=== PATIENT | female | born 1960 | race Caucasian/White ===

== ENCOUNTER 2024-08-27 04:17 | Observation (INO) | payer OTHER, SELFPAY ==
[2024-08-27] VITALS (10 sets, daily range): BP systolic 122–138; BP diastolic 60–82; PULSE 96–112; RESP 15–20; TEMP 36.1–38.1; O2SAT 97–100
--- NOTE | ~2024-08-27 | CT_ITS ---
Non-contrast CT scan of the Abdomen and Pelvis Clinical indication: Right flank pain Technique: 2.5 mm axial scans were obtained through the abdomen and pelvis without intravenous or or al contrast. Dose reduction technique was used on this scan by utilizing automated exposure control a nd iterative reconstruction technique. The dose-length product (DLP) was 605.94 mGy-cm. Findings: Images through the lung bases reveal no abnormalities. There are small nonobstructing right renal stones measuring up to 2-3 mm. There is mild prominence of a mid pole calyx. No radha hydronephrosis otherwise. No ureteral stone. Left kidney is markedly atro phic and replaced by innumerable small cysts. Status post cholecystectomy with small amount of pneumobilia. Calcified splenic granulomas are presen t. The liver, pancreas, and adrenals otherwise appear normal. There is no aortic aneurysm. There is no evidence of bowel obstruction. Small fat-containing umbilical hernia. Images through the pelvis were performed. There is no evidence of ascites or lymphadenopathy. Urinary bladder unremarkable. No pelvic mass seen. Impression: Small nonobstructing right renal stones. Mild dilatation of a right midpole calyx, nonspecific. Markedly atrophic left kidney replaced by a small cysts. Small fat-containing umbilical hernia. Reviewed, dictated and finalized at location . Impression: Small nonobstructing right renal stones. Mild dilatation of a right midpole kim yx, nonspecific. Markedly atrophic left kidney replaced by a small cysts. Small fat-containing umbilical hernia.
[2024-08-27 04:41] LABS: Basophils Absolute Auto 0.1 K/mm3 (0.0-0.1); Basophils Percent Auto 0.4 % (0.2-1.2); Eosinophils Absolute Auto 0.1 K/mm3 (0-0.3); Eosinophils Percent Auto 0.3 % (0-4.4); Hemoglobin 11.5 g/dL (12.0-15.0); Immature Granulocyte Absolute 0.13 K/mm3 (0.00-0.031); Immature Granulocyte Percent A 0.7 % (0-0.5); Lymphocytes Absolute Auto 3.24 K/mm3 (0.9-3.2); Lymphocytes Percent Auto 17.3 % (18.3-44.2); Mean Corpuscular HGB Conc 33.8 g/dl (32-36); Mean Corpuscular Hemoglobin 35.5 pg (26-34); Mean Corpuscular Volume 104.9 fl (80-100); Mean Platelet Volume 8.4 fl (7.4-10.4); Monocytes Absolute Auto 2.7 K/mm3 (0.1-0.6); Monocytes Percent Auto 14.5 % (2.6-8.5); Neutrophils Absolute Auto 12.5 K/mm3 (1.3-6.7); Neutrophils Percent Auto 66.8 % (45.5-73.1); Platelet Count Result 360 k/mm3 (150-375); Red Blood Count 3.24 M/mm3 (4.2-5.4); Red Cell Distribution Width 12.9 % (11.5-14.5); White Blood Count 18.7 K/mm3 (4.5-10.0)
--- NOTE | 2024-08-27 04:46 | ED.GENADULT ---
HPI - General Adult General Chief complaint: Urogenital-Female Stated complaint: uti Time Seen by Provider: 08/27/24 04:20 History of Present Illness HPI narrative: patient is 63-year-old female who presents emergency department with chief complaint of right flank pain. Patient reports she has a history of a single kidney patient reports he started having burning with urination as had a fever at home the patient states she is concerned that she may have a kidney infection verses a normal urinary tract infection. The patient was more concerned since she has a single kidney. The patient reports no prior history of kidney stones Related Data Allergies Allergy/AdvReac Type Severity Reaction Status Date / Time adhesive Allergy Unknown RASH Verified 08/27/24 04:23 raspberry Allergy Unknown HIVES Verified 08/27/24 04:23 Review of Systems Review of Systems: A 10 system review of systems was completed on the patient and is negative except for what is stated in the HPI. Nursing and ancillary documentation was reviewed. Exam Narrative: GENERAL: Well-appearing, well-nourished, and in no acute distress. HEAD: Normocephalic, atraumatic. EYES: PERRLA and EOMI. ENT: Nares clear, no rhinorrhea or epistaxis. Mucous membranes moist. NECK: Supple. CHEST: Clear to auscultation. No respiratory distress. HEART: Regular rate and rhythm. No murmur heard. Normal peripheral pulses. ABDOMEN: Soft, nontender, nondistended, normal active bowel sounds. EXTREMITIES: Normal range of motion. No edema. SKIN: Warm, dry, no rash. NEURO: No focal deficits. Alert and oriented x3. PSYCH: Normal mood and affect. Course Vital Signs Vital signs: Vital Signs Temperature 36.3 C L 08/27/24 04:21 Pulse Rate 112 H 08/27/24 04:21 Respiratory Rate 16 08/27/24 04:21 Blood Pressure 122/82 08/27/24 04:21 Pulse Oximetry 100 08/27/24 04:21 Oxygen Delivery Room Air 08/27/24 04:21 Temperature 36.3 C L 08/27/24 04:21 Pulse Rate 104 H 08/27/24 06:08 Respiratory Rate 15 08/27/24 06:08 Blood Pressure 124/80 08/27/24 06:08 Pulse Oximetry 100 08/27/24 06:08 Oxygen Delivery Room Air 08/27/24 04:21 Medical Decision Making MDM Narrative Medical decision making narrative: Differential diagnosis includes pyelonephritis, UTI, ureterolithiasis Laboratory studies were obtained showed white count of 18.7 urinalysis showed evidence of a large urinary tract infection. The patient is tender to palpation in the right flank area and CVA area patient was started on Rocephin case was discussed with the hospitalist the patient admitted for further care Vital Signs Vital Signs: Vital Signs Temperature 36.3 C L 08/27/24 04:21 Pulse Rate 112 H 08/27/24 04:21 Respiratory Rate 16 08/27/24 04:21 Blood Pressure 122/82 08/27/24 04:21 Pulse Oximetry 100 08/27/24 04:21 Oxygen Delivery Room Air 08/27/24 04:21 Temperature 36.3 C L 08/27/24 04:21 Pulse Rate 104 H 08/27/24 06:08 Respiratory Rate 15 08/27/24 06:08 Blood Pressure 124/80 08/27/24 06:08 Pulse Oximetry 100 08/27/24 06:08 Oxygen Delivery Room Air 08/27/24 04:21 Lab Data 08/27/24 04:37 08/27/24 04:37 Labs: Lab Results 08/27/24 08/27/24 Range/Units 04:37 05:24 WBC 18.7 H (4.5-10.0) K/mm3 RBC 3.24 L (4.2-5.4) M/mm3 Hgb 11.5 L (12.0-15.0) g/dL Hct 34.0 L (37.0-47.0) % MCV 104.9 H (80-100) fl MCH 35.5 H (26-34) pg MCHC 33.8 (32-36) g/dl RDW 12.9 (11.5-14.5) % Plt Count 360 (150-375) k/mm3 MPV 8.4 (7.4-10.4) fl Immature Gran % (Auto) 0.7 H (0-0.5) % Neut % (Auto) 66.8 (45.5-73.1) % Lymph % (Auto) 17.3 L (18.3-44.2) % Swisher % (Auto) 14.5 H (2.6-8.5) % Eos % (Auto) 0.3 (0-4.4) % Baso % (Auto) 0.4 (0.2-1.2) % Lymph # (Auto) 3.24 H (0.9-3.2) K/mm3 Swisher # (Auto) 2.7 H (0.1-0.6) K/mm3 Eos # (Auto) 0.1 (0-0.3) K/mm3 Baso #
[2024-08-27 04:53] LABS: Lactic Acid Reflex 0.9 mmol/L (0.7-2.0)
[2024-08-27 04:54] LABS: Alanine Aminotransferase 16 U/L (6-35); Albumin Level 3.9 g/dL (3.5-5.1); Alkaline Phosphatase 62 U/L (38-126); Anion Gap 13 mmol/L (4-12); Aspartate Amino Transferase 27 U/L (14-36); Bilirubin,Total 0.5 mg/dL (0.2-1.3); Blood Urea Nitrogen 16 mg/dL (7-17); Calcium 9.5 mg/dL (8.4-10.2); Carbon Dioxide 18 mmol/L (22-30); Chloride 104 mmol/L (98-107); Estimated CRCL calculation 43 ml/min; Estimated Glomerular Filt Rate 50; Glucose 138 mg/dL (65-110); Potassium 3.5 mmol/L (3.4-5.0); Sodium 135 mmol/L (137-145)
[2024-08-27 05:34] LABS: Add Urine Microscopic? YES; Appearance Urine Turbid (Clear); Bacteria Urine None Seen /hpf; Bilirubin Urine Negative (Negative); Blood Urine Non-Hemolyzed Trace (Negative); Color Urine Dark Yellow (Yellow); Glucose Urine UA Negative (Negative); Ketones Urine 3+ mg/dL (Negative); Leukocyte Esterase Ur 3+ LEU/UL (Negative); Nitrate Urine Negative (Negative); Non Pathogenic Casts 0-2; Protein Urine 2+ mg/dL (Negative); RBC Urine 0-2 /hpf (0-2); Specific Grav Ur 1.012 (1.001-1.035); Squamous Epithelial Cell Urine None Seen /hpf (Few); Urobilinogen Urine 0.2 mg/dL (<2.0); WBC Urine >100 /hpf (0-3); pH Urine 6.5 (5.0-9.0)
--- NOTE | 2024-08-27 07:25 | ADMGEN ---
This patient, Joan Gill, was admitted to 2 Medical Room 254-01. Patient/family oriented to hospital policies and general routines including ID bracelet, bed and alarms, visiting hours, pain management, procedures, bathroom and other care routines, personal items, smoking policy, room service/diet, and visiting hours. Information on how to activate the Rapid Response Team has been discussed. Patient/Family are encouraged to report perceived risks to care and to ask questions if they do not understand what they are told or what they should do.
--- NOTE | 2024-08-27 08:16 | PM.IMHP ---
H&P: HPI History of Present Illness Date/Time: 08/27/24 08:16 Chief Complaint: Cloudy urine, urinary frequency, dysuria Narrative: This is a pleasant 63-year-old female with a past medical history significant for gout, hyperlipidemia, hypertension, and diabetes Who presented to the emergency room with complaints of dysuria and cloudy urine. She feels she has a urinary tract infection. The patient provides the following history. Earlier this week she started to notice burning with urination, cloudy urine, and right flank pain. She reports having a fever of 102 which did not improve with Tylenol. She has also had general malaise. Today she is seen after being admitted to medical-surgical floor and is eating lunch. Already she is starting to feel better. She does report 1 episode of nausea without vomiting occurring last night. The patient has had urinary tract infections before and essentially only has 1 working kidney so she came to the hospital anticipating IV antibiotics. In the emergency room labs were significant for leukocytosis 18.7 hemoglobin 11.5 sodium 135, CO2 18, anion gap 13, and creatinine 1.10. Lactic acid was normal. Urinalysis was indicative of infection with turbid dark urine, 2+ protein, 3+ ketone, 3+ leukocytes, and pyuria. Urine and blood cultures are pending. CT abdomen and pelvis showed small nonobstructing right renal stone, atrophic left kidney with small cyst, and small fat containing umbilical hernia. Vital signs on arrival 97.4, pulse 112, 122/82, and 100% on room air, respirations 16. The patient was admitted for observation for treatment of urinary tract infection and pyelonephritis. 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 She lives at home with her significant other Lexx merrill. Her son Lexx crawford is her emergency contact. She does not smoke nor has she ever and she does not drink alcohol. She also denies drug use. Smoking status: Never smoker Alcohol intake: never Substance use: never Do You Feel Safe in your Home?: Yes Lack of Transportation: No Lack of Food: Never True Current Housing: I Have Housing Concerned About Future Housing: No Difficulty Paying Gas/Electric Bills: No Difficulty Paying for Meds: No Currently Unemployed: No Education: High School Diploma/GED Difficulty w/ Childcare or Family Care: No Living arrangements: with family Occupation/Education: occupation Spiritual care concerns: No Meds Home Medications and Allergies Home Medications Medication Instructions Recorded Confirmed Type allopurinol 100 mg tablet 100 mg BID 08/27/24 08/27/24 History atorvastatin 10 mg tablet 10 mg PO DAILY 08/27/24 08/27/24 History calcitriol 0.5 mcg capsule 0.5 mcg BID 08/27/24 08/27/24 History diltiazem malate 180 mg 180 mg PO DAILY 08/27/24 08/27/24 History tablet,extended release 24 hr fesoterodine 4 mg tablet,extended 4 mg PO DAILY 08/27/24 08/27/24 History release 24 hr folic acid 1 mg tablet 1 mg DAILY 08/27/24 08/27/24 History losartan 25 mg tablet 25 mg PO DAILY 08/27/24 08/27/24 History metformin 500 mg tablet 500 mg PO DAILY 08/27/24 08/27/24 History montelukast 10 mg tablet 10 mg PO HS 08/27/24 08/27/24 History prednisone 5 mg tablet 5 mg PO DIRECT
--- NOTE | 2024-08-27 08:21 | ECG_ITS ---
Test Date: 2024-08-27 08:51:56 Measurements Intervals [place] Rate: 105 P: 55 UT: 171 QRS: 4 QRSD: 84 T: 20 QT: 340 QTc: 451 Interpretive Statements SINUS TACHYCARDIA LOW QRS VOLTAGE IN PRECORDIAL LEADS [QRS DEFLECTION < 1.0 mV IN CHEST LEADS] SEPTAL MYOCARDIAL INFARCTION [40+ ms Q WAVE IN V1/V2], PROBABLY OLD No previous ECG available for comparison Electronically Signed On 08-27-2024 10:42:21 CDT by Tone Sears M.D.
[2024-08-27] MEDS: dilTIAZem HCL CD 180 MG CAP.24HR PO (09:25)
[2024-08-27] MEDS: FOLIC ACID 1 MG TABLET PO (09:25)
[2024-08-27] MEDS: sulfaSALAzine 500 MG TABLET PO ×2 (09:25→16:05)
[2024-08-27] MEDS: ATORVASTATIN 10 MG TABLET PO (09:25)
[2024-08-27] MEDS: allopurinoL 100 MG TABLET PO ×2 (09:25→16:05)
[2024-08-27] MEDS: ENOXAPARIN 40 MG/0.4 ML SYRINGE SUB-Q (09:26)
[2024-08-27] MEDS: SODIUM CHLORIDE 0.9% IV 1,000 ML 50 ML IV CONT (09:36)
[2024-08-27] MEDS: SODIUM CHLORIDE 0.9% IV 500 ML IV CONT (09:37)
[2024-08-27] MEDS: PHENAZOPYRIDINE HCL 100 MG TABLET 200 MG PO ×2 (11:10→16:05)
[2024-08-27] MEDS: ACETAMINOPHEN 500 MG TABLET PO (16:05)
[2024-08-27 20:49] LABS: Glucose Point of Care 129 mg/dl (65-105)
[2024-08-27] MEDS: MONTELUKAST SODIUM 10 MG TABLET PO (20:53)
[2024-08-28] MEDS: SODIUM CHLORIDE 0.9% IV 1,000 ML 100 ML IV CONT (00:10)
[2024-08-28 03:49] VITALS: BP 126/68; PULSE 99; RESP 18; TEMP 36.5; O2SAT 99
[2024-08-28 05:16] LABS: Basophils Absolute Auto 0.1 K/mm3 (0.0-0.1); Basophils Percent Auto 0.4 % (0.2-1.2); Eosinophils Absolute Auto 0.2 K/mm3 (0-0.3); Eosinophils Percent Auto 1.5 % (0-4.4); Hematocrit 31.6 % (37.0-47.0); Hemoglobin 10.5 g/dL (12.0-15.0); Immature Granulocyte Absolute 0.05 K/mm3 (0.00-0.031); Immature Granulocyte Percent A 0.4 % (0-0.5); Lymphocytes Absolute Auto 2.53 K/mm3 (0.9-3.2); Lymphocytes Percent Auto 21.7 % (18.3-44.2); Mean Corpuscular HGB Conc 33.2 g/dl (32-36); Mean Corpuscular Hemoglobin 35.2 pg (26-34); Mean Platelet Volume 8.4 fl (7.4-10.4); Monocytes Percent Auto 17.3 % (2.6-8.5); Neutrophils Absolute Auto 6.8 K/mm3 (1.3-6.7); Neutrophils Percent Auto 58.7 % (45.5-73.1); Platelet Count Result 317 k/mm3 (150-375); Red Blood Count 2.98 M/mm3 (4.2-5.4); Red Cell Distribution Width 12.9 % (11.5-14.5); White Blood Count 11.7 K/mm3 (4.5-10.0)
[2024-08-28] MEDS: ACETAMINOPHEN 500 MG TABLET PO ×3 (05:17→20:31)
[2024-08-28] MEDS: traMADol HCL (*CRX) 50 MG TABLET PO ×3 (05:18→20:32)
[2024-08-28 05:32] LABS: Alanine Aminotransferase 12 U/L (6-35); Albumin Level 3.4 g/dL (3.5-5.1); Alkaline Phosphatase 54 U/L (38-126); Anion Gap 8 mmol/L (4-12); Aspartate Amino Transferase 20 U/L (14-36); Bilirubin,Total 0.3 mg/dL (0.2-1.3); Blood Urea Nitrogen 11 mg/dL (7-17); Calcium 8.6 mg/dL (8.4-10.2); Carbon Dioxide 21 mmol/L (22-30); Chloride 110 mmol/L (98-107); Estimated CRCL calculation 59 ml/min; Estimated Glomerular Filt Rate > 60; Glucose 118 mg/dL (65-110); Magnesium 1.5 mg/dL (1.6-2.3); Potassium 3.5 mmol/L (3.4-5.0); Sodium 139 mmol/L (137-145)
[2024-08-28 05:49] LABS: Anisocytosis 1+; Macrocytosis 1+ (NORMAL); Platelet Estimate Adequate (Adequate); Schistocytes None Seen
--- NOTE | 2024-08-28 07:14 | PM.IMPN ---
Progress Note: A&P Assessment and Plan (1) Pyelonephritis: Code(s): N12 - Tubulo-interstitial nephritis, not specified as acute or chronic Status: Acute Assessment and Plan: Patient with right flank tenderness and urinary tract infection. See remainder of plan under 2 (2) Urinary tract infection: Code(s): N39.0 - Urinary tract infection, site not specified Status: Acute Assessment and Plan: Patient presents with symptoms of dysuria, urinary frequency, and cloudy urine. Symptoms started on Friday. Leukocytosis of 18 on arrival with tachycardia. Patient is afebrile and lactic is negative. Urine and blood cultures pending Started on Rocephin Daily CBC. WBC is down trending Monitor for febrile illness. Repeat blood cultures if febrile. Tylenol for fever IV bolus 1 L NS now and started on maintenance fluids at 100 ml per hour. Tolerating a regular diet. Will stop fluids today. Regular diet (3) Tachycardia: Code(s): R00.0 - Tachycardia, unspecified Status: Acute Assessment and Plan: Likely secondary to infection EKG ordered. Shows sinus tach. Resuming Cardizem (4) Diabetes: Code(s): E11.9 - Type 2 diabetes mellitus without complications Status: Acute Assessment and Plan: Patient reports her hemoglobin A1c is less than 6%. Takes metformin at home. Hold metformin Monitor glucose on BMP Regular diet Subjective Date/time seen: 08/28/24 07:14 Interval history: No acute events overnight. Her right flank tenderness is improving. She is tolerating a diet. Overall she continues to feel better. Review of Systems Review of Systems: All systems reviewed & are unremarkable except as noted in HPI and below Exam Narrative: General: appears comfortable, in no acute distress Respiratory: breathing is unlabored with even chest rise/fall, lungs are clear without wheezing, rhonchi, and crackles Cardiovascular: Rate and rhythm regular, normal s1s2, no murmur Abdomen: Soft, round, non-tender, active bowel sounds; less right flank tenderness Extremities: No cyanosis, edema, clubbing. Pulses 2/2 Neuro: A&O x 4 Skin: Warm, dry, intact Objective Data Vital Signs Vital Signs: Vital Signs - 24 hr 08/27/24 16:05 08/27/24 14:00 08/27/24 17:00 Temperature 100.5 F H 100.5 F H 96.9 F L Pulse Rate 100 Respiratory Rate 20 Blood Pressure 138/69 Pulse Oximetry 100 Oxygen Delivery 08/27/24 17:05 08/27/24 19:46 08/27/24 19:58 Temperature 96.9 F L 97.7 F Pulse Rate 96 96 Respiratory Rate 20 20 Blood Pressure 129/60 Pulse Oximetry 99 99 Oxygen Delivery Room Air 08/28/24 03:49 08/27/24 20:55 Temperature 97.7 F Pulse Rate 99 Respiratory Rate 18 Blood Pressure 126/68 Pulse Oximetry 99 99 Oxygen Delivery Room Air Intake/Output Intake/Output: Intake & Output 08/25/24 08/26/24 08/27/24 08/28/24 23:59 23:59 23:59 23:59 Intake Total 3110.0 490 Balance 3110.0 490 Meds/Results Medications: Active Medications Generic Name Dose Route Start Last Admin Trade Name Freq PRN Reason Stop Dose Admin Acetaminophen 500 mg 08/27/24 08:24 08/28/24 05:17 Acetaminophen 500 Mg Tablet PO 500 mg Q4H PRN Administration Mild Pain (1-3) or Fever Allopurinol 100 mg 08/27/24 09:00 08/27/24 16:05 Allopurinol 100 Mg Tablet PO 100 mg BID CATHERINE Administration Atorvastatin Calcium 10 mg 08/27/24 09:00 08/27/24 09:25 Atorvastatin 10 Mg Tablet PO 10 mg DAILY CATHERINE Administration Diltiazem HCl 180 mg 08/27/24 09:00 08/27/24 09:25 Diltiazem Hcl Cd 180 Mg Cap.24hr PO 180 mg QAM CATHERINE Administration Enoxaparin Sodium 40 mg 08/27/24 09:00 08/27/24 09:26 Enoxaparin 40 Mg/0.4 Ml Syringe SUB-Q 40 mg DAILY CATHERINE Administration Folic Acid 1 mg 08/27/24 09:00 08/27/24 09:25 Folic Acid 1 Mg Tablet PO 1 mg DAILY CATHERINE Administration Ceftriaxone Sodium
[2024-08-28 08:01] LABS: Glucose Point of Care 128 mg/dl (65-105)
[2024-08-28] MEDS: PHENAZOPYRIDINE HCL 100 MG TABLET 200 MG PO ×3 (08:27→16:54)
[2024-08-28] MEDS: FOLIC ACID 1 MG TABLET PO (08:27)
[2024-08-28] MEDS: dilTIAZem HCL CD 180 MG CAP.24HR PO (08:27)
[2024-08-28] MEDS: sulfaSALAzine 500 MG TABLET PO ×2 (08:27→16:54)
[2024-08-28] MEDS: MAGNESIUM OXIDE 400 MG TABLET PO (08:27)
[2024-08-28] MEDS: allopurinoL 100 MG TABLET PO ×2 (08:27→16:54)
[2024-08-28] MEDS: ATORVASTATIN 10 MG TABLET PO (08:27)
[2024-08-28] MEDS: ENOXAPARIN 40 MG/0.4 ML SYRINGE SUB-Q (08:27)
[2024-08-28 11:58] LABS: Glucose Point of Care 120 mg/dl (65-105)
[2024-08-28 14:00] VITALS: BP 130/60; PULSE 105; RESP 18; TEMP 36.6; O2SAT 97
[2024-08-28 16:56] LABS: Glucose Point of Care 115 mg/dl (65-105)
[2024-08-28 20:21] LABS: Glucose Point of Care 175 mg/dl (65-105)
[2024-08-28] MEDS: MONTELUKAST SODIUM 10 MG TABLET PO (20:31)
[2024-08-28 21:09] VITALS: O2SAT 98
[2024-08-28 22:00] VITALS: BP 144/80; PULSE 98; RESP 18; TEMP 36.7; O2SAT 98
[2024-08-29] MEDS: ONDANSETRON INJ 4 MG/2 ML VIAL IV PUSH ×2 (03:06→09:10)
[2024-08-29] MEDS: ACETAMINOPHEN 500 MG TABLET PO ×2 (03:28→08:14)
[2024-08-29 05:06] LABS: Basophils Absolute Auto 0.1 K/mm3 (0.0-0.1); Basophils Percent Auto 0.8 % (0.2-1.2); Eosinophils Absolute Auto 0.2 K/mm3 (0-0.3); Eosinophils Percent Auto 2.6 % (0-4.4); Hematocrit 34.1 % (37.0-47.0); Hemoglobin 10.9 g/dL (12.0-15.0); Immature Granulocyte Absolute 0.05 K/mm3 (0.00-0.031); Immature Granulocyte Percent A 0.6 % (0-0.5); Lymphocytes Absolute Auto 2.31 K/mm3 (0.9-3.2); Lymphocytes Percent Auto 26.9 % (18.3-44.2); Mean Corpuscular Hemoglobin 34.5 pg (26-34); Mean Corpuscular Volume 107.9 fl (80-100); Mean Platelet Volume 8.4 fl (7.4-10.4); Monocytes Absolute Auto 1.2 K/mm3 (0.1-0.6); Monocytes Percent Auto 14.3 % (2.6-8.5); Neutrophils Absolute Auto 4.7 K/mm3 (1.3-6.7); Neutrophils Percent Auto 54.8 % (45.5-73.1); Platelet Count Result 339 k/mm3 (150-375); Red Blood Count 3.16 M/mm3 (4.2-5.4); Red Cell Distribution Width 12.7 % (11.5-14.5); White Blood Count 8.6 K/mm3 (4.5-10.0)
[2024-08-29 05:22] LABS: Alanine Aminotransferase 12 U/L (6-35); Albumin Level 3.5 g/dL (3.5-5.1); Alkaline Phosphatase 50 U/L (38-126); Anion Gap 8 mmol/L (4-12); Aspartate Amino Transferase 20 U/L (14-36); Bilirubin,Total 0.3 mg/dL (0.2-1.3); Blood Urea Nitrogen 9 mg/dL (7-17); Calcium 8.8 mg/dL (8.4-10.2); Carbon Dioxide 24 mmol/L (22-30); Chloride 109 mmol/L (98-107); Estimated CRCL calculation 58 ml/min; Estimated Glomerular Filt Rate > 60; Glucose 144 mg/dL (65-110); Magnesium 1.8 mg/dL (1.6-2.3); Potassium 3.7 mmol/L (3.4-5.0); Sodium 141 mmol/L (137-145)
[2024-08-29 06:00] VITALS: BP 121/62; PULSE 93; RESP 18; TEMP 36.5; O2SAT 97
--- NOTE | 2024-08-29 07:17 | PM.IMPN ---
Progress Note: A&P Assessment and Plan (1) Pyelonephritis: Code(s): N12 - Tubulo-interstitial nephritis, not specified as acute or chronic Status: Acute Assessment and Plan: Patient with right flank tenderness and urinary tract infection. See remainder of plan under 2 (2) Urinary tract infection: Code(s): N39.0 - Urinary tract infection, site not specified Status: Acute Assessment and Plan: Patient presents with symptoms of dysuria, urinary frequency, and cloudy urine. Symptoms started on Friday. Leukocytosis of 18 on arrival with tachycardia. Patient is afebrile and lactic is negative. Urine culture is growing gram negative bacilli and blood cultures with NGTD Started on Rocephin Daily CBC. Leukocytosis has resolved. Monitor for febrile illness. Repeat blood cultures if febrile. Tylenol for fever Regular diet (3) Tachycardia: Code(s): R00.0 - Tachycardia, unspecified Status: Acute Assessment and Plan: Likely secondary to infection EKG ordered. Shows sinus tach. Resuming Cardizem (4) Diabetes: Code(s): E11.9 - Type 2 diabetes mellitus without complications Status: Acute Assessment and Plan: Patient reports her hemoglobin A1c is less than 6%. Takes metformin at home. Hold metformin Monitor glucose on BMP Regular diet Subjective Date/time seen: 08/29/24 07:17 Review of Systems Review of Systems: All systems reviewed & are unremarkable except as noted in HPI and below Exam Narrative: General: appears comfortable, in no acute distress Respiratory: breathing is unlabored with even chest rise/fall, lungs are clear without wheezing, rhonchi, and crackles Cardiovascular: Rate and rhythm regular, normal s1s2, no murmur Abdomen: Soft, round, non-tender, active bowel sounds; less right flank tenderness Extremities: No cyanosis, edema, clubbing. Pulses 2/2 Neuro: A&O x 4 Skin: Warm, dry, intact Objective Data Vital Signs Vital Signs: Vital Signs - 24 hr 08/28/24 14:00 08/28/24 22:00 08/28/24 20:00 Temperature 98 F 98.0 F Pulse Rate 105 H 98 Respiratory Rate 18 18 Blood Pressure 130/60 144/80 H Pulse Oximetry 97 98 Oxygen Delivery Room Air 08/28/24 21:09 08/29/24 06:00 Temperature 97.7 F Pulse Rate 93 Respiratory Rate 18 Blood Pressure 121/62 Pulse Oximetry 98 97 Oxygen Delivery Room Air Intake/Output Intake/Output: Intake & Output 08/26/24 08/27/24 08/28/24 08/29/24 23:59 23:59 23:59 23:59 Intake Total 3110.0 2196.7 Balance 3110.0 2196.7 Meds/Results Medications: Active Medications Generic Name Dose Route Start Last Admin Trade Name Freq PRN Reason Stop Dose Admin Acetaminophen 500 mg 08/27/24 08:24 08/29/24 03:28 Acetaminophen 500 Mg Tablet PO 500 mg Q4H PRN Administration Mild Pain (1-3) or Fever Allopurinol 100 mg 08/27/24 09:00 08/28/24 16:54 Allopurinol 100 Mg Tablet PO 100 mg BID CATHERINE Administration Atorvastatin Calcium 10 mg 08/27/24 09:00 08/28/24 08:27 Atorvastatin 10 Mg Tablet PO 10 mg DAILY CATHERINE Administration Diltiazem HCl 180 mg 08/27/24 09:00 08/28/24 08:27 Diltiazem Hcl Cd 180 Mg Cap.24hr PO 180 mg QAM CATHERINE Administration Enoxaparin Sodium 40 mg 08/27/24 09:00 08/28/24 08:27 Enoxaparin 40 Mg/0.4 Ml Syringe SUB-Q 40 mg DAILY CATHERINE Administration Folic Acid 1 mg 08/27/24 09:00 08/28/24 08:27 Folic Acid 1 Mg Tablet PO 1 mg DAILY CATHERINE Administration Ceftriaxone Sodium 1 gm in 50 mls @ 100 mls/hr 08/28/24 06:00 08/29/24 05:59 Rocephin 1 Gm/Ns 50 Ml IVPB 100 mls/hr Q24H CATHERINE Administration Magnesium Oxide 400 mg 08/28/24 09:00 08/28/24 08:27 Magnesium Oxide 400 Mg Tablet PO 400 mg DAILY CATHERINE Administration Montelukast Sodium 10 mg 08/27/24 21:00 08/28/24 20:31 Montelukast Sodium 10 Mg Tablet PO 10 mg HS CATHERINE Administration Ondansetron HCl 4 mg 1
[2024-08-29 07:18] VITALS: O2SAT 98
[2024-08-29 08:02] LABS: Glucose Point of Care 125 mg/dl (65-105)
[2024-08-29] MEDS: sulfaSALAzine 500 MG TABLET PO (08:13)
[2024-08-29] MEDS: MAGNESIUM OXIDE 400 MG TABLET PO (08:13)
[2024-08-29] MEDS: allopurinoL 100 MG TABLET PO (08:13)
[2024-08-29] MEDS: PHENAZOPYRIDINE HCL 100 MG TABLET 200 MG PO ×2 (08:13→12:52)
[2024-08-29] MEDS: ATORVASTATIN 10 MG TABLET PO (08:13)
[2024-08-29] MEDS: FOLIC ACID 1 MG TABLET PO (08:13)
[2024-08-29] MEDS: ENOXAPARIN 40 MG/0.4 ML SYRINGE SUB-Q (08:13)
[2024-08-29] MEDS: dilTIAZem HCL CD 180 MG CAP.24HR PO (08:13)
--- NOTE | 2024-08-29 10:40 | PM.DS ---
DS: Admitting Diagnosis Discharge Date 08/29 Admitting Diagnosis dysuria DS: Discharge Diagnosis Discharge Diagnosis (1) Pyelonephritis: Code(s): N12 - Tubulo-interstitial nephritis, not specified as acute or chronic Status: Acute (2) Urinary tract infection: Code(s): N39.0 - Urinary tract infection, site not specified Status: Acute (3) Tachycardia: Code(s): R00.0 - Tachycardia, unspecified Status: Acute (4) Diabetes: Code(s): E11.9 - Type 2 diabetes mellitus without complications Status: Acute Plan (1) Pyelonephritis: Code(s): N12 - Tubulo-interstitial nephritis, not specified as acute or chronic Status: Acute Assessment and Plan: Patient with right flank tenderness and urinary tract infection. See remainder of plan under 2 (2) Urinary tract infection: Code(s): N39.0 - Urinary tract infection, site not specified Status: Acute Assessment and Plan: Patient presents with symptoms of dysuria, urinary frequency, and cloudy urine. Symptoms started on Friday. Leukocytosis of 18 on arrival with tachycardia. Patient is afebrile and lactic is negative. Urine and blood cultures pending Started on Rocephin Daily CBC. WBC is down trending Monitor for febrile illness. Repeat blood cultures if febrile. Tylenol for fever IV bolus 1 L NS now and started on maintenance fluids at 100 ml per hour. Tolerating a regular diet. Will stop fluids today. Regular diet (3) Tachycardia: Code(s): R00.0 - Tachycardia, unspecified Status: Acute Assessment and Plan: Likely secondary to infection EKG ordered. Shows sinus tach. Resuming Cardizem (4) Diabetes: Code(s): E11.9 - Type 2 diabetes mellitus without complications Status: Acute Assessment and Plan: Patient reports her hemoglobin A1c is less than 6%. Takes metformin at home. Hold metformin Monitor glucose on BMP Regular diet DS: Summary Hospital Course Reason for hospitalization: Urinary tract infection, pyelonephritis Hospital Course: This is a pleasant 63-year-old female with a past medical history significant for gout, hyperlipidemia, hypertension, and diabetes Who presented to the emergency room with complaints of dysuria and cloudy urine. She feels she has a urinary tract infection. The patient provides the following history. Earlier this week she started to notice burning with urination, cloudy urine, and right flank pain. She reports having a fever of 102 which did not improve with Tylenol. She has also had general malaise. Today she is seen after being admitted to medical-surgical floor and is eating lunch. Already she is starting to feel better. She does report 1 episode of nausea without vomiting occurring last night. The patient has had urinary tract infections before and essentially only has 1 working kidney so she came to the hospital anticipating IV antibiotics. In the emergency room labs were significant for leukocytosis 18.7 hemoglobin 11.5 sodium 135, CO2 18, anion gap 13, and creatinine 1.10. Lactic acid was normal. Urinalysis was indicative of infection with turbid dark urine, 2+ protein, 3+ ketone, 3+ leukocytes, and pyuria. Urine and blood cultures are pending. CT abdomen and pelvis showed small nonobstructing right renal stone, atrophic left kidney with small cyst, and small fat containing umbilical hernia. Vital signs on arrival 97.4, pulse 112, 122/82, and 100% on room air, respirations 16. The patient was admitted for observation for treatment of urinary tract infection and pyelonephritis. The patient was treated with IV Rocephin. Her leukocytosis resolved as well as her symptoms of dysuria, right flank pain, nausea and vomiting. Urine culture grew Klebsiella pneumoniae sensitive to Augmentin. She is tolerating a diet vital signs are stable. Overall she did well was able to discharge in stable condition with oral ant
[2024-08-29] MEDS: ACETAMINOPHEN/BUTALBITAL/CAFFEINE 325-50-40 MG TABLET (FIORICET) 1 TAB PO (10:46)
== END 2024-08-29 13:51 | disposition home or self-care (01) ==
LOC: ANHED 06:43 → ANH2MED 16:08
PROVIDERS: Nurse Practitioner Acute Care; Admitting Provider Internal Medicine; Emergency Provider Emergency Medicine; PCP Internal Medicine; Visit Provider Internal Medicine
DX: N12 Tubulo-interstitial nephritis, not specified as acute or chronic (principal); N39.0 Urinary tract infection, site not specified; B96.1 Klebsiella pneumoniae [K. pneumoniae] as the cause of diseases classified elsewhere; R00.0 Tachycardia, unspecified; E11.9 Type 2 diabetes mellitus without complications; D72.829 Elevated white blood cell count, unspecified; I10 Essential (primary) hypertension; E78.5 Hyperlipidemia, unspecified; M10.9 Gout, unspecified; L40.50 Arthropathic psoriasis, unspecified; Q63.9 Congenital malformation of kidney, unspecified; Z90.5 Acquired absence of kidney; Z79.899 Other long term (current) drug therapy
CPT/HCPCS: 36415; 74176; 80053; 81001; 82948; 83605; 83735; 85025; 87040; 87077; 87086; 87186; 93005; 96361; 96365; 96372; 96374; 96376; 99285; A9270; G0378; J0696; J1650; J2405; J7030; J7040

== ENCOUNTER 2024-11-12 14:24 | Emergency (ER) | payer OTHER, SELFPAY ==
--- NOTE | ~2024-11-12 | CT_ITS ---
EXAMINATION: CT brain wo con DATE: 11/12/2024 15:13 INDICATION: Head injury. Fall. TECHNIQUE: Computed tomography (CT) of the head was performed without intravenous contrast. The mA wa s adjusted according to patient size. Iterative reconstruction technique was employed. The dose-lengt h product was 529.67 mGy-cm. COMPARISON: None FINDINGS: There is an acute subdural hematoma overlying the left frontal and temporal lobes with maxi mum thickness of 6 mm. There is an empty sella. There is no acute ischemic infarct or abnormal mass l esion. The ventricles are normal in size. There is right posterior scalp soft tissue swelling. There is mild mucosal thickening in the ethmoid sinuses. There is a small left mastoid effusion. IMPRESSION: 1. Acute subdural hematoma overlying left frontal and temporal lobes. I called this result to Dr. Tomás navarro. Reviewed, dictated and finalized at location A. ESSING CLERK IMPRESSION: 1. Acute subdural hematoma overlying left frontal and temporal lobes. I called this result to Dr. Gil.
--- NOTE | ~2024-11-12 | CT_ITS ---
EXAMINATION: CT cervical spine wo con DATE: 11/12/2024 15:14 INDICATION: Neck injury. Fall. TECHNIQUE: Computed tomography (CT) of the cervical spine was performed without intravenous contrast. Automated exposure control and iterative reconstruction technique were employed. The dose-length pro duct was 264.19 mGy-cm. COMPARISON: None FINDINGS: There is a 13 mm nodule in left thyroid lobe, likely not clinically significant. C1 ring is ununited posteriorly, a normal variant. There is mild kyphosis of cervical spine. Vertebral body hei ghts are normal. There is severely decreased disc height at C5-C6 and C6-C7. The following disc level s are specifically discussed: C2-C3: There is no uncovertebral joint osteoarthritis. There is mild right and severe left facet join t osteoarthritis. There is mild left neural foraminal stenosis. There is no central canal stenosis. C3-C4: There is mild right uncovertebral joint osteoarthritis. There is severe right and moderate lef t facet joint osteoarthritis. There is mild right neural foraminal stenosis. There is no central neo l stenosis. C4-C5: There is no uncovertebral joint osteoarthritis. There is mild right facet joint osteoarthritis . There is mild bilateral neural foraminal stenosis. There is no central canal stenosis. C5-C6: There is severe bilateral uncovertebral joint osteoarthritis. There is mild right and moderate left facet joint osteoarthritis. There is mild bilateral neural foraminal stenosis. There is moderat e central canal stenosis. C6-C7: There is severe bilateral uncovertebral joint osteoarthritis. There is mild right and moderate left facet joint osteoarthritis. There is mild bilateral neural foraminal stenosis. There is moderat e central canal stenosis. C7-T1: There is no uncovertebral joint osteoarthritis. There is mild bilateral facet joint osteoarthr itis. There is no neural foraminal stenosis. There is no central canal stenosis. IMPRESSION: 1. No fracture. 2. Severe cervical spondylosis. Reviewed, dictated and finalized at location A. TH AIDE
[2024-11-12 14:27] VITALS: BP 148/86; PULSE 109; RESP 20; TEMP 36.4; O2SAT 100
[2024-11-12 15:01] VITALS: BP 139/83; PULSE 96; RESP 16; O2SAT 99
--- NOTE | 2024-11-12 15:29 | ED.FALL ---
HPI - Fall General Chief Complaint: Fall Stated Complaint: fell/head lac Time Seen by Provider: 11/12/24 14:55 History of Present Illness HPI Narrative: Patient is a 64-year-old female who presents ER after a fall. She got out of her car and stepped in a pothole and fell backwards striking her head. No LOC but she does have a break in skin. Since the fall she has been feeling lightheaded/dizzy and she also reports that her hearing is muffled but she is able to communicate with me. She was trying out some new hearing aids today but reports that her hearing now is worse than when she did not have hearing aids. Tetanus shot updated last year. Related Data Home Medications ?Medication ?Instructions ?Recorded ?Confirmed ?Last Taken ?Type allopurinol 100 mg tablet 100 mg BID 08/27/24 08/27/24 1 Day Ago History ~08/26/24 atorvastatin 10 mg tablet 10 mg PO DAILY 08/27/24 08/27/24 1 Day Ago History ~08/26/24 calcitriol 0.5 mcg capsule 0.5 mcg BID 08/27/24 08/27/24 1 Day Ago History ~08/26/24 diltiazem malate 180 mg 180 mg PO DAILY 08/27/24 08/27/24 1 Day Ago History tablet,extended release 24 hr ~08/26/24 fesoterodine 4 mg tablet,extended 4 mg PO DAILY 08/27/24 08/27/24 1 Day Ago History release 24 hr ~08/26/24 folic acid 1 mg tablet 1 mg DAILY 08/27/24 08/27/24 1 Day Ago History ~08/26/24 losartan 25 mg tablet 25 mg PO DAILY 08/27/24 08/27/24 1 Day Ago History ~08/26/24 metformin 500 mg tablet 500 mg PO DAILY 08/27/24 08/27/24 1 Day Ago History ~08/26/24 montelukast 10 mg tablet 10 mg PO HS 08/27/24 08/27/24 1 Day Ago History ~08/26/24 prednisone 5 mg tablet 5 mg PO DIRECTED PRN when i 08/27/24 08/27/24 1 Day Ago History need it ~08/26/24 sulfasalazine 500 mg 500 mg PO BID 08/27/24 08/27/24 1 Day Ago History tablet,delayed release ~08/26/24 tramadol 50 mg tablet 50 mg PO Q6H PRN pain 08/27/24 08/27/24 1 Day Ago History ~08/26/24 Allergies Allergy/AdvReac Type Severity Reaction Status Date / Time adhesive Allergy Unknown RASH Verified 08/27/24 04:23 raspberry Allergy Unknown HIVES Verified 08/27/24 04:23 Review of Systems Review of Systems: All systems reviewed & are unremarkable except as noted in HPI and below Constitutional: Constitutional: Reports no additional constitutional complaints ENT: Reports system reviewed and no additional complaints, except as documented Cardiovascular: Cardiovascular: Reports no additional cardiovascular complaints Respiratory: Respiratory: Reports no additional respiratory complaints Integumentary/Breasts: Skin/Breast: Reports system reviewed and no additional complaints, except as docu PMFSH Past Medical History Medical History delivery delivered Congenital abnormality of kidney Diabetes Gout Hyperlipidemia Hypertension Psoriatic arthritis Surgical History Surgical History History of ear surgery Hx of breast reduction, elective Hx of cholecystectomy S/P tonsillectomy and adenoidectomy Social History Social History (Updated 08/27/24 @ 16:31 by Gretchen Callejas APRN) Social History: 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 She lives at home with her significant other Lexx merrill. Her son Lexx crawford is her emergency contact. She does not smoke nor has she ever and she does not drink alcohol. She also denies drug use. Smoking status: Never smoker Alcohol intake: never Substance use: never Do You Feel Safe in your Home?: Yes Lack of Transportation: No Lack of Food: Never True Current Housing: I Have Housing Concerned About Future Housing: No Difficulty Paying Gas/Electric Bills: No Difficulty Paying for Meds: No Currently Unemployed: No Education: High School Diploma/GED Difficulty w/ Childcare or Family Care: No Living arrangements: with family Occupation/Education: occupation Spiritual care concerns: No Exam Narrative: GENERAL: Well-appearing, well-nourished, and in no acute distress. HEAD: Normocephalic, atraumatic. Abrasion right posterior scalp. ENT: Mucous membranes moist. Tympanic membranes normal bilaterally. NECK: Supple. No midline tenderness of the C-spine. Normal range of motion. CHEST: Clear to auscultation. No respiratory distress. HEART: Regular rate and rhythm. Normal peripheral pulses. ABDOMEN: Soft, nontender, nondistended, normal active bowel sounds. EXTREMITIES: Normal range of motion. No edema. SKIN: Warm, dry, no rash. NEURO: Alert and oriented x3. PSYCH: Normal mood and affect. Course Course Emergency Course: 154: Accepted to [facility] ER by Dr. Goldberg. Patient and family educated on diagnosis and treatment plan. Vital Signs Vital signs: Vital Signs Temperature 97.6 F 11/12/24 14:27 Pulse Rate 109 H 11/12/24 14:27 Respiratory Rate 20 11/12/24 14:27 Blood Pressure 148/86 H 11/12/24 14:27 Pulse Oximetry 100 11/12/24 14:27 Oxygen Delivery Room Air 11/12/24 14:27 Temperature 97.6 F 11/12/24 14:27 Pulse Rate 109 H 11/12/24 14:27 Respiratory Rate 20 11/12/24 14:27 Blood Pressure 148/86 H 11/12/24 14:27 Pulse Oximetry 100 11/12/24 14:27 Oxygen Delivery Room Air 11/12/24 14:27 MDM - Fall Imaging Data Radiologist's impression: ITS Impressions Head CT 11/12/24 15:18 IMPRESSION: 1. Acute subdural hematoma overlying left frontal and temporal lobes. I called this result to Dr. Gil. Cervical Spine CT 11/12/24 15:23 IMPRESSION: 1. No fracture. 2. Severe cervical spondylosis. Critical Care Time Critical Care Time Critical Care Time: Yes Total Critical Care Time: 35 Discharge Plan Discharge Clinical Impression: Subdural hemorrhage Patient Disposition: Acute Care Hospital Condition: Stable Patient Language: Scottish Prescriptions: No Action calcitriol 0.5 mcg Capsule 0.5 mcg BID metformin 500 mg Tablet 500 mg PO DAILY atorvastatin 10 mg Tablet 10 mg PO DAILY diltiazem malate 180 mg Tablet Extended Release 24 Hr 180 mg PO DAILY prednisone 5 mg Tablet 5 mg PO DIRECTED PRN (Reason: when i need it ) Rx Instructions: see taper instructions sulfasalazine 500 mg tablet,delayed release (DR/EC) 500 mg PO BID allopurinol 100 mg Tablet 100 mg BID tramadol 50 mg Tablet 50 mg PO Q6H PRN (Reason: pain) losartan 25 mg Tablet 25 mg PO DAILY folic acid 1 mg tablet 1 mg DAILY montelukast 10 mg Tablet 10 mg PO HS fesoterodine 4 mg Tablet Extended Release 24 Hr 4 mg PO DAILY amoxicillin-pot clavulanate 875-125 mg tablet 1 tablet PO Q12H 5 Days Qty: 10 0RF Follow-up/Referrals: Luis,MD Raul [Primary Care Provider] -
[2024-11-12 15:34] VITALS: BP 129/77; PULSE 112; RESP 17; TEMP 36.6; O2SAT 99
[2024-11-12] MEDS: ONDANSETRON INJ 4 MG/2 ML VIAL IV PUSH (17:11)
== END 2024-11-12 17:12 | disposition short-term general hospital (02) ==
PROVIDERS: Emergency Provider Emergency Medicine; PCP Internal Medicine
DX: S06.5XAA Traumatic subdural hemorrhage with loss of consciousness status unknown, initial encounter (principal); I10 Essential (primary) hypertension; E78.5 Hyperlipidemia, unspecified; E11.9 Type 2 diabetes mellitus without complications; M10.9 Gout, unspecified; L40.50 Arthropathic psoriasis, unspecified; Z90.49 Acquired absence of other specified parts of digestive tract; Z79.84 Long term (current) use of oral hypoglycemic drugs; Z79.899 Other long term (current) drug therapy; M47.812 Spondylosis without myelopathy or radiculopathy, cervical region; W18.39XA Other fall on same level, initial encounter
CPT/HCPCS: 70450; 72125; 96374; 99285; A9270; J2405

== ENCOUNTER 2025-06-05 14:27 | Inpatient (IN) | payer OTHER, SELFPAY ==
--- NOTE | ~2025-06-05 | CT_ITS ---
CT abdomen pelvis wo con Ordering provider: Alida Fields PA-C History: 64 years Female with . R flank pain, UTI, hx stones . Comparison: None. Technique: CT abdomen and pelvis without IV and without oral contrast. Automated exposure control and iterative reconstruction technique were employed. The dose-length product was 231.04 mGy-cm. Findings: VISUALIZED LOWER CHEST: Normal. UPPER ABDOMINAL ORGANS: Liver: Pneumobilia. Calcified granulomas. Gallbladder: Normal. Spleen: Normal. Calcified granulomas. Stomach/duodenum: Sliding hiatus hernia. Pancreas: Normal. Adrenals: Normal. Kidneys: Atrophic left kidney with multiple cysts. Tiny stone in the right kidney midpole. Multiple tiny stones in the right kidney lower pole. Small cy st in the right kidney midpole. Minimal fullness of the right pelvicalyceal system. No ureteric stone s. PELVIC ORGANS: The bladder is slightly underfilled with thickened wall. BOWEL AND MESENTERY: Colon: No evidence of diverticulitis. Phlebolith is seen in the appendix. Otherwise, normal. Small Bowel: Normal. No obstruction. Peritoneum/mesentery: No free air or free fluid. No mesenteric lymphadenopathy. RETROPERITONEUM: Mild atheromatous disease of the abdominal aorta. No retroperitoneal lymphadenopat hy. MUSCULOSKELETAL: Superficial soft tissues: Fat containing umbilical hernia. The superficial soft tissues are normal. Bones: Age appropriate degenerative changes of the spine. Bilateral hip osteoarthritic changes. Bilat eral sacroiliitis. IMPRESSION: 1. No evidence of appendicitis, diverticulitis or intestinal obstruction. 2. Atrophic left kidney with cystic changes. 3. Multiple right kidney stones with slight fullness of the pelvicalyceal systems. No definite urete kena stones seen. 4. Underfilled urinary bladder with slightly thickened wall. Evaluation for cystitis advised. 5. Sliding hiatus hernia. 6. Pneumobilia. 7. Fat-containing umbilical hernia. Reviewed, dictated and finalized at location A. IMPRESSION: 1. No evidence of appendicitis, diverticulitis or intestinal obstruction. 2. Atrophic left kidney with cystic changes. 3. Multiple right kidney stones with slight fullness of the pelvicalyceal syst ems. No definite ureteric stones seen. 4. Underfilled urinary bladder with slightly thickened wall. Evaluation for cy stitis advised. 5. Sliding hiatus hernia. 6. Pneumobilia. 7. Fat-containing umbilical hernia.
--- OUTSIDE RECORDS SUMMARY | 2025-06-05 14:29 | XMS_ITS | Continuity of Care Document ---
Author Organization [facility] Address [address] [place] [address] Phone Care Team Providers Care Miller Supervisor Name Role Phone Randy Whalen Unavailable Unavailable Procedures Procedure Date Office/outpatient Visit, Est Visual Field Examination(s) Eye Exam & Treatment Corneal Pachymetry Advance Directives Directive Yes / No Effective Date File Name No Information Encounters Encounter Description Practice Location Reason(s) For Visit Diagnoses Date Provider Providers Copied on Encounter Office/outpat ient Visit, Est [facility], [address] [place] [address] [address], [place], [place], [id number], [place] tel:[phone] SEC [facility] No Information Feb-0 4-200 9 Koby Padilla. [facility] [address] [address], [place], [place], [facility], . tel:[phone] [facility], [address] [place] [address] [address], [place], [place], [id number], [place] tel:[phone] SEC [facility] No Information b-2 8-200 7 Koby Padilla. [facility] , [address], [place], [place], [facility], [place]. tel:[phone] Referring Provider: Isha Robison [facility] [address], [place], [place], [facility]. tel:[phone] [facility], [address] [place] [address] [address], [place], [place], [id number], tel:[phone] SEC [facility] No Information 7 Koby Padilla. [facility] , [address], [place], [address], . tel:[phone] Referring Provider: Randy Dawn [address] [place] [address] [address], [place], [address]. tel:[phone] Family History Family Member Type Diagnosis Age At Onset No Information Payers Payer name Insurance type Covered libertarian ID Authoriza tion(s) No Information Social History Type Description Quantity Date Captured Comments Sex Female Smoking Status No Information Chief Complaint And Reason For Visit No Information Reason For Referral Reason For Referral No Information History Of Present Illness Encounter Date Complaint History Of Prese nt Illness No Information Functional Status Date Functional Assessmen t No Information Instructions Date Instruction Additional Infor mation No Information Assessments Type Assessment Date No Information Patient Care Teams Name Effective Dates (start - stop) Status Members No Information
--- OUTSIDE RECORDS SUMMARY | 2025-06-05 14:29 | XMS_ITS | Referral Summary ---
Author Organization [facility] Physician Of [facility] [id number] [place] [id number] Care Team Providers Care Bankruptcy Manager Name Role Phone Raul Smith MD Primary Care Provider [phone] Encounters Date Type Department Care Team Description 05/02/2025 3:24 PM CDT - 05/02/2025 11:59 PM CDT Hospital Encounter [address] [address] Chronic kidney disease, stage III (moderate) (HCC); Mixed hyperlipidemia; Type II or unspecified type diabetes mellitus with renal manifestations, 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.42) (HCC); Edema; Avitaminosis D; Urinary tract infection, site not specified; Urinary frequency; Hyperparathyroidism, unspecified; Nonspecific abnormal results of thyroid function study; Vitamin D deficiency Discharge Disposition: Discharge to home or self care 05/02/2025 9:15 AM CDT Lab [facility] Outpatient Lab at [address] [address] Chronic kidney disease, stage III (moderate) (HCC) (Primary Dx); Mixed hyperlipidemia; Type II or unspecified type diabetes mellitus with renal manifestations, 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.42) (HCC); Edema; Avitaminosis D; Urinary tract infection, site not specified; Urinary frequency; Hyperparathyroidism, unspecified; Nonspecific abnormal results of thyroid function study 03/09/2025 8:24 AM CDT - 03/09/2025 11:59 PM CDT Hospital Encounter [address] [address] Vitamin D deficiency Discharge Disposition: Discharge to home or self care 03/09/2025 8:15 AM CDT Lab [facility] Outpatient Lab at [address] [address] Vitamin D deficiency (Primary Dx) from Last 3 Months Allergies Active Allergy Reactions Criticality Noted Date Comments Other Other (See comments) High 09/23/2018 raspberries Ragweed Other (See comments) Low 07/11/2021 Nasal congestion Medications losartan (COZAAR) 25 mg tablet Take 25 mg by mouth daily 04/08/2021 Active Toviaz 4 mg tablet extended release 24 hr Take 4 mg by mouth daily 04/24/2021 Active calcitRIOL (ROCALTROL) 0.25 mcg capsule Take 1 capsule by mouth daily 06/02/2021 Active diltiazem (TIAZAC) 120 mg 24 hr capsule Take 120 mg by mouth daily 01/21/2020 Active citalopram (CeleXA) 20 mg tablet Take 40 mg by mouth nightly 11/24/1969 Active metoprolol XL (Toprol XL) 50 mg extended release tablet Take 50 mg by mouth nightly 04/25/2017 Active atorvastatin (LIPITOR) 10 mg tablet Take 20 mg by mouth daily 05/11/2021 Active montelukast (SINGULAIR) 10 mg tablet Take 10 mg by mouth nightly Active allopurinoL (ZYLOPRIM) 100 mg tablet Take 100 mg by mouth nightly Active Active Problems Problem Noted Date Diagnosed Date Stricture of female urethra 07/04/2021 Overview (07/04/2021): Added automatically from request for surgery [id number] Social History Tobacco Use Types Packs/Day Years Used Date Smoking Tobacco: Never Smokeless Tobacco: Never Comments No Sex and Gender Information Value Date Recorded Sex Assigned at Not on file Legal Sex Female 9:20 AM [employer] Gender Identity Not on file Sexual Orientation Not on file Last Filed Vital Signs Vital Sign Reading Time Taken Comments Blood Pressure 154/85 08/13/2021 1:30 PM CDT Pulse 134 08/13/2021 1:30 PM CDT Temperature 36.4 C (97.6 F) 08/13/2021 1:30 PM CDT Respiratory Rate 13 07/13/2021 1:55 PM CDT Oxygen Saturation 95% 07/13/2021 1:55 PM CDT Inhaled Oxygen Concentration - - Weight 87.8 kg (193 lb 8 oz) 07/13/2021 12:17 PM CDT Height 147.3 cm (4' 10) 07/13/2021 12:17 PM CDT Body Mass Index 40.44 07/13/2021 12:17 PM CDT Plan of Treatment Not on file Procedures Procedure Name Priority Date/Time Associated Diagnosis Comments EGFR Routine 05/02/2025 12:00 PM CDT Chronic kidney disease, stage III (moderate) (HCC) Mixed hyperlipidemia Type II or unspecified type diabetes mellitus with renal manifestations, 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.42 ) (HCC) Edema Avitaminosis D Urinary tract infection, site not specified Urinary frequency Hyperparathyroidism , unspecified Nonspecific abnormal results of thyroid function study DIFFERENTIAL AUTO Routine 05/02/2025 12: 00 PM CDT Chronic kidney disease, stage III (moderate) (HCC) Mixed hyperlipidemia Type II or unspecified type diabetes mellitus with renal manifestations, 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.42 ) (HCC) Edema Avitaminosis D Urinary tract infection, site not specified Urinary frequency Hyperparathyroidism , unspecified Nonspecific abnormal results of thyroid function study COMPREHENSIVE METABOLIC PANEL Routine 05/02/2025 12:00 PM CDT Chronic kidney disease, stage III (moderate) (HCC) Mixed hyperlipidemia Type II or unspecified type diabetes mellitus with renal manifestations, 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.42 ) (HCC) Edema Avitaminosis D Urinary tract infection, site not specified Urinary frequency Hyperparathyroidism , unspecified Nonspecific abnormal results of thyroid function study CBC WITH AUTO DIFFERENTIAL Routine 05/02/2025 12:00 PM CDT Chronic kidney disease, stage III (moderate) (HCC) Mixed hyperlipidemia Type II or unspecified type diabetes mellitus with renal manifestations, 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.42 ) (HCC) Edema Avitaminosis D Urinary tract infection, site not specified Urinary frequency Hyperparathyroidism , unspecified Nonspecific abnormal results of thyroid function study URIC ACID Routine 05/02/2025 12:00 PM CDT Chronic kidney disease, stage III (moderate) (HCC) Mixed hyperlipidemia Type II or unspecified type diabetes mellitus with renal manifestations, 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.42 ) (HCC) Edema Avitaminosis D Urinary tract infection, site not specified Urinary frequency Hyperparathyroidism , unspecified Nonspecific abnormal results of thyroid function study HEMOGLOBIN A1C Routine 05/02/2025 12:00 PM CDT Chronic kidney disease, stage III (moderate) (HCC) Mixed hyperlipidemia Type II or unspecified type diabetes mellitus with renal manifestations, 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.42 ) (HCC) Edema Avitaminosis D Urinary tract infection, site not specified Urinary frequency Hyperparathyroidism , unspecified Nonspecific abnormal results of thyroid function study TSH Routine 05/02/2025 12:00 PM CDT Chronic kidney disease, stage III (moderate) (HCC) Mixed hyperlipidemia Type II or unspecified type diabetes mellitus with renal manifestations, 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.42 ) (HCC) Edema Avitaminosis D Urinary tract infection, site not specified Urinary frequency Hyperparathyroidism , unspecified Nonspecific abnormal results of thyroid function study PTH Routine 05/02/2025 12:00 PM CDT Chronic kidney disease, stage III (moderate) (HCC) Mixed hyperlipidemia Type II or unspecified type diabetes mellitus with renal manifestations, 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.42 ) (HCC) Edema Avitaminosis D Urinary tract infection, site not specified Urinary frequency Hyperparathyroidism , unspecified Nonspecific abnormal results of thyroid function study VITAMIN D 25 HYDROXY Routine 05/02/2025 12:00 PM CDT Chronic kidney disease, stage III (moderate) (HCC) Mixed hyperlipidemia Type II or unspecified type diabetes mellitus with renal manifestations, 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.42 ) (HCC) Edema Avitaminosis D Urinary tract infection, site not specified Urinary frequency Hyperparathyroidism , unspecified Nonspecific abnormal results of thyroid function study ALBUMIN CREATININE RATIO, URINE Routine 05/02/2025 12:00 PM CDT Chronic kidney disease, stage III (moderate) (HCC) Mixed hyperlipidemia Type II or unspecified type diabetes mellitus with renal manifestations, 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.42 ) (HCC) Edema Avitaminosis D Urinary tract infection, site not specified Urinary frequency Hyperparathyroidism , unspecified Nonspecific abnormal results of thyroid function study URINALYSIS AND REFLEX TO MICROSCOPIC AND CULTURE Routine 05/02/2025 12:00 PM CDT Chronic kidney disease, stage III (moderate) ([facility]) Mixed hyperlipidemia Type II or unspecified type diabetes mellitus with renal manifestations, 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.42 ) (HCC) Edema Avitaminosis D Urinary tract infection, site not specified Urinary frequency Hyperparathyroidism , unspecified Nonspecific abnormal results of thyroid function study EGFR Routine 03/09/2025 8:24 AM CDT Vitamin D deficiency URINALYSIS, MICROSCOPIC ONLY Routine 03/09/2025 8:24 AM CDT Vitamin D deficiency DIFFERENTIAL AUTO Routine 03/09/2025 8:2 4 AM CDT Vitamin D deficiency COMPREHENSIVE METABOLIC PANEL Routine 03/09/2025 8:24 AM CDT Vitamin D deficiency URIC ACID Routine 03/09/2025 8:24 AM CDT Vitamin D deficiency HEMOGLOBIN A1C Routine 03/09/2025 8:24 AM CDT Vitamin D deficiency CBC WITH AUTO DIFFERENTIAL Routine 03/09/2025 8:24 AM CDT Vitamin D deficiency TSH Routine 03/09/2025 8:24 AM CDT Vitamin D deficiency VITAMIN D 25 HYDROXY Routine 03/09/2025 8:24 AM CDT Vitamin D deficiency ALBUMIN CREATININE RATIO, URINE Routine 03/09/2025 8:24 AM CDT Vitamin D deficiency PTH Routine 03/09/2025 8:24 AM CDT Vitamin D deficiency ERYTHROCYTE SEDIMENTATION RATE Routine 03/09/2025 8:24 AM CDT Vitamin D deficiency URINE CULTURE Routine 03/09/2025 8:24 AM CDT URINALYSIS AND REFLEX TO MICROSCOPIC AND CULTURE Routine 03/09/2025 8:24 AM CDT Vitamin D deficiency from Last 3 Months Results * eGFR (05/02/2025 12:00 PM CDT) eGFR 61 >=60 mL/min/1. 73 m2 Comment: Interpretive Data Reference Interval Normal >/= 90 mL/min/1.73m2 Mildly decreased* 60 - 89 mL/min/1.73m2 Mildly to moderately decreased 45 - 59 mL/min/1.73m2 Moderately to severely decreased 30 - 44 mL/min/1.73m2 Severely decreased 15 - 29 mL/min/1.73m2 Kidney Failure < 15 mL/min/1.73m2 *Relative to young adult level Estimated glomerular filtration rate is determined by the 2020 CKD-EPI equation recommended by the National Kidney Foundation (A Unifying Approach to GFR Estimation: Recommendations of the NKF-ASK Task Force on Reassessing the Inclusion of Race in Diagnosing Kidney Disease, JASN 2020). The CKD-EPI equation should not be used for patients with unstable renal function and has not been validated in children and those over 70. Current interpretive data was last reviewed 2021. Blood 05/02/2025 12:0 0 PM CDT 05/02/2025 4:29 PM CDT us Bernard Carbajal MD LAB BLOOD ORDERABLES Final Res ult [facility] [address] Department [place] [address] * Differential, auto (05/02/2025 12:00 PM CDT) Neutrophil abs 4.01 1.50 - 6.50 K/cumm Imm gran abs 0.02 0.00 - 0.10 K/cumm [facility] Lymphocyte abs 1.65 0.80 - 3.30 K/cumm [facility] Monocyte abs 0.43 0.20 - 0.80 K/cumm [facility] Eosinophil abs 0.29 0.00 - 0.50 K/cumm [facility] Basophil abs 0.04 0.00 - 0.10 K/cumm [facility] Neutrophil pct 62.3 % [facility] Comment: Interpretive Data Percent cell count reference ranges are not reported, since discordance with absolute values may lead to misinterpretation of CBC data. Current Interpretive Data was last revised on 2018. Imm gran pct 0.3 % [facility] Comment: Interpretive Data Percent cell count reference ranges are not reported, since discordance with absolute values may lead to misinterpretation of CBC data. Current Interpretive Data was last revised on 2018. Lymphocyte pct 25.6 % [facility] Comment: Interpretive Data Percent cell count reference ranges are not reported, since discordance with absolute values may lead to misinterpretation of CBC data. Current Interpretive Data was last revised on 2018. Monocyte pct 6.7 % [facility] Comment: Interpretive Data Percent cell count reference ranges are not reported, since discordance with absolute values may lead to misinterpretation of CBC data. Current Interpretive Data was last revised on 2018. Eosinophil pct 4.5 % [facility] Comment: Interpretive Data Percent cell count reference ranges are not reported, since discordance with absolute values may lead to misinterpretation of CBC data. Current Interpretive Data was last revised on 2018. Basophil pct 0.6 % [facility] Comment: Interpretive Data Percent cell count reference ranges are not reported, since discordance with absolute values may lead to misinterpretation of CBC data. Current Interpretive Data was last revised on 2018. Blood 05/02/2025 12:0 0 PM CDT 05/02/2025 4:29 PM CDT us Bernard Carbajal MD LAB BLOOD ORDERABLES Final Res ult [facility] [address] Department [place] [address] * Urinalysis reflex to microscopic and culture Urine, clean voided (05/02/2025 12:00 PM CDT) Color, ur Yellow Yellow Clarity, ur Clear Clear [facility] Specific gravity, ur 1.014 1.003 - 1.030 [facility] pH, urine 6.5 [facility] Comment: Interpretive Data U rine pH is affected by diet, medications, systemic acid-base disturbances, and renal tubular function. pH may affect urinary stone formation. For example, urine pH below 6.0 may help reduce the tendency for calcium phosphate stones and pH greater than 6.0 may reduce the tendency for uric acid stone formation. Source: [facility] Current Interpretive Data was last revised on 2017 Protein, ur ql Negative Negative [facility] Glucose, ur ql Negative Negative [facility] Ketones, ur Negative Negative [facility] Bilirubin, ur Negative Negative [facility] Blood, ur Negative Negative [facility] Urobilinogen, ur <2.0 <2.0 mg/dL [facility] Nitrite, ur Negative Negative [facility] Leukocyte esterase, ur Negative Negative [facility] UA reflex comment Reflex conditions for microscopic UA and culture not met. [facility] Urine, clean voided 05/02/2025 12:00 PM CDT 05/02/2025 4:29 PM CDT Narrative [facility] - 05/02/2025 4:52 PM CDT Fax results to Dr Bernard Carbajal [phone] Bernard Carbajal MD LAB MICROBIOLOGY - GENERAL ORD ERABLES Final Result [facility] [address] Department [place] [address] * (ABNORMAL) CBC with auto differential (05/02/2025 12:00 PM CDT) WBC 6.44 3.80 - 9.90 K/cumm Hgb 10.7(L) 11.9 - 15.5 g/dL [facility] Hct 34.7(L) 35.6 - 45.5 % [facility] Plt 467(H) 150 - 400 K/cumm [facility] MPV 8.4(L) 9.1 - 12.3 fL [facility] RBC 3.18(L) 3.90 - 5.20 M/cumm [facility] MCV 109.1(H) 81.3 - 96.4 fL [facility] MCH 33.6(H) 27.1 - 33.3 pg [facility] MCHC 30.8(L) 32.3 - 35.7 g/dL [facility] RDW CV 16.5(H) 11.1 - 14.9 % [facility] RDW SD 65.6(H) 35.7 - 48.1 fL [facility] NRBC abs 0.00 0.00 - 0.01 K/cumm [facility] Blood 05/02/2025 12:0 0 PM CDT 05/02/2025 4:29 PM CDT Narrative [facility] - 05/02/2025 4:46 PM CDT Fax results to Dr Bernard Carbajal [phone] us Bernard Carbajal MD LAB BLOOD ORDERABLES Final Res ult Performing Organization Address [facility] Co de Phone Number [facility] [address] [place] [address] * (ABNORMAL) Albumin Creatinine Ratio, Urine (05/02/2025 12:00 PM CDT) Pathologist [facility] Albumin Ur 36.8 mg/L Comment: Interpretive Data No reference range established. Current interpretive data was last revised 2019. Creatinine Ur 67.2 mg/dL [facility] Comment: Interpretive Data No reference range established. Current interpretive data was last revised 2019. Albumin Creatinine Ratio, Ur 55(H) 1 - 29 mg/g [facility] Urine (Urine, Clean Catch) 05/02/2025 12:00 PM CDT 05/02/2025 4:29 PM CDT Narrative [facility] - 05/02/2025 5:17 PM CDT Fax results to Dr Bernard Carbajal [phone] us Bernard Carbajal MD LAB URINE ORDERABLES Final Res ult Performing Organization Address [facility] Co de Phone Number [facility] [address] [place] [address] * Vitamin D 25 hydroxy (05/02/2025 12:00 PM CDT) Pathologist [facility] Vitamin D 25-OH 61 30 - 80 ng/mL Blood 05/02/2025 12:0 0 PM CDT 05/02/2025 4:29 PM CDT Narrative [facility] - 05/02/2025 5:23 PM CDT Fax results to Dr Bernard Carbajal [phone] Bernard Carbajal MD LAB BLOOD ORDERABLES Final Res ult Performing Organization Address City/[facility]/ZIP Co de Phone Number [facility] [address] [facility] [place] [address] * Uric acid (05/02/2025 12:00 PM CDT) Uric acid 4.2 2.5 - 7.0 mg/dL Blood Venous blood specimen / Unknown 05/02/2025 12:00 PM CDT 05/02/2025 4:29 PM CDT Narrative [facility] - 05/02/2025 5:33 PM CDT Fax results to Dr Bernard Carbajal [phone] Bernard Carbajal MD LAB BLOOD ORDERABLES Final Res ult Performing Organization Address [facility] Co de Phone Number [facility] [address] [facility] [place] [address] * TSH (05/02/2025 12:00 PM CDT) Thyroid Stimulating Hormone 1.47 0.30 - 4.20 mcIUnit/mL Blood Venous blood specimen / Unknown 05/02/2025 12:00 PM CDT 05/02/2025 4:29 PM CDT [facility] 05/02/2025 5:33 PM CDT Fax results to Dr Bernard Carbajal [phone] Bernard Carbajal MD LAB BLOOD ORDERABLES Final Res ult Performing Organization Address City/[facility]/ZIP Co de Phone Number [facility] [address] [address] [facility] [place] [address] * PTH (05/02/2025 12:00 PM CDT) PTH 20 15 - 65 pg/mL Blood Venous blood specimen / Unknown 05/02/2025 12:00 PM CDT 05/02/2025 4:29 PM CDT Narrative [facility] - 05/02/2025 5:33 PM CDT Fax results to Dr Bernard Carbajal [phone] Bernard Carbajal MD LAB BLOOD ORDERABLES Final Res ult [facility] [address] [place] [address] * (ABNORMAL) Hemoglobin A1c (05/02/2025 12:00 PM CDT) Pathologist [facility] Hgb A1C 5.8(H) 4.0 - 5.6 % Estimated Average Glucose 120 mg/dL [facility] Comment: The ADA recommends reporting an estimated Average Glucose (eAG) with all Hemoglobin A1c results using the equation derived from a study of 507 normal and diabetic adults. Minority populations were underrepresented and children were not included. (Diabetes Care 31:1050-1658, 2008). The eAG is not equivalent to a fasting glucose. Blood Venous blood specimen / Unknown 05/02/2025 12:00 PM CDT 05/02/2025 4:29 PM CDT Narrative [facility] - 05/02/2025 4:57 PM CDT Fax results to Dr Bernard Carbajal [phone] Bernard Carbajal MD LAB BLOOD ORDERABLES Final Res ult [facility] [address] [place] [address] * (ABNORMAL) Comprehensive metabolic panel (05/02/2025 12:00 PM CDT) Pathologist [facility] Sodium 143 135 - 145 mmol/L Potassium, pl 4.9 3.3 - 4.9 mmol/L [facility] Chloride 107 97 - 110 mmol/L [facility] CO2 25 22 - 32 mmol/L [facility] Anion gap 11 2 - 15 mmol/L [facility] BUN 22 6 - 25 mg/dL [facility] Creatinine 1.03 0.60 - 1.10 mg/dL [facility] Glucose 102 70 - 199 mg/dL [facility] Comment: Interpretive Data Fasting glucose >/= 126 mg/dl is diagnostic for diabetes. Fasting is defined as no caloric intake for at least 8 hours. Fasting glucose between 100 mg/dl to 125 mg/dl is diagnostic of prediabetes. In a patient with classic symptoms of hyperglycemia or hyperglycemic crisis, a random glucose >/= 200 mg/dl is diagnostic for diabetes. In the absence of unequivocal hyperglycemia, results should be confirmed by repeat testing. The classification and Diagnosis of Diabetes Diabetes Care 2021; 46: S19-S40. Current interpretive data was last revised 2022. Calcium 10.5(H) 8.5 - 10.3 mg/dL [facility] Bilirubin, total 0.2 0.1 - 1.2 mg/dL [facility] Protein, pl 6.7 6.5 - 8.5 g/dL [facility] Albumin 4.0 3.5 - 5.0 g/dL [facility] Alk phos 69 40 - 130 Units/L [facility] ALT 35 7 - 45 Units/L [facility] AST 44 10 - 45 Units/L [facility] Blood Venous blood specimen / Unknown 05/02/2025 12:00 PM CDT 05/02/2025 4:29 PM CDT Narrative [facility] - 05/02/2025 5:33 PM CDT Fax results to Dr Bernard Carbajal [phone] us Bernard Carbajal MD LAB BLOOD ORDERABLES Final Res ult [facility] [address] Department [place] [address] * eGFR (03/09/2025 8:24 AM CDT) eGFR 62 >=60 mL/min/1. 73 m2 Comment: Interpretive Data Reference Interval Normal >/= 90 mL/min/1.73m2 Mildly decreased* 60 - 89 mL/min/1.73m2 Mildly to moderately decreased 45 - 59 mL/min/1.73m2 Moderately to severely decreased 30 - 44 mL/min/1.73m2 Severely decreased 15 - 29 mL/min/1.73m2 Kidney Failure < 15 mL/min/1.73m2 *Relative to young adult level Estimated glomerular filtration rate is determined by the 2020 CKD-EPI equation recommended by the National Kidney Foundation (A Unifying Approach to GFR Estimation: Recommendations of the NKF-ASK Task Force on Reassessing the Inclusion of Race in Diagnosing Kidney Disease, JASN 2020). The CKD-EPI equation should not be used for patients with unstable renal function and has not been validated in children and those over 70. Current interpretive data was last reviewed 2021. Blood 03/09/2025 8:24 AM CDT 03/09/2025 9:06 PM CDT us Bernard Carbajal MD LAB BLOOD ORDERABLES Final Res ult [facility] [address] [address] Department of Laboratories [place], [place] [phone] * Differential, auto (03/09/2025 8:24 AM CDT) Neutrophil abs 5.32 1.50 - 6.50 K/cumm Imm gran abs 0.01 0.00 - 0.10 K/cumm [facility] Lymphocyte abs 2.42 0.80 - 3.30 K/cumm [facility] Monocyte abs 0.28 0.20 - 0.80 K/cumm [facility] Eosinophil abs 0.29 0.00 - 0.50 K/cumm [facility] Basophil abs 0.04 0.00 - 0.10 K/cumm [facility] Neutrophil pct 63.7 % [facility] Comment: Interpretive Data Percent cell count reference ranges are not reported, since discordance with absolute values may lead to misinterpretation of CBC data. Current Interpretive Data was last revised on 2018. Imm gran pct 0.1 % [facility] Comment: Interpretive Data Percent cell count reference ranges are not reported, since discordance with absolute values may lead to misinterpretation of CBC data. Current Interpretive Data was last revised on 2018. Lymphocyte pct 28.9 % [facility] Comment: Interpretive Data Percent cell count reference ranges are not reported, since discordance with absolute values may lead to misinterpretation of CBC data. Current Interpretive Data was last revised on 2018. Monocyte pct 3.3 % [facility] Comment: Interpretive Data Percent cell count reference ranges are not reported, since discordance with absolute values may lead to misinterpretation of CBC data. Current Interpretive Data was last revised on 2018. Eosinophil pct 3.5 % [facility] Comment: Interpretive Data Percent cell count reference ranges are not reported, since discordance with absolute values may lead to misinterpretation of CBC data. Current Interpretive Data was last revised on 2018. Basophil pct 0.5 % [facility] Comment: Interpretive Data Percent cell count reference ranges are not reported, since discordance with absolute values may lead to misinterpretation of CBC data. Current Interpretive Data was last revised on 2018. Blood 03/09/2025 8:24 AM CDT 03/09/2025 8:53 PM CDT us Bernard Carbajal MD LAB BLOOD ORDERABLES Final Res ult [facility] [address] [address] Department [place] [address] * (ABNORMAL) Urinalysis reflex to microscopic and culture Urine, clean voided (03/09/2025 8:24 AM CDT) Color, ur Yellow Yellow Clarity, ur Clear Clear [facility] Specific gravity, ur 1.019 1.003 - 1.030 [facility] pH, urine 6.5 [facility] Comment: Interpretive Data U rine pH is affected by diet, medications, systemic acid-base disturbances, and renal tubular function. pH may affect urinary stone formation. For example, urine pH below 6.0 may help reduce the tendency for calcium phosphate stones and pH greater than 6.0 may reduce the tendency for uric acid stone formation. Source: [facility] Current Interpretive Data was last revised on 2017 Protein, ur ql Trace Negative [facility] Glucose, ur ql Negative Negative [facility] CH Ketones, ur Negative Negative [facility] CH Bilirubin, ur Negative Negative [facility] CH Blood, ur Negative Negative [facility] CH Urobilinogen, ur <2.0 <2.0 mg/dL [facility] Nitrite, ur Negative Negative [facility] CH Leukocyte esterase, ur 2+(A) Negative [facility] CH UA reflex comment Reflex to microscopic UA will be performed. CERNER Urine, clean voided 03/09/2025 8:24 AM CDT 03/09/2025 8:53 PM CDT Narrative [facility] CH - 03/09/2025 8:59 PM CDT Fax results to [phone] BERNARD CARBAJAL Bernard Carbajal MD LAB MICROBIOLOGY - GENERAL ORD ERABLES Final Result [facility] [address] Department [place] [address] * (ABNORMAL) CBC with auto differential (03/09/2025 8:24 AM CDT) WBC 8.36 3.80 - 9.90 K/cumm Hgb 11.7(L) 11.9 - 15.5 g/dL CERNER Hct 38.8 35.6 - 45.5 % CERNER Plt 319 150 - 400 K/cumm CERNER MPV 8.5(L) 9.1 - 12.3 fL CERNER RBC 3.54(L) 3.90 - 5.20 M/cumm [facility] CH MCV 109.6(H) 81.3 - 96.4 fL CERNER MCH 33.1 27.1 - 33.3 pg CERNER MCHC 30.2(L) 32.3 - 35.7 g/dL CERNER CH RDW CV 13.7 11.1 - 14.9 % CERNER CH RDW SD 55.1(H) 35.7 - 48.1 fL [facility] CH NRBC abs 0.00 0.00 - 0.01 K/cumm CERNER Blood 03/09/2025 8:24 AM CDT 03/09/2025 8:53 PM CDT Bernard Carbajal MD LAB BLOOD ORDERABLES Final Res ult Performing Organization Address [facility] Co de Phone Number [facility] [address] [address] [place] [address] * (ABNORMAL) Albumin Creatinine Ratio, Urine (03/09/2025 8:24 AM CDT) Pathologist [facility] Albumin Ur 167.2 mg/L Comment: Interpretive Data No reference range established. Current interpretive data was last revised 2019. Creatinine Ur 93.5 mg/dL [facility] Comment: Interpretive Data No reference range established. Current interpretive data was last revised 2019. Albumin Creatinine Ratio, Ur 179(H) 1 - 29 mg/g [facility] Urine (Urine, Clean Catch) 03/09/2025 8:24 AM CDT 03/09/2025 8:53 PM CDT Narrative [facility] - 03/09/2025 10:46 PM CDT Fax results to [phone] BERNARD CARBAJAL Bernard Carbajal MD LAB URINE ORDERABLES Final Res ult Performing Organization Address [facility] Co de Phone Number [facility] [address] [address] [facility] [place] [address] * Vitamin D 25 hydroxy (03/09/2025 8:24 AM CDT) [facility] Vitamin D 25-OH 59 30 - 80 ng/mL Blood Venous blood specimen / Unknown 03/09/2025 8:24 AM CDT 03/09/2025 8:53 PM CDT Result [facility] Bernard Carbajal MD LAB BLOOD ORDERABLES Final Res ult Performing Organization Address [facility] Co de Phone Number [facility] [address] [address] [place] [address] * (ABNORMAL) Urinalysis, microscopic only (03/09/2025 8:24 AM CDT) WBC, ur 11-20(A) 0 - 5 /HPF RBC, ur 0-2 0 - 2 /HPF [facility] Epithelial cells, squamous, ur 1-5 0 - 5 /HPF [facility] Mucous, ur Present(A) [facility] Hyaline casts, ur 1-5 0 - 10 /LPF [facility] Culture Reflex Comment Reflex to urine culture will be performed. [facility] Urine, clean voided 03/09/2025 8:24 AM CDT 03/09/2025 8:53 PM CDT Bernard Carbajal MD LAB URINE ORDERABLES Final Res ult Performing Organization Address [facility]/ZIP Co de Phone Number [facility] [address] [address] [place] [address] * Erythrocyte sedimentation rate (03/09/2025 8:24 AM CDT) Erythrocyte sedimentation rate 18 1 - 30 mm/hr Comment:Testing performed by : [facility], [facility], [place], [address] Blood Venous blood specimen / Unknown 03/09/2025 8:24 AM CDT 03/09/2025 2:22 PM CDT Narrative [facility] - 03/09/2025 5:15 PM CDT Fax results to [phone] BERNARD CARBAJAL Bernard Carbajal MD LAB BLOOD ORDERABLES Final Res ult [facility] [address] [place] [address] * Urine culture Urine, clean voided (03/09/2025 8:24 AM CDT) Report Final Report: Less than 100,000 colonies/mL (clinically insignificant growth based on current clinical standards) Comment:Testing performed by : [facility], [address] [place] [address] Organism (CLINICALLY INSIGNIFICANT GROWTH [facility] Urine, clean voided 03/09/2025 8:24 AM CDT 03/09/2025 10:18 PM CDT Narrative [facility]UDIVINA - 03/11/2025 9:33 AM CDT Urine culture reflexed based upon urinalysis results. Testing performed by [facility] ([phone]) Bernard Carbajal MD LAB MICROBIOLOGY - GENERAL ORD ERABLES Final Result Performing Organization Address City/[facility]/ZIP Co de Phone Number [facility] [address] Department of Laboratories [place], [place] [id number] * Uric acid (03/09/2025 8:24 AM CDT) Uric acid 4.3 2.5 - 7.0 mg/dL Blood Venous blood specimen / Unknown 03/09/2025 8:24 AM CDT 03/09/2025 8:53 PM CDT Narrative [facility] - 03/09/2025 9:59 PM CDT Fax results to [phone] BERNARD CARBAJAL Bernard Carbajal MD LAB BLOOD ORDERABLES Final Res ult Performing Organization Address [facility] Co de Phone Number [facility] [address] [address] Department [place] [address] * TSH (03/09/2025 8:24 AM CDT) Thyroid Stimulating Hormone 2.31 0.30 - 4.20 mcIUnit/mL Blood Venous blood specimen / Unknown 03/09/2025 8:24 AM CDT 03/09/2025 8:53 PM CDT Narrative [facility] - 03/09/2025 9:59 PM CDT Fax results to [phone] BERNARD CARBAJAL Bernard Carbajal MD LAB BLOOD ORDERABLES Final Res ult Performing Organization Address City/[facility]/ZIP Co de Phone Number [facility] [place] [address] [place] [address] * PTH (03/09/2025 8:24 AM CDT) Pathologist [facility] PTH 17 15 - 65 pg/mL Blood Venous blood specimen / Unknown 03/09/2025 8:24 AM CDT 03/09/2025 2:48 PM CDT Narrative LUDIVINA - 03/09/2025 3:42 PM CDT Fax results to [phone] BERNARD CARBAJAL Bernard Carbajal MD LAB BLOOD ORDERABLES Final Res ult Performing Organization Address City/[facility] Co de Phone Number [facility] [place] [address] [address] [facility] [place] [address] * Hemoglobin A1c (03/09/2025 8:24 AM CDT) Pathologist [facility] Hgb A1C 5.4 4.0 - 5.6 % Estimated Average Glucose 108 mg/dL [facility] Comment: The ADA recommends reporting an estimated Average Glucose (eAG) with all Hemoglobin A1c results using the equation derived from a study of 507 normal and diabetic adults. Minority populations were underrepresented and children were not included. (Diabetes Care 31:6693-9387, 2008). The eAG is not equivalent to a fasting glucose. Blood Venous blood specimen / Unknown 03/09/2025 8:24 AM CDT 03/09/2025 8:53 PM CDT Narrative [facility] - 03/09/2025 10:06 PM CDT Fax results to [phone] BERNARD CARBAJAL us Bernard Carbajal MD LAB BLOOD ORDERABLES Final Res ult [facility] [place] [address] [address] [place] [address] * Comprehensive metabolic panel (03/09/2025 8:24 AM CDT) Pathologist [facility] Sodium 141 135 - 145 mmol/L Potassium, pl 4.6 3.3 - 4.9 mmol/L [facility] CH Chloride 105 97 - 110 mmol/L [facility] CO2 23 22 - 32 mmol/L [facility] Anion gap 13 2 - 15 mmol/L [facility] BUN 15 6 - 25 mg/dL [facility] Creatinine 1.01 0.60 - 1.10 mg/dL [facility] Glucose 86 70 - 199 mg/dL [facility] CH Comment: Interpretive Data Fasting glucose >/= 126 mg/dl is diagnostic for diabetes. Fasting is defined as no caloric intake for at least 8 hours. Fasting glucose between 100 mg/dl to 125 mg/dl is diagnostic of prediabetes. In a patient with classic symptoms of hyperglycemia or hyperglycemic crisis, a random glucose >/= 200 mg/dl is diagnostic for diabetes. In the absence of unequivocal hyperglycemia, results should be confirmed by repeat testing. The classification and Diagnosis of Diabetes Diabetes Care 2021; 46: S19-S40. Current interpretive data was last revised 2022. Calcium 10.0 8.5 - 10.3 mg/dL [facility] CH Bilirubin, total 0.4 0.1 - 1.2 mg/dL [facility] CH Protein, pl 7.0 6.5 - 8.5 g/dL [facility] CH Albumin 3.9 3.5 - 5.0 g/dL [facility] CH Alk phos 54 40 - 130 Units/L [facility] CH ALT 16 7 - 45 Units/L [facility] CH AST 29 10 - 45 Units/L [facility] CH Blood Venous blood specimen / Unknown 03/09/2025 8:24 AM CDT 03/09/2025 8:53 PM CDT Narrative CERNER CH - 03/09/2025 9:59 PM CDT Fax results to [phone] BERNARD CARBAJAL us Bernard Carbajal MD LAB BLOOD ORDERABLES Final Res ult [facility] [address] Department [place] [address] from Last 3 Months Insurance [facility] [employer] Address: [place] [address] [facility] [employer] Address: [place] [address] [facility] [employer] Address: [place] [address] Care Teams Bankruptcy Manager Relationship Specialty Start Date End Date Raul Smith MD PCP - General Internal Medicine 07/03/21
--- OUTSIDE RECORDS SUMMARY | 2025-06-05 14:29 | XMS_ITS | Clinical Summary ---
Author Organization [facility] Physician Of [facility] [address] [place] [id number] Care Team Providers Care Panama Hat Smearer Name Role Phone Raul Smith MD Primary Care Provider [phone] Allergies Active Allergy Reactions Criticality Noted Date [...] (07/04/2021): Added automatically from request for surgery [id number] Encounters Date Type Department Care Team Description 05/02/2025 3:24 PM CDT - 05/02/2025 11:59 PM CDT Hospital Encounter [facility] [id number] [place] [address] Chronic kidney disease, stage III (moderate) (HCC); Mixed hyperlipidemia; Type II or unspecified type diabetes mellitus with renal manifestations, 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.42) (HCC); Edema; Avitaminosis D; Urinary tract infection, site not specified; Urinary frequency; Hyperparathyroidism, unspecified; Nonspecific abnormal results of thyroid function study; Vitamin D deficiency Discharge Disposition: Discharge to home or self care 05/02/2025 9:15 AM CDT Lab [facility] Outpatient Lab at [address] [id number] Chronic kidney disease, stage III (moderate) (HCC) (Primary Dx); Mixed hyperlipidemia; Type II or unspecified type diabetes mellitus with renal manifestations, 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.42) (HCC); Edema; Avitaminosis D; Urinary tract infection, site not specified; Urinary frequency; Hyperparathyroidism, unspecified; Nonspecific abnormal results of thyroid function study 03/09/2025 8:24 AM CDT - 03/09/2025 11:59 PM CDT Hospital Encounter [facility] [id number] [place] [address] Vitamin D deficiency Discharge Disposition: Discharge to home or self care 03/09/2025 8:15 AM CDT Lab [facility] Outpatient Lab at [address] [phone] Vitamin D deficiency (Primary Dx) from Last 3 Months Surgical History Surgery Date Site/Laterality Comments CYSTOSCOPY with urethral dilation SECTION x's 2 CHOLECYSTECTOMY REDUCTION MAMMAPLASTY Medical History Medical History Date Comments Urethral stricture Dysuria Urinary frequency Urinary leakage Atrophic kidney left Motion sickness Sleep apnea Hypertension Type 2 diabetes mellitus (HCC) HL (hearing loss) Family History Medical History Relation Name Comments Heart disease Father Stroke Father Alzheimer's disease Mother Heart disease Mother Relation Name Status Comments Father Mother Social History Tobacco Use Types Packs/Day Years Used Date Smoking Tobacco: Never Smokeless Tobacco: Never Comments No Sex and Gender Information Value Date Recorded Sex Assigned at Not on file Legal Sex Female 9:20 AM [employer] Gender Identity Not on file Sexual Orientation Not on file Obstetrics History Last Filed Vital Signs Vital Sign Reading [...] 07/13/2021 12:17 PM CDT Plan of Treatment Health Maintenance Due Date Last Done Comments Breast Cancer Screening-Mammogram 1960 Cervical Cancer Screening 1960 Colon Cancer Screening-Colonoscopy 1960 Depression Screening 1960 Hepatitis C Screening 1960 DTaP/Tdap/Td Vaccine (1 - Tdap) 1971 Hepatitis B Screening 1978 Regular Well Visit/Exam 18-64 1978 Zoster Vaccine (1 of 2) 2010 Influenza Vaccine (Season Ended) 2025 09/10/2023, 09/14/2021, 09/29/2020, Additional history exists Pneumococcal vaccine <65 Aged Out No longer eligible based on patient's age to complete this topic Procedures Procedure Name Priority Date/Time Associated Diagnosis [...] MD LAB BLOOD ORDERABLES Final Res ult [facility] [address] [address] Department [place] [address] * Differential, auto (05/02/2025 12:00 PM CDT) Neutrophil abs 4.01 1.50 - 6.50 K/cumm Imm gran abs 0.02 0.00 - 0.10 K/cumm [facility] Lymphocyte abs 1.65 0.80 - 3.30 K/cumm [facility] Monocyte abs 0.43 0.20 - 0.80 K/cumm [facility] Eosinophil abs 0.29 0.00 - 0.50 K/cumm [facility] Basophil abs 0.04 0.00 - 0.10 K/cumm [facility] Neutrophil pct 62.3 % [facility] Comment: Interpretive Data Percent cell count reference ranges are not reported, since discordance with absolute values may lead to misinterpretation of CBC data. Current Interpretive Data was last revised on 2018. Imm gran pct 0.3 % [facility] Comment: Interpretive Data Percent cell count reference ranges are not reported, since discordance with absolute values may lead to misinterpretation of CBC data. Current Interpretive Data was last revised on 2018. Lymphocyte pct 25.6 % [facility] Comment: Interpretive Data Percent cell count reference ranges are not reported, since discordance with absolute values may lead to misinterpretation of CBC data. Current Interpretive Data was last revised on 2018. Monocyte pct 6.7 % [facility] Comment: Interpretive Data Percent cell count reference ranges are not reported, since discordance with absolute values may lead to misinterpretation of CBC data. Current Interpretive Data was last revised on 2018. Eosinophil pct 4.5 % [facility] Comment: Interpretive Data Percent cell count reference ranges are not reported, since discordance with absolute values may lead to misinterpretation of CBC data. Current Interpretive Data was last revised on 2018. Basophil pct 0.6 % [facility] Comment: Interpretive Data Percent cell count reference ranges are not reported, since discordance with absolute values may lead to misinterpretation of CBC data. Current Interpretive Data was last revised on 2018. Blood 05/02/2025 12:0 0 PM CDT 05/02/2025 4:29 PM CDT Bernard Carbajal MD LAB BLOOD ORDERABLES Final Res ult [facility] [address] [address] Department [place] [address] * Urinalysis reflex to microscopic and culture Urine, clean voided (05/02/2025 12:00 PM CDT) Color, ur Yellow Yellow Clarity, ur Clear Clear [facility] Specific gravity, ur 1.014 1.003 - 1.030 [facility] pH, urine 6.5 [facility] Comment: Interpretive Data U rine pH is affected by diet, medications, systemic acid-base disturbances, and renal tubular function. pH may affect urinary stone formation. For example, urine pH below 6.0 may help reduce the tendency for calcium phosphate stones and pH greater than 6.0 may reduce the tendency for uric acid stone formation. Source: [facility] Current Interpretive Data was last revised on [...] for microscopic UA and culture not met. [facility] Urine, clean voided 05/02/2025 12:00 PM CDT 05/02/2025 4:29 PM CDT Narrative [facility] - 05/02/2025 4:52 PM CDT Fax results to Dr Bernard Carbajal [phone] Bernard Carbajal MD LAB MICROBIOLOGY - GENERAL ORD ERABLES Final Result [facility] [address] [place] [address] * (ABNORMAL) CBC with auto differential (05/02/2025 12:00 PM CDT) WBC 6.44 3.80 - 9.90 K/cumm Hgb 10.7(L) 11.9 - 15.5 g/dL [facility] Hct 34.7(L) 35.6 - 45.5 % [facility] Plt 467(H) 150 - 400 K/cumm [facility] MPV 8.4(L) 9.1 - 12.3 fL [facility] RBC 3.18(L) 3.90 - 5.20 M/cumm [facility] CH MCV 109.1(H) 81.3 - 96.4 fL [facility] MCH 33.6(H) 27.1 - 33.3 pg [facility] MCHC 30.8(L) 32.3 - 35.7 g/dL [facility] CH RDW CV 16.5(H) 11.1 - 14.9 % [facility] CH RDW SD 65.6(H) 35.7 - 48.1 fL [facility] NRBC abs 0.00 0.00 - 0.01 K/cumm [facility] Blood 05/02/2025 12:0 0 PM CDT 05/02/2025 4:29 PM CDT Narrative [facility] - 05/02/2025 4:46 PM CDT Fax results to Dr Bernard Carbajal [phone] Bernard Carbajal MD LAB BLOOD ORDERABLES Final Res ult Performing Organization Address City/[facility]/ZIP Co de Phone Number [facility] [address] Department of Transportation Group [place], [place] [id number] * (ABNORMAL) Albumin Creatinine Ratio, Urine (05/02/2025 12:00 PM CDT) Albumin Ur 36.8 mg/L Comment: Interpretive Data No reference range established. Current interpretive data was last revised 2019. Creatinine Ur 67.2 mg/dL [facility] Comment: Interpretive Data No reference range established. Current interpretive data was last revised 2019. Albumin Creatinine Ratio, Ur 55(H) 1 - 29 mg/g [facility] Urine (Urine, Clean Catch) 05/02/2025 12:00 PM CDT 05/02/2025 4:29 PM CDT Narrative [facility] - 05/02/2025 5:17 PM CDT Fax results to Dr Bernard Carbajal [phone] Bernard Carbajal MD LAB URINE ORDERABLES Final Res ult Performing Organization Address City/[facility]/ZIP Co de Phone Number [facility] [address] [address] [facility] [place] [address] * Vitamin D 25 hydroxy (05/02/2025 12:00 PM CDT) Vitamin D 25-OH 61 30 - 80 ng/mL Blood 05/02/2025 12:0 0 PM CDT 05/02/2025 4:29 PM CDT Narrative [facility] - 05/02/2025 5:23 PM CDT Fax results to Dr Bernard Carbajal [phone] Bernard Carbajal MD LAB BLOOD ORDERABLES Final Res ult Performing Organization Address City/[facility]/ZIP Co de Phone Number [facility] [address] [address] [facility] [place] [address] * Uric acid (05/02/2025 12:00 PM CDT) Uric acid 4.2 2.5 - 7.0 mg/dL Blood Venous blood specimen / Unknown 05/02/2025 12:00 PM CDT 05/02/2025 4:29 PM CDT Narrative [facility] - 05/02/2025 5:33 PM CDT Fax results to Dr Bernard Carbajal [phone] Bernard Carbajal MD LAB BLOOD ORDERABLES Final Res ult Performing Organization Address [facility]/ZIP Co de Phone Number [place] [address] [address] [facility] [place] [address] * TSH (05/02/2025 12:00 PM CDT) Pathologist [facility] Thyroid Stimulating Hormone 1.47 0.30 - 4.20 mcIUnit/mL Blood Venous blood specimen / Unknown 05/02/2025 12:00 PM CDT 05/02/2025 4:29 PM CDT Narrative [facility] - 05/02/2025 5:33 PM CDT Fax results to Dr Bernard Carbajal [phone] Bernard Carbajal MD LAB BLOOD ORDERABLES Final Res ult Performing Organization Address [facility] Co de Phone Number [place] [address] [address] [place] [address] * PTH (05/02/2025 12:00 PM CDT) Pathologist [facility] PTH 20 15 - 65 pg/mL Blood Venous blood specimen / Unknown 05/02/2025 12:00 PM CDT 05/02/2025 4:29 PM CDT Narrative [facility] - 05/02/2025 5:33 PM CDT Fax results to Dr Bernard Carbajal [phone] Bernard Carbajal MD LAB BLOOD ORDERABLES Final Res ult Performing Organization Address [facility] Co de Phone Number [place] [address] [address] [place] [address] * (ABNORMAL) Hemoglobin A1c (05/02/2025 12:00 PM CDT) Hgb A1C 5.8(H) 4.0 - 5.6 % Estimated Average Glucose 120 mg/dL [facility] Comment: The ADA recommends reporting an estimated Average Glucose (eAG) with all Hemoglobin A1c results using the equation derived from a study of 507 normal and diabetic adults. Minority populations were underrepresented and children were not included. (Diabetes Care 31:6507-3735, 2008). The eAG is not equivalent to a fasting glucose. Blood Venous blood specimen / Unknown 05/02/2025 12:00 PM CDT 05/02/2025 4:29 PM CDT Narrative [facility] - 05/02/2025 4:57 PM CDT Fax results to Dr Bernard Carbajal [phone] Benrard Carbajal MD LAB BLOOD ORDERABLES Final Res ult [facility] [address] [address] Department [place] [address] * (ABNORMAL) Comprehensive metabolic panel (05/02/2025 12:00 PM CDT) Sodium 143 135 - 145 mmol/L Potassium, pl 4.9 3.3 - 4.9 mmol/L [facility] Chloride 107 97 - 110 mmol/L [facility] [...] classification and Diagnosis of Diabetes Diabetes Care 202; 46: S19-S40. Current interpretive data was last [...] PM CDT Narrative [facility] - 05/02/2025 5:33 PM CDT Fax results to Dr Bernard Carbajal [phone] us Bernard Carbajal MD LAB BLOOD ORDERABLES Final Res ult [facility] [address] [address] [employer] [place] [address] * eGFR (03/09/2025 8:24 AM CDT) eGFR [...] 8:24 AM CDT 03/09/2025 9:06 PM CDT Bernard Carbajal MD LAB BLOOD ORDERABLES Final Res ult [facility] [address] [address] Department [place] [address] * Differential, auto (03/09/2025 8:24 AM CDT) Neutrophil abs 5.32 1.50 - 6.50 K/cumm Imm gran abs 0.01 0.00 - 0.10 K/cumm [facility] Lymphocyte abs 2.42 0.80 - 3.30 K/cumm [facility] Monocyte abs 0.28 0.20 - 0.80 K/cumm [facility] Eosinophil abs 0.29 0.00 - 0.50 K/cumm [facility] Basophil abs 0.04 0.00 - 0.10 K/cumm [facility] Neutrophil pct 63.7 % [facility] Comment: Interpretive Data Percent cell count reference ranges are not reported, since discordance with absolute values may lead to misinterpretation of CBC data. Current Interpretive Data was last revised on 2018. Imm gran pct 0.1 % [facility] Comment: Interpretive Data Percent cell count reference ranges are not reported, since discordance with absolute values may lead to misinterpretation of CBC data. Current Interpretive Data was last revised on 2018. Lymphocyte pct 28.9 % [facility] Comment: Interpretive Data Percent cell [...] revised on 2018. Eosinophil pct 3.5 % [facility] Comment: Interpretive Data Percent cell count reference ranges are not reported, since discordance with absolute values may lead to misinterpretation of CBC data. Current Interpretive Data was last revised on 2018. Basophil pct 0.5 % [facility] Comment: Interpretive Data Percent cell count reference ranges are not reported, since discordance with absolute values may lead to misinterpretation of CBC data. Current Interpretive Data was last revised on 2018. Blood 03/09/2025 8:24 AM CDT 03/09/2025 8:53 PM CDT us Bernard Carbajal MD LAB BLOOD ORDERABLES Final Res ult [facility] [address] [address] Department [place] [address] * (ABNORMAL) Urinalysis reflex to microscopic and culture Urine, clean voided (03/09/2025 8:24 AM CDT) Color, ur Yellow Yellow Clarity, ur Clear Clear [facility] Specific gravity, ur 1.019 1.003 - 1.030 [facility] pH, urine 6.5 [facility] Comment: Interpretive Data U rine pH is affected by diet, medications, systemic acid-base disturbances, and renal tubular function. pH may affect urinary stone formation. For example, urine pH below 6.0 may help reduce the tendency for calcium phosphate stones and pH greater than 6.0 may reduce the tendency for uric acid stone formation. Source: [facility] Current Interpretive Data was last revised on [...] 03/09/2025 8:59 PM CDT Fax results to [phone] BERNARD CARBAJAL us Bernard Carbajal MD LAB MICROBIOLOGY - GENERAL ORD ERABLES Final Result [facility] [address] [address] Department [place] [address] * (ABNORMAL) CBC with auto differential (03/09/2025 8:24 AM CDT) [facility] WBC 8.36 3.80 - 9.90 K/cumm Hgb 11.7(L) 11.9 - 15.5 g/dL [facility] Hct 38.8 35.6 - 45.5 % [facility] Plt 319 150 - 400 K/cumm [facility] MPV 8.5(L) 9.1 - 12.3 fL [facility] RBC 3.54(L) 3.90 - 5.20 M/cumm [facility] MCV 109.6(H) 81.3 - 96.4 fL [facility] MCH 33.1 27.1 - 33.3 pg [facility] MCHC 30.2(L) 32.3 - 35.7 g/dL [facility] RDW CV 13.7 11.1 - 14.9 % [facility] RDW SD 55.1(H) 35.7 - 48.1 fL [facility] NRBC abs 0.00 0.00 - 0.01 K/cumm [facility] Blood 03/09/2025 8:24 AM CDT 03/09/2025 8:53 PM CDT us Bernard Carbajal MD LAB BLOOD ORDERABLES Final Res ult [facility] [address] [address] Department [place] [address] * (ABNORMAL) Albumin Creatinine Ratio, Urine (03/09/2025 8:24 AM CDT) [facility] Albumin Ur 167.2 mg/L Comment: Interpretive Data No reference range established. Current interpretive data was last revised 2019. Creatinine Ur 93.5 mg/dL [facility] Comment: Interpretive Data No reference range established. Current interpretive data was last revised 2019. Albumin Creatinine Ratio, Ur 179(H) 1 - 29 mg/g [facility] Urine (Urine, Clean Catch) 03/09/2025 8:24 AM CDT 03/09/2025 8:53 PM CDT Narrative [facility] - 03/09/2025 10:46 PM CDT Fax results to [phone] BERNARD CARBAJAL Bernard Carbajal MD LAB URINE ORDERABLES Final Res ult [facility] [address] [address] [employer] [place] [address] * Vitamin D 25 hydroxy (03/09/2025 8:24 AM CDT) Vitamin D 25-OH 59 30 - 80 ng/mL Blood Venous blood specimen / Unknown 03/09/2025 8:24 AM CDT 03/09/2025 8:53 PM CDT Bernard Carbajal MD LAB BLOOD ORDERABLES Final Res ult Performing Organization Address [facility] Co de Phone Number [facility] ANGIE [address] [address] [place] [address] * (ABNORMAL) Urinalysis, microscopic only (03/09/2025 8:24 AM CDT) WBC, ur 11-20(A) 0 - 5 /HPF RBC, ur 0-2 0 - 2 /HPF [facility] Epithelial cells, squamous, ur 1-5 0 - 5 /HPF [facility] Mucous, ur Present(A) [facility] Hyaline casts, ur 1-5 0 - 10 /LPF [facility] Culture Reflex Comment Reflex to urine culture will be performed. [facility] Urine, clean voided 03/09/2025 8:24 AM CDT 03/09/2025 8:53 PM CDT Bernard Carbajal MD LAB URINE ORDERABLES Final Res ult Performing Organization Address City/[facility]/ZIP Co de Phone Number [facility] AD[facility] [address] [address] [place] [address] * Erythrocyte sedimentation rate (03/09/2025 8:24 AM CDT) Erythrocyte sedimentation rate 18 1 - 30 mm/hr Comment:Testing performed by : [facility], [facility], [place], [address] Blood Venous blood specimen / Unknown 03/09/2025 8:24 AM CDT 03/09/2025 2:22 PM CDT Nata FLORENCE - 03/09/2025 5:15 PM CDT Fax results to [phone] BERNARD CARBAJAL Bernard Carbajal MD LAB BLOOD ORDERABLES Final Res ult [place] [address] Department [place] [address] * Urine culture Urine, clean voided (03/09/2025 8:24 AM CDT) Report Final Report: Less than 100,000 colonies/mL (clinically insignificant growth based on current clinical standards) Comment:Testing performed by : [facility], [address] [place]., [address] Organism (CLINICALLY INSIGNIFICANT GROWTH [facility] Urine, clean voided 03/09/2025 8:24 AM CDT 03/09/2025 10:18 PM CDT Narrative [facility] - 03/11/2025 9:33 AM CDT Urine culture reflexed based upon urinalysis results. Testing performed by [facility] ([phone]) us Bernard Carbajal MD LAB MICROBIOLOGY - GENERAL ORD ERABLES Final Result [facility] [address] Department [place] [address] * Uric acid (03/09/2025 8:24 AM CDT) Uric acid 4.3 2.5 - 7.0 mg/dL Blood Venous blood specimen / Unknown 03/09/2025 8:24 AM CDT 03/09/2025 8:53 PM CDT Narrative [facility] - 03/09/2025 9:59 PM CDT Fax results to [phone] BERNARD CARBAJAL Bernard Carbajal MD LAB BLOOD ORDERABLES Final Res ult Performing Organization Address City/[facility]/ZIP Co de Phone Number [facility] [address] [address] [employer] [place] [address] * TSH (03/09/2025 8:24 AM CDT) Pathologist [facility] Thyroid Stimulating Hormone 2.31 0.30 - 4.20 mcIUnit/mL Blood Venous blood specimen / Unknown 03/09/2025 8:24 AM CDT 03/09/2025 8:53 PM CDT Narrative [facility] - 03/09/2025 9:59 PM CDT Fax results to [phone] BERNARD CARBAJAL us Bernard Carbajal MD LAB BLOOD ORDERABLES Final Res ult Performing Organization Address [facility]/ZIP Co de Phone Number [place] [address] [address] [place] [address] * PTH (03/09/2025 8:24 AM CDT) [facility] PTH 17 15 - 65 pg/mL Blood Venous blood specimen / Unknown 03/09/2025 8:24 AM CDT 03/09/2025 2:48 PM CDT Narrative [facility] - 03/09/2025 3:42 PM CDT Fax results to [phone] BERNARD CARBAJAL Bernard Carbajal MD LAB BLOOD ORDERABLES Final Res ult Performing Organization Address City/[facility]/ZIP Co de Phone Number [facility] AD[facility] [address] [address] [place] [address] * Hemoglobin A1c (03/09/2025 8:24 AM CDT) Pathologist [facility] Hgb A1C 5.4 4.0 - 5.6 % Estimated Average Glucose 108 mg/dL [facility] Comment: The ADA recommends reporting an estimated Average Glucose (eAG) with all Hemoglobin A1c results using the equation derived from a study of 507 normal and diabetic adults. Minority populations were underrepresented and children were not included. (Diabetes Care 31:1613-6736, 2008). The eAG is not equivalent to a fasting glucose. Blood Venous blood specimen / Unknown 03/09/2025 8:24 AM CDT 03/09/2025 8:53 PM CDT Narrative [facility] - 03/09/2025 10:06 PM CDT Fax results to [phone] BERNARD CARBAJAL us Bernard Carbajal MD LAB BLOOD ORDERABLES Final Res ult [place] [address] Department [place] [address] * Comprehensive metabolic panel (03/09/2025 8:24 AM CDT) Sodium 141 135 - 145 mmol/L Potassium, pl 4.6 3.3 - 4.9 mmol/L [facility] Chloride 105 97 - 110 mmol/L [facility] CO2 23 22 - 32 mmol/L [facility] Anion gap 13 2 - 15 mmol/L [facility] BUN 15 6 - 25 mg/dL [facility] Creatinine 1.01 0.60 - 1.10 mg/dL [facility] Glucose 86 70 - 199 mg/dL [facility] Comment: Interpretive Data Fasting glucose >/= 126 [...] 03/09/2025 9:59 PM CDT Fax results to [phone] BERNARD CARBAJAL us Bernard Carbajal MD LAB BLOOD ORDERABLES Final Res ult [facility] [place] [address] Department [place] [address] from Last 3 Months Insurance [facility] CHO[facility] PLUS [place] [id number] [facility] CHO[facility] PLUS Care Teams Panama Hat Smearer Relationship Specialty Start Date End Date Raul Smith MD PCP - General Internal Medicine 07/03/21
--- OUTSIDE RECORDS SUMMARY | 2025-06-05 14:29 | XMS_ITS ---
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 ; Renal osteodystrophy N25.0 ; Secondary hyperparathyroidism, not elsewhere classified E21.1 ; Type 2 diabetes mellitus with hyperglycemia E11.65 ; Vitamin D deficiency, unspecified E55.9 ; Urinary tract infection, site not specified N39.0 and Nontraumatic subdural hemorrhage, unspecified I62.00 Assessments Encounter Date Diagnosis (ICD Code) Assessment Notes Treatment Notes Treatment Clinical Notes Section Notes 03/11/2025 Chronic kidney disease, stage 3a (ICD-10 - N18.31) 03/11/2025 Essential hypertension (ICD-10 - I10) 03/11/2025 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) 03/11/2025 Renal osteodystrophy (ICD-10 - N25.0) 03/11/2025 Secondary hyperparathyroidism , not elsewhere classified (ICD-10 - E21.1) 03/11/2025 Type 2 diabetes mellitus with hyperglycemia (ICD-10 - E11.65) 03/11/2025 Vitamin D deficiency, unspecified (ICD-10 - E55.9) 03/11/2025 Urinary tract infection, site not specified (ICD-10 - N39.0) 03/11/2025 Nontraumatic subdural hemorrhage, unspecified (ICD-10 - I62.00) Plan Of Treatment Next Appt Details Provider Name:Bernard Freitas , 07/08/2025 01:30:00 AM, [address] [facility], [facility] [address], [place], [address], Progress Notes * ROSEANNA WARRENDOB:1960 (64 yo F)Acc No.[id number]:03/11/2025 Progress Notes Patient: ROSEANNA MORENO Provider: Rom MAYA MD, F.A.C.P, F.A.S.N. :1960 A ge:64 Y S ex:Female Date:03/11/2025 Address:[address] [place] [address], [facility] Subjective: * Chief Complaints: * * Medical History: Objective: * Vitals: Assessment: * Assessment: 1. C hronic kidney disease, stage 3a - N18.31 (Primary) 2 . E ssential hypertension - I10 3 . 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 S econdary hyperparathyroidism, not elsewhere classified - E21.1 6 . T ype 2 diabetes mellitus with hyperglycemia - E11.65? 7. V itamin D deficiency, unspecified - E55.9 8 . U rinary tract infection, site not specified - N39.0 9 . N ontraumatic subdural hemorrhage, unspecified - I62.00 Plan: * Treatment: * Billing Information: * Visit Code: 23464 Office Visit, Est Pt., Level 4. * Procedure Codes: * Electronic signature of Marybeth Freitas MD on 06/05/2025 at 02:29 PM CDT Sign off status: Pending * Provider: Rom MAYA MD, F.A.C.P, F.A.S.N. Date: 03/11/2025 Generated for Printing/Faxing/eTransmitting on: 0 06/05/2025 02:29 PM CDT
--- OUTSIDE RECORDS SUMMARY | 2025-06-05 14:29 | XMS_ITS ---
Author Organization [facility] Address [address] [place] [address] Care Team Providers [employer] Fermentation Operator Name Role Phone Erik Freitasjit Unavailable [phone] Encounters Encounter Location Date Provider Diagnosis [facility] [place] [facility] [address] [place] [address] 03/04/2025 Bernard Freitas Plan Of Treatment Next Appt Details Provider Name:Bernard Freitas , 07/08/2025 01:30:00 AM, [address], [facility] [place], Progress Notes * ROSEANNA WARRENDOB:1960 (64 yo F)Acc No.[id number]:03/04/2025 Progress Notes Patient: ROSEANNA MORENO Provider: Rom MAYA MD, Misha.López.C.P, F.A.S.N. :1960 A ge:64 Y S ex:Female Date:03/04/2025 Address:[address] [place] [address] Subjective: * Chief Complaints: * * Medical History: Objective: * Vitals: Assessment: Plan: * Treatment: * Billing Information: * Visit Code: * Procedure Codes: * Electronic signature of Marybeth Freitas MD on 06/05/2025 at 02:29 PM CDT Sign off status: Pending * Provider: Rom MAYA MD, Misha.López.C.P, F.A.S.N. Date: 03/04/2025 Generated for Printing/Faxing/eTransmitting on: 06/05/2025 02:29 PM CDT
--- OUTSIDE RECORDS SUMMARY | 2025-06-05 14:30 | XMS_ITS | Data Portability ---
Author Organization [place] [facility] [employer], Main Office Address [address] [place] [address] Care Team Providers Care Information Systems Specialist Name Role Phone GABRIEL SMITH Primary Care Provider GABRIEL SMITH Referring Provider [phone] Assessment Encounter Date Assessment Date Assessment LastModified by Organization Details LastModified Time 04/06/2024 04/06/2024 This note is dictated and transcribed by [employer]. Journeyman [employer] variances may occur. Despite proofreading, typographical errors may occur. Occasional wrong-word or 'qlyll-v-zkod' substitutions may have occurred due to the inherent limitations of voice recording. Read the chart carefully and recognize, using context, where substitutions have occurred. Not available 04/07/2024 09:41:07 07/27/2024 07/27/2024 This note is dictated and transcribed by [employer]. [employer] variances may occur. Despite proofreading, typographical errors may occur. Occasional wrong-word or 'ntwoe-m-ilbb' substitutions may have occurred due to the inherent limitations of voice recording. Read the chart carefully and recognize, using context, where substitutions have occurred. Not available 08/09/2024 10:05:11 12/21/2024 12/21/2024 This note is dictated and transcribed by [employer]. [employer] variances may occur. Despite proofreading, typographical errors may occur. Occasional wrong-word or 'yvklu-l-dufg' substitutions may have occurred due to the inherent limitations of voice recording. Read the chart carefully and recognize, using context, where substitutions have occurred. Not available 12/21/2024 16:46:24 03/29/2025 03/29/2025 This note is dictated and transcribed by [employer]. [employer]neyman [employer]man variances may occur. Despite proofreading, typographical errors may occur. Occasional wrong-word or 'hufjp-i-mfvn' substitutions may have occurred due to the inherent limitations of voice recording. Read the chart carefully and recognize, using context, where substitutions have occurred. Not available 03/29/2025 11:29:00 Plan of Treatment Reminders Order Date Submit Date Provider Last Modified By Organization Details Last Modified Time Details Appointments Establish ed Patient 15 2024 10:15A M Gordon Mendoza DPM Not available Not available Not available Lab None recorded. Referral None recorded. Procedures None recorded. Surgeries None recorded. Imaging None recorded. Medication Orders ketoconaz ole 2 % topical cream 2023 024 [facility], [address] [place] [address], [facility], 01/06/2024 17:16:17 Patient TargetsNo targets recorded. Patient InstructionsNo instructions recorded. Reason for Referral None Reported. Results Created Date Observation Date Name Description Value Unit Range Abnormal Flag Note LastModifiedBy Organization Detail LastModifiedTime 03/15/20 24 03/15/2024 scree renetta breas t hayley, bilat [facility] [address] [place] [address] [phone] Patien t Name: JOAN WARREN [facility] ion #: [id number] Sex: F : 1959 8 Dictat ed By: Dorothea Garduno Attend ing Physic ruperto: SHAKILA SMITH Orderi ng Physic ruperto: SHAKILA SMITH Exam Date: 2023 13:57 PM Exam Name: MG SCRN BREAST HAYLEY BILAT Admitt ing Diagno sis(es ): SCREEN ING MAMMOG NEAL WITH TOMOSY NTHESI S: REASON FOR EXAM: SCREEN ING MAMMOG NEAL COMPAR LESLEY:; 11/30/19; 2020 TECHNI QUE: Bilate ral CC and MLO views obtain ed. Images were obtain ed using a Digita l Tomosy nthesi s Unit. Standa rd 2D and 3D Tomosy nthesi s images were review ed. FINDIN GS: BREAST COMPOS ITION: There are scatte red areas of fibrog landul ar densit y in the bilate ral breast s. In the right breast , no asymme trical parenc hymal patter n, swapnil ectura l distor tion, pleomo rphic microc alcifi cation s or masses . In the left breast , no asymme trical parenc hymal patter n, swapnil ectura l distor tion, pleomo rphic microc alcifi cation s or masses . IMPRES HAO: No findin gs of malign erickson. Recomm end annual mammog neal. BIRADS : 2 - Benign Electr onical ly Signed by: Dorothea Garduno at 2023 14:44: 22 PM Page 1 [email or web address] [facility] (Imaging) [address] [place] [address], [id number], 06/08/2024 10:07:33 Result Notes None recorded. Problems Name Problem SNOMED Code Status Onset Date Resolution Date Notes Provider Name and Address Organization Details Recorded Time Pain of left breast 7701092680 Active 2022 Not Available [facility] 4 21:23:08 Contusion of right elbow 98603968743 966425 Active 2022 Not Available [facility] 4 21:23:09 Psoriatic arthritis 024375520 Active 2021 Not Available [facility] 4 21:23:09 Acute sinusitis 72988953 Active 2021 Not Available [facility] 4 21:23:09 Pain of right elbow joint 64666289011 786911 Active 2022 Not Available [facility] 4 21:23:09 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 Not Available [facility] 4 21:23:09 Stenosis of urinary meatus 200849010 Active Not Available [facility] 4 21:23:09 Recurrent urinary tract infection 708876429 Active 2021 Not Available [facility] 4 21:23:09 Abdominal pain 52891704 Active Not Available [facility] 4 21:23:09 Gallstone 114006123 Completed Not Available [facility] 3 01:04:12 Transient cerebral ischemia 135156082 Active Not Available [facility] 4 21:23:09 Sore throat 026491819 Active 2021 Not Available [facility] 4 21:23:09 Low back pain 959773316 Completed Not Available [facility] 3 01:04:12 Type 2 diabetes mellitus without complicat ion 298815229 Active 2020 Not Available [facility] 4 21:23:09 Pain of multiple joints 49031602 Active 2021 Not Available [facility] 4 21:23:09 Calculus of bile duct with cholecyst itis 23957495 Completed Not Available [facility] 3 01:04:12 Dyslipide jerrod 293756728 Active Not Available [facility] 4 21:23:09 Hypertens ozzie disorder 19420882 Active Not Available [facility] 4 21:23:09 Abrasion 800662563 Completed Not Available [facility] 3 01:04:12 Ingrowing toenail 934514928 Active 2020 Not Available [facility] 4 21:23:09 Obese 339994298 Active Not Available [facility] 4 21:23:09 Acute urinary tract infection 614818909 Active 2021 Not Available [facility] 4 21:23:09 Pilonidal disease 117804199 Active Not Available [facility] 4 21:23:09 Anxiety 12047485 Active Not Available [facility] 4 21:23:09 Dysuria 29748621 Completed Ashlyn Gomez RN null, [place] [facility] 3 14:13:33 Cough 69405040 Active 2021 Not Available [facility] 4 21:23:09 Candidias is of skin 26022188 Active 2021 Not Available [facility] 4 21:23:09 Upper respirato ry infection 53677691 Active 2021 Not Available [facility] 4 21:23:09 Lower abdominal pain 38455844 Completed Not Available [facility] 3 01:04:13 Essential hypertens ion 19688684 Active Not Available [facility] 4 21:23:09 Urinary tract infectiou s disease 09224268 Active 2021 Not Available [facility] 4 21:23:09 Urgent desire to urinate 21117263 Active Not Available [facility] 4 21:23:09 Upper abdominal pain 07522346 Completed Not Available [facility] 3 01:04:14 Gout 30283808 Active 2021 Not Available [facility] 4 21:23:09 Urolithia sis 53628660 Active Not Available [facility] 4 21:23:09 Dystrophi a unguium 21670093 Active 2022 Not Available [facility] 4 21:23:09 Easy bruising 269695584 Active 2022 Not Available [facility] 4 21:23:09 Bilateral ingrowing nail of toe of feet 01427555312 437998 Active 2022 Not Available [facility] 4 21:23:09 Proteinur ia 53729045 Active 2022 Not Available [facility] 4 21:23:09 Dysuria 98420393 Active 2022 Not Available [facility] 4 21:23:09 Ingrowing nail of toe of right foot 57690528450 208729 Active 2023 Gordon Mendoza DPM [address] [facility] [address], [place], [address] , [facility] 4 15:38:33 Tinea pedis 5907661 Active 2023 Gordon Mendoza DPM [address] [facility], [place], [address] , [employer] [facility] 17:15:48 Type 2 diabetes mellitus 83577340 Active 2024 Gordon Mendoza DPM [address], [address], [place], [address] , [employer] [place] [facility] 11:30:46 Notes:Some problems listed i n Documents: #[id number], #[id number] could not be added to this patient's chart. Please review these documents and add these problems to the patient's chart manually as needed. Problem Notes None recorded. Procedures Surgical History Date Name Laterality Status Provider Name and Address Organization Details Recorded Time 025 Nail Debridement completed SKYLAR Gonzalez [address], [address], [place], [address], [facility] [employer] 03/29/2025 11:27:27 025 Nail Debridement completed SKYLAR Gonzalez, [address], [place], [address], [facility] 12/21/2024 16:47:08 024 Nail Debridement completed SKYLAR Gonzalez, [address], [place], [address], [facility] 08/09/2024 10:05:04 024 Nail Debridement completed SKYLAR Gonzalez, [address], [place], [address], [facility] 01/06/2024 15:38:25 023 Nail Debridement completed SKYLAR Gonzalez, [address], [place], [address], [facility] 09/09/2023 15:22:40 023 Nail Debridement completed SKYLAR Gonzalez, [address], [place], [address], [employer] [facility] [employer] 05/08/2023 16:45:00 023 Nail Debridement completed Gordon Mendoza DPM [address] [facility], [address], [place], [address], [facility] [employer] [facility] 02/20/2023 11:22:24 023 Bladder completed Not Available [facility] 01/22/2023 00:57:26 017 Orthopedic Surgery completed Not Available [facility] 01/22/2023 00:57:26 016 cystourethroscopy and dilation of urinary bladder completed Not Available [facility] 01/22/2023 00:57:26 016 Cystoscopy and treatment completed Not Available [facility] 01/22/2023 00:57:26 016 Diagnostic colonoscopy completed Not Available [facility] 01/22/2023 00:57:26 015 Laparoscopic cholecystectomy completed Not Available [facility] 01/22/2023 00:57:26 015 other completed Not Available [facility] 01/22/2023 00:57:26 Anes delivery only completed Not Available [facility] 01/22/2023 00:57:26 Breast Surgery completed Not Available [facility] 01/22/2023 00:57:26 Tonsillectomy completed Not Available [facility] 01/22/2023 00:57:26 Imaging Results None recorded. Procedure Notes None recorded. Medical Equipment None Reported. Allergies No known drug allergies Medications Name Sig Start Date Stop Date Status Note LastModified by Organization Details LastModified Time cyclobenzap rine 10 mg tablet Take 1 tablet every day by oral route at bedtime. active Not Available Not Available No t Available amoxicillin 500 mg capsule Take 1 capsule 3 times a day by oral route for 7 days. active Not Available Not Available No t Available fluconazole 100 mg tablet TAKE 1 TABLET BY MOUTH ONCE DAILY 08/21 completed Not Available Not Available Not Available silver sulfadiazin e 1 % topical cream APPLY TO BURN DAILY 02/10 completed Not Available Not Available Not Available metformin 500 mg tablet TAKE 1 TABLET DAILY active Not Available Not Available No t Available prednisone 10 mg tablet Take by oral route. take [id number], [id number], [id number] active Not Available Not Available No t Available doxycycline hyclate 100 mg capsule TAKE 1 CAPSULE BY MOUTH TWICE DAILY FOR 10 DAYS 09/10 completed Not Available Not Available Not Available atorvastati n 20 mg tablet TAKE 1 TABLET DAILY active Not Available Not Available No t Available citalopram 40 mg tablet TAKE 1 TABLET DAILY active Not Available Not Available No t Available atorvastati n 10 mg tablet TAKE 1 TABLET DAILY active Not Available Not Available No t Available azithromyci n 250 mg tablet TAKE 2 TABLETS (500 MG) BY ORAL ROUTE ONCE DAILY FOR 1 DAY THEN 1 TABLET (250 MG) BY ORAL ROUTE ONCE DAILY FOR 4 DAYS 12/19 completed Not Available Not Available Not Available diltiazem CD 180 mg capsule,ext ended release 24 hr active Not Available Not Available Not Available fluconazole 150 mg tablet Take 1 PO every week x 4 weeks 11/07 completed Not Available Not Available Not Available benzonatate 200 mg capsule Take 1 capsule 3 times a day by oral route as needed. active Not Available Not Available No t Available metoprolol succinate ER 50 mg tablet,exte nded release 24 hr TAKE 1 TABLET DAILY active Not Available Not Available No t Available ampicillin 500 mg capsule Take 1 capsule twice a day by oral route. active Not Available Not Available No t Available levetiracet am 500 mg tablet TAKE 1 TABLET BY MOUTH TWICE DAILY active Not Available Not Available No t Available hydrocodone 5 mg-acetamin ophen 325 mg tablet active Not Available Not Available No t Available prednisone 20 mg tablet TAKE 2 TABLETS BY MOUTH EVERY DAY FOR 5 DAYS 03/21 completed Not Available Not Available Not Available fluoxetine 10 mg tablet Take 1 tablet(s) every day by oral route. Please call to schedule an appointme nt 12/12 completed Not Available Not Available Not Available prednisone 5 mg tablet active Not Available Not Available Not Available sulfasalazi ne 500 mg tablet,chapo yed release TAKE 2 TABLETS BY MOUTH TWICE DAILY 03/29 completed Not Available Not Available Not Available promethazin e 6.25 mg-codeine 10 mg/5 mL syrup Take 5 mL every 6 hours by oral route. 01/30 completed Not Available Not Available Not Available penicillin V potassium 500 mg tablet TAKE 1 TABLET BY MOUTH EVERY 8 HOURS FOR 10 DAYS active Not Available Not Available No t Available metronidazo le 500 mg tablet Take 1 tablet every 8 hours by oral route. active Not Available Not Available No t Available nifedipine ER 30 mg tablet,exte nded release Take 1 tablet every day by oral route. active Not Available Not Available No t Available ciprofloxac in 250 mg tablet TAKE 1 TABLET BY MOUTH ONCE DAILY FOR 7 DAYS 08/21 completed Not Available Not Available Not Available allopurinol 100 mg tablet TAKE 1 TABLET DAILY DIRECTED active Not Available Not Available No t Available ciprofloxac in 500 mg tablet TAKE 1 TABLET BY MOUTH ONCE DAILY FOR 7 DAYS 03/29 completed Not Available Not Available Not Available sulfamethox azole 800 mg-trimetho prim 160 mg tablet TAKE 1 TABLET BY MOUTH EVERY 12 HOURS FOR 5 DAYS 03/29 completed Not Available Not Available Not Available tramadol 50 mg tablet TAKE 1 TABLET BY MOUTH WITH OTC TYLENOL 4 TIMES DAILY NEEDED FOR PAIN 03/29 completed Not Available Not Available Not Available amoxicillin 500 mg tablet Take 1 tablet 3 times a day by oral route for 10 days. 04/03 completed Not Available Not Available Not Available meloxicam 7.5 mg tablet 06/08 completed Not Available Not Available Not Available oxycodone-a cetaminophe n 5 mg-325 mg tablet 12/12 completed Not Available Not Available Not Available Zanaflex 4 mg tablet Take 1 tablet twice a day by oral route. 05/24 completed Not Available Not Available Not Available ofloxacin 0.3 % ear drops INSTILL 5 DROPS TWICE DAILY FOR 7 DAYS active Not Available Not Available No t Available amoxicillin 875 mg tablet active Not Available Not Available Not Available citalopram 20 mg tablet TAKE ONE TABLET BY MOUTH ONCE DAILY active Not Available Not Available No t Available diltiazem 120 mg tablet 03/11 completed Not Available Not Available Not Available methocarbam ol 750 mg tablet TAKE 1 TABLET BY MOUTH 4 TIMES DAILY NEEDED FOR RIB PAIN/MUSC LE SPASM active Not Available Not Available No t Available methotrexat e sodium 2.5 mg tablet TAKE 4 TABLETS BY MOUTH ONCE A WEEK IN THE MORNING AND IN THE EVENING active Not Available Not Available No t Available benzonatate 100 mg capsule Take 1 capsule 3 times a day by oral route. active Not Available Not Available No t Available hydrocodone 7.5 mg-acetamin ophen 325 mg tablet active Not Available Not Available No t Available diphenhydra mine 25 mg capsule Take 2 capsules every 4 hours by oral route. 2013 active Not Available Not Available Not Avai lable oseltamivir 75 mg capsule Take 1 capsule twice a day by oral route for 5 days. 03/18 completed Not Available Not Available Not Available promethazin e 25 mg tablet 02/09 completed Not Available Not Available Not Available losartan 25 mg tablet TAKE 1 TABLET DAILY active Not Available Not Available No t Available metoprolol tartrate 50 mg tablet TAKE ONE TABLET BY MOUTH TWICE DAILY active Not Available Not Available No t Available nystatin-tr iamcinolone 100,000 unit/g-0.1 % topical cream APPLY TO THE AFFECTED AREA(S) BY TOPICAL ROUTE 2 TIMES PER DAY IN THE MORNING AND EVENING NEEDED active Not Available Not Available No t Available diltiazem CD 120 mg capsule,ext ended release 24 hr active Not Available Not Available Not Available folic acid 1 mg tablet TAKE 1 TABLET BY MOUTH ONCE DAILY active Not Available Not Available No t Available etodolac 400 mg tablet Take 1 tablet twice a day by oral route. active Not Available Not Available No t Available montelukast 10 mg tablet TAKE 1 TABLET DAILY active Not Available Not Available No t Available ampicillin 250 mg capsule Take 1 capsule twice a day by oral route for 5 days. 06/11 completed Not Available Not Available Not Available mupirocin 2 % topical ointment APPLY TO AFFECTED AREA TWICE DAILY 03/11 completed Not Available Not Available Not Available Levaquin 500 mg tablet Take 1 tablet every day by oral route for 7 days. 01/24 completed Not Available Not Available Not Available ergocalcife rol (vitamin D2) 1,250 mcg (50,000 unit) capsule active Not Available Not Available Not Available nystatin 100,000 unit/gram topical powder APPLY TO THE AFFECTED AREA(S) BY TOPICAL ROUTE 2 TIMES PER DAY x 1 week 01/14 completed Not Available Not Available Not Available oxycodone-a cetaminophe n 7.5 mg-325 mg tablet 12/19 completed Not Available Not Available Not Available methylpredn isolone 4 mg tablets in a dose pack TAKE BY MOUTH DIRECTED ON INSIDE OF PACKAGE active Not Available Not Available No t Available albuterol sulfate HFA 90 mcg/actuati on aerosol inhaler Inhale 2 puffs every 4 hours by inhalatio n route. active Not Available Not Available No t Available ketoconazol e 2 % topical cream APPLY TO THE AFFECTED AREA(S) both feet BY TOPICAL ROUTE ONCE DAILY active Not Available Not Available No t Available nifedipine ER 60 mg tablet,exte nded release TAKE 1 TABLET DAILY 10/27 completed Not Available Not Available Not Available ondansetron 4 mg disintegrat ing tablet DISSOLVE 1 TABLET IN MOUTH EVERY 6 HOURS active Not Available Not Available No t Available cefdinir 300 mg capsule Take 1 capsule twice a day by oral route for 7 days. active Not Available Not Available No t Available fluticasone propionate 50 mcg/actuati on nasal spray,suspe nsion Stephenson 2 sprays every day by intranasa l route. active Not Available Not Available No t Available Nifedical XL 60 mg tablet,exte nded release 11/11 completed Not Available Not Available Not Available doxycycline hyclate 100 mg tablet Take 1 tablet twice a day by oral route for 10 days. 02/13 completed Not Available Not Available Not Available dicyclomine 10 mg capsule active Not Available Not Available Not Available calcitriol 0.25 mcg capsule active Not Available Not Available Not Available amoxicillin 875 mg-potassiu m clavulanate 125 mg tablet TAKE 1 TABLET BY MOUTH TWICE DAILY FOR 10 DAYS 03/29 completed Not Available Not Available Not Available oxycodone 5 mg tablet TAKE 1 TABLET BY MOUTH EVERY 6 HOURS NEEDED 03/29 completed Not Available Not Available Not Available metaxalone 800 mg tablet TAKE 1 TABLET BY MOUTH THREE TIMES DAILY NEEDED 07/18 completed Not Available Not Available Not Available Pain Reliever (acetaminop hen) 500 mg tablet TAKE 2 TABLETS BY MOUTH EVERY 8 HOURS. DO NOT EXCEED 8 TABLETS IN 24 HOURS active Not Available Not Available No t Available nitrofurant oin monohydrate /macrocryst als 100 mg capsule TAKE 1 CAPSULE BY MOUTH EVERY 12 HOURS FOR 7 DAYS active Not Available Not Available No t Available folic acid Take 1 mg Daily 12/19 completed Not Available Not Available Not Available methotrexat e TAKE 2.5 mg 3 tabs in the Morning and 3 tabs at night every Friday active Not Available Not Available Not Avai lable calcitriol take 0.25 mg daily 2021 active Not Available Not Available Not Avai lable multivitami n 03/11 completed Not Available Not Available Not Available Calcium 500 + D QD 03/11 completed Not Available Not Available Not Available diclofenac 1 % topical gel APPLY 2 GRAM TO THE AFFECTED AREA(S) BY TOPICAL ROUTE daily 07/15 completed Not Available Not Available Not Available fesoterodin e ER 4 mg tablet,exte nded release 24 hr Take 1 tablet every day by oral route. active Not Available Not Available No t Available Zyrtec 10 mg capsule 10/18 completed Not Available Not Available Not Available nystatin (bulk) 100 million unit powder Apply to rash under breast twice a day x 1 week 01/14 completed Not Available Not Available Not Available Farxiga 5 mg tablet Take 1 tablet every day by oral route. 04/06 completed Not Available Not Available Not Available Humira(CF) Pen 40 mg/0.4 mL subcutaneou s kit active Not Available Not Available Not Available Vitals Date Recorded Body height Body mass index (BMI) Body weight Heart rate Respiratory rate Oxygen saturation Oxygen saturation in Arterial blood by Pulse oximetry Systolic And Diastolic Provider Name and Address Organization Details Last Updated DateTime 5 147.32 cm 38.7 kg/m2 64605.5 9 g 123 /min 14 /min 99 % 99 % 116/61 mm[Hg] Brook Jacob [place] [employer] [facility] 5 16:16:15 Date Recorded Body height Body mass index (BMI) Body weight Heart rate Respiratory rate Oxygen saturation Oxygen saturation in Arterial blood by Pulse oximetry Systolic And Diastolic Provider Name and Address Organization Details Last Updated DateTime 4 147.32 cm 38.7 kg/m2 87320.5 9 g 88 /min 14 /min 99 % 99 % 81/52 mm[Hg] Brook [facility] [place] [employer] [facility] 4 15:34:07 Date Recorded Body height Body mass index (BMI) Body weight Heart rate Respiratory rate Oxygen saturation Oxygen saturation in Arterial blood by Pulse oximetry Systolic And Diastolic Provider Name and Address Organization Details Last Updated DateTime 5 147.32 cm 38.7 kg/m2 27312.5 9 g 111 /min 14 /min 98 % 98 % 108/76 mm[Hg] Brook Jacob [employer] 5 10:41:53 Date Recorded Body height Body mass index (BMI) Body weight Heart rate Respiratory rate Oxygen saturation Oxygen saturation in Arterial blood by Pulse oximetry Systolic And Diastolic Provider Name and Address Organization Details Last Updated DateTime 4 147.32 cm 38.7 kg/m2 17449.5 9 g 88 /min 14 /min 98 % 98 % 108/65 mm[Hg] Brook [employer] [facility] [employer] 4 15:53:00 Date Recorded Body height Body mass index (BMI) Body weight Heart rate Oxygen saturation Oxygen saturation in Arterial blood by Pulse oximetry Systolic And Diastolic Provider Name and Address Organization Details Last Updated DateTime 4 147.32 cm 38.7 kg/m2 07632.5 9 g 86 /min 99 % 99 % 110/64 mm[Hg] JAK Brenner ND Actual Experience [facility] [employer] 4 15:37:26 Social History Question Answer Notes LastModified by Organization Details LastModified Time Tobacco Smoking Status Never Smoker Not Available [facility] 01/22/2023 00:47:41 Do You Have An Advance Directive? No MIGRATION.846 [id number] Information not available 01/22/2023 Do You Wear A Helmet When Biking? Yes MIGRATION.484 [id number] Information not available 01/22/2023 Are You Blind Or Do You Have Difficulty Seeing? No MIGRATION.209 5150193 Information not available 01/22/2023 What Is Your Level Of Caffeine Consumption? Occasional MIGRATION.400 0276755 Information not available 01/22/2023 How Much Tobacco Do You Chew? None MIGRATION.395 [id number] Information not available 01/22/2023 In The 14 Days Before Symptom Onset, Have You Had Close Contact With A Laboratory-conf irmed COVID-19 While That Case Was Ill? No MIGRATION.191 4294839 Information not available 01/22/2023 In The 14 Days Before Symptom Onset, Have You Had Close Contact With A Person Who Is Under Investigation For COVID-19 While That Person Was Ill? No MIGRATION.553 9356610 Information not available 01/22/2023 Are You Deaf Or Do You Have Serious Difficulty Hearing? Yes L Ear 80% Loss MIGRATION.212 4380296 Information not available 01/22/2023 What Type Of Diet Are You Following? REGULAR MIGRATION.411 3178108 Information not available 01/22/2023 Which Illicit Or Recreational Drugs Have You Used? Edible Gummies Occasionally MIGRATION.093 2260422 Information not available 01/22/2023 What Is The Highest Grade Or Level Of School You Have Completed Or The Highest Degree You Have Received? [id number] MIGRATION.203 8552305 Information not available 01/22/2023 Have There Been Any Changes To Your Family Or Social Situation? No MIGRATION.042 6771766 Information not available 01/22/2023 What Is The Fluoride Status Of Your Home? Unknown MIGRATION.278 4034843 Information not available 01/22/2023 Are There Any Guns Present In Your Home? No MIGRATION.533 9796148 Information not available 01/22/2023 Do You Use Insect Repellent Routinely? No MIGRATION.578 0401621 Information not available 01/22/2023 Where Do You Live? [place] MIGRATION.081 0607726 Information not available 01/22/2023 Do You Have A Medical Power Of Primary Care Physician? No MIGRATION.524 3906757 Information not available 01/22/2023 What Was The Date Of Your Most Recent Tobacco Screening? 09/10/2023 [email or web address] Information not available 09/10/2023 Have You Ever Been Counseled For Unhealthy Alcohol Use? No MIGRATION.241 9704210 Information not available 01/22/2023 Do You Have Any Pets? Yes MIGRATION.026 7523761 Information not available 01/22/2023 What Is Your Relationship Status? MIGRATION.724 7281465 Information not available 01/22/2023 Do You Use Your Seat Belt Or Car Seat Routinely? Yes MIGRATION.488 2078309 Information not available 01/22/2023 Do You Have Smoke And Carbon Monoxide Detectors In Your Home? Yes MIGRATION.159 1969683 Information not available 01/22/2023 Are You Passively Exposed To Smoke? Yes Only In Car MIGRATION.583 7136205 Information not available 01/22/2023 Are There Any Smokers In Your House? No MIGRATION.546 3706590 Information not available 01/22/2023 How Much Tobacco Do You Smoke? No MIGRATION.876 8647065 Information not available 01/22/2023 What Types Of Sporting Activities Do You Participate In? None MIGRATION.539 6992831 Information not available 01/22/2023 Do You Use Sunscreen Routinely? Yes MIGRATION.431 8829025 Information not available 01/22/2023 Has Tobacco Cessation Counseling Been Provided? No Not Needed-never Smoked MIGRATION.849 7982653 Information not available 01/22/2023 How Many Years Have You Smoked Tobacco? 0 MIGRATION.477 6486288 Information not available 01/22/2023 Have You Recently Traveled Abroad? No MIGRATION.537 3274495 Information not available 01/22/2023 Have You Used IV Drugs? No MIGRATION.636 9232868 Information not available 01/22/2023 Do You Have Difficulty Walking Or Climbing Stairs? No MIGRATION.358 4771195 Information not available 01/22/2023 Do You Have Any Dietary Restrictions? No MIGRATION.700 3201124 Information not available 01/22/2023 Sex: Female Functional Status Question Answer Note LastModified by [employer] ion Details LastModified Time Do you use any illicit or recreational drugs? Yes MIGRATION.794843 3105 Information not available 01/22/2023 Do you or have you ever used any other forms of tobacco or nicotine? No MIGRATION.383594 4242 Information not available 01/22/2023 What is your level of alcohol consumption? Occasional MIGRATION.403627 5526 Information not available 01/22/2023 Do you or have you ever used smokeless tobacco? Never used smokeless tobacco MIGRATION.072047 0194 Information not available 01/22/2023 Do you have transportation difficulties? No MIGRATION.596388 5800 Information not available 01/22/2023 Are you able to walk? YESWOREST MIGRATION.743490 4617 Information not available 01/22/2023 Do you have difficulty doing errands alone? No MIGRATION.561775 4934 Information not available 01/22/2023 Are you able to care for yourself? 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 No MIGRATION.263157 6079 Information not available 01/22/2023 Do you or have you ever used e-cigarettes or vape? Never used electronic cigarettes MIGRATION.256907 2085 Information not available 01/22/2023 What is your exercise level? None MIGRATION.587056 0335 Information not available 01/22/2023 Mental Status Question Answer Note LastModified by Organizat ion Details LastModified Time Do you feel stressed (tense, restless, nervous, or anxious, or unable to sleep at night)? [id number] MIGRATION.93599532 26 Information not available 01/22/2023 Do you have difficulty concentrating, remembering or making decisions? No MIGRATION.06865755 26 Information not available 01/22/2023 Family History Relationship Description Onset Age of this Age Resolved Age Notes LastModified by Organization Details LastModified Time Mother Diabetes mellitus MIGRATION.009 [id number] Not available 01/22/2023 00:57:27 Mother Essential hypertension MIGRATION.571 0283043 Not available 01/22/2023 00:57:27 Mother Chronic progressive renal failure MIGRATION.753 4814699 Not available 01/22/2023 00:57:27 Mother Arthritis MIGRATION.279 9131294 Not available 01/22/2023 00:57:27 Mother Heart disease MIGRATION.024 2813360 Not available 01/22/2023 00:57:27 Son Urolithiasis MIGRATION.0 30 7406137 Not available 01/22/2023 00:57:27 Daughter Urolithiasis MIGRATION. 314 3828007 Not available 01/22/2023 00:57:27 Sister Chronic progressive renal failure MIGRATION.690 3313581 Not available 01/22/2023 00:57:27 Brother Diabetes mellitus MIGRATION.308 1873690 Not available 01/22/2023 00:57:27 Brother Family history of stroke MIGRATION.536 9209716 Not available 01/22/2023 00:57:27 Father Family history of stroke MIGRATION.655 4477963 Not available 01/22/2023 00:57:27 Father Heart disease MIGRATION.750 3468321 Not available 01/22/2023 00:57:27 Medical History Condition Response BLINDNESS N NERVE DISEASE N RHEUMATIC FEVER N BLADDER PROBLEMS N KIDNEY STONES Y OTHER # 1 N POLIO N LUNG DISEASE/DISORDER N RADIATION / CHEMOTHERAPY N COPD N Other # 2 N BLOOD DISEASES N SURGERY N EAR OR HEARING PROBLEMS Y MUMPS N DEPRESSION (INCLUDING POST ) Y BOWEL PROBLEMS N STROKE/TIA Y ULCERS N BENIGN PROSTATIC HYPERPLASIA N MEASLES N MYOCARDIAL INFARCTION N OBESITY Y GERD/NAUSEA N ANEURYSM N URINARY/BLADDER/KIDNEY PROBLEMS Y INPATIENT PSYCH CARE N CORONARY ARTERY DISEASE (CAD) N ADDICTION CONCERNS N Impotence N ENDOMETRIOSIS N USE OF BLOOD THINNERS N SKIN PROBLEMS Y GASTROINTESTINAL DISORDER N PERIPHERAL VASCULAR DISEASE N MUSCLE,JOINT OR BONE PROBLEMS N GASTROINTESTINAL BLEEDING N BLOOD CLOTS N ASTHMA N CATARACTS N ERECTILE DYSFUNCTION N VARICOSITIES N GI PROBLEMS N Low Testosterone N INFERTILITY N AIDS/HIV N LIVER DISEASE N MALE HYPOGONADISM N HYPERTENSION Y Deficiency N ANXIETY DISORDER Y BLOOD TRANSFUSION N ANEMIA/BLOOD DISORDER N CHRONIC EAR INFECTIONS N BRONCHITIS N TUBERCULOSIS N GLAUCOMA N FOOT PROBLEM N DIVERTICULITIS N SLEEP APNEA N CHICKENPOX N INFECTIOUS DISEASE N PROSTATE N HEART ARRHYTHMIA N INSOMNIA N HIGH CHOLESTEROL / HYPERLIPIDEMIA Y EYE PROBLEMS N HYPERTHYROIDISM N NEUROLOGICAL PROBLEMS N EDEMA N CHRONIC PAIN SYNDROME N HYPOTHYROIDISM N CONSTIPATION N CAROTID BLOCKAGE N BACK / NECK PROBLEMS Y HAVE YOU BEEN HOSPITALIZED OR SEEN IN [facility] IN THE PAST YEAR ? Y ATHEROSCLEROSIS N BREAST PROBLEMS N DIALYSIS N ECZEMA N OSTEOPOROSIS N ARTHRITIS Y NO SIGNIFICANT PAST MEDICAL HISTORY N APPENDICITIS N DIABETES, TYPE Y BAD TEETH N ENT N HEARTBURN / REFLUX N AUTISM SPECTRUM DISORDER (ASD) N HEPATITIS / LIVER DISEASE N PULMONARY DISEASE N GOUT Y SLEEP DISORDER N ALZHEIMER'S DISEASE N Brain Problems N DEMENTIA N HERPES N SEIZURES/EPILEPSY N HEADACHES/MIGRAINES Y VASCULAR DISEASE N PACEMAKER N Blood Disorder N DIZZINESS N HEART DISEASE/HEART PROBLEMS N KIDNEY DISEASE Y MULTIPLE SCLEROSIS N CANCER: SPECIFY N CARDIAC ARRHYTHMIA N ANESTHESIA COMPLICATIONS N ATRIAL FIBRILLATION N Gall Stones N PULMONARY EMBOLISM N AUTOIMMUNE DISEASE N Gynecological HistoryNo gynecological history recorded. Obstetrics History GPAL:G 0 P 0 0 0 0 Immunizations Vaccine Type Date Status Note Provider Nam e and Address Organization Details Recorded Time Influenza, split virus, quadrivalent, PF 09/10/2023 completed Gabriel Smith MD [address] [place] [address], [address], [address], [facility] [employer] 09/21/2023 21:47:07 COVID-19, mRNA, LNP-S, PF, 30 mcg/0.3 mL dose 11/15/2021 completed Not Available [facility] 4 21:23:09 COVID-19, mRNA, LNP-S, PF, 30 mcg/0.3 mL dose 03/15/2021 completed Not Available [facility] 4 21:23:09 COVID-19, mRNA, LNP-S, PF, 30 mcg/0.3 mL dose 02/18/2021 completed Not Available [facility] 4 21:23:09 Influenza, split virus, quadrivalent, PF 09/14/2021 completed Not Available [facility] 4 21:23:10 Influenza, split virus, quadrivalent, PF 10/15/2019 completed Not Available [facility] 4 21:23:10 Influenza, split virus, quadrivalent, PF 10/27/2018 completed Not Available [facility] 4 21:23:10 Influenza, split virus, quadrivalent, PF 10/13/2017 completed Not Available [facility] 4 21:23:10 Influenza, split virus, quadrivalent, PF 09/29/2020 completed Not Available [facility] 4 21:23:10 Influenza, split virus, quadrivalent, PF 10/18/2015 completed Not Available [facility] 4 21:23:10 Influenza, split virus, trivalent, PF 09/23/2014 completed Not Available [facility] 2023 21:23:10 Past Encounters Encounter ID Performer Location Encounter Start Date Encounter Closed Date Diagnosis/Indication Diagnosis SNOMED-CT Code Diagnosis ICD10 Code Diagnosis Note [id number] Gabriel Smith MD [facility] Internal Med [facility] [address] [address] 02/14/2021 00:00:00 02/18/2021 17:06:49 [id number] Gabriel Smith MD [facility] Internal Med [facility] [address] [address] 03/21/2021 00:00:00 04/15/2021 14:20:02 [id number] Gabriel Smith MD [facility] Internal Med [facility] [address] [address] 04/09/2021 00:00:00 04/09/2021 21:18:53 [id number] [facility] ic_Gateway _ATHENA_M IGRATION_ DEFAULT_1 _1 , 04/20/2021 00:00:00 04/20/2021 13:42:44 [id number] Gabriel Smith MD [facility] Internal Med [facility] [address] [place] [address] Ave[address] [address] 06/20/2021 00:00:00 06/24/2021 21:35:35 [id number] [facility] ic_Gateway [facility] [place] [address] [place] [address] 07/19/2021 00:00:00 07/22/2021 20:32:52 [id number] [facility] ic[facility]Gateway [facility] [place] [address] [place] [address] 09/10/2021 00:00:00 09/13/2021 10:17:39 [id number] Dasia hurt MD [facility] Internal Med [address] [address] 09/14/2021 00:00:00 09/14/2021 16:26:18 [id number] Gabriel Smith MD [facility] Internal Med [address] [address] 09/26/2021 00:00:00 09/28/2021 22:29:32 [id number] Gabriel Smith MD [facility] Internal Med [address] [address] 10/10/2021 00:00:00 10/19/2021 16:11:24 [id number] [facility] ic[facility]Gateway [facility] [place] [address] [place] [address] 10/22/2021 00:00:00 10/22/2021 21:48:52 [id number] [facility] ic_Gateway [facility] [place] [address] [place] [address] 11/12/2021 00:00:00 11/12/2021 20:07:28 [id number] [facility] ic_Gateway [facility] [place] [address] [place] [address] 12/03/2021 00:00:00 12/04/2021 10:16:08 [id number] [facility] ic_Gateway [facility] [place] [address] [place] [address] 03/11/2022 00:00:00 03/12/2022 13:54:14 [id number] Gabriel Smith MD [facility] Internal Med [place] [address] [address] 03/21/2022 00:00:00 03/23/2022 16:50:28 [id number] [facility] ic[facility]Gateway [facility] [place] [address] [place] [address] 06/10/2022 00:00:00 06/11/2022 11:40:19 [id number] Gabriel Smith MD S[facility] Internal Med [place] [address] [place] [address] [address] 07/18/2022 00:00:00 07/29/2022 18:08:35 [id number] Charles Rollins MD S_[facility]G [facility] [address] [place] [address] 08/22/2022 00:00:00 08/22/2022 10:48:54 [id number] [facility] ic_Gateway [facility] [place] [address] [place] [address] 09/09/2022 00:00:00 09/10/2022 14:09:15 [id number] Dasia hurt MD [facility] Internal Med [facility] [address] [address] 09/20/2022 00:00:00 09/20/2022 16:10:29 [id number] Charles Rollins MD [facility] [address] [place] [address] 11/07/2022 00:00:00 11/07/2022 13:33:03 [id number] Gabriel Smith MD S[facility] Internal Med [facility] [address] [address] 11/14/2022 00:00:00 11/14/2022 23:15:15 [id number] Charles Rollins MD S_GMG [facility] [address] [address] 12/19/2022 00:00:00 12/19/2022 10:01:39 [id number] Gabriel Smith MD S[facility] Internal Med [facility] [address] [address] 12/30/2022 00:00:00 12/30/2022 21:58:25 [id number] Gabriel Smith MD S[facility] Internal Med [facility] [address] [address] 01/08/2023 00:00:00 01/12/2023 15:26:33 [id number] Remy Singleton MD S_GMG [address] [address] 01/14/2023 00:00:00 01/14/2023 10:53:26 [id number] Charles Rollins MD S_GMG [facility] [address] [address] 01/16/2023 00:00:00 01/16/2023 10:39:07 [id number] Gabriel Smith MD [facility] Internal Med [facility] [address] [address] 02/13/2023 15:17:55 02/13/2023 16:41:41 Essential hypertension 33465193 I10 Type 2 johnie betes mellitus without complication 548023188 E11.9 L60.0 Psoriatic arthritis 1563 15083 L40.50 Dyslipidemia 525508635 E 78.5 [id number] Gordon Mendoza DPM [facility] [place] [address] [place] [address] [address] [place] [address] 02/20/2023 11:05:27 02/20/2023 11:50:17 Ingrowing toenail 325060777 L60.0 left medial great toeslant back procedure performed todayMonit or area for worsening signs of infection and presents seek medical attention immediatel yFollow-up as needed if continues to be problemati c will require partial matrixecto my. Dystrophia unguium 27952 009 L60.3 Nails 1 through 10 were debrided with sharp mechanical debridemen t without incident. Nails were debrided and greater than 50% length and thickness where needed. [id number] Gordon Mendoza DPM [facility] Pod[facility] [place] [address] [address] 05/08/2023 16:22:01 05/08/2023 16:53:15 Type 2 diabetes mellitus without complication 517912834 E11.9 L60.0 Continue PCP recommenda tionscheck feet daily for wounds infectionC ontinue supportive shoe gearFollow -up in 4 months Ingrowing toenail 170618 009 L60.0 left medial great toeslant back procedure performed todayMonit or area for worsening signs of infection and presents seek medical attention immediatel yFollow-up as needed if continues to be problemati c will require partial matrixecto my. Dystrophia unguium 64867 009 L60.3 Nails 1 through 10 were debrided with sharp mechanical debridemen t without incident. Nails were debrided and greater than 50% length and thickness where needed. [id number] Gabriel Smith MD [facility] [address] [address] 08/21/2023 16:04:31 08/21/2023 17:06:14 Easy bruising 393121264 R58 Type 2 johnie betes mellitus without complication 963757174 E11.9 L60.0 Dyslipidemia 427996608 E 78.5 Essential hypertension 72667639 I10 Cough 08798651 R05.9 [id number] Gordon Mendoza DPM [facility] [place] [address] [address] 09/09/2023 15:07:11 09/09/2023 15:31:06 Bilateral ingrowing nail of toe of feet 0574359021 8853653 L60.0 both borders both great toenailsRe viewed treatment optionsPat ient does not want any further in depth surgical partial matrixecto myPatient elects to undergo slant back procedure performed both great toeswound care reviewed with the patientIf signs or symptoms of infection present seek medical attention immediatel yFollow-up as needed or in 4 months for continued nail care to prevent recurrence of ingrown [id number] Gabriel Smith MD [facility] 2043 [facility], [place] [address] 09/10/2023 15:06:08 09/10/2023 17:03:40 Administration of influenza vaccine 74289879 Z23 Type 2 johnie betes mellitus without complication 214997144 E11.9 L60.0 Essential hypertension 91729904 I10 Dyslipidemia 270832876 E 78.5 Anxiety 35378534 F41.9 [id number] Gordon Mendoza DPM [facility] Pod[facility] [place] [address] [address] 01/06/2024 15:28:49 01/08/2024 09:19:26 Ingrowing nail of toe of right foot 5413653377 0138621 L60.0 debrided without incident Dystrophia unguium 08210 009 L60.3 Nails 1 through 10 were debrided with sharp mechanical debridemen t without incident. Nails were debrided and greater than 50% length and thickness where needed. Type 2 johnie betes mellitus without complication 968327643 E11.9 L60.0 Continue PCP recommenda tionscheck feet daily for wounds infectionC ontinue supportive shoe gearFollow -up in 4 months Tinea pedis 6547565 B35. 3 daily hygienefol low up in 2 weeks [id number] Gordon Mendoza DPM [facility] Podiatry [place] [address] [place], [place] [address] 04/06/2024 15:47:09 04/07/2024 11:44:33 Type 2 diabetes mellitus without complication 457821361 E11.9 L60.0 Continue PCP recommenda tionscheck feet daily for wounds infectionC ontinue supportive shoe gearFollow -up in 3-4 months Dystrophia unguium 79463 009 L60.3 Nails 1 through 10 were debrided with sharp mechanical debridemen t without incident. Nails were debrided and greater than 50% length and thickness where needed. [id number] Gordon Mendoza DPM [facility] [address] [place] [address] 07/27/2024 15:34:22 08/09/2024 13:54:41 Type 2 diabetes mellitus without complication 498438447 E11.9 L60.0 Continue PCP recommenda tionscheck feet daily for wounds infectionC ontin supportive shoe gearFollow -up in 3-4 months Dystrophia unguium 56989 009 L60.3 Nails 1 through 10 were debrided with sharp mechanical debridemen t without incident. Nails were debrided and greater than 50% length and thickness where needed. [id number] Gordon Mendoza DPM [facility] [address] [place] [address] 12/21/2024 16:06:14 12/22/2024 16:36:21 Type 2 diabetes mellitus without complication 624387950 E11.9 L60.0 Continue PCP recommenda tionscheck feet daily for wounds [facility]C [facility] gearFollow -up in 3-4 months Dystrophia unguium 33152 009 L60.3 Nails 1 through 10 were debrided with sharp mechanical debridemen t without incident. Nails were debrided and greater than 50% length and thickness where needed. [id number] [facility] [address] [place] [address] 03/29/2025 10:36:37 04/01/2025 11:28:04 Dystrophia unguium 18199943 L60.3 Nails 1 through 10 were debrided with sharp mechanical debridemen t without incident. Nails were debrided and greater than 50% length and thickness where needed. Type 2 johnie betes mellitus 84470996 E11.9 Continue PCP recommenda tionscheck feet daily for wounds infectionC ontinue supportive shoe gearFollow -up in 3-4 months Health Concerns Section Related Observation LastModified by Organization Detai ls LastModified Time None Recorded Concern Status LastModified by Organization Details LastModified Time None Recorded Advance Directives Directive N: Payers Insurance Date Sequence Insurance Name Policy Number Policy Munoz Covered Member ID Munoz Member ID Guarantor Name 04/01/2025 1 [facility] (POS) [id number] Joan Agustinsai [id number] Joan Hurt Balsai 12/21/2024 [facility] Joan Hurt Balsai SELF SELF Joan López Balsai Notes Date Note Type Note Provider Name and Address Organization Details Recorded Time 01/06/2024 text/html Patient is a 63-year-old diabetic female who returns for diabetic foot care. Patient states her feet have been doing well. Denies any open wounds or infection. Patient states she does have a painful, right Great toenail. Patient states the lateral corner is ingrown. Patient denies any fever, chills, nausea, vomiting. Patient denies any redness or drainage. Patient states she has moderate pain to palpation that is sharp and nature.Patient also states her feet have been itiching but denies any rash. States this has been on going to 1-2 days. denies any treatment for this. Patient denies any other complaints. Gordon Mendoza DPM [address], [facility] [address], [place], [address], [employer] 01/07/2024 11:39:40 04/06/2024 text/html . Patient is a 63-year-old female who returns the office for diabetic foot care. Patient denies any new complaints she denies any pain with walking. Patient denies any numbness tingling or burning of the feet. Patient denies any open wounds or infection. Patient denies any other complaints. Gordon Mendoza DPM [address], [facility] [address], [place], [address], [employer] 04/07/2024 09:42:24 07/27/2024 text/html . Patient is a 63-year-old female diabetic shoe returns for routine diabetic foot care she denies any new complaints she denies any open wounds or intermittent claudication walking rest pain. Patient states she would like her nails cut as she is unable cut them. Gordon Mendoza DPM [address], [address], [place], [address], [employer] 08/09/2024 10:05:33 12/21/2024 text/html . Patient is a 64-year-old female she returns to the office for diabetic foot care she states overall she is doing well she states that she has retired. Patient states that she also recently slipped and fell on the ice causing her to hit her head to which she suffered a brain bleed she continues to follow-up with neurology as she has been having difficulty with insomnia, dizziness, vertigo and she states that she is starting physical therapy for this. Gordon Mendoza DPM [address], [address], [place], [address], [employer] 12/21/2024 16:47:57 03/29/2025 text/html . Patient is a 64-year-old female diabetic shoe returns the office for routine diabetic foot care she states overall she is doing well she denies any numbness tingling or burning in the feet she denies any recent wounds or infection of the feet she states she is doing well she denies any foot pain with walking she states that her toenails have become elongated and would like to have them cut as she has difficulty cutting them. Patient denies any other complaints. Gordon Mendoza DPM [address], [place], [address], [employer] 03/29/2025 11:32:13 OBGyn Episode No OBEpisode recorded.
--- OUTSIDE RECORDS SUMMARY | 2025-06-05 14:30 | XMS_ITS | Patient Health Record ---
Author Organization [facility] Address [address] [place] [address] Care Team Providers Care Industrial Illuminating Engineer Name Role Phone Bernard Freitas Unavailable [phone] Reason For Referral No Information Medications Medication SIG (Take, Route, Frequency, Duration) Notes Start Date End Date Status Allopurinol 100 mg TAKE 2 TABLETS orall y daily; Duration: 30 days Active Toviaz 4 MG 1 tablet Orally at bedtime; Duration: 90 days Active Calcitriol 0.25 MCG 1 capsule Orally Onc e a day; Duration: 90 days 05/06/2025 05/01/2026 Active dilTIAZem HCl ER 180 MG 1 tablet Orally Once a day; Duration: 90 days 03/11/2025 Active Losartan Potassium 50 MG 1 tablet Orally Once a day; Duration: 90 days 03/11/2025 Active Cipro 500 MG 1 tablet Orally ever y 12 hrs; Duration: 12/10/2024 Active Ergocalciferol 1.25 MG (92882 UT) 1 capsule Orally Once a week; Duration: 90 day(s) 12/10/2024 12/06/2025 Active Calcitriol 0.25 MCG TAKE 1 CAPSULE TWICE A DAY Active metFORMIN HCl 500 MG 1 tablet with a fidel l Orally Once a day; Duration: 90 days Active Problems Problem Type SNOMED Code ICD Code Onset Dates Problem Status W/U Status Risk Notes Problem Hyperglycemia due to type 2 diabetes mellitus (418752222772481) Type 2 diabetes mellitus with hyperglycemia (E11.65) Active confirmed Problem Secondary hyperparathyroidism (53928903) Secondary hyperparathyroid ism, not elsewhere classified (E21.1) Active confirmed Problem Vitamin D deficiency (78761437) Vitamin D deficiency, unspecified (E55.9) Active confirmed Problem Subdural intracrania l hemorrhage (45429243) Nontraumatic subdural hemorrhage, unspecified (I62.00) Active confirmed Problem Renal osteodystrophy (06885242) Renal osteodystrophy (N25.0) Active confirmed Problem 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) Active confirmed Problem Urinary tract infectious disease (disorder) (70102791) Urinary tract infection, site not specified (N39.0) Active confirmed Problem Essential hypertension (56710225) Essential hypertension (I10) Active confirmed Problem Chronic kidney disease stage 3A (disorder) (116872571) Chronic kidney disease, stage 3a (N18.31) Active confirmed Encounters Encounter Location Date Provider Diagnosis [facility] [address] [place] [address] 07/30/2024 Bernard Freitas Chronic kidney disea se, stage 3 unspecified N18.30 ; Essential hypertension I10 ; Renal osteodystrophy N25.0 ; Secondary hyperparathyroidism, not elsewhere classified E21.1 ; Type 2 diabetes mellitus with hyperglycemia E11.65 ; Vitamin D deficiency, unspecified E55.9 and Urinary tract infection, site not specified N39.0 [facility] [address] [place] [address] 11/05/2024 Bernard Freitas Chronic kidney disea se, stage 3a N18.31 ; Essential hypertension I10 ; Renal osteodystrophy N25.0 ; Secondary hyperparathyroidism, not elsewhere classified E21.1 ; Type 2 diabetes mellitus with hyperglycemia E11.65 ; Vitamin D deficiency, unspecified E55.9 ; Urinary tract infection, site not specified N39.0 and Chronic kidney disease, stage 3 unspecified N18.30 [facility] [address] [place] [address] 12/10/2024 Bernard Freitas Chronic kidney disea se, stage 3a N18.31 ; Essential hypertension I10 ; Atrophy of kidney (terminal) N26.1 ; Urethral disorder, 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 and Nontraumatic subdural hemorrhage, unspecified I62.00 [facility] [address] [place] [address] 01/07/2025 Bernard Freitas Chronic kidney disea se, stage 3a N18.31 ; Essential hypertension I10 ; Atrophy of kidney (terminal) N26.1 ; Renal osteodystrophy N25.0 ; Secondary hyperparathyroidism, not elsewhere classified E21.1 ; Type 2 diabetes mellitus with hyperglycemia E11.65 ; Vitamin D deficiency, unspecified E55.9 ; Urinary tract infection, site not specified N39.0 and Nontraumatic subdural hemorrhage, unspecified I62.00 [facility] [address] [place] [address] 03/11/2025 Bernardstewart Freitas Chronic kidney disea se, stage 3a N18.31 ; Essential hypertension I10 ; Atrophy of kidney (terminal) N26.1 ; Renal osteodystrophy N25.0 ; Secondary hyperparathyroidism, not elsewhere classified E21.1 ; Type 2 diabetes mellitus with hyperglycemia E11.65 ; Vitamin D deficiency, unspecified E55.9 ; Urinary tract infection, site not specified N39.0 and Nontraumatic subdural hemorrhage, unspecified I62.00 [facility] [address] [place] [address] 05/06/2025 Bernard Freitas Chronic kidney disea se, stage 3a N18.31 ; Essential hypertension I10 ; Atrophy of kidney (terminal) N26.1 ; Renal osteodystrophy N25.0 ; Secondary hyperparathyroidism, not elsewhere classified E21.1 ; Type 2 diabetes mellitus with hyperglycemia E11.65 ; Vitamin D deficiency, unspecified E55.9 ; Urinary tract infection, site not specified N39.0 and Nontraumatic subdural hemorrhage, unspecified I62.00 [facility] [address] [place] [address] 12/10/2024 Bernard [facility] [address] [address] 12/10/2024 Bernard [facility] [address] [address] 12/10/2024 Bernard [facility] [address] [place] [address] 03/11/2025 Bernard [facility] [address] [address] 03/11/2025 Bernard [facility] [address] [place] [address] 05/06/2025 Bernard [facility] [address] [place] [address] 07/30/2024 Bernard Freitas [facility] [address] [place] [address] 08/26/2024 Bernard Freitas Assessments Encounter Date Diagnosis (ICD Code) Assessment Notes Treatment Notes Treatment Clinical Notes Section Notes 07/30/2024 Chronic kidney disease, stage 3 unspecified (ICD-10 - N18.30) 11/05/2024 Chronic kidney disease, stage 3a (ICD-10 - N18.31) 12/10/2024 Essential hypertension (ICD-10 - I10) 12/10/2024 Chronic kidney disease, stage 3a (ICD-10 - N18.31) 01/07/2025 Chronic kidney disease, stage 3a (ICD-10 - N18.31) 03/11/2025 Chronic kidney disease, stage 3a (ICD-10 - N18.31) 05/06/2025 Chronic kidney disease, stage 3a (ICD-10 - N18.31) 05/06/2025 Essential hypertension (ICD-10 - I10) 03/11/2025 Essential hypertension (ICD-10 - I10) 01/07/2025 Essential hypertension (ICD-10 - I10) 12/10/2024 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) 07/30/2024 Essential hypertension (ICD-10 - I10) 11/05/2024 Essential hypertension (ICD-10 - I10) 07/30/2024 Renal osteodystrophy (ICD-10 - N25.0) 11/05/2024 Renal osteodystrophy (ICD-10 - N25.0) 12/10/2024 Urethral disorder, unspecified (ICD-10 - N36.9) 01/07/2025 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) 03/11/2025 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) 05/06/2025 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) 05/06/2025 Renal osteodystrophy (ICD-10 - N25.0) 03/11/2025 Renal osteodystrophy (ICD-10 - N25.0) 01/07/2025 Renal osteodystrophy (ICD-10 - N25.0) 11/05/2024 Secondary hyperparathyroidism , not elsewhere classified (ICD-10 - E21.1) 12/10/2024 Nontraumatic subdural hemorrhage, unspecified (ICD-10 - I62.00) 07/30/2024 Secondary hyperparathyroidism , not elsewhere classified (ICD-10 - E21.1) 07/30/2024 Type 2 diabetes mellitus with hyperglycemia (ICD-10 - E11.65) 11/05/2024 Type 2 diabetes mellitus with hyperglycemia (ICD-10 - E11.65) 01/07/2025 Secondary hyperparathyroidism , not elsewhere classified (ICD-10 - E21.1) 03/11/2025 Secondary hyperparathyroidism , not elsewhere classified (ICD-10 - E21.1) 05/06/2025 Secondary hyperparathyroidism , not elsewhere classified (ICD-10 - E21.1) 05/06/2025 Type 2 diabetes mellitus with hyperglycemia (ICD-10 - E11.65) 03/11/2025 Type 2 diabetes mellitus with hyperglycemia (ICD-10 - E11.65) 01/07/2025 Type 2 diabetes mellitus with hyperglycemia (ICD-10 - E11.65) 11/05/2024 Vitamin D deficiency, unspecified (ICD-10 - E55.9) 07/30/2024 Vitamin D deficiency, unspecified (ICD-10 - E55.9) 07/30/2024 Urinary tract infection, site not specified (ICD-10 - N39.0) 11/05/2024 Urinary tract infection, site not specified (ICD-10 - N39.0) 01/07/2025 Vitamin D deficiency, unspecified (ICD-10 - E55.9) 03/11/2025 Vitamin D deficiency, unspecified (ICD-10 - E55.9) 05/06/2025 Vitamin D deficiency, unspecified (ICD-10 - E55.9) 03/11/2025 Urinary tract infection, site not specified (ICD-10 - N39.0) 01/07/2025 Urinary tract infection, site not specified (ICD-10 - N39.0) 05/06/2025 Urinary tract infection, site not specified (ICD-10 - N39.0) 11/05/2024 Chronic kidney disease, stage 3 unspecified (ICD-10 - N18.30) 01/07/2025 Nontraumatic subdural hemorrhage, unspecified (ICD-10 - I62.00) 03/11/2025 Nontraumatic subdural hemorrhage, unspecified (ICD-10 - I62.00) 05/06/2025 Nontraumatic subdural hemorrhage, unspecified (ICD-10 - I62.00) Plan Of Treatment Next Appt Details Provider Name:Bernard Freitas , 07/08/2025 01:30:00 AM, [address], [facility] [place], [address],
--- OUTSIDE RECORDS SUMMARY | 2025-06-05 14:30 | XMS_ITS ---
Author Organization [facility] Address [address] [place] [address] Care Team Providers Care Long Filler Cigar Roller Machine Name Role Phone FortinoErikBernard Unavailable [phone] Encounters Encounter Location Date Provider Diagnosis [facility] [address] [facility] [address] [place] [address] 05/06/2025 Bernard Freitas Chronic kidney disea se, [...] Treatment Notes Treatment Clinical Notes Section Notes 05/06/2025 Chronic kidney disease, stage 3a (ICD-10 - N18.31) 05/06/2025 Essential hypertension (ICD-10 - I10) 05/06/2025 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) 05/06/2025 Renal osteodystrophy (ICD-10 - N25.0) 05/06/2025 Secondary hyperparathyroidism , not elsewhere classified (ICD-10 - E21.1) 05/06/2025 Type 2 diabetes mellitus with hyperglycemia (ICD-10 - E11.65) 05/06/2025 Vitamin D deficiency, unspecified (ICD-10 - E55.9) 05/06/2025 Urinary tract infection, site not specified (ICD-10 - N39.0) 05/06/2025 Nontraumatic subdural hemorrhage, unspecified (ICD-10 - I62.00) Plan Of Treatment Next Appt Details Provider Name:Bernard Freitas , 07/08/2025 01:30:00 AM, [address] [facility], [facility] [address], [place], [address], Progress Notes * ROSEANNA WARRENDOB:1960 (64 yo F)Acc No.[id number]:05/06/2025 Progress Notes Patient: ROSEANNA MORENO Provider: Rom MAYA MD, F.A.C.P, F.A.S.N. :1960 A ge:64 Y S ex:Female Date:05/06/2025 Address:[address] [place] [address], [facility] Subjective: * Chief Complaints: * * Medical [...] Treatment: * Billing Information: * Visit Code: 97350 Office Visit, Est Pt., Level 4. * Procedure Codes: * Electronic signature of Marybeth Freitas MD on 06/05/2025 at 02:30 PM CDT Sign off status: Pending * Provider: Rom MAYA MD, F.A.C.P, F.A.S.N. Date: 0 05/06/2025 Generated for Printing/Faxing/eTransmitting on: 06/05/2025 02:30 PM CDT
--- OUTSIDE RECORDS SUMMARY | 2025-06-05 14:30 | XMS_ITS | Clinical Summary ---
Author Organization [facility] [employer] Address [address] [place] [address] Care Team Providers Care Capital Markets Specialist Name Role Phone Raul Smith MD Primary Care Provider [phone] Source Comments [facility] [employer],non-owned Affiliates and Associated Physician Practices is amultiple site organization consisting of ambulatory clinics and hospital sitesin [place], [place], [place] and [place]. This disclosure is being madepursuant to the Care Everywhere program and may not contain all information available regarding this patient. Last updated 18.[facility] [employer] Allergies No known active allergies Medications * Be aware that medications may not be up to date on this document. Alwaysverify current medications with the patient. oxyCODONE, immediate release, (Roxicodone) 5 MG tabletIndicati ons:Fall, initial encounter Take 1 (one) tablet by mouth every 6 hours as needed 12 tablet 4 Active acetaminophen (Tylenol) 500 MG tablet Take 2 (two) tablets by mouth every 8 hours Maximum allowable Acetaminophen amount = 4 Grams (4000 mg) / 24 hours. 60 tablet 4 Active polyethylene glycol 3350 (Miralax) 17 g packet Take 17 (seventeen) g by mouth once daily 4 Active senna (Senokot) 8.6 MG tablet Take 1 (one) tablet by mouth once daily 4 Active levETIRAcetam (Keppra) 500 MG tablet Take 1 (one) tablet by mouth 2 times daily 12 tablet 4 Active Active Problems Problem Noted Date Diagnosed Date Scalp laceration, initial encounter 11/13/2024 Subdural hematoma 11/12/2024 Intraparenchymal hematoma of brain due to trauma 11/12/2024 Occipital bone fracture 11/12/2024 SDH (subdural hematoma) 11/12/2024 Fall, initial encounter 11/12/2024 Adenoma of left adrenal gland 11/12/2024 Intraparenchymal hematoma of brain, left, with unknown loss of consciousness status, initial encounter 11/12/2024 Immunizations Immunization Administration Dates Next Due TDAP (7yrs+) 11/12/2024(Deferred: See Comments - Pt states she got one a year ago.) Social History Tobacco Use Types Packs/Day Years Used Date Smoking Tobacco: Never Smokeless Tobacco: Never Tobacco Cessation:Counseling Given: Not Answered Alcohol Use Standard Drinks/Week Comments Never 0 (1 standard drink = 0.6 oz pur e alcohol) AUDIT-C Answer Date Recorded Q1: How often do you have a drink containing alcohol? Never 11/13/2024 Q2: How many drinks containi ng alcohol do you have on a typical day when you are drinking? Patient does not drink Q3: How often do you have si x or more drinks on one occasion? Never 11/13/2024 Overall Financial Resource Strain (CARDIA) Answe r Date Recorded How hard is it for you to pa y for the very basics like food, housing, medical care, and heating? Not hard at all 11/13/2024 [facility] - Occupational Stress Questionnaire Answer Date Recorded Do you feel stress - tense, restless, nervous, or anxious, or unable to sleep at night because your mind is troubled all the time - these days? Not at all 11/13/2024 Hunger Vital Sign Answer Date Recorded Within the past 12 months, y ou worried that your food would run out before you got the money to buy more. Never true 11/13/20 24 Within the past 12 months, t he food you bought just didn't last and you didn't have money to get more. Never true 11/13/2024 PRAPARE - Transportation Answer Date Re corded In the past 12 months, has l ack of transportation kept you from medical appointments or from getting medications? No 10/25 In the past 12 months, has l ack of transportation kept you from meetings, work, or from getting things needed for daily living? No 11/13/2024 Housing Stability Vital Sign Answer Deshawn e Recorded In the last 12 months, was t here a time when you were not able to pay the mortgage or rent on time? No 11/13/2024 In the past 12 months, how m any times have you moved where you were living? 0 11/13/2024 At any time in the past 12 m [facility], were you homeless or living in a retirement (including now)? No 11/13/2024 Comments No Sex and Gender Information Value Date Recorded Sex Assigned at Not on file Legal Sex Female 3:43 PM [employer]IE[employer] Gender Identity Not on file Sexual Orientation Not on file Last Filed Vital Signs Vital Sign Reading Time Taken Comments Blood Pressure 110/72 12/16/2024 1:55 PM [employer]IE[employer] Pulse 124 12/16/2024 1:55 PM [employer] Temperature 36.3 C (97.3 F) 12/16/2024 1:55 PM [employer] Respiratory Rate 18 11/13/2024 4:51 AM [employer]IE[employer] Oxygen Saturation 98% 12/16/2024 1:55 PM [employer]IE[employer] Inhaled Oxygen Concentration - - Weight 65.9 kg (145 lb 3.2 oz) 12/16/2024 1:55 P M [employer] Height 147.3 cm (4' 10) 12/16/2024 1:55 PM [employer]IE[employer] Body Mass Index 30.35 12/16/2024 1:55 PM [employer] Plan of Treatment Health Maintenance Due Date Last Done Comments COLOGUARD (AGES 45-75) - COLON CA SCREENING 1960 CT COLONOGRAPHY - COLON CA SCREENING 1960 FIT - COLON CA SCREENING 1960 FLEX SIG - COLON CA SCREENING 1960 LIPID TESTING 1960 MAMMOGRAM 1960 HIV SCREENING 1975 HEPATITIS C SCREENING 08/25/1978 DTAP/TDAP/TD VACCINES (1 - Tdap) 1979 PNEUMOCOCCAL VACCINE 50+ (1 of 2 - PCV) 1979 PAP SMEAR 1981 ZOSTER VACCINE (1 of 2) 2010 Respiratory Syncytial Virus (RSV) Vaccine Pt: or over 60 yrs (1 - Risk 60-74 years 1-dose series) 2020 COVID-19 VACCINE ( season) 2024 11/15/2021, 03/15/2021, 02/18/2021 DEPRESSION SCREENING 11/24/2024 INFLUENZA VACCINE (#1) 2025 3, 09/14/2021, 09/29/2020, Additional history exists COLON MONITORING 12/10/2025 12/10/2015 COLONOSCOPY - COLON CA SCREENING 12/10/2025 12/10/2015 Colorectal Cancer Screening 12/10/2025 SCREENING FOR DIABETES 11/13/2027 , 11/13/2024, 11/13/2024, Additional history exists HEPATITIS B VACCINE Aged Out No longe r eligible based on patient's age to complete this topic HIB VACCINE Aged Out No longer eligi ble based on patient's age to complete this topic HPV VACCINE Aged Out No longer eligi ble based on patient's age to complete this topic MENINGOCOCCAL (Group B) VACCINE SHARED DECISION-MAKING Aged Out No longer eligible based on patient's age to complete this topic MENINGOCOCCAL GROUPS A/C/Y/W VACCINE Aged Out No longer eligible based on patient's age to complete this topic Procedures Procedure Name Priority Date/Time Associated Diagnosis Comments BASIC METABOLIC PANEL (CALCIUM TOTAL) Routine 11/13/2024 2:51 AM [employer] from Last 3 Months or Most Recently Relevant to Health Maintenance Results * (ABNORMAL) BASIC METABOLIC PANEL (CALCIUM TOTAL) (11/13/2024 2:51 AM CHIE[employer]) BUN 14 7 - 26 mg/dL 11/13/2024 4:08 AM [facility] Creatinine 1.06(H) 0.56 - 0.96 mg/dL 11/13/2024 4:08 AM [facility] Sodium 143 136 - 145 mmol/L 11/13/2024 4:08 AM [facility] Potassium 3.8 3.5 - 4.5 mmol/L 11/13/2024 4:08 AM [facility] Chloride 112(H) 98 - 107 mmol/L 11/13/2024 4:08 AM [facility] CO2 19(L) 22 - 29 mmol/L 11/13/2024 4:08 AM [facility] Glucose 136(H) 70 - 99 mg/dL 11/13/2024 4:08 AM [facility] Calcium 9.2 8.4 - 10.2 mg/dL 11/13/2024 4:08 AM [facility] Anion Gap 12 6 - 16 11/13/2024 4:08 AM [facility] BUN/Creatinine Ratio 13 7 - 23 11/13/2024 4:08 AM [facility] Osmolality Calculated 299(H) 275 - 295 mOsm/kg 11/13/2024 4:08 AM [facility] eGFR by CKD-EPI 59(L) >=90 mL/min/1.7 3 m2 11/13/2024 4:08 AM [facility] Blood BLOOD SPECIMEN / Unknown Lab Venipuncture / Unknown 11/13/2024 2:51 AM [employer] 11/13/2024 3:43 AM [facility] Jacob Kay MD LAB - CHEMISTRY ORDERABLES Fin al Result [facility] [address] [place] [address], [facility] [phone] from Last 3 Months or Most Recently Relevant to Health Maintenance Insurance [facility] Advance Directives * Full Code (Latest Code Status on File) Date Activated Date Inactivated Comments 11/12/2024 9:20 PM 11/13/2024 4:39 PM Care Teams Capital Markets Specialist Relationship Specialty Start Date End Date Raul Smith MD [address] [place] [address] PCP - General Internal Medicine 11/12/24
--- OUTSIDE RECORDS SUMMARY | 2025-06-05 14:30 | XMS_ITS | Continuity of Care Document ---
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 Name Role Phone Maxwell Leos PTA Unavailable Unavailable Procedures Procedure Date Therapeutic Activities Progress Note Therapeutic Exercise Neuromuscular Re-Ed Therapeutic Activities Therapeutic Exercise Neuromuscular Re-Ed Therapeutic Exercise Therapeutic Activities Manual Therapy Therapeutic Exercise Therapeutic Activities Manual Therapy Therapeutic Exercise Manual Therapy Therapeutic Exercise Manual Therapy Therapeutic Activities Manual Therapy Therapeutic Exercise Therapeutic Activities Therapeutic Exercise Manual Therapy PT Evaluation Moderate Complexity Therapeutic Activities Therapeutic Exercise Manual Therapy Therapeutic Activities Therapeutic Exercise Neuromuscular Re-Ed Hot or Cold Pack Manual Therapy Progress Note Therapeutic Activities Neuromuscular Re-Ed Therapeutic Exercise Manual Therapy Hot or Cold Pack Therapeutic Activities Neuromuscular Re-Ed Therapeutic Exercise Manual Therapy Hot or Cold Pack Therapeutic Activities Neuromuscular Re-Ed Therapeutic Exercise Manual Therapy Hot or Cold Pack Therapeutic Activities Neuromuscular Re-Ed Therapeutic Exercise Manual Therapy Hot or Cold Pack Therapeutic Activities Neuromuscular Re-Ed Therapeutic Exercise Manual Therapy Hot or Cold Pack Therapeutic Activities Neuromuscular Re-Ed Therapeutic Exercise Hot or Cold Pack Manual Therapy Therapeutic Activities Neuromuscular Re-Ed Manual Therapy Therapeutic Exercise Hot or Cold Pack Therapeutic Activities Therapeutic Exercise Neuromuscular Re-Ed Hot or Cold Pack Manual Therapy Therapeutic Activities Neuromuscular Re-Ed Therapeutic Exercise Manual Therapy Hot or Cold Pack Therapeutic Activities Therapeutic Exercise Neuromuscular Re-Ed Manual Therapy Hot or Cold Pack Progress Note Therapeutic Activities Neuromuscular Re-Ed Therapeutic Exercise Manual Therapy Hot or Cold Pack Therapeutic Activities Neuromuscular Re-Ed Therapeutic Exercise Manual Therapy Hot or Cold Pack Therapeutic Activities Therapeutic Exercise Neuromuscular Re-Ed Manual Therapy Hot or Cold Pack Therapeutic Activities Neuromuscular Re-Ed Therapeutic Exercise Manual Therapy Hot or Cold Pack Therapeutic Activities Neuromuscular Re-Ed Therapeutic Exercise Manual Therapy Hot or Cold Pack Therapeutic Activities Neuromuscular Re-Ed Therapeutic Exercise Manual Therapy Hot or Cold Pack Therapeutic Activities Therapeutic Exercise Manual Therapy Hot or Cold Pack OT Evaluation Low Complexity Therapeutic Activities Therapeutic Exercise Manual Therapy Hot or Cold Pack Advance Directives Directive Yes / No Effective Date File Name No Information Encounters Encounter Description Practice Location Reason(s) For Visit Diagnoses Date Provider Providers Copied on Encounter [facility] [address], [id number], tel:[phone] [facility] No Information - 2 Dafne Arreola. . Referring Provider: Mahesh Wray, [address], [address]. tel:[phone] [place], [place] [id number] [address], [id number], tel:[phone] [facility] No Information 0 2 Buschsofie Jeffersonn. . Referring Provider: Mahesh Wray, [address] [address], [place], [address]. tel:[phone] [place] [address], [id number], tel:[phone] [facility] No Information 0 2 Cat[place]ang El. . Referring Provider: Mahesh Wray, [address] [address], [place], [address]. tel:[phone] [place], [place] [id number] [address], [id number], tel:[phone] [facility] No Information 0 - 2 [place]ang [place]. . Referring Provider: Mahesh Wray, [address], [place], [address]. tel:[phone] [facility], [address] [address], [place], [place], [id number], tel:[phone] [facility] No Information 2 [place]. . Referring Provider: Mahesh Wray, [address] [facility], [place], [address]. tel:[phone] [place] [address], [address] [facility], [place], [place], [id number], [place] tel:[phone] [facility] No Information 2 [place]. . Referring Provider: Mahesh Wray, [address] [facility], [place], [address]. tel:[phone] [place] [address], [address] [address], [place], [place], [id number], [place] tel:[phone] [facility] No Information 2 [place]. . Referring Provider: Mahesh Wray, [address] [facility], [place], [address]. tel:[phone] [place] [address], [address] [address], [place], [place], [address], [place] tel:[phone] [facility] No Information 0 2 [place]. . Referring Provider: Mahesh Wray, [address] [facility], [place], [address]. tel:[phone] [place] [address], [address] [address], [place], [place], [id number], [place] tel:[phone] [facility] No Information 8- 2 Cat[place] El. . Referring Provider: Mahesh Wray, [address] [facility], [place], [address]. tel:[phone] [facility], [address] [address], [place], [place], [id number], tel:[phone] [place] No Information Dec-0 5-201 9 Hauschild Ileana. [address] [place] [address], [address], [place], [place], [facility], . tel:[phone] Referring Provider: Gopi Neri, [address], [place], [address]. tel:[phone] [place] [address] [place], [place] [address], [place], [place], [id number], tel:[phone] [place] No Information Dec-0 4-201 9 Hauschild Ileana. [address] [place] [address], [address], [place], [facility], . tel:[phone] Referring Provider: Gopi Neri, [address] [facility] [place] [address], [place], [address]. tel:[phone] [place], [place] [address], [place], [place], [id number], tel:[phone] [place] No Information Dec-0 2-201 9 Hauschild Ileana. [address] [place] [address], [address], [place], [facility], . tel:[phone] Referring Provider: Gopi Neri, [address], [place], [address]. tel:[phone] [place] [address] [place], [place] [address], [place], [place], [id number], tel:[phone] [place] No Information Nov-2 9-201 9 Hauschild Ileana. [address] [place] [address], [address], [place], [facility], . tel:[phone] Referring Provider: Gopi Neri, [address], [place], [address]. tel:[phone] [place] [address], [address] [facility], [place], [place], [id number], tel:[phone] [place] No Information Nov-2 7-201 9 Hauschild Ileana. [address] [facility], [address], [place], [address], [place]. tel:[phone] Referring Provider: Gopi Neri, [address], [place], [address]. tel:[phone] [place], [place] [address], [place], [place], [address], [place] tel:[phone] [place] No Information 9 Hauschild Ileana. [address] [place] [address], [address], [place], [facility], [place]. tel:[phone] Referring Provider: Gopi Neri, [address], [place], [address]. tel:[phone] [place], [place] [address], [place], [place], [address], [place] tel:[phone] [place] No Information 9 Hauschild Ileana. [address] [place] [address], [address], [place], [facility], [place]. tel:[phone] Referring Provider: Gopi Neri, [address], [place], [address]. tel:[phone] [place] [address] [address], [place], [place], [id number], [place] tel:[phone] [place] No Information 0 9 Hauschild Ileana. [address] [place] [address], [address], [place], [address], [place]. tel:[phone] Referring Provider: Gopi Neri, [address], [place], [address]. tel:[phone] [place], [place] [address], [place], [place], [address], [place] tel:[phone] [place] No Information 9 Hauschild Ileana. [address] [place] [address], [address], [place], [address], [place]. tel:[phone] Referring Provider: Gopi Neri, [address], [place], [address]. tel:[phone], [place], [place], [id number], tel:[phone] [place] No Information 9 Hauschilan Rocafer. [address] [place] [address], [address], [place], [facility], . tel:[phone] Referring Provider: Gopi Neri, [address], [place], [address]. tel:[phone] [place] [address] [address], [place], [place], [address], tel:[phone] [place] No Information 9 Bingodalis Merritt. . Referring Provider: Gopi Neri, [address], [place], [address]. tel:[phone] [place] [address], [address] [facility], [place], [place], [address], [place] tel:[phone] [place] No Information 9 Hauschild Ileana. [address] [place] [address], [address], [place], [facility], . tel:[phone] Referring Provider: Gopi Neri, [address], [place], [address]. tel:[phone] [place] [address] [address], [place], [place], [address], [place] tel:[phone] [place] No Information 9 Hauschilan Tejeda. [address] [place] [address], [address], [place], [facility], [place]. tel:[phone] Referring Provider: Gopi Neri, [address], [place], [address]. tel:[phone] [facility] [address], [place], [place], [address], [place] tel:[phone] [place] No Information Nov-0 6-201 9 Hauschild Ileana. [address] [place] [address], [address], [place], [facility], [place]. tel:[phone] Referring Provider: Gopi Neri, [address] [facility] [address], [place], [address]. tel:[phone] [place], [place] [address], [place], [place], [address], tel:[phone] [place] No Information Nov-0 4-201 9 Hauschild Ileana. [address] [place] [address], [address], [place], [facility], [place]. tel:[phone] Referring Provider: Gopi Neri, [address] [facility] [address], [place], [address]. tel:[phone] [place], [place] [address], [place], [place], [address], [place] tel:[phone] [place] No Information Aug-3 1-201 9 Hauschild Ileana. [address] [place] [address], [address], [place], [facility], [place]. tel:[phone] Referring Provider: Gopi Neri, [address] [facility] [address], [place], [address]. tel:[phone] [place], [place] [address], [place], [place], [address], [place] tel:[phone] [place] No Information Aug-3 0-201 9 Hauschild Ileana. [address] [place] [address], [address], [place], [address], [place]. tel:[phone] Referring Provider: Gopi Neri, [address], [place], [address]. tel:[phone] [place] [address], [address] [place], [place] [address], [place], [place], [address], [place] tel:[phone] [place] No Information Oct-2 8-201 9 Hauschild Ileana. [address] [place] [address], [address], [place], [address], . tel:[phone] Referring Provider: Gopi Neri, [address] [address], [place], [address]. tel:[phone] [facility], [address] [facility] 300, [place], [place], [address], [place] tel:[phone] [place] No Information 9 Hammad Tejeda. [address] [facility], [address], [place], [address], . tel:[phone] Referring Provider: Gopi Peace, [address] [address], [place], [address]. tel:[phone] Family History Family Member Type Diagnosis Age At Onset No Information Payers Payer name Insurance type Covered democrat ID Authoriza tiallison(s) [employer] EPO [place] [id number] Social History Type Description Quantity Date Captured Comments Sex Female Smoking Status No Information Chief Complaint And Reason For Visit No Information Reason For Referral Reason For Referral No Information Plan Of Treatment Date Type Action Status Referral Ordered: PCP timeframe: 1 week. (related to Overweight) ordered History Of Present Illness Encounter Date Complaint History Of Prese nt Illness No Information Functional Status Date Functional Assessmen t No Information Instructions Date Instruction Additional Infor mation Prescribed activity/exercise edu cation Related to Overweight Dietary needs education Related to Overweight Assessments Type Assessment Date No Information Patient Care Teams Name Effective Dates (start - stop) Status Members No Information
--- OUTSIDE RECORDS SUMMARY | 2025-06-05 14:30 | XMS_ITS | Data Portability ---
Author Organization [facility] Address [address] [place] [address] Care Team Providers Care Lining Brusher Name Role Phone GABRIEL SMITH Primary Care Provider Assessment Encounter Date Assessment Date Assessment LastModified by Organization Details LastModified Time 09/07/2024 09/07/2024 recently antibiotic obtain the official culture results keep regular follow up report after done with antibiotics fever or chills she goes back to the hospital [email or web address] Not available 09/11/2024 17:00:51 11/02/2024 11/02/2024 continue current therapy blood work has been ordered she does have a diet diabetic foot exam yearly we will get her set up with a diabetic eye exam we will taper her generic citalopram she is currently taking 40 mg a day she will cut that to 20 mg 1 day a week over the next 7 weeks with 40 mg on the other days until she is down to 20 mg daily see me back in 4 months [email or web address] Not available 11/02/2024 22:39:44 12/07/2024 12/07/2024 clinically stable has follow up with Neurosurgery we will obtain the official records there is mention of a thyroid nodule apparently from [address] and a left adrenal adenoma follow up with me in 1 month continue current therapy. [email or web address] Not available 12/07/2024 22:15:29 05/04/2025 05/04/2025 EKG sinus tach 123 no acute changes put her back on her beta-safia she was taken off of that about a year ago because of hypotension we will start metoprolol tartrate 12.5 daily she will keep an eye on her pulse as well as her blood pressure at home she has got ways to monitor that she will see me in a month Prevnar 20 we reviewed her most recent blood work thyroid studies need to be done because of the tachycardia if she gets any dizziness chest pain shortness of breath or feeling like she is going to pass out she will go to the ER she did have some anemia possibly playing a role workup in progress [email or web address] Not available 05/04/2025 21:46:10 Plan of Treatment Reminders Order Date Submit Date Provider Last Modified By Organization Details Last Modified Time Details Appointments ANY 2024 10:30A M Gabriel Smith MD Not available Not available Not available Lab T4, free, serum 2024 025 [facility], [address], [place], [address], 05/17/2025 06:15:29 TSH, ultra-sen sitive, serum 2024 025 [facility], [address], [place], [address], 05/17/2025 06:15:27 T3, free, serum or plasma 2024 025 [facility], [address], [address], [place], [address], 05/17/2025 06:15:28 HbA1c (hemoglob in A1c), blood 2023 024 [facility], [address], [place], [address], 04/07/2025 11:35:04 albumin/c reatinine , mass ratio, urine 2023 024 [facility], [address], [place], [address], 04/07/2025 11:35:00 lipid panel, serum 2023 024 [facility], [address], [place], [address], 04/07/2025 11:35:01 CBC w/ auto diff 2023 024 [email or web address], [address], [place], [address], 02/18/2025 15:12:47 CMP, serum or plasma 2023 024 [facility], [address], [place], [address], 04/07/2025 11:35:03 Referral None recorded. Procedures None recorded. Surgeries None recorded. Imaging electroca rdiogram 2024 025 [email or web address] In-Office Order, Internal Use Only DO Not Attach Compendium DO Not Attach Compendium, Do Not Delete/merge, [id number] 05/04/2025 17:58:16 Medication Orders metoprolo l tartrate 25 mg tablet 2024 025 [email or web address] [facility], [address] [place] [address], [id number], 05/04/2025 17:58:16 Augmentin 875 mg-125 mg tablet [address] [facility], [address] [place] [address], [id number], 11/02/2024 16:50:25 Patient TargetsNo targets recorded. Patient Instructions Encounter Date Encounter Id Patient Instructions Last Modified By Organization Details Last Modified Time 11/02/2024 [id number] A healthy lifestyle: care instructions [email or web address] Not available 11/02/2024 17:27:06 diabetic eye exam* [email or web address] Not available 05/03/2025 09:15:04 12/07/2024 [id number] A healthy lifestyle: care instructions [email or web address] Not available 12/07/2024 17:25:07 05/04/2025 [id number] A healthy lifestyle: care instructions [email or web address] Not available 05/04/2025 17:58:16 Reason for Referral Orthopedic Surgeon Referral for Pain of right knee joint Referring Physician: Gabriel Smith, Internal Medicine, Encounter Date: 06/01/2025 Results Created Date Observation Date Name Description Value Unit Range Abnormal Flag Note LastModifiedBy Organization Detail LastModifiedTime 11/12/20 24 11/12/2024 CBC W Auto Diffe renti al panel - Blood leukocytes [#/volume] in blood by automated count 14 text: 4.0 - 10.7 x10e9/ L high WBC 14.0 (H) 4.0 - 10.7 x10E9 /L 11/12 6:11 PM [employer] [facility] Not Available Not Available 01/31/2025 11:56:09 11/12/20 24 11/12/2024 CBC W Auto Diffe renti al panel - Blood erythrocytes [#/volume] in blood by automated count 3 text: 3.90 - 5.20 x10e12 /L low RBC Count 3.00 (L) 3.90 - 5.20 x10E1 2/L 11/12 6:11 PM [employer] [facility] Not Available Not Available 01/31/2025 11:56:09 11/12/20 24 11/12/2024 CBC W Auto Diffe renti al panel - Blood hemoglobin [mass/volume ] in blood 10.5 g/dL low: 11.9g/ dLhigh : 15.8g/ dL low Hemog lobin 10.5 (L) 11.9 - 15.8 g/dL 11/12 6:11 PM [employer] [facility] Not Available Not Available 01/31/2025 11:56:09 11/12/20 24 11/12/2024 CBC W Auto Diffe renti al panel - Blood hematocrit [volume fraction] of blood by automated count 30.4 % low: 34.8%h igh: 46.1% low Hemat ocrit 30.4 (L) 34.8 - 46.1 % 11/12 6:11 PM [employer] [facility] Not Available Not Available 01/31/2025 11:56:09 11/12/20 24 11/12/2024 CBC W Auto Diffe renti al panel - Blood MCV [entitic volume] by automated count 101.3 fL low: 80fLhi gh: 98fL high MCV 101.3 (H) 80.0 - 98.0 fL 11/12 6:11 PM [employer] [facility] Not Available Not Available 01/31/2025 11:56:09 11/12/20 24 11/12/2024 CBC W Auto Diffe renti al panel - Blood MCH [entitic mass] by automated count 35 pg low: 26.7pg high: 33.6pg high MCH 35.0 (H) 26.7 - 33.6 pg 11/12 6:11 PM [facility] Not Available Not Available 01/31/2025 11:56:09 11/12/20 24 11/12/2024 CBC W Auto Diffe nasimti al panel - Blood MCHC [mass/volume ] by automated count 34.5 g/dL low: 31.7g/ dLhigh : 36.3g/ dL MCHC 34.5 31.7 - 36.3 g/dL 11/12 6:11 PM [facility] Not Available Not Available 01/31/2025 11:56:09 11/12/20 24 11/12/2024 CBC W Auto Diffe renti al panel - Blood erythrocyte distribution width [ratio] by automated count 14.2 % low: 11.3%h igh: 14.8% RDW-C V 14.2 11.3 - 14.8 % 11/12 6:11 PM [facility] Not Available Not Available 01/31/2025 11:56:09 11/12/20 24 11/12/2024 CBC W Auto Diffe renti al panel - Blood platelets [#/volume] in blood by automated count 266 text: 150 - 420 x10e9/ L Plate let Count 266 150 - 420 x10E9 /L 11/12 6:11 PM [employer] [facility] Not Available Not Available 01/31/2025 11:56:09 11/12/20 24 11/12/2024 CBC W Auto Diffe renti al panel - Blood platelet mean volume [entitic volume] in blood by automated count 8.1 fL low: 7.8fLh igh: 11.4fL MPV 8.1 7.8 - 11.4 fL 11/12 6:11 PM [employer] [facility] Not Available Not Available 01/31/2025 11:56:09 11/12/20 24 11/12/2024 CBC W Auto Diffe renti al panel - Blood neutrophils/ 100 leukocytes in blood by automated count 80.8 % low: 41%hig h: 74% high Neutr ophil % 80.8 (H) 41.0 - 74.0 % 11/12 6:11 PM [employer] [facility] Not Available Not Available 01/31/2025 11:56:09 11/12/20 24 11/12/2024 CBC W Auto Diffe renti al panel - Blood lymphocytes/ 100 leukocytes in blood by automated count 12.9 % low: 17%hig h: 47% low Lymph ocyte % 12.9 (L) 17.0 - 47.0 % 11/12 6:11 PM [employer] [facility] Not Available Not Available 01/31/2025 11:56:09 11/12/20 24 11/12/2024 CBC W Auto Diffe renti al panel - Blood monocytes/10 0 leukocytes in blood by automated count 4.9 % low: 3%high : 11% Monoc yte % 4.9 3.0 - 11.0 % 11/12 6:11 PM [employer] [facility] Not Available Not Available 01/31/2025 11:56:09 11/12/20 24 11/12/2024 CBC W Auto Diffe renti al panel - Blood eosinophils/ 100 leukocytes in blood by automated count 0.6 % low: 0%high : 7% Eosin ophil % 0.6 0.0 - 7.0 % 11/12 6:11 PM [employer] [facility] Not Available Not Available 01/31/2025 11:56:09 11/12/20 24 11/12/2024 CBC W Auto Diffe renti al panel - Blood basophils/10 0 leukocytes in blood by automated count 0.4 % low: 0%high : 1.6% Basop hil % 0.4 0.0 - 1.6 % 11/12 6:11 PM [employer] [facility] Not Available Not Available 01/31/2025 11:56:09 11/12/20 24 11/12/2024 CBC W Auto Diffe renti al panel - Blood immature granulocytes /100 leukocytes in blood by automated count 0.4 % low: 0%high : 1% Immat ure Granu locyt es % 0.4 0.0 - 1.0 % 11/12 6:11 PM [employer] [facility] Not Available Not Available 01/31/2025 11:56:09 11/12/20 24 11/12/2024 CBC W Auto Diffe renti al panel - Blood neutrophils [#/volume] in blood by automated count 11.27 text: 1.60 - 7.50 x10e9/ L high Neutr ophil Absol nikolski 11.27 (H) 1.60 - 7.50 x10E9 /L 11/12 6:11 PM [employer] [facility] Not Available Not Available 01/31/2025 11:56:09 11/12/20 24 11/12/2024 CBC W Auto Diffe renti al panel - Blood lymphocytes [#/volume] in blood by automated count 1.81 text: 1.00 - 4.40 x10e9/ L Lymph ocyte Absol nikolski 1.81 1.00 - 4.40 x10E9 /L 11/12 6:11 PM [employer] [facility] Not Available Not Available 01/31/2025 11:56:09 11/12/20 24 11/12/2024 CBC W Auto Diffe renti al panel - Blood monocytes [#/volume] in blood by automated count 0.69 text: 0.15 - 1.00 x10e9/ L Monoc yte Absol nikolski 0.69 0.15 - 1.00 x10E9 /L 11/12 6:11 PM [employer] [facility] Not Available Not Available 01/31/2025 11:56:09 11/12/20 24 11/12/2024 CBC W Auto Diffe renti al panel - Blood eosinophils [#/volume] in blood 0.09 text: 0.00 - 0.60 x10e9/ L Eosin ophil Absol nikolski 0.09 0.00 - 0.60 x10E9 /L 11/12 6:11 PM [employer] [facility] Not Available Not Available 01/31/2025 11:56:09 11/12/20 24 11/12/2024 CBC W Auto Diffe renti al panel - Blood basophils [#/volume] in blood by automated count 0.06 text: 0.00 - 0.13 x10e9/ L Basop hil Absol nikolski 0.06 0.00 - 0.13 x10E9 /L 11/12 6:11 PM [employer] [facility] Not Available Not Available 01/31/2025 11:56:09 11/12/20 24 11/12/2024 CBC W Auto Diffe renti al panel - Blood interpretati on and review of laboratory results Abnorm al Not Available Not Available 11:56:09 11/12/20 24 11/12/2024 Basic metab olic 2000 panel - Serum or Plasm a urea nitrogen [mass/volume ] in serum or plasma 16 mg/dL low: 7mg/dL high: 26mg/d L BUN 16 7 - 26 mg/dL 11/12 6:32 PM [employer] [facility] Not Available Not Available 01/31/2025 11:56:09 11/12/20 24 11/12/2024 Basic metab olic 2000 panel - Serum or Plasm a creatinine [mass/volume ] in serum or plasma 0.99 mg/dL low: 0.56mg /dLhig h: 0.96mg /dL high Creat inine 0.99 (H) 0.56 - 0.96 mg/dL 11/12 6:32 PM [employer] [facility] Not Available Not Available 01/31/2025 11:56:09 11/12/20 24 11/12/2024 Basic metab olic 2000 panel - Serum or Plasm a sodium [moles/volum e] in serum or plasma 144 mmol/ L low: 136mmo l/Lhig h: 145mmo l/L Sodiu m 144 136 - 145 mmol/ L 11/12 6:32 PM [employer] [facility] Not Available Not Available 01/31/2025 11:56:09 11/12/20 24 11/12/2024 Basic metab olic 2000 panel - Serum or Plasm a potassium [moles/volum e] in serum or plasma 3.7 mmol/ L low: 3.5mmo l/Lhig h: 4.5mmo l/L Potas sium 3.7 3.5 - 4.5 mmol/ L 11/12 6:32 PM [employer] [facility] Not Available Not Available 01/31/2025 11:56:09 11/12/20 24 11/12/2024 Basic metab olic 2000 panel - Serum or Plasm a chloride [moles/volum e] in serum or plasma 109 mmol/ L low: 98mmol /Lhigh : 107mmo l/L high Chlor christopher 109 (H) 98 - 107 mmol/ L 11/12 6:32 PM [employer] [facility] Not Available Not Available 01/31/2025 11:56:09 11/12/20 24 11/12/2024 Basic metab olic 2000 panel - Serum or Plasm a carbon dioxide, total [moles/volum e] in serum or plasma 24 mmol/ L low: 22mmol /Lhigh : 29mmol /L CO2 24 22 - 29 mmol/ L 11/12 6:32 PM [employer] [facility] Not Available Not Available 01/31/2025 11:56:09 11/12/20 24 11/12/2024 Basic metab olic 2000 panel - Serum or Plasm a glucose [mass/volume ] in serum or plasma 126 mg/dL low: 70mg/d Lhigh: 99mg/d L high Gluco se 126 (H) 70 - 99 mg/dL 11/12 6:32 PM [employer] [facility] Not Available Not Available 01/31/2025 11:56:09 11/12/20 24 11/12/2024 Basic metab olic 1999 panel - Serum or Plasm a calcium [moles/volum e] in serum or plasma 10.3 mg/dL low: 8.4mg/ dLhigh : 10.2mg /dL high Calci um 10.3 (H) 8.4 - 10.2 mg/dL 11/12 6:32 PM [employer] [facility] Not Available Not Available 01/31/2025 11:56:09 11/12/20 24 11/12/2024 Basic metab olic 1999 panel - Serum or Plasm a anion gap 11 low: 6high: 16 Anion Gap 11 6 - 16 11/12 6:32 PM [employer] [facility] Not Available Not Available 01/31/2025 11:56:09 11/12/20 24 11/12/2024 Basic metab olic 1999 panel - Serum or Plasm a urea nitrogen/cre atinine [mass ratio] in serum or plasma 16 low: 7high: 23 BUN/C reati nine Ratio 16 7 - 23 11/12 6:32 PM [employer] [facility] Not Available Not Available 01/31/2025 11:56:09 11/12/20 24 11/12/2024 Basic metab olic 1999 panel - Serum or Plasm a osmolality calculated 301 text: 275 - 295 mOsm/k g high Osmol ality Calcu lated 301 (H) 275 - 295 mOsm/ kg 11/12 6:32 PM [employer] [facility] Not Available Not Available 01/31/2025 11:56:09 11/12/20 24 11/12/2024 Basic metab olic 2000 panel - Serum or Plasm a glomerular filtration rate/1.73 sq M.predicted [volume rate/area] in serum, plasma or blood by creatinine-b ased formula (CKD-epi 2020) 64 text: >=90 mL/min /1.73 m2 low eGFR by CKD-E PI 64 (L) >=90 mL/mi n/1.7 3 m2 11/12 6:32 PM [employer] [facility] Not Available Not Available 01/31/2025 11:56:09 11/12/20 24 11/12/2024 Basic metab olic 2000 panel - Serum or Plasm a interpretati on and review of laboratory results Abnorm al Not Available Not Available 11:56:09 11/12/20 24 11/12/2024 Blood type and Indir ect antib jez scree n panel - Blood blood group antibody screen [presence] in serum or plasma NEG Antib jez Scree n NEG 11/12 6:55 PM [facility] Not Available Not Available 01/31/2025 11:55:52 11/12/20 24 11/12/2024 Blood type and Indir ect antib jez scree n panel - Blood ABO and Rh group [type] in blood O POS ABO Rh O POS 11/12 6:55 PM [facility] Not Available Not Available 01/31/2025 11:55:52 11/12/20 24 11/12/2024 Justina ol [Mass /volu me] in Serum or Plasm a ethanol [mass/volume ] in serum or plasma high: 10mg/d L Justina ol (mg/d L) <10 <10 mg/dL 11/12 6:32 PM [employer] [facility] Not Available Not Available 01/31/2025 11:55:52 11/12/20 24 11/12/2024 Justina ol [Mass /volu me] in Serum or Plasm a ethanol [mass/volume ] in blood high: 0.01g/ dL Justina ol Calcu lated (g/dL ) <0.01 0 <=0.0 10 g/dL 11/12 6:32 PM [facility] Not Available Not Available 01/31/2025 11:55:52 11/12/20 24 11/12/2024 Justina ol [Mass /volu me] in Serum or Plasm a Unknown Analyte Ethano l Interp <10: None Detect ed. Depres lynnette of LO[employer] CREDIT MANAGER: >100 mg/dl Potent ially Critic al: >250 mg/dl Potent ially Fatal >400 mg/dl Ethano l in the patien t's blood will contri bute to the osmola r gap. Ethano l's contri bution to the osmola r gap can be estima abisai by dividi ng the concen tratio n of ethano l in mg/dL by 4.6. This test is for clinic al use only and does not equal a JANENE for legal purpos es. Justina ol Inter p <10: None Detec abisai. Depre ssion of LOAN AND CREDIT MANAGER: >100 mg/dl Poten tiall y Criti kim: >250 mg/dl Poten tiall y Fatal >400 mg/dl Justina ol in the patie nt's blood will contr ibute to the osmol ar gap. Justina ol's contr ibuti on to the osmol ar gap can be estim ated by divid ing the chata ntrat ion of justina ol in mg/dL by 4.6. This test is for clini kim use only and does not equal a JANENE for legal purpo ses. Not Available Not Available 01/31/2025 11:55:52 11/12/20 24 11/12/2024 Justina ol [Mass /volu me] in Serum or Plasm a interpretati on and review of laboratory results Normal Not Available Not Available 01/22 11:55:52 11/13/20 24 11/13/2024 Gluco se [Mass /volu me] in Arter ial blood glucose [mass/volume ] in capillary blood by glucometer 154 mg/dL low: 70mg/d Lhigh: 99mg/d L high Not Available Not Available 06/03/2025 09:30:37 11/13/20 24 11/13/2024 Gluco se [Mass /volu me] in Arter ial blood specimen source identified Cap Finger stick Not Available Not Available 09:30:37 11/13/20 24 11/13/2024 Gluco se [Mass /volu me] in Arter ial blood interpretati on and review of laboratory results Abnorm al Not Available Not Available 09:30:37 11/13/20 24 11/13/2024 Gluco se [Mass /volu me] in Arter ial blood glucose [mass/volume ] in capillary blood by glucometer 154 mg/dL low: 70mg/d Lhigh: 99mg/d L high Gluco se WB/PO C 154 (H) 70 - 99 mg/dL 11/13 12:16 PM [employer] [facility] Not Available Not Available 01/31/2025 11:55:52 11/13/20 24 11/13/2024 Gluco se [Mass /volu me] in Arter ial blood specimen source identified Cap Finger stick Speci men Type Cap Finge rstic k 11/13 12:16 PM [employer] [facility] Not Available Not Available 01/31/2025 11:55:52 11/13/20 24 11/13/2024 Gluco se [Mass /volu me] in Arter ial blood interpretati on and review of laboratory results Abnorm al Not Available Not Available 11:55:52 11/13/20 24 11/13/2024 Gluco se [Mass /volu me] in Arter ial blood glucose [mass/volume ] in capillary blood by glucometer 144 mg/dL low: 70mg/d Lhigh: 99mg/d L high Not Available Not Available 06/03/2025 09:30:37 11/13/20 24 11/13/2024 Gluco se [Mass /volu me] in Arter ial blood specimen source identified Cap Finger stick Not Available Not Available 09:30:37 11/13/20 24 11/13/2024 Gluco se [Mass /volu me] in Arter ial blood interpretati on and review of laboratory results Abnorm al Not Available Not Available 09:30:37 11/13/20 24 11/13/2024 Gluco se [Mass /volu me] in Arter ial blood glucose [mass/volume ] in capillary blood by glucometer 144 mg/dL low: 70mg/d Lhigh: 99mg/d L high Gluco se WB/PO C 144 (H) 70 - 99 mg/dL 11/13 10:10 AM [employer] [facility] Not Available Not Available 01/31/2025 11:56:09 11/13/20 24 11/13/2024 Gluco se [Mass /volu me] in Arter ial blood specimen source identified Cap Finger stick Speci men Type Cap Finge rstic k 11/13 10:10 AM [employer] [facility] Not Available Not Available 01/31/2025 11:56:09 11/13/20 24 11/13/2024 Gluco se [Mass /volu me] in Arter ial blood interpretati on and review of laboratory results Abnorm al Not Available Not Available 11:56:09 11/13/20 24 11/13/2024 ABO and Rh group [Type ] in Blood ABO and Rh group [type] in blood O POS ABO Rh O POS 11/13 4:28 AM [facility] Not Available Not Available 01/31/2025 11:55:52 11/13/20 24 11/13/2024 CBC W Auto Diffe renti al panel - Blood leukocytes [#/volume] in blood by automated count 13.4 text: 4.0 - 10.7 x10e9/ L high WBC 13.4 (H) 4.0 - 10.7 x10E9 /L 11/13 4:39 AM [facility] Not Available Not Available 01/31/2025 11:55:52 11/13/20 24 11/13/2024 CBC W Auto Diffe renti al panel - Blood erythrocytes [#/volume] in blood by automated count 3.08 text: 3.90 - 5.20 x10e12 /L low RBC Count 3.08 (L) 3.90 - 5.20 x10E1 2/L 11/13 4:39 AM [facility] Not Available Not Available 01/31/2025 11:55:52 11/13/20 24 11/13/2024 CBC W Auto Diffe renti al panel - Blood hemoglobin [mass/volume ] in blood 10.7 g/dL low: 11.9g/ dLhigh : 15.8g/ dL low Hemog lobin 10.7 (L) 11.9 - 15.8 g/dL 11/13 4:39 AM [facility] Not Available Not Available 01/31/2025 11:55:52 11/13/20 24 11/13/2024 CBC W Auto Diffe renti al panel - Blood hematocrit [volume fraction] of blood by automated count 31.5 % low: 34.8%h igh: 46.1% low Hemat ocrit 31.5 (L) 34.8 - 46.1 % 11/13 4:39 AM [employer] [facility] Not Available Not Available 01/31/2025 11:55:52 11/13/20 24 11/13/2024 CBC W Auto Diffe renti al panel - Blood MCV [entitic volume] by automated count 102.3 fL low: 80fLhi gh: 98fL high MCV 102.3 (H) 80.0 - 98.0 fL 11/13 4:39 AM [employer] [facility] Not Available Not Available 01/31/2025 11:55:52 11/13/20 24 11/13/2024 CBC W Auto Diffe renti al panel - Blood MCH [entitic mass] by automated count 34.7 pg low: 26.7pg high: 33.6pg high MCH 34.7 (H) 26.7 - 33.6 pg 11/13 4:39 AM [facility] Not Available Not Available 01/31/2025 11:55:52 11/13/20 24 11/13/2024 CBC W Auto Diffe renti al panel - Blood MCHC [mass/volume ] by automated count 34 g/dL low: 31.7g/ dLhigh : 36.3g/ dL MCHC 34.0 31.7 - 36.3 g/dL 11/13 4:39 AM [facility] Not Available Not Available 01/31/2025 11:55:52 11/13/20 24 11/13/2024 CBC W Auto Diffe renti al panel - Blood erythrocyte distribution width [ratio] by automated count 14.5 % low: 11.3%h igh: 14.8% RDW-C V 14.5 11.3 - 14.8 % 11/13 4:39 AM [facility] Not Available Not Available 01/31/2025 11:55:52 11/13/20 24 11/13/2024 CBC W Auto Diffe renti al panel - Blood platelets [#/volume] in blood by automated count 144 text: 150 - 420 x10e9/ L low Plate let Count 144 (L) 150 - 420 x10E9 /L 11/13 4:39 AM [employer] [facility] Not Available Not Available 01/31/2025 11:55:52 11/13/20 24 11/13/2024 CBC W Auto Diffe renti al panel - Blood platelet mean volume [entitic volume] in blood by automated count MPV 11/13 4:39 AM [employer] [facility] Not Available Not Available 01/31/2025 11:55:52 11/13/20 24 11/13/2024 CBC W Auto Diffe renti al panel - Blood neutrophils/ 100 leukocytes in blood by automated count 88 % low: 41%hig h: 74% high Neutr ophil % 88.0 (H) 41.0 - 74.0 % 11/13 4:39 AM [employer] [facility] Not Available Not Available 01/31/2025 11:55:52 11/13/20 24 11/13/2024 CBC W Auto Diffe renti al panel - Blood lymphocytes/ 100 leukocytes in blood by automated count 6.2 % low: 17%hig h: 47% low Lymph ocyte % 6.2 (L) 17.0 - 47.0 % 11/13 4:39 AM [employer] [facility] Not Available Not Available 01/31/2025 11:55:52 11/13/20 24 11/13/2024 CBC W Auto Diffe renti al panel - Blood monocytes/10 0 leukocytes in blood by automated count 4.7 % low: 3%high : 11% Monoc yte % 4.7 3.0 - 11.0 % 11/13 4:39 AM [employer] [facility] Not Available Not Available 01/31/2025 11:55:52 11/13/20 24 11/13/2024 CBC W Auto Diffe renti al panel - Blood eosinophils/ 100 leukocytes in blood by automated count 0.1 % low: 0%high : 7% Eosin ophil % 0.1 0.0 - 7.0 % 11/13 4:39 AM [employer] [facility] Not Available Not Available 01/31/2025 11:55:52 11/13/20 24 11/13/2024 CBC W Auto Diffe renti al panel - Blood basophils/10 0 leukocytes in blood by automated count 0.2 % low: 0%high : 1.6% Basop hil % 0.2 0.0 - 1.6 % 11/13 4:39 AM [employer] [facility] Not Available Not Available 01/31/2025 11:55:52 11/13/20 24 11/13/2024 CBC W Auto Diffe renti al panel - Blood immature granulocytes /100 leukocytes in blood by automated count 0.8 % low: 0%high : 1% Immat ure Granu locyt es % 0.8 0.0 - 1.0 % 11/13 4:39 AM [employer] [facility] Not Available Not Available 01/31/2025 11:55:52 11/13/20 24 11/13/2024 CBC W Auto Diffe renti al panel - Blood neutrophils [#/volume] in blood by automated count 11.77 text: 1.60 - 7.50 x10e9/ L high Neutr ophil Absol nikolski 11.77 (H) 1.60 - 7.50 x10E9 /L 11/13 4:39 AM [employer] [facility] Not Available Not Available 01/31/2025 11:55:52 11/13/20 24 11/13/2024 CBC W Auto Diffe renti al panel - Blood lymphocytes [#/volume] in blood by automated count 0.83 text: 1.00 - 4.40 x10e9/ L low Lymph ocyte Absol nikolski 0.83 (L) 1.00 - 4.40 x10E9 /L 11/13 4:39 AM [employer] [facility] Not Available Not Available 01/31/2025 11:55:52 11/13/20 24 11/13/2024 CBC W Auto Diffe renti al panel - Blood monocytes [#/volume] in blood by automated count 0.63 text: 0.15 - 1.00 x10e9/ L Monoc yte Absol nikolski 0.63 0.15 - 1.00 x10E9 /L 11/13 4:39 AM [employer] [facility] Not Available Not Available 01/31/2025 11:55:52 11/13/20 24 11/13/2024 CBC W Auto Diffe renti al panel - Blood eosinophils [#/volume] in blood 0.01 text: 0.00 - 0.60 x10e9/ L Eosin ophil Absol nikolski 0.01 0.00 - 0.60 x10E9 /L 11/13 4:39 AM [employer] [facility] Not Available Not Available 01/31/2025 11:55:52 11/13/20 24 11/13/2024 CBC W Auto Diffe renti al panel - Blood basophils [#/volume] in blood by automated count 0.03 text: 0.00 - 0.13 x10e9/ L Basop hil Absol nikolski 0.03 0.00 - 0.13 x10E9 /L 11/13 4:39 AM [facility] Not Available Not Available 01/31/2025 11:55:52 11/13/20 24 11/13/2024 CBC W Auto Diffe renti al panel - Blood interpretati on and review of laboratory results Abnorm al Not Available Not Available 11:55:52 11/13/20 24 11/13/2024 Basic metab olic 1999 panel - Serum or Plasm a urea nitrogen [mass/volume ] in serum or plasma 14 mg/dL low: 7mg/dL high: 26mg/d L BUN 14 7 - 26 mg/dL 11/13 4:08 AM [facility] Not Available Not Available 01/31/2025 11:55:52 11/13/20 24 11/13/2024 Basic metab olic 1999 panel - Serum or Plasm a creatinine [mass/volume ] in serum or plasma 1.06 mg/dL low: 0.56mg /dLhig h: 0.96mg /dL high Creat inine 1.06 (H) 0.56 - 0.96 mg/dL 11/13 4:08 AM [facility] Not Available Not Available 01/31/2025 11:55:52 11/13/20 24 11/13/2024 Basic metab olic 1999 panel - Serum or Plasm a sodium [moles/volum e] in serum or plasma 143 mmol/ L low: 136mmo l/Lhig h: 145mmo l/L Sodiu m 143 136 - 145 mmol/ L 11/13 4:08 AM [employer] [facility] Not Available Not Available 01/31/2025 11:55:52 11/13/20 24 11/13/2024 Basic metab olic 1999 panel - Serum or Plasm a potassium [moles/volum e] in serum or plasma 3.8 mmol/ L low: 3.5mmo l/Lhig h: 4.5mmo l/L Potas sium 3.8 3.5 - 4.5 mmol/ L 11/13 4:08 AM [employer] [facility] Not Available Not Available 01/31/2025 11:55:52 11/13/20 24 11/13/2024 Basic metab olic 1999 panel - Serum or Plasm a chloride [moles/volum e] in serum or plasma 112 mmol/ L low: 98mmol /Lhigh : 107mmo l/L high Chlor christopher 112 (H) 98 - 107 mmol/ L 11/13 4:08 AM [employer] [facility] Not Available Not Available 01/31/2025 11:55:52 11/13/20 24 11/13/2024 Basic metab olic 2000 panel - Serum or Plasm a carbon dioxide, total [moles/volum e] in serum or plasma 19 mmol/ L low: 22mmol /Lhigh : 29mmol /L low CO2 19 (L) 22 - 29 mmol/ L 11/13 4:08 AM [employer] [facility] Not Available Not Available 01/31/2025 11:55:52 11/13/20 24 11/13/2024 Basic metab olic 2000 panel - Serum or Plasm a glucose [mass/volume ] in serum or plasma 136 mg/dL low: 70mg/d Lhigh: 99mg/d L high Gluco se 136 (H) 70 - 99 mg/dL 11/13 4:08 AM [employer] [facility] Not Available Not Available 01/31/2025 11:55:52 11/13/20 24 11/13/2024 Basic metab olic 1999 panel - Serum or Plasm a calcium [moles/volum e] in serum or plasma 9.2 mg/dL low: 8.4mg/ dLhigh : 10.2mg /dL Calci um 9.2 8.4 - 10.2 mg/dL 11/13 4:08 AM [employer] [facility] Not Available Not Available 01/31/2025 11:55:52 11/13/20 24 11/13/2024 Basic metab olic 1999 panel - Serum or Plasm a anion gap 12 low: 6high: 16 Anion Gap 12 6 - 16 11/13 4:08 AM [employer] [facility] Not Available Not Available 01/31/2025 11:55:52 11/13/20 24 11/13/2024 Basic metab olic 1999 panel - Serum or Plasm a urea nitrogen/cre atinine [mass ratio] in serum or plasma 13 low: 7high: 23 BUN/C reati nine Ratio 13 7 - 23 11/13 4:08 AM [employer] [facility] Not Available Not Available 01/31/2025 11:55:52 11/13/20 24 11/13/2024 Basic metab olic 1999 panel - Serum or Plasm a osmolality calculated 299 text: 275 - 295 mOsm/k g high Osmol ality Calcu lated 299 (H) 275 - 295 mOsm/ kg 11/13 4:08 AM [employer] [facility] Not Available Not Available 01/31/2025 11:55:52 11/13/20 24 11/13/2024 Basic metab olic 1999 panel - Serum or Plasm a glomerular filtration rate/1.73 sq M.predicted [volume rate/area] in serum, plasma or blood by creatinine-b ased formula (CKD-epi 2020) 59 text: >=90 mL/min /1.73 m2 low eGFR by CKD-E PI 59 (L) >=90 mL/mi n/1.7 3 m2 11/13 4:08 AM [employer] [facility] Not Available Not Available 01/31/2025 11:55:52 11/13/20 24 11/13/2024 Basic metab olic 2000 panel - Serum or Plasm a interpretati on and review of laboratory results Abnorm al Not Available Not Available 11:55:52 11/13/20 24 11/13/2024 Phosp hate [Mass /volu me] in Serum or Plasm a phosphate [mass/volume ] in serum or plasma 3.8 mg/dL low: 2.9mg/ dLhigh : 5.1mg/ dL Phosp horus 3.8 2.9 - 5.1 mg/dL 11/13 4:08 AM [facility] Not Available Not Available 01/31/2025 11:55:52 11/13/20 24 11/13/2024 Phosp hate [Mass /volu me] in Serum or Plasm a interpretati on and review of laboratory results Normal Not Available Not Available 01/22 11:55:52 11/13/20 24 11/13/2024 Magne sium [Mass /volu me] in Serum or Plasm a magnesium [mass/volume ] in serum or plasma 1.6 mg/dL low: 1.6mg/ dLhigh : 2.6mg/ dL Magne sium 1.6 1.6 - 2.6 mg/dL 11/13 4:08 AM [facility] [employer] [facility] Not Available Not Available 01/31/2025 11:55:52 11/13/20 24 11/13/2024 Magne sium [Mass /volu me] in Serum or Plasm a interpretati on and review of laboratory results Normal Not Available Not Available 01/22 11:55:52 04/06/20 25 04/07/2025 ALBUM IN/CR EATIN INE RATIO ,URIN E creatinine, urine 67.2 mg/dL notest ab. Not Available [facility] ([facility]) [address] [facility], [place], [address], 04/07/2025 11:35:00 04/06/20 25 04/07/2025 ALBUM IN/CR EATIN INE RATIO ,URIN E albumin, urine 49.0 ug/mL notest ab. Not Available [facility] ([facility]) [address] [facility], [place], [address], 04/07/2025 11:35:00 04/06/20 25 04/07/2025 ALBUM IN/CR EATIN INE RATIO ,URIN E alb/creat ratio 73 mg/g_ creat 0-29 above high normal Montse l: 0 - 29 Moder ately incre ased: 30 - 300 Sever sarah incre ased: >300 Not Available [facility] ([facility]) [address] [place], [address], 04/07/2025 11:35:00 04/06/20 25 04/07/2025 LIPID PANEL cholesterol, total 138 mg/dL 100-19 9 Not Available [facility] ([facility]) [address] [facility], [place], [address], 04/07/2025 11:35:01 04/06/20 25 04/07/2025 LIPID PANEL triglyceride s 112 mg/dL 0-149 Not Available [facility] ([facility]) [address] [place], [address], 04/07/2025 11:35:01 04/06/20 25 04/07/2025 LIPID PANEL HDL cholesterol 54 mg/dL >39 Not Available [facility] ([facility]) [address] [place], [address], 04/07/2025 11:35:01 04/06/20 25 04/07/2025 LIPID PANEL VLDL cholesterol kim 20 mg/dL 5-40 Not Available [facility] ([facility]) [address] [place], [address], 04/07/2025 11:35:01 04/06/20 25 04/07/2025 LIPID PANEL LDL chol calc ([facility]) 64 mg/dL 0-99 Not Available [facility] ([facility]) [address] [place], [address], 04/07/2025 11:35:01 04/06/20 25 04/07/2025 COMP. METAB OLIC PANEL (14) glucose 106 mg/dL 70-99 above high normal Not Available [facility] ([facility]) [address] [place], [address], 04/07/2025 11:35:03 04/06/20 25 04/07/2025 COMP. METAB OLIC PANEL (14) BUN 21 mg/dL 8-27 Not Available [facility] ([facility]) [address] [place], [address], 04/07/2025 11:35:03 04/06/20 25 04/07/2025 COMP. METAB OLIC PANEL (14) creatinine 1.24 mg/dL 0.57-1 .00 above high normal Not Available [facility] ([facility]) [address] [place], [address], 04/07/2025 11:35:03 04/06/20 25 04/07/2025 COMP. METAB OLIC PANEL (14) eGFR 49 mL/mi n/1.7 3 >59 below low normal Not Available [facility] ([facility]) [address] [place], [address], 04/07/2025 11:35:03 04/06/20 25 04/07/2025 COMP. METAB OLIC PANEL (14) BUN/creatini ne ratio 17 12-28 Not Available [facility] ([facility]) [address] [place], [address], 04/07/2025 11:35:03 04/06/20 25 04/07/2025 COMP. METAB OLIC PANEL (14) sodium 144 mmol/ L 134-14 4 Not Available [facility] ([facility]) [address] [place], [address], 04/07/2025 11:35:03 04/06/20 25 04/07/2025 COMP. METAB OLIC PANEL (14) potassium 4.9 mmol/ L 3.5-5. 2 Not Available [facility] ([facility]) [address] [facility] [place], [address], 04/07/2025 11:35:03 04/06/20 25 04/07/2025 COMP. METAB OLIC PANEL (14) chloride 106 mmol/ L 96-106 Not Available [facility] ([facility] [address] [facility] [place], [address], 04/07/2025 11:35:03 04/06/20 25 04/07/2025 COMP. METAB OLIC PANEL (14) carbon dioxide, total 24 mmol/ L 20-29 Not Available [facility] ([facility]) [address], [place], [address], 04/07/2025 11:35:03 04/06/20 25 04/07/2025 COMP. METAB OLIC PANEL (14) calcium 11.5 mg/dL 8.7-10 .3 above high normal Not Available [facility] ([facility]) [address] [facility] [place], [address], 04/07/2025 11:35:03 04/06/20 25 04/07/2025 COMP. METAB OLIC PANEL (14) protein, total 6.3 g/dL 6.0-8. 5 Not Available [facility] ([facility]) [address] [facility] [place], [address], 04/07/2025 11:35:03 04/06/20 25 04/07/2025 COMP. METAB OLIC PANEL (14) albumin 4.2 g/dL 3.9-4. 9 Not Available [facility] ([facility]) [address] [facility] [place], [address], 04/07/2025 11:35:03 04/06/20 25 04/07/2025 COMP. METAB OLIC PANEL (14) globulin, total 2.1 g/dL 1.5-4. 5 Not Available [facility] ([facility]) [address] [facility], [place], [address], 04/07/2025 11:35:03 04/06/20 25 04/07/2025 COMP. METAB OLIC PANEL (14) bilirubin, total 0.3 mg/dL 0.0-1. 2 Not Available [facility] ([facility]) [address] [place], [address], 04/07/2025 11:35:03 04/06/20 25 04/07/2025 COMP. METAB OLIC PANEL (14) alkaline phosphatase 64 IU/L 44-121 Not Available [facility] ([facility]) [address] [place], [address], 04/07/2025 11:35:03 04/06/20 25 04/07/2025 COMP. METAB OLIC PANEL (14) AST (SGOT) 16 IU/L 0-40 Not Available [facility] ([facility]) [address] [facility], [place], [address], 04/07/2025 11:35:03 04/06/20 25 04/07/2025 COMP. METAB OLIC PANEL (14) ALT (SGPT) 15 IU/L 0-32 Not Available [facility] ([facility]) [address] [place], [address], 04/07/2025 11:35:03 04/06/20 25 04/07/2025 HEMOG LOBIN A1C hemoglobin A1C 5.3 % 4.8-5. 6 Predi abete s: 5.7 - 6.4 Diabe cathi: >6.4 Glyce luna contr ol for adult s with diabe cathi: <7.0 Not Available [facility] ([facility]) [address] [place], [address], 04/07/2025 11:35:04 04/06/20 25 04/06/2025 CBC WITH DIFFE RENTI AL/PL ATELE T WBC 8.6 x10e3 /uL 3.4-10 .8 Not Available [facility] ([facility]) [address] [place], [address], 04/07/2025 11:35:05 04/06/20 25 04/06/2025 CBC WITH DIFFE RENTI AL/PL ATELE T RBC 3.20 x10e6 /uL 3.77-5 .28 below low normal Not Available [facility] ([facility]) [address] [place], [address], 04/07/2025 11:35:05 04/06/20 25 04/06/2025 CBC WITH DIFFE RENTI AL/PL ATELE T hemoglobin 10.9 g/dL 11.1-1 5.9 below low normal Not Available [facility] ([facility]) [address] [place], [address], 04/07/2025 11:35:05 04/06/20 25 04/06/2025 CBC WITH DIFFE RENTI AL/PL ATELE T hematocrit 34.3 % 34.0-4 6.6 Not Available [facility] ([facility]) [address] [place], [address], 04/07/2025 11:35:05 04/06/20 25 04/06/2025 CBC WITH DIFFE RENTI AL/PL ATELE T MCV 107 fL 79-97 above high normal Not Available [facility] ([facility]) [address] [place], [address], 04/07/2025 11:35:05 04/06/20 25 04/06/2025 CBC WITH DIFFE RENTI AL/PL ATELE T MCH 34.1 pg 26.6-3 3.0 above high normal Not Available [facility] ([facility]) [address] [place], [address], 04/07/2025 11:35:05 04/06/20 25 04/06/2025 CBC WITH DIFFE RENTI AL/PL ATELE T MCHC 31.8 g/dL 31.5-3 5.7 Not Available [facility] ([facility]) [address] [facility], [place], [address], 04/07/2025 11:35:05 04/06/20 25 04/06/2025 CBC WITH DIFFE RENTI AL/PL ATELE T RDW 14.0 % 11.7-1 5.4 Not Available [facility] ([facility]) [address] [facility], [place], [address], 04/07/2025 11:35:05 04/06/20 25 04/06/2025 CBC WITH DIFFE RENTI AL/PL ATELE T platelets 359 x10e3 /uL 150-45 0 Not Available [facility] ([facility]) [address] [facility], [place], [address], 04/07/2025 11:35:05 04/06/20 25 04/06/2025 CBC WITH DIFFE RENTI AL/PL ATELE T neutrophils 66 % notest ab. Not Available [facility] ([facility]) [address] [facility], [place], [address], 04/07/2025 11:35:05 04/06/20 25 04/06/2025 CBC WITH DIFFE RENTI AL/PL ATELE T lymphs 27 % notest ab. Not Available [facility] ([facility]) [address] [place], [address], 04/07/2025 11:35:05 04/06/20 25 04/06/2025 CBC WITH DIFFE RENTI AL/PL ATELE T monocytes 3 % notest ab. Not Available [facility] ([facility]) [address] [place], [address], 04/07/2025 11:35:05 04/06/20 25 04/06/2025 CBC WITH DIFFE RENTI AL/PL ATELE T eos 3 % notest ab. Not Available [facility] ([facility]) [address] [facility], [place], [address], 04/07/2025 11:35:05 04/06/20 25 04/06/2025 CBC WITH DIFFE RENTI AL/PL ATELE T basos 1 % notest ab. Not Available [facility] ([facility]) [address] [facility], [place], [address], 04/07/2025 11:35:05 04/06/20 25 04/06/2025 CBC WITH DIFFE RENTI AL/PL ATELE T neutrophils (absolute) 5.8 x10e3 /uL 1.4-7. 0 Not Available [facility] ([facility]) [address] [facility], [place], [address], 04/07/2025 11:35:05 04/06/20 25 04/06/2025 CBC WITH DIFFE RENTI AL/PL ATELE T lymphs (absolute) 2.3 x10e3 /uL 0.7-3. 1 Not Available [facility] ([facility]) [address] [facility], [place], [address], 04/07/2025 11:35:05 04/06/20 25 04/06/2025 CBC WITH DIFFE RENTI AL/PL ATELE T monocytes(ab solute) 0.2 x10e3 /uL 0.1-0. 9 Not Available [facility] ([facility]) [address] [facility], [place], [address], 04/07/2025 11:35:05 04/06/20 25 04/06/2025 CBC WITH DIFFE RENTI AL/PL ATELE T eos (absolute) 0.2 x10e3 /uL 0.0-0. 4 Not Available [facility] ([facility]) [address] [facility], [place], [address], 04/07/2025 11:35:05 04/06/20 25 04/06/2025 CBC WITH DIFFE RENTI AL/PL ATELE T baso (absolute) 0.0 x10e3 /uL 0.0-0. 2 Not Available [facility] ([facility]) [address] [facility], [place], [address], 04/07/2025 11:35:05 04/06/20 25 04/06/2025 CBC WITH DIFFE RENTI AL/PL ATELE T immature granulocytes 0 % notest ab. Not Available [facility] ([facility]) [address] [facility], [place], [address], 04/07/2025 11:35:05 04/06/20 25 04/06/2025 CBC WITH DIFFE RENTI AL/PL ATELE T immature grans (abs) 0.0 x10e3 /uL 0.0-0. 1 Not Available [facility] ([facility]) [address] [facility], [place], [address], 04/07/2025 11:35:05 04/25/20 25 04/26/2025 ERYTH ROPOI ETIN (EPO) , SERUM erythropoiet in 16.7 mIU/m L 2.6-18 .5 Beckm an Coult er UniCe l DxI 800 Immun oassa y Syste m Value s obtai serjio with diffe rent assay metho ds or kits canno t be [facility] . Resul ts canno t be inter prete d as absol nikolski evide nce of the prese nce or absen ce of [facility] kale minor se. Not Available [facility] ([facility]) [address] [facility], [place], [address], 04/26/2025 17:07:47 04/25/20 25 04/25/2025 FE+TI BC+FE R+B12 +FOLI C+RET IC reticulocyte count 1.6 % 0.6-2. 6 Not Available [facility] ([facility]) [address] [facility], [place], [address], 04/26/2025 17:07:48 04/25/20 25 04/26/2025 FE+TI BC+FE R+B12 +FOLI C+RET IC vitamin B12 748 pg/mL 232-12 45 Not Available [facility] ([facility]) [address] [place], [address], 04/26/2025 17:07:48 04/25/20 25 04/26/2025 FE+TI BC+FE R+B12 +FOLI C+RET IC folate (folic acid), serum >20.0 NG/mL >3.0 A serum folat e chata ntrat ion of less than 3.1 ng/mL is consi dered to repre sent clini kim defic iency . Not Available [facility] ([facility]) [address] [place], [address], 04/26/2025 17:07:48 04/25/20 25 04/26/2025 FE+TI BC+FE R+B12 +FOLI C+RET IC ferritin 126 NG/mL 15-150 Not Available [facility] ([facility]) [address] [place], [address], 04/26/2025 17:07:48 04/25/20 25 04/26/2025 FE+TI BC+FE R+B12 +FOLI C+RET IC iron bind.cap.(TI BC) 245 ug/dL 250-45 0 below low normal Not Available [facility] ([facility]) [address] [facility], [place], [address], 04/26/2025 17:07:48 04/25/20 25 04/26/2025 FE+TI BC+FE R+B12 +FOLI C+RET IC UIBC 176 ug/dL 118-36 9 Not Available [facility] ([facility]) [address] [place], [address], 04/26/2025 17:07:48 04/25/20 25 04/26/2025 FE+TI BC+FE R+B12 +FOLI C+RET IC iron 69 ug/dL 27-139 Not Available [facility] ([facility]) [address] [place], [address], 04/26/2025 17:07:48 04/25/20 25 04/26/2025 FE+TI BC+FE R+B12 +FOLI C+RET IC iron saturation 28 % 15-55 Not Available [facility] ([facility]) [address] [place], [address], 04/26/2025 17:07:48 04/25/20 25 04/26/2025 PTH INTAC T+KIM CIUM, IONIZ ED calcium, ionized, serum 5.4 mg/dL 4.5-5. 6 Not Available [facility] ([facility]) [address] [place], [address], 04/26/2025 17:07:50 04/25/20 25 04/26/2025 PTH INTAC T+KIM CIUM, IONIZ ED PTH, intact 21 pg/mL 15-65 Not Available [facility] ([facility]) [address] [place], [address], 04/26/2025 17:07:50 05/16/20 25 05/17/2025 TSH TSH 1.380 uIU/m L 0.450- 4.500 Not Available [facility] ([facility]) [address] [place], [address], 05/17/2025 06:15:27 05/16/20 25 05/17/2025 TRIIO DOTHY MEGHNA E (T3), FREE triiodothyro nine (T3), free 2.5 pg/mL 2.0-4. 4 Not Available [facility] ([facility]) [address] [place], [address], 05/17/2025 06:15:28 05/16/20 25 05/17/2025 T4,FR EE(DI RECT) T4,free(dire ct) 1.34 NG/dL 0.82-1 .77 Not Available [facility] ([facility]) [address], [place], [address], 05/17/2025 06:15:29 08/23/20 24 12/11/2015 colon oscop y chandler jackson (PROC ) No observ ation record ed. hannah Smith MD [address], [place], [address], 08/23/2024 12:24:39 08/27/20 24 08/27/2024 CT, abdom en + pelvi s, w/o contr ast No observ ation record ed. [address], [place], [address], 09/01/2024 23:04:12 11/12/20 24 11/12/2024 CT, brain , w/o contr ast No observ ation record ed. [address], [place], [address], 11/22/2024 14:42:59 11/12/20 24 11/12/2024 CT, cervi kim spine , w/o contr ast No observ ation record ed. [address], [place], [address], 11/22/2024 14:43:12 05/04/20 elect rocjustyn diogr am No observ ation record ed. BRANDI In-Office Order Internal Use Only DO Not Attach Compendium DO Not Attach Compendium, Do Not Delete/merge, [id number] 05/04/2025 17:45:54 05/04/20 25 05/04/2025 elect rocar diogr am No observ ation record ed. BARCODE In-Office Order Internal Use Only DO Not Attach Compendium DO Not Attach Compendium, Do Not Delete/merge, [id number] 05/04/2025 17:54:17 Result Notes None recorded. Problems Name Problem SNOMED Code Status Onset Date Resolution Date Notes Provider Name and Address Organization Details Recorded Time [employer] 11716884 Active 2023 Rachael Paniagua [place], [place] [facility] 5 17:51:18 Hyperlipide jerrod 52188765 Active 2023 Rachael Paniagua [place], [place] [facility] 4 16:17:53 Anxiety 81828467 Active 2023 Rachael Paniagua ERNST [place], [place] [facility] 4 16:17:54 Type 2 diabetes mellitus 82781083 Active 2023 Rachael Paniagua [place], [place] [facility] 4 16:17:54 Psoriatic arthritis 737075593 Active 2023 Rachael Paniagua [place], [place] [facility] 4 16:17:55 HIV screening declined [id number] 00 Active 2023 Gabriel Smith MD Attn: Pal johnson,[address] [place], [address] [facility] [place] [facility] 22:39:59 Notes:Some problems listed i n Document: #[id number] could not be added to this patient's chart. Please review this document and add these problems to the patient's chart manually as needed. Problem Notes None recorded. Procedures Surgical History Date Name Laterality Status Provider Name and Address Organization Details Recorded Time ligation of bilateral fallopian tubes completed Iqra Pierre [place] [facility] 03/02/2024 14:58:16 Breast Surgery completed Iqra Pierre [place] [facility] 03/02/2024 14:58:21 section completed Iqra Pierre [place] [facility] 03/02/2024 14:58:26 Tonsillectomy completed Iqra Pierre [place] [facility] 03/02/2024 14:58:31 Imaging Results None recorded. Procedure Notes None recorded. Medical Equipment None Reported. Allergies Allergen ID Allergen Name Allergen Category Reaction Reaction Severity Criticality Documentation Date Start Date Code Code System Note Provider Name and Address Organization Details Recorded Time 011261 mold extract environme nt headache Not available Not available 08/17/2024 57126 8 RxNorm Toma Larsen MA null, [place] - [facility] 4 15:47:31 523067 ragweed pollen environme nt dizziness Not available Not available 08/17/2024 [id number] HOANG Larsen MA [facility] [place], [place] - [facility] 4 15:47:41 Medications Name Sig Start Date Stop Date Status Note LastModified by Organization Details LastModified Time fluconazole 100 mg tablet TAKE 1 TABLET BY MOUTH ONCE DAILY 08/17 completed Not Available Not Available Not Available metformin 500 mg tablet active Not Available Not Available Not Available doxycycline hyclate 100 mg capsule TAKE 1 CAPSULE BY MOUTH TWICE DAILY FOR 10 DAYS 03/02 completed Not Available Not Available Not Available citalopram 40 mg tablet TAKE 1 TABLET DAILY 2024 active Not Available Not Available Not Avai lable atorvastati n 10 mg tablet TAKE 1 TABLET DAILY 2024 active Not Available Not Available Not Avai lable diltiazem CD 180 mg capsule,ext ended release 24 hr active Not Available Not Available Not Available metoprolol succinate ER 50 mg tablet,exte nded release 24 hr TAKE 1 TABLET BY MOUTH ONCE DAILY 08/17 completed Not Available Not Available Not Available prednisone 5 mg tablet active Not Available Not Available Not Available sulfasalazi ne 500 mg tablet,chapo yed release TAKE 2 TABLETS BY MOUTH TWICE DAILY active Not Available Not Available No t Available ciprofloxac in 250 mg tablet TAKE 1 TABLET BY MOUTH ONCE DAILY FOR 7 DAYS 03/02 completed Not Available Not Available Not Available allopurinol 100 mg tablet active Not Available Not Available Not Available sulfamethox azole 800 mg-trimetho prim 160 mg tablet TAKE 1 TABLET BY MOUTH EVERY 12 HOURS FOR 5 DAYS 03/02 completed Not Available Not Available Not Available tramadol 50 mg tablet TAKE 1 TABLET BY MOUTH WITH OTC TYLENOL 4 TIMES DAILY NEEDED FOR PAIN active Not Available Not Available No t Available Macrobid 100 mg capsule Take 1 capsule every 12 hours by oral route for 5 days. 2024 active Not Available Not Available Not Avai lable ofloxacin 0.3 % ear drops INSTILL 5 DROPS TWICE DAILY FOR 7 DAYS 11/02 completed Not Available Not Available Not Available methocarbam ol 750 mg tablet TAKE 1 TABLET BY MOUTH 4 TIMES DAILY NEEDED FOR RIB PAIN/MUSC LE SPASM active Not Available Not Available No t Available methotrexat e sodium 2.5 mg tablet TAKE 4 TABLETS BY MOUTH ONCE A WEEK IN THE MORNING AND IN THE EVENING active Not Available Not Available No t Available Cipro 500 mg tablet Take 1 tablet every day by oral route for 7 days. 05/25 completed Not Available Not Available Not Available losartan 25 mg tablet active Not Available Not Available No t Available folic acid 1 mg tablet TAKE 1 TABLET BY MOUTH ONCE DAILY active Not Available Not Available No t Available montelukast 10 mg tablet TAKE 1 TABLET DAILY active Not Available Not Available No t Available ergocalcife rol (vitamin D2) 1,250 mcg (50,000 unit) capsule active Not Available Not Available Not Available methylpredn isolone 4 mg tablets in a dose pack TAKE BY MOUTH DIRECTED ON INSIDE OF PACKAGE 08/17 completed Not Available Not Available Not Available ketoconazol e 2 % topical cream APPLY CREAM TOPICALLY TO AFFECTED AREA ONCE DAILY TO BOTH FEET active Not Available Not Available No t Available ondansetron 4 mg disintegrat ing tablet DISSOLVE 1 TABLET IN MOUTH EVERY 6 HOURS active Not Available Not Available No t Available calcitriol 0.25 mcg capsule active Not Available Not Available Not Available amoxicillin 875 mg-potassiu m clavulanate 125 mg tablet TAKE 1 TABLET BY MOUTH TWICE DAILY FOR 10 DAYS 11/02 completed Not Available Not Available Not Available metoprolol tartrate 25 mg tablet TAKE 1/2 (ONE-HALF ) TABLET BY MOUTH ONCE DAILY IN THE MORNING active Not Available Not Available No t Available fesoterodin e ER 4 mg tablet,exte nded release 24 hr active Not Available Not Available Not Available Humira(CF) Pen 40 mg/0.4 mL subcutaneou s kit active Not Available Not Available Not Available Vitals Date Recorded Body height Body mass index (BMI) Body weight Heart rate Oxygen saturation Oxygen saturation in Arterial blood by Pulse oximetry Systolic And Diastolic Provider Name and Address Organization Details Last Updated DateTime 5 147.32 cm 30.4 kg/m2 03475.9 7 g 104 /min 96 % 96 % 114/64 mm[Hg] Luna Mars MA [place] - [facility] 5 16:49:01 Date Recorded Body height Body mass index (BMI) Body weight Heart rate Oxygen saturation Oxygen saturation in Arterial blood by Pulse oximetry Systolic And Diastolic Provider Name and Address Organization Details Last Updated DateTime 5 147.32 cm 33.3 kg/m2 26218.9 8 g 123 /min 98 % 98 % 112/68 mm[Hg] Luna Mars MA [facility] 5 16:51:51 Date Recorded Body height Body mass index (BMI) Body weight Oxygen saturation Oxygen saturation in Arterial blood by Pulse oximetry Heart rate Systolic And Diastolic Provider Name and Address Organization Details Last Updated DateTime 5 147.32 cm 33 kg/m2 71181.5 9 g 96 % 96 % 107 /min 104/72 mm[Hg] Luna Mars MA [facility] 5 13:53:01 Date Recorded Body height Body mass index (BMI) Body weight Oxygen saturation Oxygen saturation in Arterial blood by Pulse oximetry Heart rate Systolic And Diastolic Provider Name and Address Organization Details Last Updated DateTime 4 147.32 cm 32 kg/m2 93767.3 5 g 97 % 97 % 100 /min 118/68 mm[Hg] Smitha Lockhart MA [facility] 4 14:03:03 Date Recorded Body height Body mass index (BMI) Body weight Heart rate Oxygen saturation Oxygen saturation in Arterial blood by Pulse oximetry Systolic And Diastolic Provider Name and Address Organization Details Last Updated DateTime 4 147.32 cm 32 kg/m2 94023.3 5 g 94 /min 98 % 98 % 110/68 mm[Hg] Vicki Pires MA [facility] 4 15:51:19 Social History Question Answer Notes LastModified by Organizat ion Details LastModified Time Tobacco Smoking Status Never Smoker Iqra Pierre MA [facility] 03/02/2024 14:57:40 Do You Have An Advance Directive? No Information not available 11/02/2024 Are You Blind Or Do You Have Difficulty Seeing? Yes Information not available 03/02/2024 What Is Your Level Of Caffeine Consumption? Moderate Information not available 11/02/2024 In The 14 Days Before Symptom Onset, Have You Had Close Contact With A Laboratory-[facility] COVID-19 While That Case Was Ill? No Information not available 11/02/2024 In The 14 Days Before Symptom Onset, Have You Had Close Contact With A Person Who Is Under Investigation For COVID-19 While That Person Was Ill? No Information not available 11/02/2024 Have You Been To An Area Known To Be High Risk For COVID-19? No Information not available 11/02/2024 Are You Deaf Or Do You Have Serious Difficulty Hearing? Yes 90% Deaf Out Of Left Ear Information not available 03/02/2024 Are There Any Guns Present In Your Home? No Information not available 11/02/2024 What Was The Date Of Your Most Recent Tobacco Screening? 06/01/2025 mebyma Information not available 06/01/2025 What Is Your Relationship Status? Information not available 03/02/2024 Do You Use Your Seat Belt Or Car Seat Routinely? Yes Information not available 11/02/2024 Do You Have Smoke And Carbon Monoxide Detectors In Your Home? Yes Information not available 11/02/2024 Do You Use Sunscreen Routinely? No Information not available 11/02/2024 Has Tobacco Cessation Counseling Been Provided? No Information not available 11/02/2024 Sex: Female Functional Status Question Answer Note LastModified by Organizat ion Details LastModified Time Do you use any illicit or recreational drugs? No Information not available 11/02/2024 What is your level of alcohol consumption? Occasional Information not available 03/02/2024 Are you able to care for yourself? Yes Information n ot available 11/02/2024 Mental Status None recorded. Family History Relationship Description Onset Age of this Age Resolved Age Notes LastModified by Organization Details LastModified Time Brother Harmful pattern of use of alcohol [email or web address] Not available 2023 14:58:38 Brother Cerebrovascu lar accident apaytonma Not available 07/2024 14:58:43 Brother Coronary arterioscler osis apaytonma Not available 2023 14:59:00 Brother Diabetes mellitus apaytonma Not available 2023 14:59:10 Brother Heart disease apaytonma Not available 2023 14:59:22 Brother Hypertensive disorder apaytonma Not available 2023 14:59:28 Brother Hypercholest erolemia apaytonma Not available 2023 14:59:36 Father Coronary arterioscler osis apaytonma Not available 2023 14:59:00 Father Heart disease apaytonma Not available 2023 14:59:22 Sister Coronary arterioscler osis apaytonma Not available 2023 14:59:00 Sister Heart disease apaytonma Not available 2023 14:59:22 Mother Coronary arterioscler osis apaytonma Not available 2023 14:59:00 Mother Diabetes mellitus apaytonma Not available 2023 14:59:10 Mother Heart disease apaytonma Not available 2023 14:59:22 Mother Hypertensive disorder apaytonma Not available 2023 14:59:28 Mother Hypercholest erolemia apaytonma Not available 2023 14:59:36 Mother Kidney disease apaytonma Not available 2023 14:59:42 Medical History Condition Response Diabetes Y Muscle, Joint, or Bone Problems Y High Blood Pressure Y Kidney or Bladder Problems Y Allergies Y High Cholesterol Y Gynecological History Statement/Question Response If Post Menopausal, Age at Menopause 48 Obstetrics History GPAL:G 2 P 2 0 0 2 Type Value Full Term 2 Living 2 Total 2 Immunizations Vaccine Type Date Status Note Provider Nam e and Address Organization Details Recorded Time Influenza, split virus, trivalent, PF 4 completed Not Available [facility] 06/01/2025 13:40:46 Influenza, split virus, quadrivalent, PF 5 completed Not Available [facility] 06/01/2025 13:40:46 Influenza, split virus, quadrivalent, PF 7 completed Not Available [facility] 06/01/2025 13:40:46 Influenza, split virus, quadrivalent, PF 8 completed Not Available [facility] 06/01/2025 13:40:46 Influenza, split virus, quadrivalent, PF 9 completed Not Available [facility] 06/01/2025 13:40:46 Influenza, split virus, quadrivalent, PF 0 completed Not Available [facility] 06/01/2025 13:40:46 COVID-19, mRNA, LNP-S, PF, 30 mcg/0.3 mL dose 1 completed Not Available [facility] 06/01/2025 13:40:46 COVID-19, mRNA, LNP-S, PF, 30 mcg/0.3 mL dose 1 completed Not Available [facility] 06/01/2025 13:40:46 Influenza, split virus, quadrivalent, PF 1 completed Not Available [facility] 06/01/2025 13:40:46 COVID-19, mRNA, LNP-S, PF, 30 mcg/0.3 mL dose 1 completed Not Available [facility] 06/01/2025 13:40:46 COVID-19, mRNA, LNP-S, PF, 30 mcg/0.3 mL dose 1 completed Not Available [facility] 06/01/2025 13:40:46 Influenza, split virus, quadrivalent, PF 2 completed Not Available [facility] 06/01/2025 13:40:46 COVID-19, mRNA, LNP-S, bivalent, PF, 30 mcg/0.3 mL dose 2 completed Not Available [facility] 06/01/2025 13:40:46 Influenza, split virus, quadrivalent, PF 3 completed Not Available [facility] 06/01/2025 13:40:46 Influenza, split virus, trivalent, preservative 4 completed Gabriel Smith MD Attn: Accounting,[address] [place], [address], [facility] 08/22/2024 21:49:24 Pneumococcal conjugate PCV20, polysaccharide LEQ490 conjugate, adjuvant, PF 5 completed ERNST Quiros, [place] - [facility] 05/04/2025 17:09:41 Past Encounters Encounter ID Performer Location Encounter Start Date Encounter Closed Date Diagnosis/Indication Diagnosis SNOMED-CT Code Diagnosis ICD10 Code Diagnosis Note [id number] MD Flo Boles (Adult Med) [address] [place] [address] [phone] 0 03/02/2024 14:39:04 03/02/2024 16:26:36 Essential hypertension 14800742 I10 Hyperlipidemia 17089029 E78.5 Anxiety 62659126 F41.9 Type 2 johnie betes mellitus 56300977 E11.9 Psoriatic arthritis 1563 80455 L40.50 Screening mammography 24 882371 Z12.31 [id number] MD Flo Boles (Adult Med) [address] [place] [address] [id number] 0 08/17/2024 15:25:10 08/17/2024 16:35:04 Obesity 050520607 E66.8 Administra tion of influenza vaccine 09623420 Z23 Essential hypertension 50459906 I10 Hyperlipidemia 99594576 E78.5 Psoriatic arthritis 1563 00580 L40.50 Type 2 johnie betes mellitus 10202371 E11.9 Anxiety 60492098 F41.9 [id number] MD Flo Boles (Adult Med) [address] [place] [address] [id number] 0 09/07/2024 13:44:18 09/07/2024 15:36:22 Urinary tract infectious disease 57799359 N39.0 [id number] MD Flo Boles (Adult Med) [address] [place] [address] 55198-717 0 11/02/2024 15:37:50 11/02/2024 16:44:15 Body mass index 30+ - obesity 467562398 Z68.32 Obesity 906472986 E66.9 Essential hypertension 20662743 I10 Hyperlipidemia 72261223 E78.5 Type 2 johnie betes mellitus 55924837 E11.9 Anxiety 68510703 F41.9 Psoriatic arthritis 1563 92108 L40.50 HIV screen ing declined 3892619532 13094 Z53.20 [id number] MD Flo Boles (Adult Med) [address] [place] [address] 14505-627 0 12/07/2024 16:05:24 12/07/2024 17:36:53 Body mass index 30+ - obesity 169555715 Z68.30 Obesity 181877664 E66.9 Traumatic subdural hematoma 731036839 S06.5X0D Intraparen chymal hemorrhage of brain 904610887 I61.8 Essential hypertension 33610983 I10 [id number] MD Flo Boles (Adult Med) [address] [place] [address] 27921-336 0 05/04/2025 16:18:19 05/05/2025 09:36:07 Obese class I 2595018537 80147 E66.811 BMI 33.3 Pneumococc al vaccination given 017953539 Z23 Tachycardia 6389658 R00. 0 Essential hypertension 59752169 I10 Hyperlipidemia 96762329 E78.5 Type 2 johnie betes mellitus 04842413 E11.9 Anxiety 25458768 F41.9 [id number] [facility] [address] [place] [address] [id number] 0 06/01/2025 13:39:02 06/01/2025 14:40:41 Obese class I 6939081598 07230 E66.811 BMI 33 Pain of ri ght knee joint 8267579259 24918 M25.561 Health Concerns Section Related Observation LastModified by Organization Detai ls LastModified Time None Recorded Concern Status LastModified by Organization Details LastModified Time None Recorded Advance Directives Directive N: Payers Insurance Date Sequence Insurance Name Policy Number Policy Munoz Covered Member ID Munoz Member ID Guarantor Name 05/29/2025 1 [facility] [id number] Joan Gutierrez [id number] Joan Gill Notes Date Note Type Note Provider Name and Address Organization Details Recorded Time 09/07/2024 text/html she was in the hospital for UTI finish the Augmentin but she feels like it is coming back Gabriel Smith MD Attn: Accounting,[address] [facility], [place], [address], [place] - [facility] 09/11/2024 17:01:08 11/02/2024 text/html here for follow up of her medical problems her hypertension has been controlled her psoriatic arthritis has been doing okay taking her medicine for a low vitamin-D level. Anxiety has been well controlled taking her medicine for her dyslipidemia and trying to follow a low-fat diet as well Gabriel Smith MD Attn: Accounting,[address] [facility], [place], [address], [facility] - [facility] 11/02/2024 22:40:19 12/07/2024 text/html patient fell suf fered a subdural hematoma intraparenchymal hemorrhage occipital bone fracture was taken to [facility] discharge she is slowly feeling better. Her fall happened after she stepped in a pothole Gabriel Smith MD Attn: Accounting,[address] [facility] [address], [place], [address], [facility] - [facility] 12/07/2024 22:16:25 05/04/2025 text/html Psoriatic arthri tis bothers her from time tonight she needs a Prevnar hypertension no headache or dizziness she has noticed some tachycardia but she has been asymptomatic from it could stand to lose a little bit of weight anxiety has been stable no SI or HI dyslipidemia does try to watch her intake of fat Gabriel Smith MD Attn: Accounting,[address] [facility], [place], [address], [facility] - [facility] 05/04/2025 21:46:29 OBGyn Episode No OBEpisode recorded.
[2025-06-05 14:32] VITALS: BP 112/58; PULSE 95; RESP 16; TEMP 36.9; O2SAT 96
--- OUTSIDE RECORDS SUMMARY | 2025-06-05 15:06 | XMS_ITS | Clinical Summary ---
Author Organization [facility] Address [address] [place] [address] Care Team Providers Care Inspector Wire Rope Name Role Phone Raul Smith MD Primary Care Provider [phone] Source Comments [facility],non-owned Affiliates and Associated Physician Practices is amultiple site organization consisting of ambulatory clinics and hospital sitesin [place], [place], [place] and [place]. This disclosure is being madepursuant to the Care Everywhere program and may not contain all information available regarding this patient. Last updated 18.[facility] Allergies No known active allergies Medications * [...] and heating? Not hard at all 11/13/2024 [facility] - Occupational Stress [...] any time in the past 12 m [facility], were you homeless or living in a group home (including now)? No 11/13/2024 Comments No Sex and Gender Information Value Date Recorded Sex Assigned at Not on file Legal Sex Female 3:43 PM CREDIT OPERATIONS SPECIALIST Gender Identity Not on file Sexual Orientation Not on file Last Filed Vital Signs Vital Sign Reading Time Taken Comments Blood Pressure 110/72 12/16/2024 1:55 PM CREDIT OPERATIONS SPECIALIST Pulse 124 12/16/2024 1:55 PM CREDIT OPERATIONS SPECIALIST Temperature 36.3 C (97.3 F) 12/16/2024 1:55 PM CREDIT OPERATIONS SPECIALIST Respiratory Rate 18 11/13/2024 4:51 AM CREDIT OPERATIONS SPECIALIST Oxygen Saturation 98% 12/16/2024 1:55 PM CREDIT OPERATIONS SPECIALIST Inhaled Oxygen Concentration - - Weight 65.9 kg (145 lb 3.2 oz) 12/16/2024 1:55 P M CREDIT OPERATIONS SPECIALIST Height 147.3 cm (4' 10) 12/16/2024 1:55 PM CREDIT OPERATIONS SPECIALIST Body Mass Index 30.35 12/16/2024 1:55 PM CREDIT OPERATIONS SPECIALIST Plan of Treatment Health Maintenance Due Date [...] PANEL (CALCIUM TOTAL) Routine 11/13/2024 2:51 AM CREDIT OPERATIONS SPECIALIST from Last 3 Months or Most Recently Relevant to Health Maintenance Results * (ABNORMAL) BASIC METABOLIC PANEL (CALCIUM TOTAL) (11/13/2024 2:51 AM CREDIT OPERATIONS SPECIALIST) BUN 14 7 - 26 mg/dL 11/13/2024 4:[address] [facility] Creatinine 1.06(H) 0.56 - 0.96 mg/dL 11/13/2024 4:[address] [facility] Sodium 143 136 - 145 mmol/L 11/13/2024 4:[address] [facility] Potassium 3.8 3.5 - 4.5 mmol/L 11/13/2024 4:[address] [facility] Chloride 112(H) 98 - 107 mmol/L 11/13/2024 4:[address] [facility] CO2 19(L) 22 - 29 mmol/L 11/13/2024 4:08 AM [facility] Glucose 136(H) 70 - 99 mg/dL 11/13/2024 4:08 AM [facility] Calcium 9.2 8.4 - 10.2 mg/dL 11/13/2024 4:08 AM [facility] Anion Gap 12 6 - 16 11/13/2024 4:08 AM [facility] BUN/Creatinine Ratio 13 7 - 23 11/13/2024 4:08 AM [facility] Osmolality Calculated 299(H) 275 - 295 mOsm/kg 11/13/2024 4:08 AM [facility] eGFR by CKD-EPI 59(L) >=90 mL/min/1.7 3 m2 11/13/2024 4:08 AM [facility] Blood BLOOD SPECIMEN / Unknown Lab Venipuncture / Unknown 11/13/2024 2:51 AM CREDIT OPERATIONS SPECIALIST 11/13/2024 3:43 AM [facility] Jacob Kay MD LAB - CHEMISTRY ORDERABLES Fin al Result [facility] [address] [place] [address], [facility] [phone] from Last 3 Months or Most Recently Relevant to Health Maintenance Insurance [facility] Advance Directives * Full Code (Latest Code Status on File) Date Activated Date Inactivated Comments 11/12/2024 9:20 PM 11/13/2024 4:39 PM Care Teams Inspector Wire Rope Relationship Specialty Start Date End Date Raul Smith MD [address] [place] [address] PCP - General Internal Medicine 11/12/24
--- OUTSIDE RECORDS SUMMARY | 2025-06-05 15:06 | XMS_ITS | Clinical Summary ---
Author Organization [facility] Physician Of [facility] [address] [place] [id number] Care Team Providers Care Microfiche Duplicator Name Role Phone Raul Smith MD Primary Care Provider [phone] Allergies Active Allergy Reactions Criticality Noted Date [...] (07/04/2021): Added automatically from request for surgery [id number] Encounters Date Type Department Care Team Description 05/02/2025 3:24 PM CDT - 05/02/2025 11:59 PM CDT Hospital Encounter [facility] [id number] [place] [id number] Chronic kidney disease, stage III (moderate) (HCC); Mixed hyperlipidemia; Type II or unspecified type diabetes mellitus with renal manifestations, 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.42) (HCC); Edema; Avitaminosis D; Urinary tract infection, site not specified; Urinary frequency; Hyperparathyroidism, unspecified; Nonspecific abnormal results of thyroid function study; Vitamin D deficiency Discharge Disposition: Discharge to home or self care 05/02/2025 9:15 AM CDT Lab [facility] Outpatient Lab at [address] [id number] Chronic kidney disease, stage III (moderate) (HCC) (Primary Dx); Mixed hyperlipidemia; Type II or unspecified type diabetes mellitus with renal manifestations, 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.42) (HCC); Edema; Avitaminosis D; Urinary tract infection, site not specified; Urinary frequency; Hyperparathyroidism, unspecified; Nonspecific abnormal results of thyroid function study 03/09/2025 8:24 AM CDT - 03/09/2025 11:59 PM CDT Hospital Encounter [facility] [id number] [place] [id number] Vitamin D deficiency Discharge Disposition: Discharge to home or self care 03/09/2025 8:15 AM CDT Lab [facility] Outpatient Lab at [address] [phone] Vitamin D deficiency (Primary Dx) from Last [...] on file 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 Gender Identity Not on file Sexual [...] MD LAB BLOOD ORDERABLES Final Res ult [facility] [address] [address] Department [place] [address] * Differential, auto (05/02/2025 12:00 PM CDT) Neutrophil abs 4.01 1.50 - 6.50 K/cumm Imm gran abs 0.02 0.00 - 0.10 K/cumm [facility] Lymphocyte abs 1.65 0.80 - 3.30 K/cumm [facility] Monocyte abs 0.43 0.20 - 0.80 K/cumm [facility] Eosinophil abs 0.29 0.00 - 0.50 K/cumm [facility] Basophil abs 0.04 0.00 - 0.10 K/cumm [facility] Neutrophil pct 62.3 % [facility] Comment: Interpretive Data Percent cell count reference ranges are not reported, since discordance with absolute values may lead to misinterpretation of CBC data. Current Interpretive Data was last revised on 2018. Imm gran pct 0.3 % [facility] Comment: Interpretive Data Percent cell count reference ranges are not reported, since discordance with absolute values may lead to misinterpretation of CBC data. Current Interpretive Data was last revised on 2018. Lymphocyte pct 25.6 % [facility] Comment: Interpretive Data Percent cell count reference ranges are not reported, since discordance with absolute values may lead to misinterpretation of CBC data. Current Interpretive Data was last revised on 2018. Monocyte pct 6.7 % [facility] Comment: Interpretive Data Percent cell count reference ranges are not reported, since discordance with absolute values may lead to misinterpretation of CBC data. Current Interpretive Data was last revised on 2018. Eosinophil pct 4.5 % [facility] Comment: Interpretive Data Percent cell count [...] MD LAB BLOOD ORDERABLES Final Res ult [facility] [address] Department [place] [address] * Urinalysis reflex to microscopic and culture [...] tendency for uric acid stone formation. Source: [facility] Current Interpretive Data was last revised on [...] CDT Fax results to Dr Bernard Carbajal [phone] Bernard Carbajal MD LAB MICROBIOLOGY - GENERAL ORD ERABLES Final Result [facility] [address] [place] [address] * (ABNORMAL) CBC with auto differential (05/02/2025 12:00 PM CDT) WBC 6.44 3.80 - 9.90 K/cumm Hgb 10.7(L) 11.9 - 15.5 g/dL [facility] Hct 34.7(L) 35.6 - 45.5 % [facility] Plt 467(H) 150 - 400 K/cumm [facility] CH MPV 8.4(L) 9.1 - 12.3 fL [facility] RBC 3.18(L) 3.90 - 5.20 M/cumm [facility] CH MCV 109.1(H) 81.3 - 96.4 fL [facility] MCH 33.6(H) 27.1 - 33.3 pg [facility] MCHC 30.8(L) 32.3 - 35.7 g/dL [facility] CH RDW CV 16.5(H) 11.1 - 14.9 % [facility] CH RDW SD 65.6(H) 35.7 - 48.1 fL [facility] NRBC abs 0.00 0.00 - 0.01 K/cumm [facility] Blood 05/02/2025 12:0 0 PM CDT 05/02/2025 4:29 PM CDT Narrative [facility] - 05/02/2025 4:46 PM CDT Fax results to Dr Bernard Carbajal [phone] Bernard Carbajal MD LAB BLOOD ORDERABLES Final Res ult Performing Organization Address City/[facility]/ZIP Co de Phone Number [facility] [address] Department of [employer] [place], [place] [id number] * (ABNORMAL) Albumin Creatinine Ratio, Urine (05/02/2025 12:00 PM CDT) Albumin Ur 36.8 mg/L Comment: Interpretive Data No reference range established. Current interpretive data was last revised 2019. Creatinine Ur 67.2 mg/dL [facility] Comment: Interpretive Data No reference range established. Current interpretive data was last revised 2019. Albumin Creatinine Ratio, Ur 55(H) 1 - 29 mg/g [facility] Urine (Urine, Clean Catch) 05/02/2025 12:00 PM CDT 05/02/2025 4:29 PM CDT Narrative [facility] - 05/02/2025 5:17 PM CDT Fax results to Dr Bernard Carbajal [phone] Bernard Carbajal MD LAB URINE ORDERABLES Final Res ult Performing Organization Address City/[facility]/ZIP Co de Phone Number [facility] [address] [address] [facility] [address] * Vitamin D 25 hydroxy (05/02/2025 12:00 PM CDT) Vitamin D 25-OH 61 30 - 80 ng/mL Blood 05/02/2025 12:0 0 PM CDT 05/02/2025 4:29 PM CDT Narrative [facility] - 05/02/2025 5:23 PM CDT Fax results to Dr Bernard Carbajal [phone] Bernard Carbajal MD LAB BLOOD ORDERABLES Final Res ult Performing Organization Address City/[facility]/ZIP Co de Phone Number [facility] [address] [address] [facility] [place] [address] * Uric acid (05/02/2025 12:00 PM CDT) Uric acid 4.2 2.5 - 7.0 mg/dL Blood Venous blood specimen / Unknown 05/02/2025 12:00 PM CDT 05/02/2025 4:29 PM CDT Narrative [facility] - 05/02/2025 5:33 PM CDT Fax results to Dr Bernard Carbajal [phone] Bernard Carbajal MD LAB BLOOD ORDERABLES Final Res ult Performing Organization Address [facility]/ZIP Co de Phone Number [place] [address] [address] [facility] [place] [address] * TSH (05/02/2025 12:00 PM CDT) Pathologist [facility] Thyroid Stimulating Hormone 1.47 0.30 - 4.20 mcIUnit/mL Blood Venous blood specimen / Unknown 05/02/2025 12:00 PM CDT 05/02/2025 4:29 PM CDT Narrative [facility] - 05/02/2025 5:33 PM CDT Fax results to Dr Bernard Carbajal [phone] Bernard Carbajal MD LAB BLOOD ORDERABLES Final Res ult Performing Organization Address [facility] Co de Phone Number [facility] [address] [address] [place] [address] * PTH (05/02/2025 12:00 PM CDT) Pathologist [facility] PTH 20 15 - 65 pg/mL Blood Venous blood specimen / Unknown 05/02/2025 12:00 PM CDT 05/02/2025 4:29 PM CDT Narrative [facility] - 05/02/2025 5:33 PM CDT Fax results to Dr Bernard Carbajal [phone] Bernard Carbajal MD LAB BLOOD ORDERABLES Final Res ult Performing Organization Address [facility] Co de Phone Number [place] [address] [address] [place] [address] * (ABNORMAL) Hemoglobin A1c (05/02/2025 12:00 PM CDT) Hgb A1C 5.8(H) 4.0 - 5.6 % Estimated Average Glucose 120 mg/dL [facility] Comment: The ADA recommends reporting an estimated Average Glucose (eAG) with all Hemoglobin A1c results using the equation derived from a study of 507 normal and diabetic adults. Minority populations were underrepresented and children were not included. (Diabetes Care 31:6190-8185, 2008). The eAG is not equivalent to a fasting glucose. Blood Venous blood specimen / Unknown 05/02/2025 12:00 PM CDT 05/02/2025 4:29 PM CDT Narrative [facility] - 05/02/2025 4:57 PM CDT Fax results to Dr Bernard Carbajal [phone] Bernard Carbajal MD LAB BLOOD ORDERABLES Final Res ult [facility] [address] Department [place] [address] * (ABNORMAL) Comprehensive metabolic panel (05/02/2025 12:00 [...] CDT Fax results to Dr Bernard Carbajal [phone] us Bernard Carbajal MD LAB BLOOD ORDERABLES Final Res ult [facility] [address] [place] [address] * eGFR (03/09/2025 8:24 AM CDT) eGFR [...] BLOOD ORDERABLES Final Res ult [facility] [address] [address] Department [place] [address] * Differential, auto (03/09/2025 8:24 AM CDT) [...] BLOOD ORDERABLES Final Res ult [facility] [address] Department [place] [address] * (ABNORMAL) Urinalysis reflex to microscopic and [...] tendency for uric acid stone formation. Source: [facility] Current Interpretive Data was last revised on [...] 03/09/2025 8:59 PM CDT Fax results to [phone] BERNARD CARBAJAL us Bernard Carbajal MD LAB MICROBIOLOGY - GENERAL ORD ERABLES Final Result [facility] [address] Department [place] [address] * (ABNORMAL) CBC with auto differential (03/09/2025 8:24 AM CDT) [facility] WBC 8.36 3.80 - 9.90 K/cumm Hgb 11.7(L) 11.9 - 15.5 g/dL [facility] Hct 38.8 35.6 - 45.5 % [facility] Plt 319 150 - 400 K/cumm [facility] MPV 8.5(L) 9.1 - 12.3 fL [facility] RBC 3.54(L) 3.90 - 5.20 M/cumm [facility] MCV 109.6(H) 81.3 - 96.4 fL [facility] MCH 33.1 27.1 - 33.3 pg [facility] MCHC 30.2(L) 32.3 - 35.7 g/dL [facility] RDW CV 13.7 11.1 - 14.9 % [facility] RDW SD 55.1(H) 35.7 - 48.1 fL [facility] NRBC abs 0.00 0.00 - 0.01 K/cumm [facility] Blood 03/09/2025 8:24 AM CDT 03/09/2025 8:53 PM CDT us Bernard Carbajal MD LAB BLOOD ORDERABLES Final Res ult [facility] [address] [address] Department [place] [address] * (ABNORMAL) Albumin Creatinine Ratio, Urine (03/09/2025 8:24 AM CDT) [facility] Albumin Ur 167.2 mg/L Comment: Interpretive Data No reference range established. Current interpretive data was last revised 2019. Creatinine Ur 93.5 mg/dL [facility] Comment: Interpretive Data No reference range established. Current interpretive data was last revised 2019. Albumin Creatinine Ratio, Ur 179(H) 1 - 29 mg/g [facility] Urine (Urine, Clean Catch) 03/09/2025 8:24 AM CDT 03/09/2025 8:53 PM CDT Narrative [facility] - 03/09/2025 10:46 PM CDT Fax results to [phone] BERNARD CARBAJAL Bernard Carbajal MD LAB URINE ORDERABLES Final Res ult [facility] [place] [address] [address] [place] [address] * Vitamin D 25 hydroxy (03/09/2025 8:24 AM CDT) Vitamin D 25-OH 59 30 - 80 ng/mL Blood Venous blood specimen / Unknown 03/09/2025 8:24 AM CDT 03/09/2025 8:53 PM CDT Bernard Carbajal MD LAB BLOOD ORDERABLES Final Res ult Performing Organization Address [facility] Co de Phone Number [facility] ANGIE [address] [address] [place] [address] * (ABNORMAL) Urinalysis, microscopic only (03/09/2025 8:24 AM CDT) WBC, ur 11-20(A) 0 - 5 /HPF RBC, ur 0-2 0 - 2 /HPF [facility] Epithelial cells, squamous, ur 1-5 0 - 5 /HPF [facility] Mucous, ur Present(A) [facility] Hyaline casts, ur 1-5 0 - 10 /LPF [facility] Culture Reflex Comment Reflex to urine culture will be performed. [facility] Urine, clean voided 03/09/2025 8:24 AM CDT 03/09/2025 8:53 PM CDT Bernard Carbjaal MD LAB URINE ORDERABLES Final Res ult Performing Organization Address City/[facility]/ZIP Co de Phone Number [facility] AD[place] [address] [address] [place] [address] * Erythrocyte sedimentation rate (03/09/2025 8:24 AM CDT) Erythrocyte sedimentation rate 18 1 - 30 mm/hr Comment:Testing performed by : [facility], [facility], [place], [address] Blood Venous blood specimen / Unknown 03/09/2025 8:24 AM CDT 03/09/2025 2:22 PM CDT Nata FLORENCE - 03/09/2025 5:15 PM CDT Fax results to [phone] BERNARD CARBAJAL Bernard Carbajal MD LAB BLOOD ORDERABLES Final Res ult [facility] [place] [address] Department [place] [address] * Urine culture Urine, clean voided (03/09/2025 8:24 AM CDT) Report Final Report: Less than 100,000 colonies/mL (clinically insignificant growth based on current clinical standards) Comment:Testing performed by : [facility], [address] [place]., [address] Organism (CLINICALLY INSIGNIFICANT GROWTH [facility] Urine, clean voided 03/09/2025 8:24 AM CDT 03/09/2025 10:18 PM CDT Narrative [facility] - 03/11/2025 9:33 AM CDT Urine culture reflexed based upon urinalysis results. Testing performed by [facility] Microbiology Laboratory ([phone]) us Bernard Carbajal MD LAB MICROBIOLOGY - GENERAL ORD ERABLES Final Result [facility] [address] Department [place] [address] * Uric acid (03/09/2025 8:24 AM CDT) Uric acid 4.3 2.5 - 7.0 mg/dL Blood Venous blood specimen / Unknown 03/09/2025 8:24 AM CDT 03/09/2025 8:53 PM CDT Narrative [facility] - 03/09/2025 9:59 PM CDT Fax results to [phone] BERNARD CARBAJAL Bernard Carbajal MD LAB BLOOD ORDERABLES Final Res ult Performing Organization Address City/[facility]/ZIP Co de Phone Number [facility] [address] [place] [address] * TSH (03/09/2025 8:24 AM CDT) Pathologist [facility] Thyroid Stimulating Hormone 2.31 0.30 - 4.20 mcIUnit/mL Blood Venous blood specimen / Unknown 03/09/2025 8:24 AM CDT 03/09/2025 8:53 PM CDT Narrative [facility] - 03/09/2025 9:59 PM CDT Fax results to [phone] BERNARD CARBAJAL us Bernadr Carbajal MD LAB BLOOD ORDERABLES Final Res ult Performing Organization Address [facility]/ZIP Co de Phone Number [place] [address] [address] [place] [address] * PTH (03/09/2025 8:24 AM CDT) [facility] PTH 17 15 - 65 pg/mL Blood Venous blood specimen / Unknown 03/09/2025 8:24 AM CDT 03/09/2025 2:48 PM CDT Narrative [facility] - 03/09/2025 3:42 PM CDT Fax results to [phone] BERNARD CARBAJAL Bernard Carbajal MD LAB BLOOD ORDERABLES Final Res ult Performing Organization Address City/[facility]/ZIP Co de Phone Number [place] [address] [address] [place] [address] * Hemoglobin A1c (03/09/2025 8:24 AM CDT) Pathologist [facility] Hgb A1C 5.4 4.0 - 5.6 % Estimated Average Glucose 108 mg/dL [facility] Comment: The ADA recommends reporting an estimated Average Glucose (eAG) with all Hemoglobin A1c results using the equation derived from a study of 507 normal and diabetic adults. Minority populations were underrepresented and children were not included. (Diabetes Care 31:8907-4214, 2008). The eAG is not equivalent to a fasting glucose. Blood Venous blood specimen / Unknown 03/09/2025 8:24 AM CDT 03/09/2025 8:53 PM CDT Narrative [facility] - 03/09/2025 10:06 PM CDT Fax results to [phone] BERNARD CARBAJAL us Bernard Carbajal MD LAB BLOOD ORDERABLES Final Res ult [facility] [address] Department [place] [address] * Comprehensive metabolic panel (03/09/2025 8:24 AM [...] 03/09/2025 9:59 PM CDT Fax results to [phone] BERNARD CARBAJAL us Bernard Carbajal MD LAB BLOOD ORDERABLES Final Res ult [facility] [address] Department [place] [address] from Last 3 Months Insurance [facility] [employer] [place] [id number] [facility] [employer] Care Teams Microfiche Duplicator Relationship Specialty Start Date End Date Raul Smith MD PCP - General Internal Medicine 07/03/21
--- OUTSIDE RECORDS SUMMARY | 2025-06-05 15:06 | XMS_ITS | Continuity of Care Document ---
Author Organization [facility] Address [address] [place] [address] Phone Care Team Providers Care Liner Replacer Name Role Phone Randy Whalen Unavailable Unavailable Procedures Procedure Date Office/outpatient Visit, Est Visual Field Examination(s) Eye Exam & Treatment Corneal Pachymetry Advance Directives Directive Yes / No Effective Date File Name No Information Encounters Encounter Description Practice Location Reason(s) For Visit Diagnoses Date Provider Providers Copied on Encounter Office/outpat ient Visit, Est [facility], [address] [place] [address] [address], [place], [place], [id number], [place] tel:[phone] [facility] No Information Feb-0 4-200 9 Koby Padilla. [facility] [place] , [address], [place], [place], [facility], . tel:[phone] [facility], [address] [place] [address] [address], [place], [place], [id number], [place] tel:[phone] [facility] No Information b-2 8-200 7 Koby Padilla. [facility] , [address], [place], [place], [facility], [place]. tel:[phone] Referring Provider: Isha Robison [facility] [address], [place], [place], [facility]. tel:[phone] [facility], [address] [place] [address] [address], [place], [place], [id number], tel:[phone] [facility] No Information 7 Koby Padilla. [facility] , [address], [place], [address], . tel:[phone] Referring Provider: Randy Dawn [address] [place] [address] [address], [place], [address]. tel:[phone] Family History Family Member Type Diagnosis Age At Onset No Information Payers Payer name Insurance type Covered republican ID Authoriza tion(s) No Information Social History [...]
--- OUTSIDE RECORDS SUMMARY | 2025-06-05 15:06 | XMS_ITS | Continuity of Care Document ---
Author Organization [facility] Address [address] [place] [id number] Phone Care Team Providers Care Globe Mounter Name Role Phone Maxwell Leos PTA Unavailable Unavailable Procedures Procedure Date Progress Note Therapeutic Activities Neuromuscular Re-Ed Therapeutic Exercise Therapeutic Activities Neuromuscular Re-Ed Therapeutic Exercise Therapeutic Activities Therapeutic Exercise Manual Therapy Therapeutic Activities Therapeutic Exercise Manual Therapy Therapeutic Exercise Manual Therapy Therapeutic Exercise Manual Therapy Therapeutic Activities Therapeutic Exercise Manual Therapy Therapeutic Activities Therapeutic Exercise Manual Therapy PT Evaluation Moderate Complexity Therapeutic Activities Therapeutic Exercise Manual Therapy Therapeutic Activities Neuromuscular Re-Ed Therapeutic Exercise Manual Therapy Hot or Cold Pack Progress [...] Exercise Manual Therapy Hot or Cold Pack Progress [...] Diagnoses Date Provider Providers Copied on Encounter [facility] [address], [id number], tel:[phone] [facility] No Information - 2 Dafne Arreola. . Referring Provider: Mahesh Wray, [address], [address]. tel:[phone] [place], [place] [address] [address], [id number], tel:[phone] [facility] No Information 0 2 Buschsofie Jeffersonn. . Referring Provider: Mahesh Wray, [address] [address], [place], [address]. tel:[phone] [place] [address], [id number], tel:[phone] [facility] No Information 0 2 Catapang El. . Referring Provider: Mahesh Wray, [address] [address], [place], [address]. tel:[phone] [place], [place] [address] [address], [id number], tel:[phone] [facility] No Information 0 - 2 Catapang El. . Referring Provider: Mahesh Wray, [address], [place], [address]. tel:[phone] [facility], [address] [address], [place], [place], [id number], tel:[phone] [facility] No Information 2 Catapang El. . Referring Provider: Mahesh Wray, 2043 [facility], [place], [address]. tel:[phone] [place] [address], [address] [facility], [place], [place], [id number], [place] tel:[phone] [facility] No Information 2 Catapang El. . Referring Provider: Mahesh Wray, [address]43 [facility], [place], [address]. tel:[phone] [place] [address], [address] [address], [place], [place], [id number], [place] tel:[phone] [facility] No Information 2 Cat[place]ang El. . Referring Provider: Mahesh Wray, [address] [facility], [place], [address]. tel:[phone] [place] [address], [address] [address], [place], [place], [id number], [place] tel:[phone] [facility] No Information 0 2 Cat[place]ang El. . Referring Provider: Mahesh Wray, [address] [facility], [place], [address]. tel:[phone] [place] [address], [address] [address], [place], [place], [id number], [place] tel:[phone] [facility] No Information 8- 2 Cat[place]ang El. . Referring Provider: Mahesh Wray, [address] [facility], [place], [address]. tel:[phone] [facility], [address] [address], [place], [place], [id number], tel:[phone] [facility] No Information Dec-0 5-201 9 Hauschild Ileana. [address] [place] [address], [address], [place], [place], [facility], . tel:[phone] Referring Provider: Gopi Neri, [address], [place], [address]. tel:[phone] [place] [address] [place], [place] [address], [place], [place], [id number], tel:[phone] [facility] No Information Dec-0 4-201 9 Hauschild Ileana. [address] [place] [address], [address], [place], [place], [facility], . tel:[phone] Referring Provider: Gopi Neri, [address] [facility] [address], [place], [address]. tel:[phone] [place] [address], [place], [place], [id number], tel:[phone] [facility] No Information Dec-0 2-201 9 Hauschild Ileana. [address] [place] [address], [address], [place], [facility], . tel:[phone] Referring Provider: Gopi Neri, [address], [place], [address]. tel:[phone] [place] [address] [place], [place] [address], [place], [place], [id number], tel:[phone] [facility] No Information Nov-2 9-201 9 Hauschild Ileana. [address] [place] [address], [address], [place], [facility], . tel:[phone] Referring Provider: Gopi Neri, [address], [place], [address]. tel:[phone] [place] [address], [address] [facility], [place], [id number], tel:[phone] [facility] No Information Nov-2 7-201 9 Hauschild Ileana. [address] [facility], [address], [place], [address], [place]. tel:[phone] Referring Provider: Gopi Neri, [address], [place], [address]. tel:[phone] [place], [place] [address] [address], [place], [place], [id number], [place] tel:[phone] [facility] No Information 9 Hauschild Ileana. [address] [place] [address], [address], [place], [place], [facility], [place]. tel:[phone] Referring Provider: Gopi Neri, [address], [place], [address]. tel:[phone] [place], [place] [address] [address], [place], [place], [address], [place] tel:[phone] [facility] No Information 9 Hauschild Ileana. [address] [place] [address], [address], [place], [facility], [place]. tel:[phone] Referring Provider: Gopi Neri, [address], [place], [address]. tel:[phone] [place] [address] [address], [place], [place], [id number], [place] tel:[phone] [facility] No Information 0 9 Hauschild Ileana. [address] [place] [address], [address], [place], [address], [place]. tel:[phone] Referring Provider: Gopi Neri, [address], [place], [address]. tel:[phone] [place], [place] [address] [address], [place], [place], [id number], [place] tel:[phone] [facility] No Information 9 Hauschild Ileana. [address] [place] [address], [address], [place], [address], [place]. tel:[phone] Referring Provider: Gopi Neri, [address], [place], [address]. tel:[phone], [place], [place], [id number], tel:[phone] [facility] No Information 9 Hauschilan Rocafer. [address] [place] [address], [address], [place], [facility], . tel:[phone] Referring Provider: Gopi Neri, [address], [place], [address]. tel:[phone] [place] [address] [address], [place], [place], [id number], tel:[phone] [facility] No Information 9 Bingodalis Merritt. . Referring Provider: Gopi Neri, [address], [place], [address]. tel:[phone] [place] [address], [address] [facility], [place], [address], [place] tel:[phone] [facility] No Information 9 Hauschild Ileana. [address] [place] [address], [address], [place], [facility], . tel:[phone] Referring Provider: Gopi Neri, [address], [place], [address]. tel:[phone] [place] [address] [address], [place], [place], [id number], [place] tel:[phone] [facility] No Information 9 Hauschilan Tejeda. [address] [place] [address], [address], [place], [facility], [place]. tel:[phone] Referring Provider: Gopi Neri, [address], [place], [address]. tel:[phone] [facility] [address], [place], [place], [address], [place] tel:[phone] [facility] No Information Nov-0 6-201 9 Hauschild Ileana. [address] [place] [address], [address], [place], [facility], [place]. tel:[phone] Referring Provider: Gopi Neri, [address] [facility] [address], [place], [address]. tel:[phone] [place], [place] [address], [place], [place], [address], tel:[phone] [facility] No Information Nov-0 4-201 9 Hauschild Ileana. [address] [place] [address], [address], [place], [facility], [place]. tel:[phone] Referring Provider: Gopi Neri, [address] [facility] [address], [place], [address]. tel:[phone] [place], [place] [address], [place], [place], [address], [place] tel:[phone] [facility] No Information Aug-3 1-201 9 Hauschild Ileana. [address] [place] [address], [address], [place], [facility], [place]. tel:[phone] Referring Provider: Gopi Neri, [address] [facility] [address], [place], [address]. tel:[phone] [place], [place] [address], [place], [place], [address], [place] tel:[phone] [facility] No Information Aug-3 0-201 9 Hauschild Ileana. [address] [place] [address], [address], [place], [address], [place]. tel:[phone] Referring Provider: Gopi Neri, [address], [place], [address]. tel:[phone] [place] [address], [address] [place], [place] [address], [place], [place], [id number], [place] tel:[phone] [facility] No Information Oct-2 8-201 9 Hauschild Ileana. [address] [place] [address], [address], [place], [address], . tel:[phone] Referring Provider: Gopi Neri, [address], [place], [address]. tel:[phone] [facility], [address] [facility] 300, [place], [place], [address], [place] tel:[phone] [facility] No Information 9 Hammad Tejeda. [address] [facility], [address], [place], [address], . tel:[phone] Referring Provider: Gopi Peace, [address], [place], [address]. tel:[phone] Family History Family Member Type Diagnosis Age At Onset No Information Payers Payer name Insurance type Covered alliance party ID Authoriza tiallison(s) [employer] EPO - [place] [id number] Social History Type Description Quantity Date Captured [...]
--- OUTSIDE RECORDS SUMMARY | 2025-06-05 15:06 | XMS_ITS | Referral Summary ---
Author Organization 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 Role Phone Raul Smith MD Primary Care Provider [phone] Encounters Date Type Department Care Team Description 05/02/2025 3:24 PM CDT - 05/02/2025 11:59 PM CDT Hospital Encounter [address] [address] Chronic kidney disease, stage III (moderate) (HCC); Mixed hyperlipidemia; Type II or unspecified type diabetes mellitus with renal manifestations, 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.42) (HCC); Edema; Avitaminosis D; Urinary tract infection, site not specified; Urinary frequency; Hyperparathyroidism, unspecified; Nonspecific abnormal results of thyroid function study; Vitamin D deficiency Discharge Disposition: Discharge to home or self care 05/02/2025 9:15 AM CDT Lab [facility] Outpatient Lab at [address] [address] Chronic kidney disease, stage III (moderate) (HCC) (Primary Dx); Mixed hyperlipidemia; Type II or unspecified type diabetes mellitus with renal manifestations, 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.42) (HCC); Edema; Avitaminosis D; Urinary tract infection, site not specified; Urinary frequency; Hyperparathyroidism, unspecified; Nonspecific abnormal results of thyroid function study 03/09/2025 8:24 AM CDT - 03/09/2025 11:59 PM CDT Hospital Encounter [address] [address] Vitamin D deficiency Discharge Disposition: Discharge to home or self care 03/09/2025 8:15 AM CDT Lab [facility] Outpatient Lab at [address] [address] Vitamin D deficiency (Primary Dx) [...] (07/04/2021): Added automatically from request for surgery [id number] Social History Tobacco Use Types Packs/Day Years Used Date Smoking Tobacco: Never Smokeless Tobacco: Never Comments No Sex and Gender Information Value Date Recorded Sex Assigned at Not on file 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 Lymphocyte abs 1.65 0.80 - 3.30 K/cumm [facility] Monocyte abs 0.43 0.20 - 0.80 K/cumm [facility] Eosinophil abs 0.29 0.00 - 0.50 K/cumm [facility] Basophil abs 0.04 0.00 - 0.10 K/cumm [facility] Neutrophil pct 62.3 % [facility] Comment: Interpretive Data Percent cell count reference ranges are not reported, since discordance with absolute values may lead to misinterpretation of CBC data. Current Interpretive Data was last revised on 2018. Imm gran pct 0.3 % [facility] Comment: Interpretive Data Percent cell count reference ranges are not reported, since discordance with absolute values may lead to misinterpretation of CBC data. Current Interpretive Data was last revised on 2018. Lymphocyte pct 25.6 % [facility] Comment: Interpretive Data Percent cell count reference ranges are not reported, since discordance with absolute values may lead to misinterpretation of CBC data. Current Interpretive Data was last revised on 2018. Monocyte pct 6.7 % [facility] Comment: Interpretive Data Percent cell count reference ranges are not reported, since discordance with absolute values may lead to misinterpretation of CBC data. Current Interpretive Data was last revised on 2018. Eosinophil pct 4.5 % [facility] Comment: Interpretive Data Percent cell count reference ranges are not reported, since discordance with absolute values may lead to misinterpretation of CBC data. Current Interpretive Data was last revised on 2018. Basophil pct 0.6 % [facility] Comment: Interpretive Data Percent cell count reference ranges are not reported, since discordance with absolute values may lead to misinterpretation of CBC data. Current Interpretive Data was last revised on 2018. Blood 05/02/2025 12:0 0 PM CDT 05/02/2025 4:29 PM CDT us Bernard Carbajal MD LAB BLOOD ORDERABLES Final Res ult [facility] [address] [address] Department [place] [address] * Urinalysis reflex to microscopic and culture Urine, clean voided (05/02/2025 12:00 PM CDT) Color, ur Yellow Yellow Clarity, ur Clear Clear [facility] Specific gravity, ur 1.014 1.003 - 1.030 [facility] pH, urine 6.5 [facility] Comment: Interpretive Data U rine pH is affected by diet, medications, systemic acid-base disturbances, and renal tubular function. pH may affect urinary stone formation. For example, urine pH below 6.0 may help reduce the tendency for calcium phosphate stones and pH greater than 6.0 may reduce the tendency for uric acid stone formation. Source: [facility] Current Interpretive Data was last revised on [...] for microscopic UA and culture not met. [facility] Urine, clean voided 05/02/2025 12:00 PM CDT 05/02/2025 4:29 PM CDT Narrative [facility] - 05/02/2025 4:52 PM CDT Fax results to Dr Bernard Carbajal [phone] Bernard Carbajal MD LAB MICROBIOLOGY - GENERAL ORD ERABLES Final Result [facility] [address] [place] [address] * (ABNORMAL) CBC with auto [...] CERNER MCHC 30.8(L) 32.3 - 35.7 g/dL [facility] RDW CV 16.5(H) 11.1 - 14.9 % [facility] RDW SD 65.6(H) 35.7 - 48.1 fL [facility] NRBC abs 0.00 0.00 - 0.01 K/cumm [facility] Blood 05/02/2025 12:0 0 PM CDT 05/02/2025 4:29 PM CDT Narrative [facility] - 05/02/2025 4:46 PM CDT Fax results to Dr Bernard Carbajal [phone] us Bernard Carbajal MD LAB BLOOD ORDERABLES Final Res ult Performing Organization Address [facility] Co de Phone Number [facility] [address] [address] [place] [address] * (ABNORMAL) Albumin Creatinine Ratio, Urine (05/02/2025 12:00 PM CDT) Pathologist [facility] Albumin Ur 36.8 mg/L Comment: Interpretive Data No reference range established. Current interpretive data was last revised 2019. Creatinine Ur 67.2 mg/dL [facility] Comment: Interpretive Data No reference range established. Current interpretive data was last revised 2019. Albumin Creatinine Ratio, Ur 55(H) 1 - 29 mg/g [facility] Urine (Urine, Clean Catch) 05/02/2025 12:00 PM CDT 05/02/2025 4:29 PM CDT Narrative [facility] - 05/02/2025 5:17 PM CDT Fax results to Dr Bernard Carbajal [phone] us Bernard Carbajal MD LAB URINE ORDERABLES Final Res ult Performing Organization Address [facility] Co de Phone Number [facility] [address] [place] [address] * Vitamin D 25 hydroxy (05/02/2025 12:00 PM CDT) Pathologist [facility] Vitamin D 25-OH 61 30 - 80 ng/mL Blood 05/02/2025 12:0 0 PM CDT 05/02/2025 4:29 PM CDT Narrative [facility] - 05/02/2025 5:23 PM CDT Fax results to Dr Bernard Carbajal [phone] Bernard Carbajal MD LAB BLOOD ORDERABLES Final Res ult Performing Organization Address City/[facility]/ZIP Co de Phone Number [facility] [place] [address] [address] [facility] [place] [address] * Uric acid (05/02/2025 12:00 PM CDT) Uric acid 4.2 2.5 - 7.0 mg/dL Blood Venous blood specimen / Unknown 05/02/2025 12:00 PM CDT 05/02/2025 4:29 PM CDT Narrative [facility] - 05/02/2025 5:33 PM CDT Fax results to Dr Bernard Carbajal [phone] Bernard Carbajal MD LAB BLOOD ORDERABLES Final Res ult Performing Organization Address [facility] Co de Phone Number [facility] [place] [address] [address] [facility] [place] [address] * TSH (05/02/2025 12:00 PM CDT) Thyroid Stimulating Hormone 1.47 0.30 - 4.20 mcIUnit/mL Blood Venous blood specimen / Unknown 05/02/2025 12:00 PM CDT 05/02/2025 4:29 PM CDT [facility] 05/02/2025 5:33 PM CDT Fax results to Dr Bernard Carbajal [phone] Bernard Carbajal MD LAB BLOOD ORDERABLES Final Res ult Performing Organization Address City/[facility]/ZIP Co de Phone Number [place] [address] [address] [facility] [place] [address] * PTH (05/02/2025 12:00 PM CDT) PTH 20 15 - 65 pg/mL Blood Venous blood specimen / Unknown 05/02/2025 12:00 PM CDT 05/02/2025 4:29 PM CDT Narrative [facility] - 05/02/2025 5:33 PM CDT Fax results to Dr Bernard Carbajal [phone] Bernard Carbajal MD LAB BLOOD ORDERABLES Final Res ult [facility] [place] [address] [address] [place] [address] * (ABNORMAL) Hemoglobin A1c (05/02/2025 12:00 PM CDT) Pathologist [facility] Hgb A1C 5.8(H) 4.0 - 5.6 % Estimated Average Glucose 120 mg/dL [facility] Comment: The ADA recommends reporting an estimated Average Glucose (eAG) with all Hemoglobin A1c results using the equation derived from a study of 507 normal and diabetic adults. Minority populations were underrepresented and children were not included. (Diabetes Care 31:2591-6978, 2008). The eAG is not equivalent to a fasting glucose. Blood Venous blood specimen / Unknown 05/02/2025 12:00 PM CDT 05/02/2025 4:29 PM CDT Narrative [facility] - 05/02/2025 4:57 PM CDT Fax results to Dr Bernard Carbajal [phone] Bernard Carbajal MD LAB BLOOD ORDERABLES Final Res ult [place] [place] [address] [address] [place] [address] * (ABNORMAL) Comprehensive metabolic panel (05/02/2025 12:00 PM CDT) Pathologist [facility] Sodium 143 135 - 145 mmol/L Potassium, [...] PM CDT 05/02/2025 4:29 PM CDT Narrative [facility] - 05/02/2025 5:33 PM CDT Fax results to Dr Bernard Carbajal [phone] us Bernard Carbajal MD LAB BLOOD ORDERABLES Final Res ult [place] [address] [address] Department [place] [address] * eGFR (03/09/2025 8:24 AM CDT) [...] MD LAB BLOOD ORDERABLES Final Res ult [facility] [address] [address] Department of Laboratories [place], [place] [id number] * Differential, auto (03/09/2025 8:24 AM CDT) Neutrophil abs 5.32 1.50 - 6.50 K/cumm Imm gran abs 0.01 0.00 - 0.10 K/cumm [facility] Lymphocyte abs 2.42 0.80 - 3.30 K/cumm [facility] Monocyte abs 0.28 0.20 - 0.80 K/cumm [facility] Eosinophil abs 0.29 0.00 - 0.50 K/cumm [facility] Basophil abs 0.04 0.00 - 0.10 K/cumm [facility] Neutrophil pct 63.7 % [facility] Comment: Interpretive [...] revised on 2018. Lymphocyte pct 28.9 % [facility] Comment: Interpretive Data Percent cell count reference [...] revised on 2018. Eosinophil pct 3.5 % [facility] Comment: Interpretive Data Percent cell count reference [...] MD LAB BLOOD ORDERABLES Final Res ult [facility] [address] [address] [place] [address] * (ABNORMAL) Urinalysis reflex to microscopic and culture Urine, clean voided (03/09/2025 8:24 AM CDT) Color, ur Yellow Yellow Clarity, ur Clear Clear [facility] Specific gravity, ur 1.019 1.003 - 1.030 [facility] pH, urine 6.5 [facility] Comment: Interpretive Data U rine pH is affected by diet, medications, systemic acid-base disturbances, and renal tubular function. pH may affect urinary stone formation. For example, urine pH below 6.0 may help reduce the tendency for calcium phosphate stones and pH greater than 6.0 may reduce the tendency for uric acid stone formation. Source: [facility] Current Interpretive Data was last revised on [...] 03/09/2025 8:59 PM CDT Fax results to [phone] BERNARD CARBAJAL Bernard Carbajal MD LAB MICROBIOLOGY - GENERAL ORD ERABLES Final Result [facility] [address] [address] [place] [address] * (ABNORMAL) CBC with auto differential (03/09/2025 [...] ORDERABLES Final Res ult Performing Organization Address [facility] Co de Phone Number [facility] [address] [address] [place] [address] * (ABNORMAL) Albumin Creatinine Ratio, Urine (03/09/2025 8:24 AM CDT) Pathologist [facility] Albumin Ur 167.2 mg/L Comment: Interpretive Data No reference range established. Current interpretive data was last revised 2019. Creatinine Ur 93.5 mg/dL [facility] Comment: Interpretive Data No reference range established. Current interpretive data was last revised 2019. Albumin Creatinine Ratio, Ur 179(H) 1 - 29 mg/g [facility] Urine (Urine, Clean Catch) 03/09/2025 8:24 AM CDT 03/09/2025 8:53 PM CDT Narrative [facility] - 03/09/2025 10:46 PM CDT Fax results to [phone] BERNARD CARBAJAL Bernard Carbajal MD LAB URINE ORDERABLES Final Res ult Performing Organization Address [facility] Co de Phone Number [facility] [address] [address] [facility] [place] [address] * Vitamin D 25 hydroxy (03/09/2025 8:24 AM CDT) [facility] Vitamin D 25-OH 59 30 - 80 ng/mL Blood Venous blood specimen / Unknown 03/09/2025 8:24 AM CDT 03/09/2025 8:53 PM CDT Result [facility] Bernard Carbajal MD LAB BLOOD ORDERABLES Final Res ult Performing Organization Address [facility] Co de Phone Number [facility] [address] [address] [place] [address] * (ABNORMAL) Urinalysis, microscopic only (03/09/2025 8:24 AM CDT) WBC, ur 11-20(A) 0 - 5 /HPF RBC, ur 0-2 0 - 2 /HPF [facility] Epithelial cells, squamous, ur 1-5 0 - 5 /HPF [facility] Mucous, ur Present(A) [facility] Hyaline casts, ur 1-5 0 - 10 /LPF [facility] Culture Reflex Comment Reflex to urine culture will be performed. [facility] Urine, clean voided 03/09/2025 8:24 AM CDT 03/09/2025 8:53 PM CDT Bernard Carbajal MD LAB URINE ORDERABLES Final Res ult Performing Organization Address [facility]/ZIP Co de Phone Number [place] [address] [address] [place] [address] * Erythrocyte sedimentation rate (03/09/2025 8:24 AM CDT) Erythrocyte sedimentation rate 18 1 - 30 mm/hr Comment:Testing performed by : [facility], [facility], [place], [address] Blood Venous blood specimen / Unknown 03/09/2025 8:24 AM CDT 03/09/2025 2:22 PM CDT Narrative [facility] - 03/09/2025 5:15 PM CDT Fax results to [phone] BERNARD CARBAJAL Bernard Carbajal MD LAB BLOOD ORDERABLES Final Res ult [place] [address] [place] [address] * Urine culture Urine, clean voided (03/09/2025 8:24 AM CDT) Report Final Report: Less than 100,000 colonies/mL (clinically insignificant growth based on current clinical standards) Comment:Testing performed by : [facility], [address] [place]., [address] Organism (CLINICALLY INSIGNIFICANT GROWTH [facility] Urine, clean voided 03/09/2025 8:24 AM CDT 03/09/2025 10:18 PM CDT Narrative [facility] - 03/11/2025 9:33 AM CDT Urine culture reflexed based upon urinalysis results. Testing performed by [facility] ([phone]) Bernard Carbajal MD LAB MICROBIOLOGY - GENERAL ORD ERABLES Final Result Performing Organization Address City/[facility]/ZIP Co de Phone Number [facility] [address] [address] Department of Laboratories [place], [place] [id number] * Uric acid (03/09/2025 8:24 AM CDT) Uric acid 4.3 2.5 - 7.0 mg/dL Blood Venous blood specimen / Unknown 03/09/2025 8:24 AM CDT 03/09/2025 8:53 PM CDT Narrative [facility] - 03/09/2025 9:59 PM CDT Fax results to [phone] BERNARD CARBAJAL Bernard Carbajal MD LAB BLOOD ORDERABLES Final Res ult Performing Organization Address [facility] Co de Phone Number [facility] [address] [address] [place] [address] * TSH (03/09/2025 8:24 AM CDT) Thyroid Stimulating Hormone 2.31 0.30 - 4.20 mcIUnit/mL Blood Venous blood specimen / Unknown 03/09/2025 8:24 AM CDT 03/09/2025 8:53 PM CDT Narrative [facility] - 03/09/2025 9:59 PM CDT Fax results to [phone] BERNARD CARBAJAL Bernard Carbajal MD LAB BLOOD ORDERABLES Final Res ult Performing Organization Address City/[facility]/ZIP Co de Phone Number [place] [address] [address] [place] [address] * PTH (03/09/2025 8:24 AM CDT) Pathologist [facility] PTH 17 15 - 65 pg/mL Blood Venous blood specimen / Unknown 03/09/2025 8:24 AM CDT 03/09/2025 2:48 PM CDT Narrative [facility] - 03/09/2025 3:42 PM CDT Fax results to [phone] BERNARD CARBAJAL Bernard Carbajal MD LAB BLOOD ORDERABLES Final Res ult Performing Organization Address City/[facility] Co de Phone Number [facility] [place] [address] [address] [facility] [place] [address] * Hemoglobin A1c (03/09/2025 8:24 AM CDT) Pathologist [facility] Hgb A1C 5.4 4.0 - 5.6 % Estimated Average Glucose 108 mg/dL [facility] Comment: The ADA recommends reporting an estimated Average Glucose (eAG) with all Hemoglobin A1c results using the equation derived from a study of 507 normal and diabetic adults. Minority populations were underrepresented and children were not included. (Diabetes Care 31:7567-2158, 2008). The eAG is not equivalent to a fasting glucose. Blood Venous blood specimen / Unknown 03/09/2025 8:24 AM CDT 03/09/2025 8:53 PM CDT Narrative [facility] - 03/09/2025 10:06 PM CDT Fax results to [phone] BERNARD CARBAJAL us Bernard Carbajal MD LAB BLOOD ORDERABLES Final Res ult [place] [address] [address] [place] [address] * Comprehensive metabolic panel (03/09/2025 8:24 AM CDT) Pathologist [facility] Sodium 141 135 - 145 mmol/L Potassium, [...] 03/09/2025 9:59 PM CDT Fax results to [phone] BERNARD CARBAJAL us Bernard Carbajal MD LAB BLOOD ORDERABLES Final Res ult [facility] [place] [address] [address] Department [place] [address] from Last 3 Months Insurance [facility] Address: [place] [address] [facility] [employer] Address: [place] [address] [facility] [employer] Address: [place] [address] 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
[2025-06-05 15:31] LABS: Hematocrit 34.1 % (37.0-47.0); Hemoglobin 10.8 g/dL (12.0-15.0); Immature Granulocyte Percent A 0.3 % (0-0.5); Lymphocytes Absolute Auto 2.19 K/mm3 (0.9-3.2); Mean Corpuscular HGB Conc 31.7 g/dl (32-36); Mean Corpuscular Hemoglobin 34.1 pg (26-34); Mean Corpuscular Volume 107.6 fl (80-100); Nucleated Red Blood Cells Absolute Auto 0.000 K/mm3 (0.0-0.012); Nucleated Red Blood Cells Perc 0.0 % (0.0-0.2); Platelet Count Result 277 k/mm3 (150-375); Red Blood Count 3.17 M/mm3 (4.2-5.4); White Blood Count 10.5 K/mm3 (4.5-10.0)
--- NOTE | 2025-06-05 15:35 | ED.BACK ---
HPI - Back Pain/Injury General Chief Complaint: Back Pain/Injury Stated Complaint: possible kidney infection? Time Seen by Provider: 06/05/25 14:30 Source: patient Mode of arrival: ambulatory Limitations: no limitations History of Present Illness HPI Narrative: Patient is a 64-year-old female who presents the ED with report of right flank pain. Patient reports she began having UTI symptoms on Friday, including urinary frequency and urgency, dysuria. She has history of frequent UTIs. Hx of 1 kidney d/t congenital abnormality. She was started on Macrobid by her PCP, took first doses yesterday. States today, she began having diffuse pain throughout her right flank region. Does also have hx of kidney stones and states this feels somewhat similar. Reports nausea. Denies hematuria, fevers. Related Data Home Medications ?Medication ?Instructions ?Recorded ?Confirmed ?Last Taken ?Type allopurinol 100 mg tablet 100 mg BID 08/27/24 08/27/24 1 Day Ago History ~08/26/24 atorvastatin 10 mg tablet 10 mg PO DAILY 08/27/24 08/27/24 1 Day Ago History ~08/26/24 calcitriol 0.5 mcg capsule 0.5 mcg BID 08/27/24 08/27/24 1 Day Ago History ~08/26/24 diltiazem malate 180 mg 180 mg PO DAILY 08/27/24 08/27/24 1 Day Ago History tablet,extended release 24 hr ~08/26/24 fesoterodine 4 mg tablet,extended 4 mg PO DAILY 08/27/24 08/27/24 1 Day Ago History release 24 hr ~08/26/24 folic acid 1 mg tablet 1 mg DAILY 08/27/24 08/27/24 1 Day Ago History ~08/26/24 losartan 25 mg tablet 25 mg PO DAILY 08/27/24 08/27/24 1 Day Ago History ~08/26/24 metformin 500 mg tablet 500 mg PO DAILY 08/27/24 08/27/24 1 Day Ago History ~08/26/24 montelukast 10 mg tablet 10 mg PO HS 08/27/24 08/27/24 1 Day Ago History ~08/26/24 prednisone 5 mg tablet 5 mg PO DIRECTED PRN when i 08/27/24 08/27/24 1 Day Ago History need it ~08/26/24 sulfasalazine 500 mg 500 mg PO BID 08/27/24 08/27/24 1 Day Ago History tablet,delayed release ~08/26/24 tramadol 50 mg tablet 50 mg PO Q6H PRN pain 08/27/24 08/27/24 1 Day Ago History ~08/26/24 Allergies Allergy/AdvReac Type Severity Reaction Status Date / Time adhesive Allergy Unknown RASH Verified 06/05/25 14:37 raspberry Allergy Unknown HIVES Verified 06/05/25 14:37 Review of Systems Review of Systems: All systems reviewed & are unremarkable except as noted in HPI. 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 She lives at home with her significant other Lexx merrill. Her son Lexx crawford is her emergency contact. She does not smoke nor has she ever and she does not drink alcohol. She also denies drug use. Smoking status: Never smoker Alcohol intake: never Substance use: never Do You Feel Safe in your Home?: Yes Lack of Transportation: No Lack of Food: Never True Current Housing: I Have Housing Concerned About Future Housing: No Difficulty Paying Gas/Electric Bills: No Difficulty Paying for Meds: No Currently Unemployed: No Education: High School Diploma/GED Difficulty w/ Childcare or Family Care: No Living arrangements: with family Occupation/Education: occupation Spiritual care concerns: No Exam Narrative: GENERAL: Well appearing, obese with BMI of 33.5, non-toxic, in no acute distress. HEAD: Normocephalic, atraumatic. RESPIRATORY: Airway patent, respirations nonlabored. Clear to auscultation bilaterally, no rales, rhonchi, wheezing. CARDIOVASCULAR: Regular rate and rhythm without murmurs, rubs, or gallops. ABDOMINAL: Soft, mild tenderness throughout R lower abdomen, +CVA tenderness on R, nondistended. Normoactive BS. MUSCULOSKELETAL: Moves all extremities. No gross deformities. SKIN: Warm, dry, normal color. NEURO: A&O X3. Speech clear. No ataxic movements. PSYCHIATRIC: Appropriate mood and affect. Normal interaction. Course Vital Signs Vital signs: Vital Signs Temperature 98.4 F 06/05/25 14:32 Pulse Rate 95 06/05/25 14:32 Respiratory Rate 16 06/05/25 14:32 Blood Pressure 112/58 L 06/05/25 14:32 Pulse Oximetry 96 06/05/25 14:32 Oxygen Delivery Room Air 06/05/25 14:32 Temperature 98.4 F 06/05/25 14:32 Pulse Rate 95 06/05/25 14:32 Respiratory Rate 16 06/05/25 14:32 Blood Pressure 112/58 L 06/05/25 14:32 Pulse Oximetry 96 06/05/25 14:32 Oxygen Delivery Room Air 06/05/25 14:32 MDM - Back Pain/Injury MDM Narrative Medical decision making narrative: Patient presented to ED with right flank pain, history of recent UTI, currently on Macrobid since yesterday. Hx of kidney stones and 1 kidney. Vital signs stable upon arrival. Patient is afebrile here. Laboratory studies with white blood cell count of 10.5, stable H&H. BMP fairly unremarkable. Kidney function 1.02. This appears fairly consistent with previous records. Patient given fluids in the ED. UA with 10-15 WBC, unable to analyze further given orange quality of nature. Patient has been taking azo. CT scan of abdomen/pelvis was obtained and showing multiple right-sided kidney stones with slight fullness of the pelvicalyceal system. No definite ureteral stone seen. Cystitis changes seen. Will discuss with urology given patient's history of only having 1 kidney. Discussed case with Dr. Lacey, urology, advised can admit overnight for IV abx for pyelonephritis picture given solitary kidney, vs d/c with levaquin/flomax/strict return precautions. Discussed recommendations with patient, utilize shared decision-making. Patient would prefer to stay for observation, IV antibiotics. She is feeling improved after [place], but does not feel comfortable going home at this time. Discussed case with Dr. Ayoub, hospitalist, accepted patient for admission. Patient in agreement with plan. Medical Records Attestation: I reviewed the patient's medical records. Lab Data Attestation: I reviewed the patient's lab results. 06/05/25 15:26 06/05/25 15:26 Labs: Lab Results 06/05/25 06/05/25 Range/Units 15:23 15:26 WBC 10.5 H (4.5-10.0) K/mm3 RBC 3.17 L (4.2-5.4) M/mm3 Hgb 10.8 L (12.0-15.0) g/dL Hct 34.1 L (37.0-47.0) % MCV 107.6 H (80-100) fl MCH 34.1 H (26-34) pg MCHC 31.7 L (32-36) g/dl RDW 13.9 (11.5-14.5) % Plt Count 277 (150-375) k/mm3 MPV 8.4 (7.4-10.4) fl Immature Gran % (Auto) 0.3 (0-0.5) % Neut % (Auto) 64.8 (45.5-73.1) % Lymph % (Auto) 20.9 (18.3-44.2) % [place] % (Auto) 9.1 H (2.6-8.5) % Eos % (Auto) 4.4 (0-4.4) % Baso % (Auto) 0.5 (0.2-1.2) % Lymph # (Auto) 2.19 (0.9-3.2) K/mm3 [place] # (Auto) 1.0 H (0.1-0.6) K/mm3 Eos # (Auto) 0.5 H (0-0.3) K/mm3 Baso # (Auto) 0.1 (0.0-0.1) K/mm3 Abs Immat Gran (auto) 0.03 (0.00-0.031) K/mm3 Absolute Neuts (auto) 6.8 H (1.3-6.7) K/mm3 Absolute Nucleated RBC 0.000 (0.0-0.012) K/mm3 Band Neutrophils % Not Reportable Nucleated RBC % 0.0 (0.0-0.2) % Platelet Estimate Adequate (Adequate) Macrocytosis 1+ (NORMAL) Schistocytes None seen Sodium 141 (137-145) mmol/L Potassium 4.0 (3.4-5.0) mmol/L Chloride 108 H (98-107) mmol/L Carbon Dioxide 25 (22-30) mmol/L Anion Gap 8 (4-12) mmol/L BUN 24 H D (7-17) mg/dL Creatinine 1.02 H (0.7-1.0) mg/dL Estim Creat Clear Calc Not Reportable Estimated GFR 55 L (59 - ) Glucose 105 (65-110) mg/dL Calcium 9.8 (8.4-10.2) mg/dL Urine Color [place] H (Yellow) Urine Appearance Clear (Clear) Urine pH 6.0 (5.0-9.0) Ur Specific [place] 1.015 (1.001-1.035) Urine Protein TNP Urine Glucose (UA) Negative (Negative) mg/dL Urine Ketones TNP Ur Blood (Man) Negative (Negative) Urine Nitrate TNP Urine Bilirubin TNP Urine Urobilinogen TNP Leukocyte Esterase Rfl TNP Urine RBC 0-2 (0-2) /hpf Urine WBC 10-15 H (0-3) /hpf Ur Squamous Epith Cells Few (Few) /hpf Urine Bacteria Trace (None) /hpf Imaging Data Attestation: I personally reviewed and interpreted this imaging study as follows: Radiologist's impression: ITS Impressions Abdomen/Pelvis CT 06/05/25 18:39 IMPRESSION: 1. No evidence of appendicitis, diverticulitis or intestinal obstruction. 2. Atrophic left kidney with cystic changes. 3. Multiple right kidney stones with slight fullness of the pelvicalyceal systems. No definite ureteric stones seen. 4. Underfilled urinary bladder with slightly thickened wall. Evaluation for cystitis advised. 5. Sliding hiatus hernia. 6. Pneumobilia. 7. Fat-containing umbilical hernia. Discharge Plan Discharge Clinical Impression: Pyelonephritis, Congenital atrophy of kidney Patient Disposition: Still a Patient Condition: Stable Patient Language: Iraqi Prescriptions: No Action calcitriol 0.5 mcg Capsule 0.5 mcg BID metformin 500 mg Tablet 500 mg PO DAILY atorvastatin 10 mg Tablet 10 mg PO DAILY diltiazem malate 180 mg Tablet Extended Release 24 Hr 180 mg PO DAILY prednisone 5 mg Tablet 5 mg PO DIRECTED PRN (Reason: when i need it) Rx Instructions: see taper instructions sulfasalazine 500 mg tablet,delayed release (DR/EC) 500 mg PO BID allopurinol 100 mg Tablet 100 mg BID tramadol 50 mg Tablet 50 mg PO Q6H PRN (Reason: pain) losartan 25 mg Tablet 25 mg PO DAILY folic acid 1 mg tablet 1 mg DAILY montelukast 10 mg Tablet 10 mg PO HS fesoterodine 4 mg Tablet Extended Release 24 Hr 4 mg PO DAILY amoxicillin-pot clavulanate 875-125 mg tablet 1 tablet PO Q12H 5 Days Qty: 10 0RF Follow-up/Referrals: Luis,MD Raul [Primary Care Provider] -
[2025-06-05 15:41] LABS: Anion Gap 8 mmol/L (4-12); Blood Urea Nitrogen 24 mg/dL (7-17); Calcium 9.8 mg/dL (8.4-10.2); Carbon Dioxide 25 mmol/L (22-30); Chloride 108 mmol/L (98-107); Estimated Glomerular Filt Rate 55; Glucose 105 mg/dL (65-110); Potassium 4.0 mmol/L (3.4-5.0); Sodium 141 mmol/L (137-145)
[2025-06-05 15:43] LABS: Macrocytosis 1+ (NORMAL)
[2025-06-05 15:44] LABS: Schistocytes None Seen
[2025-06-05 15:47] LABS: Appearance Urine Clear (Clear)
[2025-06-05 15:48] LABS: Glucose Urine UA Negative (Negative); Specific Grav Ur 1.015 (1.001-1.035)
[2025-06-05 15:51] LABS: Add Urine Microscopic? YES
[2025-06-05] MEDS: SODIUM CHLORIDE 0.9% IV 1,000 ML 999 ML IV CONT (16:23)
[2025-06-05] MEDS: ONDANSETRON INJ 4 MG/2 ML VIAL IV PUSH (16:24)
[2025-06-05] MEDS: HYDROcodone/acetaminophen (*CRX) 5-325 MG TABLET 1 TAB PO (17:37)
[2025-06-05] MEDS: cefTRIAXone 1 GM in SODIUM CHLORIDE 0.9% IV 50 ML 100 ML IVPB (19:18)
[2025-06-05] MEDS: TAMSULOSIN HCL 0.4 MG CAPSULE PO (19:48)
--- NOTE | 2025-06-05 22:35 | PM.IMHP ---
H&P: HPI History of Present Illness Date/Time: 06/05/25 22:35 Chief Complaint: Right flank pain Narrative: This is a pleasant 64-year-old female with a history of atrophic left kidney, hypertension, sac-lpyxcse-[id number] diabetes mellitus, gout, hyperlipidemia, hypertension, psoriatic arthritis who presents to [facility] ER on 06/05/2025 with the complaint of right flank pain. 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 She has a history of UTIs. She was started on Macrobid by her PCP. History of kidney stones not requiring surgical intervention. In the ER she was afebrile, intermittent sinus tachycardia. WBC count 10.5, hemoglobin 10.8, platelets 277, BUN 24, serum creatinine 1.02, urinalysis with orange urine color, 10-15 WBC, a few squamous epithelial cells. CT abdomen pelvis without contrast demonstrating atrophic left kidney with cystic changes, multiple right kidney stones with slight fullness of the pelvicalyceal systems without any definite and ureteric stone seen, under filled urinary bladder with slightly thickened wall a day, sliding hiatal hernia, pneumobilia, fat containing umbilical hernia. She was given ceftriaxone, 1 L normal saline, tamsulosin. Morphine, Zofran, [place]. Urology was consulted from ER. 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 She lives at home with her significant other Lexx merrill. Her son Lexx crawford is her emergency contact. She does not smoke nor has she ever and she does not drink alcohol. She also denies drug use. Smoking status: Never smoker Alcohol intake: never Substance use: never Do You Feel Safe in your Home?: Yes Lack of Transportation: No Lack of Food: Never True Current Housing: I Have Housing Concerned About Future Housing: No Difficulty Paying Gas/Electric Bills: No Difficulty Paying for Meds: No Currently Unemployed: No Education: High School Diploma/GED Difficulty w/ Childcare or Family Care: No Living arrangements: with family Occupation/Education: occupation Spiritual care concerns: No Meds Home Medications and Allergies Home Medications ?Medication ?Instructions ?Recorded ?Confirmed ?Type allopurinol 100 mg tablet 100 mg BID 08/27/24 08/27/24 History atorvastatin 10 mg tablet 10 mg PO DAILY 08/27/24 08/27/24 History calcitriol 0.5 mcg capsule 0.5 mcg BID 08/27/24 08/27/24 History diltiazem malate 180 mg 180 mg PO DAILY 08/27/24 08/27/24 History tablet,extended release 24 hr fesoterodine 4 mg tablet,extended 4 mg PO DAILY 08/27/24 08/27/24 History release 24 hr folic acid 1 mg tablet 1 mg DAILY 08/27/24 08/27/24 History losartan 25 mg tablet 25 mg PO DAILY 08/27/24 08/27/24 History metformin 500 mg tablet 500 mg PO DAILY 08/27/24 08/27/24 History montelukast 10 mg tablet 10 mg PO HS 08/27/24 08/27/24 History prednisone 5 mg tablet 5 mg PO DIRECTED PRN when i 08/27/24 08/27/24 History need it sulfasalazine 500 mg 500 mg PO BID 08/27/24 08/27/24 History tablet,delayed release tramadol 50 mg tablet 50 mg PO Q6H PRN pain 08/27/24 08/27/24 History amoxicillin 875 mg-potassium 1 tablet PO Q12H 5 days #10 tabs 08/29/24 Rx clavulanate 125 mg tablet Allergies Allergy/AdvReac Type Severity Reaction Status Date / Time adhesive Allergy Unknown RASH Verified 06/05/25 14:37 raspberry Allergy Unknown HIVES Verified 06/05/25 14:37 Vital Signs Vital Signs - 24 hr 06/05/25 14:32 Temperature 98.4 F Pulse Rate 95 Respiratory Rate 16 Blood Pressure 112/58 L Pulse Oximetry 96 Oxygen Delivery Room Air Exam Const: General: comfortable and no acute distress Other: A&O x3 HENMT: Mouth: Yes moist mucous membranes Eyes: Pupils: Equal, round and reactive pupils present Neck: Neck: supple Resp: Effort & Inspection: normal respiratory effort Auscultation: clear to auscultation bilaterally Cardio: Rate: regular rate Rhythm: regular rhythm GI: Inspection: non-distended GI Palp: Yes Soft to palpation Other: Slight right flank pain to deep tapping Neuro: Motor exam (neuro): 5/5 motor strength present throughout Extrem: General: no edema H&P: Results Labs Labs: Short CBC 06/05/25 Range/Units 15:26 WBC 10.5 H (4.5-10.0) K/mm3 Hgb 10.8 L (12.0-15.0) g/dL Hct 34.1 L (37.0-47.0) % Plt Count 277 (150-375) k/mm3 BMP 06/05/25 15:26 Sodium 141 Potassium 4.0 Chloride 108 H Carbon Dioxide 25 BUN 24 H D Creatinine 1.02 H Glucose 105 Calcium 9.8 Urine 06/05/25 Range/Units 15:23 Urine Color [place] H (Yellow) Urine Appearance Clear (Clear) Urine pH 6.0 (5.0-9.0) Ur Specific [place] 1.015 (1.001-1.035) Urine Protein TNP Urine Glucose (UA) Negative (Negative) mg/dL Assessment and Plan Assessment and plan (1) Hypertension: Code(s): I10 - Essential (primary) hypertension Status: Acute (2) Tachycardia: Code(s): R00.0 - Tachycardia, unspecified Status: Acute (3) Diabetes: Code(s): E11.9 - Type 2 diabetes mellitus without complications Status: Acute (4) Urinary tract infection: Code(s): N39.0 - Urinary tract infection, site not specified Status: Acute (5) Leukocytosis: Code(s): D72.829 - Elevated white blood cell count, unspecified Status: Acute (6) Pyelonephritis: Code(s): N12 - Tubulo-interstitial nephritis, not specified as acute or chronic Status: Acute Plan This is a pleasant 64-year-old female with a history of atrophic left kidney, hypertension, wsw-uzbmkao-xsthurkeq diabetes mellitus, gout, hyperlipidemia, hypertension, psoriatic arthritis who presents to [facility] ER on 06/05/2025 with the complaint of right flank pain. 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 She has a history of UTIs. She was started on Macrobid by her PCP. History of kidney stones not requiring surgical intervention. In the ER she was afebrile, intermittent sinus tachycardia. WBC count 10.5, hemoglobin 10.8, platelets 277, BUN 24, serum creatinine 1.02, urinalysis with orange urine color, 10-15 WBC, a few squamous epithelial cells. CT abdomen pelvis without contrast demonstrating atrophic left kidney with cystic changes, multiple right kidney stones with slight fullness of the pelvicalyceal systems without any definite and ureteric stone seen, under filled urinary bladder with slightly thickened wall a day, sliding hiatal hernia, pneumobilia, fat containing umbilical hernia. She was given ceftriaxone, 1 L normal saline, tamsulosin. Morphine, Zofran, [place]. Urology was consulted from ER. ----- Urology consulted. For pyelonephritis continue ceftriaxone, pain regimen p.r.n., tamsulosin, IV fluid infusion. Pending urine culture. Monitor leukocytosis. Monitor tachycardia. She has sepsis without shock associated with pyelonephritis. A previous urine culture from August 2024 grew Klebsiella pneumonia sensitive to ceftriaxone. Accu-Cheks a.c. HS with low-dose insulin sliding scale. Medication reconciliation pending, meds will be restarted as appropriate. Full code. Diabetic heart healthy diet. Hospitalist [facility] Advance Care Plan I have confirmed that the patient's Advanced Care Plan is present, code status is documented, or surrogate decision maker is listed in patient medical record.: Yes Medication Reconciliation I have utilized all available resources to obtain, update and review the patients current medications (includes all prescriptions, OTC, herbals, cannabis, and nutritional supplements).: Yes
[2025-06-06 00:05] VITALS: BMI 32.7
[2025-06-06] MEDS: SODIUM CHLORIDE 0.9% IV 1,000 ML 100 ML IV CONT ×2 (00:37→10:31)
--- NOTE | 2025-06-06 01:24 | ADMGEN ---
This patient, Joan Gill, was admitted to [address] [place] [address] Room 322-01 from the ED with right flank pain, currently having UTI on antibiotics. Patient/family oriented to hospital policies and general routines including ID bracelet, bed and alarms, visiting hours, pain management, procedures, bathroom and other care routines, personal items, smoking policy, room service/diet, and visiting hours. Information on how to activate the Rapid Response Team has been discussed. Patient/Family are encouraged to report perceived risks to care and to ask questions if they do not understand what they are told or what they should do.
[2025-06-06 06:00] VITALS: BP 118/40; PULSE 99; RESP 18; TEMP 36.4; O2SAT 96
[2025-06-06 08:13] LABS: Hematocrit 33.3 % (37.0-47.0); Hemoglobin 10.4 g/dL (12.0-15.0); Immature Granulocyte Percent A 0.5 % (0-0.5); Lymphocytes Absolute Auto 1.92 K/mm3 (0.9-3.2); Mean Corpuscular HGB Conc 31.2 g/dl (32-36); Mean Corpuscular Hemoglobin 33.9 pg (26-34); Mean Corpuscular Volume 108.5 fl (80-100); Nucleated Red Blood Cells Absolute Auto 0.000 K/mm3 (0.0-0.012); Nucleated Red Blood Cells Perc 0.0 % (0.0-0.2); Platelet Count Result 267 k/mm3 (150-375); Red Blood Count 3.07 M/mm3 (4.2-5.4); White Blood Count 9.9 K/mm3 (4.5-10.0)
[2025-06-06 08:37] LABS: Anion Gap 6 mmol/L (4-12); Blood Urea Nitrogen 20 mg/dL (7-17); Calcium 9.4 mg/dL (8.4-10.2); Carbon Dioxide 22 mmol/L (22-30); Chloride 114 mmol/L (98-107); Estimated Glomerular Filt Rate 59; Glucose 105 mg/dL (65-110); Magnesium 1.6 mg/dL (1.6-2.3); Potassium 3.9 mmol/L (3.4-5.0); Sodium 142 mmol/L (137-145)
[2025-06-06 08:41] LABS: Procalcitonin 0.1 ng/mL
[2025-06-06 08:54] LABS: Macrocytosis 1+ (NORMAL); Schistocytes None Seen
--- NOTE | 2025-06-06 09:38 | P.PNIM_ITS ---
Progress Note: A&P Assessment and Plan (1) Sepsis: Code(s): A41.9 - Sepsis, unspecified organism Status: Acute Assessment and Plan: Meets SIRS criteria: tachycardia, WBC, REJI - suspected source: UTI - UA: orange color with clear appearance with negative nitrates and leukocytes, 10-15 WBC, few squamous and trace bacteria likely related to patients pyelonephritis - UC obtained on 06/05: pending - Blood culture obtained on 06/06 (2) Urinary tract infection: Code(s): N39.0 - Urinary tract infection, site not specified Status: Acute Assessment and Plan: - UA: orange color with clear appearance with negative nitrates and leukocytes, 10-15 WBC, few squamous and trace bacteria likely related to patients pyelonephritis - UC obtained on 06/05: pending - previous micro reviewed 08/27/24: Klebsiella pneumonia pansensitive - started on rocephin 06/05 (3) Right nephrolithiasis: Code(s): N20.0 - Calculus of kidney Status: Chronic Assessment and Plan: CT abdomen/pelvis showed Atrophic left kidney with cystic changes, Multiple right kidney stones with slight fullness of the pelvicalyceal systems. No de finite ureteric stones seen, and underfilled urinary bladder with slightly thickened wall. Evaluation for cystitis advised. - IV fluids - Analgesics - Flomax - Urology consulted No acute surgical intervention Outpatient follow-up is recommended for surveillance and potential elective management of right renal stones (4) Hypertension: Code(s): I10 - Essential (primary) hypertension Status: Acute Assessment and Plan: Chronic, continue home medications - losartan 25 mg daily - metoprolol 12.5 mg daily - blood pressure remain stable, continue to monitor (5) Diabetes: Code(s): E11.9 - Type 2 diabetes mellitus without complications Status: Acute Assessment and Plan: - hypoglycemia protocol - POC blood glucose ACHS - home medication - metformin 500 mg daily - correct regimen ordered - low dose TIDWM (6) Pneumobilia: Code(s): K83.8 - Other specified diseases of biliary tract Status: Acute Assessment and Plan: Abdomen/pelvis CT showing a pneumobilia Reviewed prior imaging with Dr. Andrews and this appears chronic as seen on 08/27/24 Possibly related to patients prior ERCP a few years ago Time Spent With Patient Time with patient: 25 - 35 minutes Subjective Date/time seen: 06/06/25 09:38 Interval history: 64-year-old female with a history of atrophic left kidney, hypertension, [id number] diabetes mellitus, gout, hyperlipidemia, hypertension, psoriatic arthritis who presents to [facility] ER on 06/05/2025 with the complaint of right flank pain. Patient is pleasant lying comfortably in bed. She has vomited twice today but denies any abdominal pain. She states she feels the nausea/vomiting is more related to her headache. She has no other complaints denying chest pain, palpitations, shortness of breath, dizziness/lightheadedness and vision changes. Review of Systems Review of Systems: All systems reviewed & are unremarkable except as noted in HPI and below (Subjective) Exam Narrative: AF HR 96 RR 18 Spo2 96 BP 110/54 General: female in no acute respiratory distress who is nontoxic appearing, lying semi recumbent in bed. HEENT: Normocephalic. Atraumatic. Extraocular movement intact. Sclera clear and anicteric. No facial asymmetry. Chest: Lungs are clear to auscultation bilaterally. No wheezes or crackles. CV: Heart was regular rate and rhythm. S1-S2. No murmurs, gallops, or rubs. Abd: Abdomen was soft. Nontender. Nondistended. Positive bowel sounds. No organomegaly or masses. Ext: No clubbing, cyanosis, or edema. DP pulses bilaterally. Neuro: Patient is alert and oriented x4. Speech is clear. Objective Data Vital Signs Vital Signs: Vital Signs - 24 hr 06/05/25 14:32 06/06/25 06:00 Temperature 98.4 F 97.6 F Pulse Rate 95 99 Respiratory Rate 16 18 Blood Pressure 112/58 L 118/40 L Pulse Oximetry 96 96 Oxygen Delivery Room Air Intake/Output Intake/Output: Intake & Output 06/03/25 06/04/25 06/05/25 06/06/25 23:59 23:59 23:59 23:59 Intake Total 1050 Balance 1050 Meds/Results Medications: Active Medications Generic Name Dose Route Start Last Admin Trade Name Freq PRN Reason Stop Dose Admin Acetaminophen 650 mg 06/05/25 21:45 Acetaminophen 325 Mg Tablet PO Q4H PRN Mild Pain (1-3) or Fever Hydrocodone Bitart/Acetaminophen 1 tab 06/05/25 21:45 Hydrocodone/Acetaminophen (*Crx) 5-325 Mg Tablet PO Q4H PRN Pain Rated 4-6 Allopurinol 100 mg 06/06/25 08:00 Allopurinol 100 Mg Tablet PO BIDWM [facility] Atorvastatin Calcium 10 mg 06/06/25 09:00 Atorvastatin 10 Mg Tablet PO DAILY [facility] Calcitriol 0.5 mcg 06/06/25 09:00 Calcitriol 0.25 Mcg Capsule PO BID [facility] Dextrose 12.5 gm 06/05/25 21:45 Dextrose 50% 25 Gm/50 Ml Syringe IV PUSH PRN PRN Hypoglycemia Protocol Folic Acid 1 mg 06/06/25 09:00 Folic Acid 1 Mg Tablet PO DAILY CATHERINE Glucose 15 gm 06/05/25 21:45 Glucose Oral Gel 15 Gm Of Glucse In 37.5 Gm Tube PO PRN PRN Hypoglycemia Protocol Sodium Chloride 1,000 mls @ 100 mls/hr 06/05/25 20:15 06/06/25 00:37 Normal Saline Iv IV CONT 100 mls/hr .Q10H CATHERINE Administration Dextrose 1,000 mls @ 100 mls/hr 06/05/25 21:45 Dextrose 5% 1,000 Ml IVPB PRN PRN Hypoglycemia Protocol Ceftriaxone Sodium 1 gm/ 50 mls @ 100 mls/hr 06/06/25 20:00 Sodium Chloride IVPB Q24H [facility] Insulin Aspart 2 - 5 units 06/06/25 08:00 Insulin Aspart (*Bkc) 100 Units/Ml SUB-Q TIDWM [facility] Protocol Insulin Aspart 1 - 2 units 06/06/25 21:00 Insulin Aspart (*Bkc) 100 Units/Ml SUB-Q HS [facility] Protocol Metoprolol Tartrate 12.5 mg 06/06/25 09:00 Metoprolol Tartrate 12.5 Mg Tablet PO DAILY [facility] Miscellaneous Information 0 each 06/06/25 02:50 Fesoterodine- Nonformulary. Please Obtain A Home Supply If Possible Or Hold While Inpati XX 07/06/25 02:49 CLARIFY [facility] Montelukast Sodium 10 mg 06/06/25 21:00 Montelukast Sodium 10 Mg Tablet PO HS [facility] Non-Formulary Medication 4 mg 06/06/25 09:00 Fesoterodine PO 07/06/25 08:59 DAILY [facility] Ondansetron HCl 4 mg 06/05/25 21:45 Ondansetron Inj 4 Mg/2 Ml Vial IV PUSH Q4H PRN Nausea Sulfasalazine 500 mg 06/06/25 10:00 Sulfasalazine 500 Mg Tablet PO 1000,1800 CATHERINE Tamsulosin HCl 0.4 mg 06/06/25 09:00 Tamsulosin Hcl 0.4 Mg Capsule PO QAM [facility] Radiology Results: ITS Impressions Abdomen/Pelvis CT 06/05/25 18:39 IMPRESSION: 1. No evidence of appendicitis, diverticulitis or intestinal obstruction. 2. Atrophic left kidney with cystic changes. 3. Multiple right kidney stones with slight fullness of the pelvicalyceal systems. No definite ureteric stones seen. 4. Underfilled urinary bladder with slightly thickened wall. Evaluation for cystitis advised. 5. Sliding hiatus hernia. 6. Pneumobilia. 7. Fat-containing umbilical hernia. Labs Labs: Laboratory Results - last 24 hr 06/05/25 06/05/25 06/06/25 15:23 15:26 07:45 WBC 10.5 H 9.9 RBC 3.17 L 3.07 L Hgb 10.8 L 10.4 L Hct 34.1 L 33.3 L MCV 107.6 H 108.5 H MCH 34.1 H 33.9 MCHC 31.7 L 31.2 L RDW 13.9 13.8 Plt Count 277 267 MPV 8.4 8.4 Immature Gran % (Auto) 0.3 0.5 Neut % (Auto) 64.8 67.8 Lymph % (Auto) 20.9 19.3 [place] % (Auto) 9.1 H 8.4 Eos % (Auto) 4.4 3.6 Baso % (Auto) 0.5 0.4 Lymph # (Auto) 2.19 1.92 [place] # (Auto) 1.0 H 0.8 H Eos # (Auto) 0.5 H 0.4 H Baso # (Auto) 0.1 0.0 Abs Immat Gran (auto) 0.03 0.05 H Absolute Neuts (auto) 6.8 H 6.7 Absolute Nucleated RBC 0.000 0.000 Band Neutrophils % Not Reportable Not Reportable Nucleated RBC % 0.0 0.0 Platelet Estimate Adequate Adequate Macrocytosis 1+ 1+ Schistocytes None seen None seen Sodium 141 142 Potassium 4.0 3.9 Chloride 108 H 114 H Carbon Dioxide 25 22 Anion Gap 8 6 BUN 24 H D 20 H Creatinine 1.02 H 0.96 Estim Creat Clear Calc Not Reportable Not Reportable Estimated GFR 55 L 59 Glucose 105 105 POC Capillary Glucose Calcium 9.8 9.4 Magnesium 1.6 Procalcitonin 0.1 Urine Color [place] H Urine Appearance Clear Urine pH 6.0 Ur Specific [place] 1.015 Urine Protein TNP Urine Glucose (UA) Negative Urine Ketones TNP Ur Blood (Man) Negative Urine Nitrate TNP Urine Bilirubin TNP Urine Urobilinogen TNP Leukocyte Esterase Rfl TNP Urine RBC 0-2 Urine WBC 10-15 H Ur Squamous Epith Cells Few Urine Bacteria Trace 06/06/25 08:30 WBC RBC Hgb Hct MCV MCH MCHC RDW Plt Count MPV Immature Gran % (Auto) Neut % (Auto) Lymph % (Auto) [place] % (Auto) Eos % (Auto) Baso % (Auto) Lymph # (Auto) [place] # (Auto) Eos # (Auto) Baso # (Auto) Abs Immat Gran (auto) Absolute Neuts (auto) Absolute Nucleated RBC Band Neutrophils % Nucleated RBC % Platelet Estimate Macrocytosis Schistocytes Sodium Potassium Chloride Carbon Dioxide Anion Gap BUN Creatinine Estim Creat Clear Calc Estimated GFR Glucose POC Capillary Glucose 119 H Calcium Magnesium Procalcitonin Urine Color Urine Appearance Urine pH Ur Specific [place] Urine Protein Urine Glucose (UA) Urine Ketones Ur Blood (Man) Urine Nitrate Urine Bilirubin Urine Urobilinogen Leukocyte Esterase Rfl Urine RBC Urine WBC Ur Squamous Epith Cells Urine Bacteria Quality VTE Prophylaxis VTE prophylaxis: mechanical ordered
[2025-06-06] MEDS: ONDANSETRON INJ 4 MG/2 ML VIAL IV PUSH (09:54)
[2025-06-06] MEDS: PROCHLORPERAZINE EDISYLATE 10 MG/2 ML VIAL 5 MG IV PUSH (13:11)
[2025-06-06 13:31] LABS: Alanine Aminotransferase 14 U/L (6-35); Alkaline Phosphatase 49 U/L (38-126); Aspartate Amino Transferase 56 U/L (14-36); Bilirubin,Total 0.3 mg/dL (0.2-1.3)
[2025-06-06 14:00] VITALS: BP 110/54; PULSE 96; RESP 18; TEMP 36.8; O2SAT 96
--- NOTE | 2025-06-06 14:19 | WPDURCON ---
Assessment and Plan Assessment and plan (1) Congenital atrophy of kidney: Code(s): Q60.5 - Renal hypoplasia, unspecified Status: Chronic (2) Urinary tract infection: Qualifiers: Urinary tract infection type: acute cystitis Hematuria presence: without hematuria Qualified Code(s): N30.00 - Acute cystitis without hematuria Code(s): N39.0 - Urinary tract infection, site not specified Status: Acute (3) Right nephrolithiasis: Code(s): N20.0 - Calculus of kidney Status: Chronic Plan 64-year-old female admitted with a urinary tract infection, complicated by a solitary functioning kidney and non-obstructing nephrolithiasis. Currently being treated with IV ceftriaxone with improving leukocytosis and stable renal function. Urine culture is pending. - Will continue current management with culture-directed antibiotics for the suspected urinary tract infection. - No acute surgical intervention is indicated for the renal stones as there is no evidence of obstruction. - Outpatient follow-up is recommended for surveillance and potential elective management of right renal stones. - Patient prefers [facility] location for ongoing UTI management and stone surveillance. Discussed the importance of establishing care with a urologist due to her solitary kidney. She is agreeable with this plan. Case discussed with Dr. Arreola. Urology to follow peripherally. Please call with questions. Urology Consult Note HPI Date Seen: 06/06/25 Requesting Physician: Yohannes Ayoub MD Primary Care Provider: Raul SmithMD Consult Narrative Reason for consult: Right renal stones, UTI Narrative: Joan Gill is a pleasant 64-year-old female with a history of a solitary functioning right kidney, recurrent urinary tract infections, and right-sided non-obstructing renal stones who was admitted on 06/05/2025 for suspected pyelonephritis. She presented to the emergency department with a two-day history of right flank pain, urinary frequency, urgency, and dysuria. She reports her primary care provider, Dr. Smith, had started her on Macrobid the day prior to admission. She denies fevers or hematuria. Past urologic follow-up was with Dr. Rollins approximately four years ago. Her past medical history is significant for a congenitally atrophic left kidney, psoriatic arthritis, hypertension, type 2 diabetes mellitus, hyperlipidemia, and gout. -PERTINENT LABS: 06/06/2025 - WBC 9.9, HGB 10.4, Cr 0.96 06/05/2025 - WBC 10.5, HGB 10.8, Cr 1.02; MICROSCOPY 10-15 WBCs; URINE CULTURE PENDING -PERTINENT IMAGIN06/05/2025 CT abdomen pelvis wo con ([facility]) - Atrophic left kidney with cystic changes. Multiple non-obstructing right kidney stones with slight fullness of the pelvicalyceal systems. No definite ureteric stone. Bladder wall thickening suggestive of cystitis. Findings are not significantly changed compared to the prior CT. 08/27/2024 CT abdomen pelvis wo con ([facility]) - Small non-obstructing right renal stones. Markedly atrophic left kidney replaced by small cysts. Review of Systems Constitutional: Constitutional: Reports no additional constitutional complaints Eyes: Eyes: Reports no additional eye complaints ENT: Comments: Hard of hearing Cardiovascular: Cardiovascular: Denies chest pain Respiratory: Respiratory: Denies dyspnea Gastrointestinal: Gastrointestinal: Reports no additional gastrointestinal complaints Genitourinary: Genitourinary: Reports as per HPI Musculoskeletal: Musculoskeletal: Reports no additional musculoskeletal complaints [facility] Past Medical History Medical History delivery delivered Diabetes Gout Hyperlipidemia Hypertension Psoriatic arthritis Congenital abnormality of kidney Surgical History Surgical History History of ear surgery S/P tonsillectomy and adenoidectomy Hx of breast reduction, elective Hx of cholecystectomy Social History Social History Social History: 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 She lives at home with her significant other Lexx merrill. Her son Lexx crawford is her emergency contact. She does not smoke nor has she ever and she does not drink alcohol. She also denies drug use. Smoking status: Never smoker Alcohol intake: never Substance use: current Substance use type: marijuana Other substance usage details: gummies, once in while Do You Feel Safe in your Home?: Yes Lack of Transportation: No Lack of Food: Never True Current Housing: I Have Housing Concerned About Future Housing: No Difficulty Paying Gas/Electric Bills: No Difficulty Paying for Meds: No Currently Unemployed: No Education: Decline to Answer Difficulty w/ Childcare or Family Care: No Living arrangements: with family Occupation/Education: occupation Spiritual care concerns: No Meds Home Medications and Allergies Home Medications ?Medication ?Instructions ?Recorded ?Confirmed ?Type allopurinol 100 mg tablet 100 mg PO BID 08/27/24 06/06/25 History atorvastatin 10 mg tablet 10 mg PO DAILY 08/27/24 06/06/25 History calcitriol 0.5 mcg capsule 0.5 mcg PO BID 08/27/24 06/06/25 History fesoterodine 4 mg tablet,extended 4 mg PO DAILY 08/27/24 06/06/25 History release 24 hr folic acid 1 mg tablet 1 mg PO DAILY 08/27/24 06/06/25 History losartan 25 mg tablet 25 mg PO DAILY 08/27/24 06/06/25 History metformin 500 mg tablet 500 mg PO DAILY 08/27/24 06/06/25 History montelukast 10 mg tablet 10 mg PO HS 08/27/24 06/06/25 History prednisone 5 mg tablet 5 mg PO DIRECTED PRN when i 08/27/24 06/06/25 History need it sulfasalazine 500 mg 500 mg PO BID 08/27/24 06/06/25 History tablet,delayed release tramadol 50 mg tablet 50 mg PO Q6H PRN pain 08/27/24 06/06/25 History acetaminophen 500 mg tablet (Pain 1,000 mg PO Q6H PRN pain 06/06/25 06/06/25 History Reliever (acetaminophen)) metoprolol tartrate 25 mg tablet 12.5 mg PO DAILY 06/06/25 06/06/25 History Allergies Allergy/AdvReac Type Severity Reaction Status Date / Time adhesive Allergy Unknown RASH Verified 06/05/25 14:37 raspberry Allergy Unknown HIVES Verified 06/05/25 14:37 Vital Signs Vital Signs - 24 hr 06/05/25 14:32 06/06/25 06:00 06/06/25 09:00 Temperature 98.4 F 97.6 F Pulse Rate 95 99 Respiratory Rate 16 18 Blood Pressure 112/58 L 118/40 L Pulse Oximetry 96 96 Oxygen Delivery Room Air Room Air Exam Const: General: comfortable and no acute distress HENMT: Face/Nose/Sinus: Normal nares present Eyes: General: appearance normal, both eyes and all related structures Resp: Effort & Inspection: normal respiratory effort GI: Inspection: non-distended Skin: General skin exam: normal color Neuro: Speech: normal speech Psych: Speech and movement: Normal speech and movement present Affect: normal affect Results Labs 06/06/25 07:45 06/06/25 07:45 Labs: Short CBC 06/05/25 06/06/25 Range/Units 15:26 07:45 WBC 10.5 H 9.9 (4.5-10.0) K/mm3 Hgb 10.8 L 10.4 L (12.0-15.0) g/dL Hct 34.1 L 33.3 L (37.0-47.0) % Plt Count 277 267 (150-375) k/mm3 [facility] 06/05/25 06/06/25 15:26 07:45 Sodium 141 142 Potassium 4.0 3.9 Chloride 108 H 114 H Carbon Dioxide 25 22 BUN 24 H D 20 H Creatinine 1.02 H 0.96 Glucose 105 105 Calcium 9.8 9.4 Liver Function 06/06/25 Range/Units 07:45 Total Bilirubin 0.3 (0.2-1.3) mg/dL AST 56 H (14-36) U/L ALT 14 (6-35) U/L Alkaline Phosphatase 49 (38-126) U/L Urine 06/05/25 Range/Units 15:23 Urine Color [place] H (Yellow) Urine Appearance Clear (Clear) Urine pH 6.0 (5.0-9.0) Ur Specific [place] 1.015 (1.001-1.035) Urine Protein TNP Urine Glucose (UA) Negative (Negative) mg/dL
[2025-06-06] MEDS: ACETAMINOPHEN 325 MG TABLET 650 MG PO (21:31)
[2025-06-06] MEDS: MONTELUKAST SODIUM 10 MG TABLET PO (21:32)
[2025-06-06] MEDS: cefTRIAXone 1 GM in SODIUM CHLORIDE 0.9% IV 50 ML 100 ML IVPB (21:34)
[2025-06-06 21:50] VITALS: BP 141/55; PULSE 118; RESP 16; TEMP 36.5; O2SAT 97
[2025-06-07 06:00] VITALS: BP 129/62; PULSE 100; RESP 20; TEMP 36.2; O2SAT 97
[2025-06-07 06:10] LABS: Hematocrit 31.6 % (37.0-47.0); Hemoglobin 10.0 g/dL (12.0-15.0); Mean Corpuscular HGB Conc 31.6 g/dl (32-36); Mean Corpuscular Hemoglobin 33.7 pg (26-34); Mean Corpuscular Volume 106.4 fl (80-100); Platelet Count Result 283 k/mm3 (150-375); Red Blood Count 2.97 M/mm3 (4.2-5.4); White Blood Count 11.7 K/mm3 (4.5-10.0)
[2025-06-07 06:19] LABS: Alanine Aminotransferase 13 U/L (6-35); Albumin Level 3.3 g/dL (3.5-5.1); Alkaline Phosphatase 47 U/L (38-126); Anion Gap 5 mmol/L (4-12); Aspartate Amino Transferase 23 U/L (14-36); Bilirubin,Total 0.3 mg/dL (0.2-1.3); Blood Urea Nitrogen 11 mg/dL (7-17); Calcium 9.5 mg/dL (8.4-10.2); Carbon Dioxide 23 mmol/L (22-30); Chloride 113 mmol/L (98-107); Estimated Glomerular Filt Rate > 60; Glucose 115 mg/dL (65-110); Potassium 3.7 mmol/L (3.4-5.0); Sodium 141 mmol/L (137-145); Total Protein 6.2 g/dL (6.3-8.2)
--- NOTE | 2025-06-07 07:40 | P.PNIM_ITS ---
Progress Note: A&P Assessment and Plan (1) Sepsis: Code(s): A41.9 - Sepsis, unspecified organism Status: Acute Assessment and Plan: Meets SIRS criteria: tachycardia, WBC, REJI - suspected source: UTI - UA: orange color with clear appearance with negative nitrates and leukocytes, 10-15 WBC, few squamous and trace bacteria likely related to patients pyelonephritis - UC obtained on 06/05: pending - Blood culture obtained on 06/06 Remains hemodynamically stable and afebrile. (2) Urinary tract infection: Qualifiers: Hematuria presence: without hematuria Urinary tract infection type: acute cystitis Qualified Code(s): N30.00 - Acute cystitis without hematuria Code(s): N39.0 - Urinary tract infection, site not specified Status: Acute Assessment and Plan: - UA: orange color with clear appearance with negative nitrates and leukocytes, 10-15 WBC, few squamous and trace bacteria - UC obtained on 06/05: pending - previous micro reviewed 08/27/24: Klebsiella pneumonia pansensitive - started on rocephin 06/05 No longer endorsing dysuria, burning sensation or hematuria. (3) Right nephrolithiasis: Code(s): N20.0 - Calculus of kidney Status: Chronic Assessment and Plan: CT abdomen/pelvis showed Atrophic left kidney with cystic changes, Multiple right kidney stones with slight fullness of the pelvicalyceal systems. No definite ureteric stones seen, and underfilled urinary bladder with slightly thickened wall. Evaluation for cystitis advised. - IV fluids - Analgesics - Flomax - Urology consulted No acute surgical intervention Outpatient follow-up is recommended for surveillance and potential elective management of right renal stones (4) Hypertension: Code(s): I10 - Essential (primary) hypertension Status: Acute Assessment and Plan: Chronic, continue home medications - losartan 25 mg daily - metoprolol 12.5 mg daily - blood pressure remain stable, continue to monitor (5) Diabetes: Code(s): E11.9 - Type 2 diabetes mellitus without complications Status: Acute Assessment and Plan: - hypoglycemia protocol - POC blood glucose ACHS - home medication - metformin 500 mg daily - correct regimen ordered - low dose TIDWM Glucose remains well controlled. (6) Pneumobilia: Code(s): K83.8 - Other specified diseases of biliary tract Status: Acute Assessment and Plan: Abdomen/pelvis CT showing a pneumobilia Reviewed prior imaging with Dr. Andrews and this appears chronic as seen on 08/27/24 Possibly related to patients prior ERCP a few years ago Time Spent With Patient Time with patient: 25 - 35 minutes Subjective Date/time seen: 06/07/25 07:40 Interval history: 64-year-old female with a history of atrophic left kidney, hypertension, itn-[id number] diabetes mellitus, gout, hyperlipidemia, hypertension, psoriatic arthritis who presents to [facility] ER on 06/05/2025 with the complaint of right flank pain. Patient is pleasant sitting up comfortably in bed. She states she is feeling much better today and is no longer having any nausea or vomiting. She is tolerating her diet well. She continues to denying any urinary tract infection like symptoms. She has no other complaints chest pain, palpitations, shortness of breath, and abdominal pain. Review of Systems Review of Systems: All systems reviewed & are unremarkable except as noted in HPI and below (Subjective) Exam Narrative: AF HR 90 RR 18 SpO2 99 BP 128/71 General: female in no acute respiratory distress who is nontoxic appearing, sitting up in bed. HEENT: Normocephalic. Atraumatic. Extraocular movement intact. Sclera clear and anicteric. No facial asymmetry. Chest: Lungs are clear to auscultation bilaterally. No wheezes or crackles. CV: Heart was regular rate and rhythm. Abd: Abdomen was soft. Nontender. Nondistended. Positive bowel sounds Ext: No clubbing, cyanosis, or edema. DP pulses bilaterally. Neuro: Patient is alert and oriented x4. Speech is clear. Objective Data Vital Signs Vital Signs: Vital Signs - 24 hr 06/06/25 09:00 06/06/25 14:00 06/06/25 20:00 Temperature 98.3 F Pulse Rate 96 Respiratory Rate 18 Blood Pressure 110/54 L Pulse Oximetry 96 Oxygen Delivery Room Air Room Air 06/06/25 21:50 06/07/25 06:00 Temperature 97.7 F 97.1 F L Pulse Rate 118 H 100 Respiratory Rate 16 20 Blood Pressure 141/55 H 129/62 Pulse Oximetry 97 97 Oxygen Delivery Intake/Output Intake/Output: Intake & Output 06/04/25 06/05/25 06/06/25 06/07/25 23:59 23:59 23:59 23:59 Intake Total 1050 1710 Balance 1050 1710 Meds/Results Medications: Active Medications Generic Name Dose Route Start Last Admin Trade Name Freq PRN Reason Stop Dose Admin Acetaminophen 650 mg 06/05/25 21:45 06/06/25 21:31 Acetaminophen 325 Mg Tablet PO 650 mg Q4H PRN Administration Mild Pain (1-3) or Fever Hydrocodone Bitart/Acetaminophen 1 tab 06/05/25 21:45 Hydrocodone/Acetaminophen (*Crx) 5-325 Mg Tablet PO Q4H PRN Pain Rated 4-6 Allopurinol 100 mg 06/06/25 08:00 06/06/25 17:30 Allopurinol 100 Mg Tablet PO 100 mg BIDWM CATHERINE Administration Atorvastatin Calcium 10 mg 06/06/25 09:00 06/06/25 13:15 Atorvastatin 10 Mg Tablet PO Not Given DAILY CATHERINE Calcitriol 0.5 mcg 06/06/25 09:00 06/06/25 17:31 Calcitriol 0.25 Mcg Capsule PO 0.5 mcg BID CATHERINE Administration Dextrose 12.5 gm 06/05/25 21:45 Dextrose 50% 25 Gm/50 Ml Syringe IV PUSH PRN PRN Hypoglycemia Protocol Folic Acid 1 mg 06/06/25 09:00 06/06/25 13:16 Folic Acid 1 Mg Tablet PO Not Given DAILY CATHERINE Glucose 15 gm 06/05/25 21:45 Glucose Oral Gel 15 Gm Of Glucse In 37.5 Gm Tube PO PRN PRN Hypoglycemia Protocol Sodium Chloride 1,000 mls @ 100 mls/hr 06/05/25 20:15 06/07/25 07:20 Normal Saline Iv IV CONT Not Given .Q10H CATHERINE Dextrose 1,000 mls @ 100 mls/hr 06/05/25 21:45 Dextrose 5% 1,000 Ml IVPB PRN PRN Hypoglycemia Protocol Ceftriaxone Sodium 1 gm/ 50 mls @ 100 mls/hr 06/06/25 20:00 06/06/25 21:34 Sodium Chloride IVPB 100 mls/hr Q24H CATHERINE Administration Insulin Aspart 2 - 5 units 06/06/25 08:00 06/06/25 17:31 Insulin Aspart (*Bkc) 100 Units/Ml SUB-Q Not Given TIDWM CATHERINE Protocol Insulin Aspart 1 - 2 units 06/06/25 21:00 06/06/25 22:43 Insulin Aspart (*Bkc) 100 Units/Ml SUB-Q Not Given HS [facility] Protocol Metoprolol Tartrate 12.5 mg 06/06/25 09:00 06/06/25 13:16 Metoprolol Tartrate 12.5 Mg Tablet PO Not Given DAILY [facility] Miscellaneous Information 0 each 06/06/25 02:50 Fesoterodine- Nonformulary. Please Obtain A Home Supply If Possible Or Hold While Inpatien XX 07/06/25 02:49 CLARIFY [facility] Montelukast Sodium 10 mg 06/06/25 21:00 06/06/25 21:32 Montelukast Sodium 10 Mg Tablet PO 10 mg HS [facility] Administration Non-Formulary Medication 4 mg 06/06/25 09:00 Fesoterodine PO 07/06/25 08:59 DAILY [facility] Ondansetron HCl 4 mg 06/05/25 21:45 06/06/25 09:54 Ondansetron Inj 4 Mg/2 Ml Vial IV PUSH 4 mg Q4H PRN Administration Nausea Prochlorperazine Edisylate 5 mg 06/06/25 13:01 06/06/25 13:11 Prochlorperazine Edisylate 10 Mg/2 Ml Vial IV PUSH 5 mg Q6H PRN Administration Nausea And Vomiting Sulfasalazine 500 mg 06/06/25 10:00 06/06/25 17:31 Sulfasalazine 500 Mg Tablet PO 500 mg 1000,1800 [facility] Administration Tamsulosin HCl 0.4 mg 06/06/25 09:00 06/06/25 13:16 Tamsulosin Hcl 0.4 Mg Capsule PO Not Given QAM [facility] Radiology Results: ITS Impressions Abdomen/Pelvis CT 06/05/25 18:39 IMPRESSION: 1. No evidence of appendicitis, diverticulitis or intestinal obstruction. 2. Atrophic left kidney with cystic changes. 3. Multiple right kidney stones with slight fullness of the pelvicalyceal systems. No definite ureteric stones seen. 4. Underfilled urinary bladder with slightly thickened wall. Evaluation for cystitis advised. 5. Sliding hiatus hernia. 6. Pneumobilia. 7. Fat-containing umbilical hernia. Labs Labs: Laboratory Results - last 24 hr 06/06/25 06/06/25 06/06/25 07:45 08:30 11:40 WBC 9.9 RBC 3.07 L Hgb 10.4 L Hct 33.3 L MCV 108.5 H MCH 33.9 MCHC 31.2 L RDW 13.8 Plt Count 267 MPV 8.4 Immature Gran % (Auto) 0.5 Neut % (Auto) 67.8 Lymph % (Auto) 19.3 [place] % (Auto) 8.4 Eos % (Auto) 3.6 Baso % (Auto) 0.4 Lymph # (Auto) 1.92 [place] # (Auto) 0.8 H Eos # (Auto) 0.4 H Baso # (Auto) 0.0 Abs Immat Gran (auto) 0.05 H Absolute Neuts (auto) 6.7 Absolute Nucleated RBC 0.000 Band Neutrophils % Not Reportable Nucleated RBC % 0.0 Platelet Estimate Adequate Macrocytosis 1+ Schistocytes None seen Sodium 142 Potassium 3.9 Chloride 114 H Carbon Dioxide 22 Anion Gap 6 BUN 20 H Creatinine 0.96 Estim Creat Clear Calc Not Reportable Estimated GFR 59 Glucose 105 POC Capillary Glucose 119 H 121 H Calcium 9.4 Magnesium 1.6 Total Bilirubin 0.3 AST 56 H ALT 14 Alkaline Phosphatase 49 Total Protein Albumin Procalcitonin 0.1 06/06/25 06/06/25 06/07/25 16:37 22:02 05:42 WBC 11.7 H RBC 2.97 L Hgb 10.0 L Hct 31.6 L MCV 106.4 H MCH 33.7 MCHC 31.6 L RDW 13.4 Plt Count 283 MPV 8.3 Immature Gran % (Auto) Neut % (Auto) Lymph % (Auto) [place] % (Auto) Eos % (Auto) Baso % (Auto) Lymph # (Auto) [place] # (Auto) Eos # (Auto) Baso # (Auto) Abs Immat Gran (auto) Absolute Neuts (auto) Absolute Nucleated RBC Band Neutrophils % Nucleated RBC % Platelet Estimate Macrocytosis Schistocytes Sodium 141 Potassium 3.7 Chloride 113 H Carbon Dioxide 23 Anion Gap 5 BUN 11 D Creatinine 0.78 Estim Creat Clear Calc Not Reportable Estimated GFR > 60 Glucose 115 H POC Capillary Glucose 108 H 114 H Calcium 9.5 Magnesium Total Bilirubin 0.3 AST 23 ALT 13 Alkaline Phosphatase 47 Total Protein 6.2 L Albumin 3.3 L Procalcitonin Quality VTE Prophylaxis VTE prophylaxis: mechanical ordered
[2025-06-07 08:00] VITALS: O2SAT 97
[2025-06-07 08:57] VITALS: PULSE 109
[2025-06-07] MEDS: METOPROLOL TARTRATE 12.5 MG TABLET PO (08:57)
[2025-06-07] MEDS: FOLIC ACID 1 MG TABLET PO (08:59)
[2025-06-07] MEDS: TAMSULOSIN HCL 0.4 MG CAPSULE PO (08:59)
[2025-06-07] MEDS: ATORVASTATIN 10 MG TABLET PO (08:59)
[2025-06-07] MEDS: ACETAMINOPHEN 325 MG TABLET 650 MG PO ×2 (09:04→20:34)
--- NOTE | 2025-06-07 11:54 | PHAR ---
Drug Name:?Fesoterodine Fumarate Ingredients:??Fesoterodine [id number] Color:?Light Blue Shape:?Oval Imprint:??K46 Form:?Oral Tablet, Extended Release
[2025-06-07 14:00] VITALS: BP 128/71; PULSE 90; RESP 18; TEMP 36.4; O2SAT 99
[2025-06-07 20:05] VITALS: BP 148/70; PULSE 98; RESP 17; TEMP 36.3; O2SAT 98
[2025-06-07] MEDS: cefTRIAXone 1 GM in SODIUM CHLORIDE 0.9% IV 50 ML 100 ML IVPB (20:34)
[2025-06-07] MEDS: MONTELUKAST SODIUM 10 MG TABLET PO (20:36)
[2025-06-08] MEDS: ACETAMINOPHEN 325 MG TABLET 650 MG PO (05:07)
[2025-06-08 05:20] VITALS: BP 144/82; PULSE 113; RESP 16; TEMP 36.3; O2SAT 99
[2025-06-08 06:10] LABS: Hematocrit 35.4 % (37.0-47.0); Hemoglobin 11.5 g/dL (12.0-15.0); Mean Corpuscular HGB Conc 32.5 g/dl (32-36); Mean Corpuscular Hemoglobin 34.3 pg (26-34); Mean Corpuscular Volume 105.7 fl (80-100); Platelet Count Result 319 k/mm3 (150-375); Red Blood Count 3.35 M/mm3 (4.2-5.4); White Blood Count 11.6 K/mm3 (4.5-10.0)
[2025-06-08 06:21] LABS: Alanine Aminotransferase 18 U/L (6-35); Albumin Level 4.1 g/dL (3.5-5.1); Alkaline Phosphatase 61 U/L (38-126); Anion Gap 9 mmol/L (4-12); Aspartate Amino Transferase 28 U/L (14-36); Bilirubin,Total 0.4 mg/dL (0.2-1.3); Blood Urea Nitrogen 11 mg/dL (7-17); Calcium 10.1 mg/dL (8.4-10.2); Carbon Dioxide 25 mmol/L (22-30); Chloride 110 mmol/L (98-107); Estimated Glomerular Filt Rate > 60; Glucose 130 mg/dL (65-110); Potassium 4.3 mmol/L (3.4-5.0); Sodium 144 mmol/L (137-145); Total Protein 7.4 g/dL (6.3-8.2)
[2025-06-08 08:30] VITALS: PULSE 113
[2025-06-08] MEDS: ATORVASTATIN 10 MG TABLET PO (08:30)
[2025-06-08] MEDS: METOPROLOL TARTRATE 12.5 MG TABLET PO (08:30)
[2025-06-08] MEDS: TAMSULOSIN HCL 0.4 MG CAPSULE PO (08:31)
[2025-06-08] MEDS: FOLIC ACID 1 MG TABLET PO (08:31)
--- NOTE | 2025-06-08 13:31 | P.DS_ITS ---
DS: Admitting Diagnosis Discharge Date 06/08 Admitting Diagnosis rt flank pain DS: Discharge Diagnosis Discharge Diagnosis (1) Sepsis: Code(s): A41.9 - Sepsis, unspecified organism Status: Acute (2) Urinary tract infection: Qualifiers: Hematuria presence: without hematuria Urinary tract infection type: acute cystitis Qualified Code(s): N30.00 - Acute cystitis without hematuria Code(s): N39.0 - Urinary tract infection, site not specified Status: Acute (3) Right nephrolithiasis: Code(s): N20.0 - Calculus of kidney Status: Chronic (4) Hypertension: Code(s): I10 - Essential (primary) hypertension Status: Acute (5) Diabetes: Code(s): E11.9 - Type 2 diabetes mellitus without complications Status: Acute (6) Pneumobilia: Code(s): K83.8 - Other specified diseases of biliary tract Status: Acute DS: Summary Hospital Course Hospital Course: 64-year-old female with a history of atrophic left kidney, hypertension, ghd-[id number] diabetes mellitus, gout, hyperlipidemia, hypertension, psoriatic arthritis who presents to [facility] ER on 06/05/2025 with the complaint of right flank pain. Several issues were addressed: # sepsis Meets SIRS criteria: tachycardia, WBC, REJI - suspected source: UTI - UA: orange color with clear appearance with negative nitrates and leukocytes, 10-15 WBC, few squamous and trace bacteria likely related to patients pyelonephritis - UC obtained on 06/05: pending - Blood culture obtained on 06/06 Remains hemodynamically stable and afebrile. # Urinary tract infection - UA: orange color with clear appearance with negative nitrates and leukocytes, 10-15 WBC, few squamous and trace bacteria - UC obtained on 06/05: unremarkable but will complete the course of antibiotics- will transition to keflex- 4 more doses-next dose 06/11 at 09 pm # Right nephrolithiasis: CT abdomen/pelvis showed Atrophic left kidney with cystic changes, Multiple right kidney stones with slight fullness of the pelvicalyceal systems. No definite ureteric stones seen, and underfilled urinary bladder with slightly thickened wall. Evaluation for cystitis advised. IV fluids - Analgesics - Flomax - Urology consulted No acute surgical intervention Outpatient follow-up is recommended for surveillance and potential elective management of right renal stones Status at Discharge Functional status at discharge: independent ambulation Overall status at discharge: patient is progressing back to baseline Time Spent with Patient Time attestation: Total time spent providing and/or coordinating discharge services: Time spent: Greater than 30 minutes Exam Narrative: General: female in no acute respiratory distress who is nontoxic appearing, sitting up in bed. HEENT: Normocephalic. Atraumatic. Extraocular movement intact. Sclera clear and anicteric. No facial asymmetry. Chest: Lungs are clear to auscultation bilaterally. No wheezes or crackles. CV: Heart was regular rate and rhythm. Abd: Abdomen was soft. Nontender. Nondistended. Positive bowel sounds Ext: No clubbing, cyanosis, or edema. DP pulses bilaterally. Neuro: Patient is alert and oriented x4. Speech is clear. Const: General: comfortable and no acute distress Other: A&O x3 HENMT: Mouth: Yes moist mucous membranes Eyes: Pupils: Equal, round and reactive pupils present Neck: Neck: supple Resp: Effort & Inspection: normal respiratory effort Auscultation: clear to auscultation bilaterally Cardio: Rate: regular rate Rhythm: regular rhythm GI: Inspection: non-distended Other: Slight right flank pain to deep tapping Neuro: Cranial nerves: Yes Equal, round and reactive pupils present Motor e xam (neuro): 5/5 motor strength present throughout Extrem: General: no edema DS: Data Data Completed and Pending Labs on day of discharge: Labs from last 24 hours 06/08/25 06/08/25 06/08/25 11:45 07:53 05:35 WBC 11.6 H RBC 3.35 L Hgb 11.5 L Hct 35.4 L MCV 105.7 H MCH 34.3 H MCHC 32.5 RDW 13.2 Plt Count 319 MPV 8.5 Sodium 144 Potassium 4.3 Chloride 110 H Carbon Dioxide 25 Anion Gap 9 BUN 11 Creatinine 0.82 Estim Creat Clear Calc Not Reportable Estimated GFR > 60 Glucose 130 H POC Capillary Glucose 103 119 H Calcium 10.1 Total Bilirubin 0.4 AST 28 ALT 18 Alkaline Phosphatase 61 Total Protein 7.4 Albumin 4.1 06/07/25 06/07/25 19:49 16:42 WBC RBC Hgb Hct MCV MCH MCHC RDW Plt Count MPV Sodium Potassium Chloride Carbon Dioxide Anion Gap BUN Creatinine Estim Creat Clear Calc Estimated GFR Glucose POC Capillary Glucose 153 H 112 H Calcium Total Bilirubin AST ALT Alkaline Phosphatase Total Protein Albumin Discharge Plan Discharge Attending physician on discharge: Janet Joe Consulting providers: lOi Lacey; Reyna Schmid Discharging Clinician: Emy Ortega Patient Disposition: Home Activity: march shower Diet: regular Discharge Instructions: You were admitted for Urinary tract infection and kidney stone. Urology saw you and no intervention needed. PLease f/u with urology an outpatient. -You were started on IV antibiotics and transitioned to oral today. Please continue keflex- 4 more doses-next dose 06/11 at 09 pm Patient Instructions: Antibiotic Form Patient Language: Frisian Stand Alone Forms: General Discharge Information Follow-up/Referrals: Yamel Serrano APRN [Advanced Practice Nurse] - Call for Appointment Discharge Medications: New cephalexin 500 mg Capsule 500 mg PO Q12HR Qty: 4 0RF Continued acetaminophen [Pain Reliever (acetaminophen)] 500 mg tablet 1,000 mg PO Q6H PRN (Reason: pain) metoprolol tartrate 25 mg tablet 12.5 mg PO DAILY diltiazem HCl 180 mg tablet extended release 24 hr 180 mg PO DAILY calcitriol 0.5 mcg Capsule 0.5 mcg PO BID metformin 500 mg Tablet 500 mg PO DAILY atorvastatin 10 mg Tablet 10 mg PO DAILY prednisone 5 mg Tablet 5 mg PO DIRECTED PRN (Reason: when i need it) Rx Instructions: see taper instructions sulfasalazine 500 mg tablet,delayed release (DR/EC) 500 mg PO BID allopurinol 100 mg Tablet 100 mg PO BID tramadol 50 mg Tablet 50 mg PO Q6H PRN (Reason: pain) losartan 25 mg Tablet 25 mg PO DAILY folic acid 1 mg tablet 1 mg PO DAILY montelukast 10 mg Tablet 10 mg PO HS fesoterodine 4 mg Tablet Extended Release 24 Hr 4 mg PO DAILY Date of admission: 06/07/25 10:31 Primary Care Provider: Raul Hernandez Admitting Provider: Yohannes Ayoub Attending physician on admission: Yohannes Ayoub Condition: Stable Quality VTE Prophylaxis VTE prophylaxis: mechanical ordered Hospitalist MIPS Heart Failure (Exclusion) Patient has history of Heart Transplant or Left Ventricular Assistive Device?: No IF YES, STOP HERE Heart Failure (Qualifier) Patient has current or prior documentation of LVEF less than or equal to 40%, or mod/servere depressed LVSF?: No IF NO, STOP HERE
== END 2025-06-08 15:26 | disposition home or self-care (01) | DRG 872 ==
LOC: ANHED 19:36 → ANH3MEDSUR 22:34
PROVIDERS: General Practice; Student in an Organized Health Care Education/Training Program; Admitting Provider Internal Medicine; Emergency Provider Physician Assistant; PCP Internal Medicine; Visit Provider Nurse Practitioner
DX: A41.9 Sepsis, unspecified organism (principal); N39.0 Urinary tract infection, site not specified; N20.0 Calculus of kidney; I10 Essential (primary) hypertension; E11.9 Type 2 diabetes mellitus without complications; K83.8 Other specified diseases of biliary tract; E78.5 Hyperlipidemia, unspecified; L40.50 Arthropathic psoriasis, unspecified; Z90.49 Acquired absence of other specified parts of digestive tract; Q63.9 Congenital malformation of kidney, unspecified
CPT/HCPCS: 36415; 74176; 80048; 80053; 81001; 82247; 82948; 83735; 84075; 84145; 84450; 84460; 85025; 85027; 87086; 96361; 96365; 96372; 96374; 96375; 99285; A9270; G0378; J0696; J0780; J2405; J7030

== ENCOUNTER 2025-06-21 14:00 | Outpatient (CLI) | payer OTHER, SELFPAY ==
--- NOTE | ~2025-06-21 | XR_ITS ---
XR abdomen/kub 1V 06/21/2025 14:26 INDICATION: Left renal stone TECHNIQUE: KUB COMPARISON: None FINDINGS: Bowel gas pattern is normal. There is no evidence of free air, mass, organomegaly, ascites or obstruction. No abnormal calculi are seen. The bones appear intact. There are calcified granulo mas of the spleen. Cannot exclude left renal stones. IMPRESSION: 1: Multiple calcified granulomas of the spleen. Cannot exclude left renal stones. Reviewed, dictated and finalized at location A. IMPRESSION: 1: Multiple calcified granulomas of the spleen. Cannot exclude left renal stone s.
--- OUTSIDE RECORDS SUMMARY | 2025-06-21 14:12 | XMS_ITS | Clinical Summary ---
Author Organization [facility] Physician Of [facility] [address] [place] [id number] Care Team Providers Care Capsule Filler Name Role Phone Raul Smith MD Primary Care Provider [phone] Allergies Active Allergy Reactions Criticality Noted Date [...] (07/04/2021): Added automatically from request for surgery [id number] Encounters Date Type Department Care Team Description 06/21/2025 1:30 PM CDT Lab [facility] Outpatient Lab at [address] [phone] 06/21/2025 10:15 AM CDT Lab [facility] Medical [facility] Outpatient Lab at [address] [address] Controlled type 2 diabetes mellitus with hyperglycemia (HCC) (Primary Dx); Hypertension, essential 05/02/2025 3:24 PM CDT - 05/02/2025 11:59 PM CDT Hospital Encounter [place] [id number] Chronic kidney disease, stage III (moderate) (HCC); Mixed hyperlipidemia; Type II or unspecified type diabetes mellitus with renal manifestations, 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.42) (HCC); Edema; Avitaminosis D; Urinary tract infection, site not specified; Urinary frequency; Hyperparathyroidism, unspecified; Nonspecific abnormal results of thyroid function study; Vitamin D deficiency Discharge Disposition: Discharge to home or self care 05/02/2025 9:15 AM CDT Lab [facility] Medical [facility] Outpatient Lab at [address] [address] Chronic kidney disease, stage III (moderate) (HCC) (Primary Dx); Mixed hyperlipidemia; Type II or unspecified type diabetes mellitus with renal manifestations, 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.42) (HCC); Edema; Avitaminosis D; Urinary tract infection, site not specified; Urinary frequency; Hyperparathyroidism, unspecified; Nonspecific abnormal results of thyroid function study from Last 3 Months Surgical History Surgery [...] on file 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 Gender Identity Not on file Sexual Orientation [...] Depression Screening 1960 Hepatitis C Screening 1960 Dilated Eye Exam 1960 Foot Exam 1960 Lipid Panel 1960 DTaP/Tdap/Td Vaccine (1 - Tdap) 1971 Hepatitis B Screening 1978 Regular Well Visit/Exam 18-64 1978 Pneumococcal vaccine <65 (1 of 2 - PCV) 1979 Zoster Vaccine (1 of 2) 2010 Covid-19 Vaccine (5 - 2023-2 5 season) 2024 11/15/2021, 10/17/2021, 03/15/2021, Additional history exists Influenza Vaccine (#1) 2025 4, 09/10/2023, 10/11/2022, Additional history exists Hemoglobin A1C 11/01/2025 05/02/2025, 03/09/2025 Albumin Creatinine Ratio, Urine 05/02/2026 5, 03/09/2025 eGFR 05/02/2026 05/02/2025, 03/09/2025 Procedures Procedure Name Priority Date/Time Associated Diagnosis [...] Nonspecific abnormal results of thyroid function study from Last 3 Months Results * eGFR (05/02/2025 12:00 PM CDT) [facility] eGFR 61 >=60 mL/min/1. 73 m2 Comment: [...] of Race in Diagnosing Kidney Disease, JASN 202). The CKD-EPI equation should not be used for patients with unstable renal function and has not been validated in children and those over 70. Current interpretive data was last reviewed 2021. Blood 05/02/2025 12:0 0 PM CDT 05/02/2025 4:29 PM CDT us Brenard Freitas MD LAB BLOOD ORDERABLES Final Res ult [facility] [address] Department [place] [address] * Differential, auto (05/02/2025 12:00 PM CDT) Neutrophil abs 4.01 1.50 - 6.50 K/cumm Imm gran abs 0.02 0.00 - 0.10 K/cumm [facility] Lymphocyte abs 1.65 0.80 - 3.30 K/cumm [facility] Monocyte abs 0.43 0.20 - 0.80 K/cumm [facility] Eosinophil abs 0.29 0.00 - 0.50 K/cumm [facility] Basophil abs 0.04 0.00 - 0.10 K/cumm [facility] Neutrophil pct 62.3 % [facility] Comment: Interpretive Data Percent cell count reference ranges are not reported, since discordance with absolute values may lead to misinterpretation of CBC data. Current Interpretive Data was last revised on 2018. Imm gran pct 0.3 % [facility] Comment: Interpretive Data Percent cell count reference ranges are not reported, since discordance with absolute values may lead to misinterpretation of CBC data. Current Interpretive Data was last revised on 2018. Lymphocyte pct 25.6 % [facility] Comment: [...] revised on 2018. Eosinophil pct 4.5 % [facility] Comment: Interpretive Data Percent cell count reference ranges are not reported, since discordance with absolute values may lead to misinterpretation of CBC data. Current Interpretive Data was last revised on 2018. Basophil pct 0.6 % [facility] Comment: Interpretive Data Percent cell count reference ranges are not reported, since discordance with absolute values may lead to misinterpretation of CBC data. Current Interpretive Data was last revised on 2018. Blood 05/02/2025 12:0 0 PM CDT 05/02/2025 4:29 PM CDT us Bernard Freitas MD LAB BLOOD ORDERABLES Final Res ult [facility] [address] [facility] Department [place] [address] * Urinalysis reflex to microscopic and culture Urine, clean voided (05/02/2025 12:00 PM CDT) Color, ur Yellow Yellow Clarity, ur Clear Clear [facility] Specific gravity, ur 1.014 1.003 - 1.030 [facility] pH, urine 6.5 [facility] Comment: Interpretive Data U rine pH is affected by diet, medications, systemic acid-base disturbances, and renal tubular function. pH may affect urinary stone formation. For example, urine pH below 6.0 may help reduce the tendency for calcium phosphate stones and pH greater than 6.0 may reduce the tendency for uric acid stone formation. Source: [facility] Current Interpretive Data was last revised on [...] for microscopic UA and culture not met. [facility] Urine, clean voided 05/02/2025 12:00 PM CDT 05/02/2025 4:29 PM CDT Narrative [facility] - 05/02/2025 4:52 PM CDT Fax results to Dr Bernard Freitas [phone] Bernard Freitas MD LAB MICROBIOLOGY - GENERAL ORD ERABLES Final Result [facility] [address] [address] Department [place] [address] * (ABNORMAL) CBC with auto differential (05/02/2025 12:00 PM CDT) WBC 6.44 3.80 - 9.90 K/cumm Hgb 10.7(L) 11.9 - 15.5 g/dL [facility] Hct 34.7(L) 35.6 - 45.5 % [facility] Plt 467(H) 150 - 400 K/cumm [facility] MPV 8.4(L) 9.1 - 12.3 fL [facility] RBC 3.18(L) 3.90 - 5.20 M/cumm [facility] MCV 109.1(H) 81.3 - 96.4 fL [facility] MCH 33.6(H) 27.1 - 33.3 pg [facility] MCHC 30.8(L) 32.3 - 35.7 g/dL [facility] RDW CV 16.5(H) 11.1 - 14.9 % [facility] RDW SD 65.6(H) 35.7 - 48.1 fL [facility] NRBC abs 0.00 0.00 - 0.01 K/cumm [facility] Blood 05/02/2025 12:0 0 PM CDT 05/02/2025 4:29 PM CDT Narrative [facility] - 05/02/2025 4:46 PM CDT Fax results to Dr Bernard Freitas [phone] Bernard Freitas MD LAB BLOOD ORDERABLES Final Res ult Performing Organization Address [facility] de Phone Number [facility] [address] [address] [employer] [place] [address] * (ABNORMAL) Albumin Creatinine Ratio, Urine (05/02/2025 12:00 PM CDT) Pathologist [facility] Albumin Ur 36.8 mg/L Comment: Interpretive Data No reference range established. Current interpretive data was last revised 2019. Creatinine Ur 67.2 mg/dL [facility] Comment: Interpretive Data No reference range established. Current interpretive data was last revised 2019. Albumin Creatinine Ratio, Ur 55(H) 1 - 29 mg/g [facility] Urine (Urine, Clean Catch) 05/02/2025 12:00 PM CDT 05/02/2025 4:29 PM CDT Narrative [facility] - 05/02/2025 5:17 PM CDT Fax results to Dr Bernard Freitas [phone] Bernard Freitas MD LAB URINE ORDERABLES Final Res ult Performing Organization Address [facility] Co de Phone Number [facility] [address] [address] [facility] [place] [place] [address] * Vitamin D 25 hydroxy (05/02/2025 12:00 PM CDT) Pathologist [facility] Vitamin D 25-OH 61 30 - 80 ng/mL Blood 05/02/2025 12:0 0 PM CDT 05/02/2025 4:29 PM CDT Narrative [facility] - 05/02/2025 5:23 PM CDT Fax results to Dr Bernard Freitas [phone] Bernard Freitas MD LAB BLOOD ORDERABLES Final Res ult Performing Organization Address [facility] Co de Phone Number [facility] [phone] [address] [facility] [employer] [place] [address] * Uric acid (05/02/2025 12:00 PM CDT) Uric acid 4.2 2.5 - 7.0 mg/dL Blood Venous blood specimen / Unknown 05/02/2025 12:00 PM CDT 05/02/2025 4:29 PM CDT Narrative [facility] - 05/02/2025 5:33 PM CDT Fax results to Dr Bernard Freitas [phone] Bernard Freitas MD LAB BLOOD ORDERABLES Final Res ult Performing Organization Address [facility] Co de Phone Number [facility] [place] [phone] [address] [facility] [employer] [place] [address] * TSH (05/02/2025 12:00 PM CDT) Thyroid Stimulating Hormone 1.47 0.30 - 4.20 mcIUnit/mL Blood Venous blood specimen / Unknown 05/02/2025 12:00 PM CDT 05/02/2025 4:29 PM CDT Narrative [facility] - 05/02/2025 5:33 PM CDT Fax results to Dr Bernard Freitas [phone] Bernard Freitas MD LAB BLOOD ORDERABLES Final Res ult Performing Organization Address [facility] Co de Phone Number [facility] [place] [phone] [address] [facility] [employer] [place] [address] * PTH (05/02/2025 12:00 PM CDT) PTH 20 15 - 65 pg/mL Blood Venous blood specimen / Unknown 05/02/2025 12:00 PM CDT 05/02/2025 4:29 PM CDT Narrative [facility] - 05/02/2025 5:33 PM CDT Fax results to Dr Bernard Freitas [phone] Bernard Freitas MD LAB BLOOD ORDERABLES Final Res ult Performing Organization Address [facility]/ZIP Co de Phone Number [facility] [place] [address] [address] [employer] [place] [address] * (ABNORMAL) Hemoglobin A1c (05/02/2025 12:00 PM CDT) Hgb A1C 5.8(H) 4.0 - 5.6 % Estimated Average Glucose 120 mg/dL [facility] Comment: The ADA recommends reporting an estimated Average Glucose (eAG) with all Hemoglobin A1c results using the equation derived from a study of 507 normal and diabetic adults. Minority populations were underrepresented and children were not included. (Diabetes Care 31:2470-3490, 2008). The eAG is not equivalent to a fasting glucose. Blood Venous blood specimen / Unknown 05/02/2025 12:00 PM CDT 05/02/2025 4:29 PM CDT Narrative [facility] - 05/02/2025 4:57 PM CDT Fax results to Dr Bernard Freitas [phone] Bernard Freitas MD LAB BLOOD ORDERABLES Final Res ult Performing Organization Address City/[facility] Co de Phone Number [facility] [place] [address] [address] [employer] [place] [address] * (ABNORMAL) Comprehensive metabolic panel (05/02/2025 12:00 PM CDT) Sodium 143 135 - 145 mmol/L Potassium, pl 4.9 3.3 - 4.9 mmol/L [facility] Chloride 107 97 - 110 mmol/L [facility] CO2 25 22 - 32 mmol/L [facility] Anion gap 11 2 - 15 mmol/L [facility] BUN 22 6 - 25 mg/dL [facility] Creatinine 1.03 0.60 - 1.10 mg/dL [facility] Glucose 102 70 - 199 mg/dL [facility] Comment: Interpretive Data Fasting glucose >/= 126 [...] PM CDT Fax results to Dr Bernard Freitas [phone] us Bernard Freitas MD LAB BLOOD ORDERABLES Final Res ult [facility] [address] [address] Department [place] [address] from Last [address] Mon[address] Insurance [facility] CHOICE [employer] [facility] HMO/PPO Address: [address] [address] [place] [address] [facility] [facility] HMO/PPO Address: [address] [address] [place] [address] [facility] HMO/PPO Address: [address] [address] [place] [address] Care Teams Capsule Filler Relationship Specialty Start Date End Date Raul Smith MD PCP - General Internal Medicine 07/03/21
--- OUTSIDE RECORDS SUMMARY | 2025-06-21 14:12 | XMS_ITS ---
Author Organization [facility] Address [address] [place] [address] Care Team Providers Care Sales And Marketing Manager Name Role Phone Erik Freitasjit Unavailable [phone] Encounters Encounter Location Date Provider Diagnosis [facility] [place] [facility] [address] [place] [address] 03/04/2025 Bernard Freitas Plan Of Treatment Next Appt Details Provider Name:Bernard Freitas , 07/08/2025 01:30:00 AM, [address], [facility], Progress Notes * ROSEANNA WARRENDOB:1960 (64 yo F)Acc No.[id number]:03/04/2025 Progress Notes Patient: ROSEANNA MORENO Provider: Rom MAYA MD, Misha.López.C.P, F.A.S.N. :1960 A ge:64 Y S ex:Female Date:03/04/2025 Address:[address] [place] [address] Subjective: * Chief Complaints: * * Medical History: Objective: * Vitals: Assessment: Plan: * Treatment: * Billing Information: * Visit Code: * Procedure Codes: * Electronic signature of Marybeth Freitas MD on 06/21/2025 at 10:54 AM CDT Sign off status: Pending * Provider: Rom MAYA MD, Misha.López.C.P, F.A.S.N. Date: 03/04/2025 Generated for Printing/Faxing/eTransmitting on: 0 06/21/2025 10:54 AM CDT
--- OUTSIDE RECORDS SUMMARY | 2025-06-21 14:12 | XMS_ITS | Data Portability ---
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 Name Role Phone GABRIEL SMITH Primary Care Provider Assessment Encounter Date Assessment Date Assessment LastModified by Organization Details LastModified Time 09/07/2024 09/07/2024 recently antibiotic obtain the official culture results keep regular follow up report after done with antibiotics fever or chills she goes back to the hospital [email or web address] Not available 09/11/2024 17:00:51 11/02/2024 11/02/2024 continue [...] daily see me back in 4 months [email or web address] Not available 11/02/2024 22:39:44 12/07/2024 12/07/2024 clinically stable has follow up with Neurosurgery we will obtain the official records there is mention of a thyroid nodule apparently from [address] and a left adrenal adenoma follow up with me in 1 month continue current therapy. [email or web address] Not available 12/07/2024 22:15:29 05/04/2025 05/04/2025 EKG [...] possibly playing a role workup in progress [email or web address] Not available 05/04/2025 21:46:10 Plan of Treatment Reminders Order Date Submit Date Provider Last Modified By Organization Details Last Modified Time Details Appointments ANY 2024 11:00A M Gabriel Smith MD Not available Not available Not available ANY 2024 10:30A M Gabriel Smith MD Not available Not available Not available Lab T4, free, serum 2024 025 [facility], [address], [place], [address], 05/17/2025 06:15:29 TSH, ultra-sen sitive, serum 2024 025 [facility], [address], [place], [address], 05/17/2025 06:15:27 T3, free, serum or plasma 2024 025 [facility], [address], [place], [address], 05/17/2025 06:15:28 HbA1c (hemoglob in A1c), blood 2023 024 [facility], [address], [place], [address], 04/07/2025 11:35:04 albumin/c reatinine , mass ratio, urine 2023 024 [facility], [address], [place], [address], 04/07/2025 11:35:00 lipid panel, serum 2023 024 [facility], [address] [place] [address], [address], [place], [address], 04/07/2025 11:35:01 CBC w/ auto diff 2023 024 [email or web address], [address] [place] [address], [address], [place], [address], 02/18/2025 15:12:47 CMP, serum or plasma 2023 024 [email or web address] [facility], [address] [place] [address], [address], [place], [address], 06/20/2025 22:50:46 Referral None recorded. Procedures None recorded. Surgeries None recorded. Imaging electroca rdiogram 2024 025 In-Office Order, Internal Use Only DO Not Attach Compendium DO Not Attach Compendium, Do Not Delete/merge, [id number] 05/04/2025 17:58:16 Medication Orders metoprolo l tartrate 25 mg tablet 2024 025 [facility], [address] [place] [address], [id number], 06/13/2025 17:25:07 Augmentin 875 mg-125 mg tablet 2023 024 [facility]61, [address] [place] [address], [id number], 11/02/2024 16:50:25 Patient TargetsNo targets recorded. Patient Instructions Encounter Date Encounter Id Patient Instructions Last Modified By Organization Details Last Modified Time 11/02/2024 [id number] A healthy lifestyle: care instructions [email or web address] Not available 11/02/2024 17:27:06 diabetic eye exam* [email or web address] Not available 05/03/2025 09:15:04 12/07/2024 [id number] A healthy lifestyle: care instructions [email or web address] Not available 12/07/2024 17:25:07 05/04/2025 [id number] A healthy lifestyle: care instructions [email or web address] Not available 05/04/2025 17:58:16 Reason for Referral [...] - 10.7 x10E9 /L 11/12 6:11 PM [facility] Not Available Not Available 01/31/2025 11:56:09 11/12/20 24 11/12/2024 CBC W Auto Diffe renti al panel - Blood erythrocytes [#/volume] in blood by automated count 3 text: 3.90 - 5.20 x10e12 /L low RBC Count 3.00 (L) 3.90 - 5.20 x10E1 2/L 11/12 6:11 PM [facility] Not Available Not Available 01/31/2025 11:56:09 11/12/20 24 11/12/2024 CBC W Auto Diffe renti al panel - Blood hemoglobin [mass/volume ] in blood 10.5 g/dL low: 11.9g/ dLhigh : 15.8g/ dL low Hemog lobin 10.5 (L) 11.9 - 15.8 g/dL 11/12 6:11 PM [facility] Not Available Not Available 01/31/2025 11:56:09 11/12/20 24 11/12/2024 CBC W Auto Diffe renti al panel - Blood hematocrit [volume fraction] of blood by automated count 30.4 % low: 34.8%h igh: 46.1% low Hemat ocrit 30.4 (L) 34.8 - 46.1 % 11/12 6:11 PM [facility] Not Available Not Available 01/31/2025 11:56:09 11/12/20 24 11/12/2024 CBC W Auto Diffe renti al panel - Blood MCV [entitic volume] by automated count 101.3 fL low: 80fLhi gh: 98fL high MCV 101.3 (H) 80.0 - 98.0 fL 11/12 6:11 PM [facility] Not Available Not Available 01/31/2025 11:56:09 11/12/20 24 11/12/2024 CBC W Auto Diffe renti al panel - Blood MCH [entitic mass] by automated count 35 pg low: 26.7pg high: 33.6pg high MCH 35.0 (H) 26.7 - 33.6 pg 11/12 6:11 PM [facility] Not Available Not Available 01/31/2025 11:56:09 11/12/20 24 11/12/2024 CBC W Auto Diffe renti al panel - Blood MCHC [mass/volume ] by automated count 34.5 g/dL low: 31.7g/ dLhigh : 36.3g/ dL MCHC 34.5 31.7 - 36.3 g/dL 11/12 6:11 PM [facility] Not Available Not Available 01/31/2025 11:56:09 11/12/20 24 11/12/2024 CBC W Auto Diffe renti al panel - Blood erythrocyte distribution width [ratio] by automated count 14.2 % low: 11.3%h igh: 14.8% RDW-C V 14.2 11.3 - 14.8 % 11/12 6:11 PM [facility] Not Available Not Available 01/31/2025 11:56:09 11/12/20 24 11/12/2024 CBC W Auto Diffe renti al panel - Blood platelets [#/volume] in blood by automated count 266 text: 150 - 420 x10e9/ L Plate let Count 266 150 - 420 x10E9 /L 11/12 6:11 PM [facility] Not Available Not Available 01/31/2025 11:56:09 11/12/20 24 11/12/2024 CBC W Auto Diffe renti al panel - Blood platelet mean volume [entitic volume] in blood by automated count 8.1 fL low: 7.8fLh igh: 11.4fL MPV 8.1 7.8 - 11.4 fL 11/12 6:11 PM [facility] Not Available Not Available 01/31/2025 11:56:09 11/12/20 24 11/12/2024 CBC W Auto Diffe renti al panel - Blood neutrophils/ 100 leukocytes in blood by automated count 80.8 % low: 41%hig h: 74% high Neutr ophil % 80.8 (H) 41.0 - 74.0 % 11/12 6:11 PM [facility] Not Available Not Available 01/31/2025 11:56:09 11/12/20 24 11/12/2024 CBC W Auto Diffe renti al panel - Blood lymphocytes/ 100 leukocytes in blood by automated count 12.9 % low: 17%hig h: 47% low Lymph ocyte % 12.9 (L) 17.0 - 47.0 % 11/12 6:11 PM [facility] Not Available Not Available 01/31/2025 11:56:09 11/12/20 24 11/12/2024 CBC W Auto Diffe renti al panel - Blood monocytes/10 0 leukocytes in blood by automated count 4.9 % low: 3%high : 11% Monoc yte % 4.9 3.0 - 11.0 % 11/12 6:11 PM [facility] Not Available Not Available 01/31/2025 11:56:09 11/12/20 24 11/12/2024 CBC W Auto Diffe renti al panel - Blood eosinophils/ 100 leukocytes in blood by automated count 0.6 % low: 0%high : 7% Eosin ophil % 0.6 0.0 - 7.0 % 11/12 6:11 PM [facility] Not Available Not Available 01/31/2025 11:56:09 11/12/20 24 11/12/2024 CBC W Auto Diffe renti al panel - Blood basophils/10 0 leukocytes in blood by automated count 0.4 % low: 0%high : 1.6% Basop hil % 0.4 0.0 - 1.6 % 11/12 6:11 PM [facility] Not Available Not Available 01/31/2025 11:56:09 11/12/20 24 11/12/2024 CBC W Auto Diffe renti al panel - Blood immature granulocytes /100 leukocytes in blood by automated count 0.4 % low: 0%high : 1% Immat ure Granu locyt es % 0.4 0.0 - 1.0 % 11/12 6:11 PM [facility] Not Available Not Available 01/31/2025 11:56:09 11/12/20 24 11/12/2024 CBC W Auto Diffe renti al panel - Blood neutrophils [#/volume] in blood by automated count 11.27 text: 1.60 - 7.50 x10e9/ L high Neutr ophil Absol morongo 11.27 (H) 1.60 - 7.50 x10E9 /L 11/12 6:11 PM [facility] Not Available Not Available 01/31/2025 11:56:09 11/12/20 24 11/12/2024 CBC W Auto Diffe renti al panel - Blood lymphocytes [#/volume] in blood by automated count 1.81 text: 1.00 - 4.40 x10e9/ L Lymph ocyte Absol morongo 1.81 1.00 - 4.40 x10E9 /L 11/12 6:11 PM [facility] Not Available Not Available 01/31/2025 11:56:09 11/12/20 24 11/12/2024 CBC W Auto Diffe renti al panel - Blood monocytes [#/volume] in blood by automated count 0.69 text: 0.15 - 1.00 x10e9/ L Monoc yte Absol morongo 0.69 0.15 - 1.00 x10E9 /L 11/12 6:11 PM [facility] Not Available Not Available 01/31/2025 11:56:09 11/12/20 24 11/12/2024 CBC W Auto Diffe renti al panel - Blood eosinophils [#/volume] in blood 0.09 text: 0.00 - 0.60 x10e9/ L Eosin ophil Absol morongo 0.09 0.00 - 0.60 x10E9 /L 11/12 6:11 PM [facility] Not Available Not Available 01/31/2025 11:56:09 11/12/20 24 11/12/2024 CBC W Auto Diffe renti al panel - Blood basophils [#/volume] in blood by automated count 0.06 text: 0.00 - 0.13 x10e9/ L Basop hil Absol morongo 0.06 0.00 - 0.13 x10E9 /L 11/12 6:11 PM [facility] Not Available Not [...] 7 - 26 mg/dL 11/12 6:32 PM [facility] Not Available Not Available 01/31/2025 11:56:09 11/12/20 24 11/12/2024 Basic metab olic 2000 panel - Serum or Plasm a creatinine [mass/volume ] in serum or plasma 0.99 mg/dL low: 0.56mg /dLhig h: 0.96mg /dL high Creat inine 0.99 (H) 0.56 - 0.96 mg/dL 11/12 6:32 PM [facility] Not Available Not Available 01/31/2025 11:56:09 11/12/20 24 11/12/2024 Basic metab olic 1999 panel - Serum or Plasm a sodium [moles/volum e] in serum or plasma 144 mmol/ L low: 136mmo l/Lhig h: 145mmo l/L Sodiu m 144 136 - 145 mmol/ L 11/12 6:32 PM [facility] Not Available Not Available 01/31/2025 11:56:09 11/12/20 24 11/12/2024 Basic metab olic 2000 panel - Serum or Plasm a potassium [moles/volum e] in serum or plasma 3.7 mmol/ L low: 3.5mmo l/Lhig h: 4.5mmo l/L Potas sium 3.7 3.5 - 4.5 mmol/ L 11/12 6:32 PM [facility] Not Available Not Available 01/31/2025 11:56:09 11/12/20 24 11/12/2024 Basic metab olic 2000 panel - Serum or Plasm a chloride [moles/volum e] in serum or plasma 109 mmol/ L low: 98mmol /Lhigh : 107mmo l/L high Chlor christopher 109 (H) 98 - 107 mmol/ L 11/12 6:32 PM [facility] Not Available Not Available 01/31/2025 11:56:09 11/12/20 24 11/12/2024 Basic metab olic 1999 panel - Serum or Plasm a carbon dioxide, total [moles/volum e] in serum or plasma 24 mmol/ L low: 22mmol /Lhigh : 29mmol /L CO2 24 22 - 29 mmol/ L 11/12 6:32 PM [facility] Not Available Not Available 01/31/2025 11:56:09 11/12/20 24 11/12/2024 Basic metab olic 2000 panel - Serum or Plasm a glucose [mass/volume ] in serum or plasma 126 mg/dL low: 70mg/d Lhigh: 99mg/d L high Gluco se 126 (H) 70 - 99 mg/dL 11/12 6:32 PM [facility] Not Available Not Available 01/31/2025 11:56:09 11/12/20 24 11/12/2024 Basic metab olic 2000 panel - Serum or Plasm a calcium [moles/volum e] in serum or plasma 10.3 mg/dL low: 8.4mg/ dLhigh : 10.2mg /dL high Calci um 10.3 (H) 8.4 - 10.2 mg/dL 11/12 6:32 PM [facility] Not Available Not Available 01/31/2025 11:56:09 11/12/20 24 11/12/2024 Basic metab olic 2000 panel - Serum or Plasm a anion gap 11 low: 6high: 16 Anion Gap 11 6 - 16 11/12 6:32 PM [facility] Not Available Not Available 01/31/2025 11:56:09 11/12/20 24 11/12/2024 Basic metab olic 2000 panel - Serum or Plasm a urea nitrogen/cre atinine [mass ratio] in serum or plasma 16 low: 7high: 23 BUN/C reati nine Ratio 16 7 - 23 11/12 6:32 PM [facility] Not Available Not Available 01/31/2025 11:56:09 11/12/20 24 11/12/2024 Basic metab olic 2000 panel - Serum or Plasm a osmolality calculated 301 text: 275 - 295 mOsm/k g high Osmol ality Calcu lated 301 (H) 275 - 295 mOsm/ kg 11/12 6:32 PM [facility] Not Available Not Available 01/31/2025 11:56:09 11/12/20 24 11/12/2024 Basic metab olic 2000 panel - Serum or Plasm a glomerular filtration rate/1.73 sq M.predicted [volume rate/area] in serum, plasma or blood by creatinine-b ased formula (CKD-epi 2020) 64 text: >=90 mL/min /1.73 m2 low eGFR by CKD-E PI 64 (L) >=90 mL/mi n/1.7 3 m2 11/12 6:32 PM [facility] Not Available Not Available [...] jez Scree n NEG 11/12 6:55 PM [facility] Not Available Not Available 01/31/2025 11:55:52 11/12/20 24 11/12/2024 Blood type and Indir ect antib jez scree n panel - Blood ABO and Rh group [type] in blood O POS ABO Rh O POS 11/12 6:55 PM [facility] Not Available Not Available 01/31/2025 11:55:52 11/12/20 24 11/12/2024 Justina ol [Mass /volu me] in Serum or Plasm a ethanol [mass/volume ] in serum or plasma high: 10mg/d L Justina ol (mg/d L) <10 <10 mg/dL 11/12 6:32 PM [facility] Not Available Not Available 01/31/2025 11:55:52 11/12/20 24 11/12/2024 Justina ol [Mass /volu me] in Serum or Plasm a ethanol [mass/volume ] in blood high: 0.01g/ dL Justina ol Calcu lated (g/dL ) <0.01 0 <=0.0 10 g/dL 11/12 6:32 PM [facility] Not Available Not Available 01/31/2025 11:55:52 11/12/20 24 11/12/2024 Justina ol [Mass /volu me] in Serum or Plasm a Unknown Analyte Ethano l Interp <10: None Detect ed. Depres lynnette of ROOM SERVICE CLERK: >100 mg/dl Potent ially Critic al: >250 [...] <10: None Detec abisai. Depre ssion of ROOM SERVICE CLERK: >100 mg/dl Poten tiall y Criti kim: [...] 70 - 99 mg/dL 11/13 12:16 PM [facility] Not Available Not Available 01/31/2025 11:55:52 11/13/20 24 11/13/2024 Gluco se [Mass /volu me] in Arter ial blood specimen source identified Cap Finger stick Speci men Type Cap Finge rstic k 11/13 12:16 PM [facility] Not Available Not [...] 70 - 99 mg/dL 11/13 10:10 AM [facility] Not Available Not Available 01/31/2025 11:56:09 11/13/20 24 11/13/2024 Gluco se [Mass /volu me] in Arter ial blood specimen source identified Cap Finger stick Speci men Type Cap Finge rstic k 11/13 10:10 AM [facility] Not Available Not Available 01/31/2025 11:56:09 11/13/20 24 11/13/2024 Gluco se [Mass /volu me] in Arter ial blood interpretati on and review of laboratory results Abnorm al Not Available Not Available 11:56:09 11/13/20 24 11/13/2024 ABO and Rh group [Type ] in Blood ABO and Rh group [type] in blood O POS ABO Rh O POS 11/13 4:28 AM [facility] Not Available Not Available 01/31/2025 11:55:52 11/13/20 24 11/13/2024 CBC W Auto Diffe renti al panel - Blood leukocytes [#/volume] in blood by automated count 13.4 text: 4.0 - 10.7 x10e9/ L high WBC 13.4 (H) 4.0 - 10.7 x10E9 /L 11/13 4:39 AM [facility] Not Available Not Available 01/31/2025 11:55:52 11/13/20 24 11/13/2024 CBC W Auto Diffe renti al panel - Blood erythrocytes [#/volume] in blood by automated count 3.08 text: 3.90 - 5.20 x10e12 /L low RBC Count 3.08 (L) 3.90 - 5.20 x10E1 2/L 11/13 4:39 AM [facility] Not Available Not Available 01/31/2025 11:55:52 11/13/20 24 11/13/2024 CBC W Auto Diffe renti al panel - Blood hemoglobin [mass/volume ] in blood 10.7 g/dL low: 11.9g/ dLhigh : 15.8g/ dL low Hemog lobin 10.7 (L) 11.9 - 15.8 g/dL 11/13 4:39 AM [facility] Not Available Not Available 01/31/2025 11:55:52 11/13/20 24 11/13/2024 CBC W Auto Diffe renti al panel - Blood hematocrit [volume fraction] of blood by automated count 31.5 % low: 34.8%h igh: 46.1% low Hemat ocrit 31.5 (L) 34.8 - 46.1 % 11/13 4:39 AM [facility] Not Available Not Available 01/31/2025 11:55:52 11/13/20 24 11/13/2024 CBC W Auto Diffe hoda dickson panel - Blood MCV [entitic volume] by automated count 102.3 fL low: 80fLhi gh: 98fL high MCV 102.3 (H) 80.0 - 98.0 fL 11/13 4:39 AM [facility] Not Available Not Available 01/31/2025 11:55:52 11/13/20 24 11/13/2024 CBC W Auto Diffmarylu dickson panel - Blood MCH [entitic mass] by automated count 34.7 pg low: 26.7pg high: 33.6pg high MCH 34.7 (H) 26.7 - 33.6 pg 11/13 4:39 AM [facility] Not Available Not Available 01/31/2025 11:55:52 11/13/20 24 11/13/2024 CBC W Auto Diffmarylu dickson panel - Blood MCHC [mass/volume ] by automated count 34 g/dL low: 31.7g/ dLhigh : 36.3g/ dL MCHC 34.0 31.7 - 36.3 g/dL 11/13 4:39 AM [facility] Not Available Not Available 01/31/2025 11:55:52 11/13/20 24 11/13/2024 CBC W Auto Diffmarylu dickson panel - Blood erythrocyte distribution width [ratio] by automated count 14.5 % low: 11.3%h igh: 14.8% RDW-C V 14.5 11.3 - 14.8 % 11/13 4:39 AM [facility] Not Available Not Available 01/31/2025 11:55:52 11/13/20 24 11/13/2024 CBC W Auto Diffmarylu dickson panel - Blood platelets [#/volume] in blood by automated count 144 text: 150 - 420 x10e9/ L low Plate let Count 144 (L) 150 - 420 x10E9 /L 11/13 4:39 AM [facility] Not Available Not Available 01/31/2025 11:55:52 11/13/20 24 11/13/2024 CBC W Auto Diffe renti al panel - Blood platelet mean volume [entitic volume] in blood by automated count MPV 11/13 4:39 AM [facility] Not Available Not Available 01/31/2025 11:55:52 11/13/20 24 11/13/2024 CBC W Auto Diffe renti al panel - Blood neutrophils/ 100 leukocytes in blood by automated count 88 % low: 41%hig h: 74% high Neutr ophil % 88.0 (H) 41.0 - 74.0 % 11/13 4:39 AM [facility] Not Available Not Available 01/31/2025 11:55:52 11/13/20 24 11/13/2024 CBC W Auto Diffe renti al panel - Blood lymphocytes/ 100 leukocytes in blood by automated count 6.2 % low: 17%hig h: 47% low Lymph ocyte % 6.2 (L) 17.0 - 47.0 % 11/13 4:39 AM [facility] Not Available Not Available 01/31/2025 11:55:52 11/13/20 24 11/13/2024 CBC W Auto Diffe renti al panel - Blood monocytes/10 0 leukocytes in blood by automated count 4.7 % low: 3%high : 11% Monoc yte % 4.7 3.0 - 11.0 % 11/13 4:39 AM [facility] Not Available Not Available 01/31/2025 11:55:52 11/13/20 24 11/13/2024 CBC W Auto Diffe renti al panel - Blood eosinophils/ 100 leukocytes in blood by automated count 0.1 % low: 0%high : 7% Eosin ophil % 0.1 0.0 - 7.0 % 11/13 4:39 AM [facility] Not Available Not Available 01/31/2025 11:55:52 11/13/20 24 11/13/2024 CBC W Auto Diffe renti al panel - Blood basophils/10 0 leukocytes in blood by automated count 0.2 % low: 0%high : 1.6% Basop hil % 0.2 0.0 - 1.6 % 11/13 4:39 AM [facility] Not Available Not Available 01/31/2025 11:55:52 11/13/20 24 11/13/2024 CBC W Auto Diffe renti al panel - Blood immature granulocytes /100 leukocytes in blood by automated count 0.8 % low: 0%high : 1% Immat ure Granu locyt es % 0.8 0.0 - 1.0 % 11/13 4:39 AM [facility] Not Available Not Available 01/31/2025 11:55:52 11/13/20 24 11/13/2024 CBC W Auto Diffe renti al panel - Blood neutrophils [#/volume] in blood by automated count 11.77 text: 1.60 - 7.50 x10e9/ L high Neutr ophil Absol morongo 11.77 (H) 1.60 - 7.50 x10E9 /L 11/13 4:39 AM [facility] Not Available Not Available 01/31/2025 11:55:52 11/13/20 24 11/13/2024 CBC W Auto Diffe renti al panel - Blood lymphocytes [#/volume] in blood by automated count 0.83 text: 1.00 - 4.40 x10e9/ L low Lymph ocyte Absol morongo 0.83 (L) 1.00 - 4.40 x10E9 /L 11/13 4:39 AM [facility] Not Available Not Available 01/31/2025 11:55:52 11/13/20 24 11/13/2024 CBC W Auto Diffe renti al panel - Blood monocytes [#/volume] in blood by automated count 0.63 text: 0.15 - 1.00 x10e9/ L Monoc yte Absol morongo 0.63 0.15 - 1.00 x10E9 /L 11/13 4:39 AM [facility]ON Not Available Not Available 01/31/2025 11:55:52 11/13/20 24 11/13/2024 CBC W Auto Diffe renti al panel - Blood eosinophils [#/volume] in blood 0.01 text: 0.00 - 0.60 x10e9/ L Eosin ophil Absol morongo 0.01 0.00 - 0.60 x10E9 /L 11/13 4:39 AM [facility]ON Not Available Not Available 01/31/2025 11:55:52 11/13/20 24 11/13/2024 CBC W Auto Diffe renti al panel - Blood basophils [#/volume] in blood by automated count 0.03 text: 0.00 - 0.13 x10e9/ L Basop hil Absol morongo 0.03 0.00 - 0.13 x10E9 /L 11/13 4:39 AM [facility]ON Not Available Not [...] 7 - 26 mg/dL 11/13 4:08 AM [facility] Not Available Not Available 01/31/2025 11:55:52 11/13/20 24 11/13/2024 Basic metab olic 2000 panel - Serum or Plasm a creatinine [mass/volume ] in serum or plasma 1.06 mg/dL low: 0.56mg /dLhig h: 0.96mg /dL high Creat inine 1.06 (H) 0.56 - 0.96 mg/dL 11/13 4:08 AM [facility] Not Available Not Available 01/31/2025 11:55:52 11/13/20 24 11/13/2024 Basic metab olic 1999 panel - Serum or Plasm a sodium [moles/volum e] in serum or plasma 143 mmol/ L low: 136mmo l/Lhig h: 145mmo l/L Sodiu m 143 136 - 145 mmol/ L 11/13 4:08 AM [facility] [facility] J[facility]ON Not Available Not Available 01/31/2025 11:55:52 11/13/20 24 11/13/2024 Basic metab olic 2000 panel - Serum or Plasm a potassium [moles/volum e] in serum or plasma 3.8 mmol/ L low: 3.5mmo l/Lhig h: 4.5mmo l/L Potas sium 3.8 3.5 - 4.5 mmol/ L 11/13 4:08 AM [employer] [facility] JAVON Not Available Not Available 01/31/2025 11:55:52 11/13/20 24 11/13/2024 Basic metab olic 2000 panel - Serum or Plasm a chloride [moles/volum e] in serum or plasma 112 mmol/ L low: 98mmol /Lhigh : 107mmo l/L high Chlor christopher 112 (H) 98 - 107 mmol/ L 11/13 4:08 AM [employer] [facility] JAVON Not Available Not Available 01/31/2025 11:55:52 11/13/20 24 11/13/2024 Basic metab olic 2000 panel - Serum or Plasm a carbon dioxide, total [moles/volum e] in serum or plasma 19 mmol/ L low: 22mmol /Lhigh : 29mmol /L low CO2 19 (L) 22 - 29 mmol/ L 11/13 4:08 AM [employer] [facility] JAVON Not Available Not Available 01/31/2025 11:55:52 11/13/20 24 11/13/2024 Basic metab olic 2000 panel - Serum or Plasm a glucose [mass/volume ] in serum or plasma 136 mg/dL low: 70mg/d Lhigh: 99mg/d L high Gluco se 136 (H) 70 - 99 mg/dL 11/13 4:08 AM [employer] JAVON Not Available Not Available 01/31/2025 11:55:52 11/13/20 24 11/13/2024 Basic metab olic 2000 panel - Serum or Plasm a calcium [moles/volum e] in serum or plasma 9.2 mg/dL low: 8.4mg/ dLhigh : 10.2mg /dL Calci um 9.2 8.4 - 10.2 mg/dL 11/13 4:08 AM [employer] JAVON Not Available Not Available 01/31/2025 11:55:52 11/13/20 24 11/13/2024 Basic metab olic 2000 panel - Serum or Plasm a anion gap 12 low: 6high: 16 Anion Gap 12 6 - 16 11/13 4:08 AM [employer] JAVON Not Available Not Available 01/31/2025 11:55:52 11/13/20 24 11/13/2024 Basic metab olic 2000 panel - Serum or Plasm a urea nitrogen/cre atinine [mass ratio] in serum or plasma 13 low: 7high: 23 BUN/C reati nine Ratio 13 7 - 23 11/13 4:08 AM [employer] J[facility]ON Not Available Not Available 01/31/2025 11:55:52 11/13/20 24 11/13/2024 Basic metab olic 2000 panel - Serum or Plasm a osmolality calculated 299 text: 275 - 295 mOsm/k g high Osmol ality Calcu lated 299 (H) 275 - 295 mOsm/ kg 11/13 4:08 AM [employer] JAVON Not Available Not Available 01/31/2025 11:55:52 11/13/20 24 11/13/2024 Basic metab olic 2000 panel - Serum or Plasm a glomerular filtration rate/1.73 sq M.predicted [volume rate/area] in serum, plasma or blood by creatinine-b ased formula (CKD-epi 2020) 59 text: >=90 mL/min /1.73 m2 low eGFR by CKD-E PI 59 (L) >=90 mL/mi n/1.7 3 m2 11/13 4:08 AM [facility] [facility] J[facility]ON Not Available [...] 2.9 - 5.1 mg/dL 11/13 4:08 AM [facility] [facility] JAVON Not Available Not Available 01/31/2025 [...] 1.6 - 2.6 mg/dL 11/13 4:08 AM [employer] JAVON Not Available Not Available 01/31/2025 11:55:52 11/13/20 24 11/13/2024 Magne sium [Mass /volu me] in Serum or Plasm a interpretati on and review of laboratory results Normal Not Available Not Available 01/22 11:55:52 04/06/20 25 04/07/2025 ALBUM IN/CR EATIN INE RATIO ,URIN E creatinine, urine 67.2 mg/dL notest ab. Not Available [facility] ([facility]) [address] [facility], [place], [address], 04/07/2025 11:35:00 04/06/20 25 04/07/2025 ALBUM IN/CR EATIN INE RATIO ,URIN E albumin, urine 49.0 ug/mL notest ab. Not Available [facility] ([facility]) [address] [place], [address], 04/07/2025 11:35:00 04/06/20 25 04/07/2025 ALBUM IN/CR EATIN INE RATIO ,URIN E alb/creat ratio 73 mg/g_ creat 0-29 above high normal Montse l: 0 - 29 Moder ately incre ased: 30 - 300 Sever sarah incre ased: >300 Not Available [facility] ([facility]) [address] [place], [address], 04/07/2025 11:35:00 04/06/20 25 04/07/2025 LIPID PANEL cholesterol, total 138 mg/dL 100-19 9 Not Available [facility] ([facility]) [address] [place], [address], 04/07/2025 11:35:01 04/06/20 25 04/07/2025 LIPID PANEL triglyceride s 112 mg/dL 0-149 Not Available [facility] ([facility]) [address] [place], [address], 04/07/2025 11:35:01 04/06/20 25 04/07/2025 LIPID PANEL HDL cholesterol 54 mg/dL >39 Not Available [facility] ([facility]) [address] [place], [address], 04/07/2025 11:35:01 04/06/20 25 04/07/2025 LIPID PANEL VLDL cholesterol kim 20 mg/dL 5-40 Not Available [facility] ([facility]) [address] [place], [address], 04/07/2025 11:35:01 04/06/20 25 04/07/2025 LIPID PANEL LDL chol calc ([facility]) 64 mg/dL 0-99 Not Available [facility] ([facility]) [address] [facility] [place], [address], 04/07/2025 11:35:01 04/06/20 25 04/07/2025 COMP. METAB OLIC PANEL (14) glucose 106 mg/dL 70-99 above high normal Not Available [facility] ([facility]) [address] [facility] [place], [address], 04/07/2025 11:35:03 04/06/20 25 04/07/2025 COMP. METAB OLIC PANEL (14) BUN 21 mg/dL 8-27 Not Available [facility] ([facility]) [address] [place] [place], [address], 04/07/2025 11:35:03 04/06/20 25 04/07/2025 COMP. METAB OLIC PANEL (14) creatinine 1.24 mg/dL 0.57-1 .00 above high normal Not Available [facility] ([facility]) [address] [place] [place], [address], 04/07/2025 11:35:03 04/06/20 25 04/07/2025 COMP. METAB OLIC PANEL (14) eGFR 49 mL/mi n/1.7 3 >59 below low normal Not Available [facility] ([facility]) [address] [place] [place], [address], 04/07/2025 11:35:03 04/06/20 25 04/07/2025 COMP. METAB OLIC PANEL (14) BUN/creatini ne ratio 17 12-28 Not Available [facility] ([facility]) [address] [place] [place], [address], 04/07/2025 11:35:03 04/06/20 25 04/07/2025 COMP. METAB OLIC PANEL (14) sodium 144 mmol/ L 134-14 4 Not Available [facility] ([facility]) [address] [place] [place], [address], 04/07/2025 11:35:03 04/06/20 25 04/07/2025 COMP. METAB OLIC PANEL (14) potassium 4.9 mmol/ L 3.5-5. 2 Not Available [facility] ([facility]) [address] [facility], [place], [address], 04/07/2025 11:35:03 04/06/20 25 04/07/2025 COMP. METAB OLIC PANEL (14) chloride 106 mmol/ L 96-106 Not Available [facility] ([facility]) [address] [facility], [place], [address], 04/07/2025 11:35:03 04/06/20 25 04/07/2025 COMP. METAB OLIC PANEL (14) carbon dioxide, total 24 mmol/ L 20-29 Not Available [facility] ([facility]) [address] [facility], [place], [address], 04/07/2025 11:35:03 04/06/20 25 04/07/2025 COMP. METAB OLIC PANEL (14) calcium 11.5 mg/dL 8.7-10 .3 above high normal Not Available [facility] ([facility]) [address] [place], [address], 04/07/2025 11:35:03 04/06/20 25 04/07/2025 COMP. METAB OLIC PANEL (14) protein, total 6.3 g/dL 6.0-8. 5 Not Available [facility] ([facility]) [address] [place], [address], 04/07/2025 11:35:03 04/06/20 25 04/07/2025 COMP. METAB OLIC PANEL (14) albumin 4.2 g/dL 3.9-4. 9 Not Available [facility] ([facility]) [address] [facility], [place], [address], 04/07/2025 11:35:03 04/06/20 25 04/07/2025 COMP. METAB OLIC PANEL (14) globulin, total 2.1 g/dL 1.5-4. 5 Not Available [facility] ([facility]) [address] [place] [place], [address], 04/07/2025 11:35:03 04/06/20 25 04/07/2025 COMP. METAB OLIC PANEL (14) bilirubin, total 0.3 mg/dL 0.0-1. 2 Not Available [facility] ([facility]) [address] [place], [address], 04/07/2025 11:35:03 04/06/20 25 04/07/2025 COMP. METAB OLIC PANEL (14) alkaline phosphatase 64 IU/L 44-121 Not Available [facility] ([facility]) [address] [facility], [place], [address], 04/07/2025 11:35:03 04/06/20 25 04/07/2025 COMP. METAB OLIC PANEL (14) AST (SGOT) 16 IU/L 0-40 Not Available [facility] ([facility]) [address] [place], [address], 04/07/2025 11:35:03 04/06/20 25 04/07/2025 COMP. METAB OLIC PANEL (14) ALT (SGPT) 15 IU/L 0-32 Not Available [facility] ([facility]) [address] [place], [address], 04/07/2025 11:35:03 04/06/20 25 04/07/2025 HEMOG LOBIN A1C hemoglobin A1C 5.3 % 4.8-5. 6 Predi abete s: 5.7 - 6.4 Diabe cathi: >6.4 Glyce luna contr ol for adult s with diabe cathi: <7.0 Not Available [facility] ([facility]) [address] [place], [address], 04/07/2025 11:35:04 04/06/20 25 04/06/2025 CBC WITH DIFFE RENTI AL/PL ATELE T WBC 8.6 x10e3 /uL 3.4-10 .8 Not Available [facility] ([facility]) [address] [place], [address], 04/07/2025 11:35:05 04/06/20 25 04/06/2025 CBC WITH DIFFE RENTI AL/PL ATELE T RBC 3.20 x10e6 /uL 3.77-5 .28 below low normal Not Available [facility] ([facility]) [address] [place], [address], 04/07/2025 11:35:05 04/06/20 25 04/06/2025 CBC WITH DIFFE RENTI AL/PL ATELE T hemoglobin 10.9 g/dL 11.1-1 5.9 below low normal Not Available [facility] ([facility]) [address] [place], [address], 04/07/2025 11:35:05 04/06/20 25 04/06/2025 CBC WITH DIFFE RENTI AL/PL ATELE T hematocrit 34.3 % 34.0-4 6.6 Not Available [facility] ([facility]) [address] [place], [address], 04/07/2025 11:35:05 04/06/20 25 04/06/2025 CBC WITH DIFFE RENTI AL/PL ATELE T MCV 107 fL 79-97 above high normal Not Available [facility] ([facility]) [address] [place], [address], 04/07/2025 11:35:05 04/06/20 25 04/06/2025 CBC WITH DIFFE RENTI AL/PL ATELE T MCH 34.1 pg 26.6-3 3.0 above high normal Not Available [facility] ([facility]) [address] [place], [address], 04/07/2025 11:35:05 04/06/20 25 04/06/2025 CBC WITH DIFFE RENTI AL/PL ATELE T MCHC 31.8 g/dL 31.5-3 5.7 Not Available [facility] ([facility]) [address] [facility], [place], [address], 04/07/2025 11:35:05 04/06/20 25 04/06/2025 CBC WITH DIFFE RENTI AL/PL ATELE T RDW 14.0 % 11.7-1 5.4 Not Available [facility] ([facility]) [address] [facility], [place], [address], 04/07/2025 11:35:05 04/06/20 25 04/06/2025 CBC WITH DIFFE RENTI AL/PL ATELE T platelets 359 x10e3 /uL 150-45 0 Not Available [facility] ([facility]) [address] [facility], [place], [address], 04/07/2025 11:35:05 04/06/20 25 04/06/2025 CBC WITH DIFFE RENTI AL/PL ATELE T neutrophils 66 % notest ab. Not Available [facility] ([facility]) [address] [facility], [place], [address], 04/07/2025 11:35:05 04/06/20 25 04/06/2025 CBC WITH DIFFE RENTI AL/PL ATELE T lymphs 27 % notest ab. Not Available [facility] ([facility]) [address] [facility], [place], [address], 04/07/2025 11:35:05 04/06/20 25 04/06/2025 CBC WITH DIFFE RENTI AL/PL ATELE T monocytes 3 % notest ab. Not Available [facility] ([facility]) [address] [facility], [place], [address], 04/07/2025 11:35:05 04/06/20 25 04/06/2025 CBC WITH DIFFE RENTI AL/PL ATELE T eos 3 % notest ab. Not Available [facility] ([facility]) [address] [place], [address], 04/07/2025 11:35:05 04/06/20 25 04/06/2025 CBC WITH DIFFE RENTI AL/PL ATELE T basos 1 % notest ab. Not Available [facility] ([facility]) [address] [place], [address], 04/07/2025 11:35:05 04/06/20 25 04/06/2025 CBC WITH DIFFE RENTI AL/PL ATELE T neutrophils (absolute) 5.8 x10e3 /uL 1.4-7. 0 Not Available [facility] ([facility]) [address] [place], [address], 04/07/2025 11:35:05 04/06/20 25 04/06/2025 CBC WITH DIFFE RENTI AL/PL ATELE T lymphs (absolute) 2.3 x10e3 /uL 0.7-3. 1 Not Available [facility] ([facility]) [address] [facility], [place], [address], 04/07/2025 11:35:05 04/06/20 25 04/06/2025 CBC WITH DIFFE RENTI AL/PL ATELE T monocytes(ab solute) 0.2 x10e3 /uL 0.1-0. 9 Not Available [facility] ([facility]) [address] [place], [address], 04/07/2025 11:35:05 04/06/20 25 04/06/2025 CBC WITH DIFFE RENTI AL/PL ATELE T eos (absolute) 0.2 x10e3 /uL 0.0-0. 4 Not Available [facility] ([facility]) [address] [place], [address], 04/07/2025 11:35:05 04/06/20 25 04/06/2025 CBC WITH DIFFE RENTI AL/PL ATELE T baso (absolute) 0.0 x10e3 /uL 0.0-0. 2 Not Available [facility] ([facility]) [address] [facility], [place], [address], 04/07/2025 11:35:05 04/06/20 25 04/06/2025 CBC WITH DIFFE RENTI AL/PL ATELE T immature granulocytes 0 % notest ab. Not Available [facility] ([facility]) [address] [place], [address], 04/07/2025 11:35:05 04/06/20 25 04/06/2025 CBC WITH DIFFE RENTI AL/PL ATELE T immature grans (abs) 0.0 x10e3 /uL 0.0-0. 1 Not Available [facility] ([facility]) [address] [facility], [place], [address], 04/07/2025 11:35:05 04/25/20 25 04/26/2025 ERYTH ROPOI ETIN (EPO) , SERUM erythropoiet in 16.7 mIU/m L 2.6-18 .5 Beckm an Coult er UniCe l DxI 800 Immun oassa y Syste m Value s obtai serjio with diffe rent assay metho ds or kits canno t be used inter [facility] . Resul ts canno t be inter prete d as absol morongo evide nce of the prese nce or absen ce of [facility]. Not Available [facility] ([facility]) [address] [facility], [place], [address], 04/26/2025 17:07:47 04/25/20 25 04/25/2025 FE+TI BC+FE R+B12 +FOLI C+RET IC reticulocyte count 1.6 % 0.6-2. 6 Not Available [facility] ([facility]) [address] [facility], [place], [address], 04/26/2025 17:07:48 04/25/20 25 04/26/2025 FE+TI BC+FE R+B12 +FOLI C+RET IC vitamin B12 748 pg/mL 232-12 45 Not Available [facility] ([facility]) [address] [facility], [place], [address], 04/26/2025 17:07:48 04/25/20 25 04/26/2025 FE+TI BC+FE R+B12 +FOLI C+RET IC folate (folic acid), serum >20.0 NG/mL >3.0 A serum folat e chata ntrat ion of less than 3.1 ng/mL is consi dered to repre sent clini kim defic iency . Not Available [facility] ([facility]) [address] [place], [address], 04/26/2025 17:07:48 04/25/20 25 04/26/2025 FE+TI BC+FE R+B12 +FOLI C+RET IC ferritin 126 NG/mL 15-150 Not Available [facility] ([facility]) [address] [facility], [place], [address], 04/26/2025 17:07:48 04/25/20 25 04/26/2025 FE+TI BC+FE R+B12 +FOLI C+RET IC iron bind.cap.(TI BC) 245 ug/dL 250-45 0 below low normal Not Available [facility] ([facility]) [address] [facility], [place], [address], 04/26/2025 17:07:48 04/25/20 25 04/26/2025 FE+TI BC+FE R+B12 +FOLI C+RET IC UIBC 176 ug/dL 118-36 9 Not Available [facility] ([facility]) [address] [place], [address], 04/26/2025 17:07:48 04/25/20 25 04/26/2025 FE+TI BC+FE R+B12 +FOLI C+RET IC iron 69 ug/dL 27-139 Not Available [facility] ([facility]) [address] [place], [address], 04/26/2025 17:07:48 04/25/20 25 04/26/2025 FE+TI BC+FE R+B12 +FOLI C+RET IC iron saturation 28 % 15-55 Not Available [facility] ([facility]) [address] [place], [address], 04/26/2025 17:07:48 04/25/20 25 04/26/2025 PTH INTAC T+KIM CIUM, IONIZ ED calcium, ionized, serum 5.4 mg/dL 4.5-5. 6 Not Available [facility] ([facility]) [address] [place], [address], 04/26/2025 17:07:50 04/25/20 25 04/26/2025 PTH INTAC T+KIM CIUM, IONIZ ED PTH, intact 21 pg/mL 15-65 Not Available [facility] ([facility]) [address] [place], [address], 04/26/2025 17:07:50 05/16/20 25 05/17/2025 TSH TSH 1.380 uIU/m L 0.450- 4.500 Not Available [facility] ([facility]) [address] [place], [address], 05/17/2025 06:15:27 05/16/20 25 05/17/2025 TRIIO DOTHY MEGHNA E (T3), FREE triiodothyro nine (T3), free 2.5 pg/mL 2.0-4. 4 Not Available [facility] ([facility]) [address] [place], [address], 05/17/2025 06:15:28 06/23/05/17/2025 T4,FR EE(DI RECT) T4,free(dire ct) 1.34 NG/dL 0.82-1 .77 Not Available [facility] ([facility]) [address] [facility], [place], [address], 05/17/2025 06:15:29 08/23/20 24 12/11/2015 colon oscop y scree renetta (PROC ) No observ ation record ed. hannah Smith MD [address], [place], [address], 08/23/2024 12:24:39 08/27/2008/27/2024 CT, abdom en + pelvi s, w/o contr ast No observ ation record ed. [address], [place], [address], 09/01/2024 23:04:12 11/12/20 24 11/12/2024 CT, brain , w/o contr ast No observ ation record ed. [address], [place], [address], 11/22/2024 14:42:59 11/12/2011/12/2024 CT, cervi kim spine , w/o contr ast No observ ation record ed. [address], [place], [address], 11/22/2024 14:43:12 05/04/20 elect rocar diogr am No observ ation record ed. BRANDI In-Office Order Internal Use Only DO Not Attach Compendium DO Not Attach Compendium, Do Not Delete/merge, [id number] 05/04/2025 17:45:54 05/04/2005/04/2025 elect rocjustyn diogr am No observ ation record ed. BARCODE In-Office Order Internal Use Only DO Not Attach Compendium DO Not Attach Compendium, Do Not Delete/merge, [id number] 05/04/2025 17:54:17 06/05/20 25 06/05/2025 CT, abdom en + pelvi s, w/o contr ast No observ ation record ed. [email or web address] [facility] [address], [place], [address], 06/19/2025 13:08:30 Result Notes None recorded. Problems Name Problem SNOMED Code Status Onset Date Resolution Date Notes Provider Name and Address Organization Details Recorded Time Essential hypertensio n 08129081 Active 2023 Rachael Paniagua MA null, [place] - [facility] 5 17:51:18 Hyperlipide jerrod 39596048 Active 2023 Rachael Paniagua [place], [place] [facility] 4 16:17:53 Anxiety 56332498 Active 2023 Rachael Paniagua [place], [place] [facility] 4 16:17:54 Type 2 diabetes mellitus 73685579 Active 2023 Rachael Paniagua [place], [place] - [facility] 4 16:17:54 Psoriatic arthritis 566201690 Active 2023 Rachael Paniagua [place] null, [place] - [facility] 4 16:17:55 HIV screening declined 9316763355098 00 Active 2023 Gabriel Smith MD Attn: Pal johnson,[address] [place], [address] [place] - [facility] 4 22:39:59 Notes:Some problems listed i n Document: #[id number] could not be added to this patient's chart. Please review this document and add these problems to the patient's chart manually as needed. Problem Notes None recorded. Procedures Surgical History Date Name Laterality Status Provider Name and Address Organization Details Recorded Time ligation of bilateral fallopian tubes completed Iqra Pierre [place] - [facility] 03/02/2024 14:58:16 Breast Surgery completed Iqra Pierre [place] - [facility] 03/02/2024 14:58:21 section completed ERNST Jean Baptiste - [facility] 03/02/2024 14:58:26 Tonsillectomy completed ERNST Jean Baptiste - [facility] 03/02/2024 14:58:31 Imaging Results None recorded. Procedure Notes None recorded. Medical Equipment None Reported. Allergies Allergen ID Allergen Name Allergen Category Reaction Reaction Severity Criticality Documentation Date Start Date Code Code System Note Provider Name and Address Organization Details Recorded Time mold extract environme nt headache Not available Not available 08/17/2024 41384 8 RxNorm ERNST [place] - [facility] 4 15:47:31 108447 ragweed pollen environme nt dizziness Not available Not available 08/17/2024 26059 UNK ERNST [place], [place] - [facility] 4 15:47:41 Medications Name Sig Start Date [...] hours by oral route for 5 days. 06/15 completed Not Available Not Available Not Available [...] Not Available Not Available No t Available cephalexin 500 mg capsule TAKE 1 CAPSULE BY MOUTH EVERY 12 HOURS active Not Available Not Available No [...] BY MOUTH ONCE DAILY IN THE MORNING 2024 active Not Available Not Available Not Avai lable fesoterodin e ER 4 mg tablet,exte nded [...] Updated DateTime 5 147.32 cm 30.4 kg/m2 19780.9 7 g 104 /min 96 % 96 % 114/64 mm[Hg] Luna Mars MA [facility] 5 16:49:01 Date Recorded Body height Body mass index (BMI) Body weight Heart rate Oxygen saturation Oxygen saturation in Arterial blood by Pulse oximetry Systolic And Diastolic Provider Name and Address Organization Details Last Updated DateTime 5 147.32 cm 33.3 kg/m2 60945.9 8 g 123 /min 98 % 98 % 112/68 mm[Hg] Luna Mars MA [facility] 5 16:51:51 Date Recorded Body height Body mass index (BMI) Body weight Oxygen saturation Oxygen saturation in Arterial blood by Pulse oximetry Heart rate Systolic And Diastolic Provider Name and Address Organization Details Last Updated DateTime 5 147.32 cm 33 kg/m2 50799.5 9 g 96 % 96 % 107 /min 104/72 mm[Hg] Luna Mars MA [facility] 5 13:53:01 Date Recorded Body height Body mass index (BMI) Body weight Oxygen saturation Oxygen saturation in Arterial blood by Pulse oximetry Heart rate Systolic And Diastolic Provider Name and Address Organization Details Last Updated DateTime 4 147.32 cm 32 kg/m2 20554.3 5 g 97 % 97 % 100 /min 118/68 mm[Hg] Smitha Lockhart MA [place] - [facility] 4 14:03:03 Date Recorded Body height Body mass index (BMI) Body weight Heart rate Oxygen saturation Oxygen saturation in Arterial blood by Pulse oximetry Systolic And Diastolic Provider Name and Address Organization Details Last Updated DateTime 4 147.32 cm 32 kg/m2 63644.3 5 g 94 /min 98 % 98 % 110/68 mm[Hg] Vicki Pires MA [place] - [facility] 4 15:51:19 Social History Question Answer Notes LastModified by Organizat ion Details LastModified Time Tobacco Smoking Status Never Smoker Iqra Pierre MA [facility], [place] - [facility] 03/02/2024 14:57:40 Do You Have An Advance Directive? No Information not available 11/02/2024 Are You Blind Or Do You Have Difficulty Seeing? Yes Information not available 03/02/2024 What Is Your Level Of Caffeine Consumption? Moderate Information not available 11/02/2024 In The 14 Days Before Symptom Onset, Have You Had Close Contact With A Laboratory-confir med COVID-19 While That Case Was Ill? No [...] 03/02/2024 Are you able to care for yourself independently? Yes Information not available 11/02/2024 Mental Status None recorded. Family [...] available 2023 14:59:42 Medical History Condition Response High Blood Pressure Y Kidney or Bladder Problems Y Diabetes Y Muscle, Joint, or Bone Problems Y Allergies Y High Cholesterol Y Gynecological History Statement/Question Response If Post Menopausal, Age at Menopause 48 Obstetrics History GPAL:G 2 P 2 0 0 2 Type Value Full Term 2 Living 2 Total 2 Immunizations Vaccine Type Date Status Note Provider Nam e and Address Organization Details Recorded Time Influenza, split virus, trivalent, PF 4 completed Not Available [facility] 06/01/2025 13:40:46 Influenza, split virus, quadrivalent, PF 5 completed Not Available [facility] 06/01/2025 13:40:46 Influenza, split virus, quadrivalent, PF 7 completed Not Available [facility] 06/01/2025 13:40:46 Influenza, split virus, quadrivalent, PF 8 completed Not Available [facility] 06/01/2025 13:40:46 Influenza, split virus, quadrivalent, PF 9 completed Not Available [facility] 06/01/2025 13:40:46 Influenza, split virus, quadrivalent, PF 0 completed Not Available [facility] 06/01/2025 13:40:46 COVID-19, mRNA, LNP-S, PF, 30 mcg/0.3 mL dose 1 completed Not Available [facility] 06/01/2025 13:40:46 COVID-19, mRNA, LNP-S, PF, 30 mcg/0.3 mL dose 1 completed Not Available [facility] 06/01/2025 13:40:46 Influenza, split virus, quadrivalent, PF 1 completed Not Available [facility] 06/01/2025 13:40:46 COVID-19, mRNA, LNP-S, PF, 30 mcg/0.3 mL dose 1 completed Not Available [facility] 06/01/2025 13:40:46 COVID-19, mRNA, LNP-S, PF, 30 mcg/0.3 mL dose 1 completed Not Available [facility] 06/01/2025 13:40:46 Influenza, split virus, quadrivalent, PF 2 completed Not Available [facility] 06/01/2025 13:40:46 COVID-19, mRNA, LNP-S, bivalent, PF, 30 mcg/0.3 mL dose 2 completed Not Available [facility] 06/01/2025 13:40:46 Influenza, split virus, quadrivalent, PF 3 completed Not Available [facility] 06/01/2025 13:40:46 Influenza, split virus, trivalent, preservative 4 completed Gabriel Smith MD Attn: Accounting,[address] [facility], [place], [address], [facility] - SI 08/22/2024 21:49:24 Pneumococcal conjugate PCV20, polysaccharide WFA199 conjugate, adjuvant, PF 5 completed Vicki Pires MA null, [place] - [facility] 05/04/2025 17:09:41 Past Encounters Encounter ID Performer Location Encounter Start Date Encounter Closed Date Diagnosis/Indication Diagnosis SNOMED-CT Code Diagnosis ICD10 Code Diagnosis Note [id number] Gabriel Smith MD [facility] (Adult Med) [address] [place] [address] [id number] 03/02/2024 14:39:04 03/02/2024 16:26:36 Essential hypertension 37056381 I10 Hyperlipidemia 61581181 E78.5 Anxiety 77853144 F41.9 Type 2 johine betes mellitus 29308697 E11.9 Psoriatic arthritis 1563 25583 L40.50 Screening mammography 24 701009 Z12.31 [id number] Gabriel Smith MD [facility] (Adult Med) [address] [place] [address] [phone] 08/17/2024 15:25:10 08/17/2024 16:35:04 Obesity 312261342 E66.8 Administra tion of influenza vaccine 16730761 Z23 Essential hypertension 78236808 I10 Hyperlipidemia 65883503 E78.5 Psoriatic arthritis 1563 64204 L40.50 Type 2 johnie betes mellitus 79813539 E11.9 Anxiety 58178913 F41.9 [id number] MD Flo Boles (Adult Med) [address] [place] [address] [id number] 09/07/2024 13:44:18 09/07/2024 15:36:22 Urinary tract infectious disease 12159173 N39.0 [id number] MD Flo Boles (Adult Med) [address] [place] [address] [id number] 11/02/2024 15:37:50 11/02/2024 16:44:15 Body mass index 30+ - obesity 139721432 Z68.32 Obesity 049351731 E66.9 Essential hypertension 97313075 I10 Hyperlipidemia 49551446 E78.5 Type 2 johnie betes mellitus 14144071 E11.9 Anxiety 86240545 F41.9 Psoriatic arthritis 1563 84672 L40.50 HIV screen ing declined 1059971312 16815 Z53.20 [id number] MD Flo Boles (Adult Med) [address] [place] [address] [id number] 0 12/07/2024 16:05:24 12/07/2024 17:36:53 Body mass index 30+ - obesity 169121190 Z68.30 Obesity 641876728 E66.9 Traumatic subdural hematoma 151711465 S06.5X0D 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 0 Essential hypertension 80789372 I10 Hyperlipidemia 39752394 E78.5 Type 2 johnie betes mellitus 52132612 E11.9 Anxiety 80695263 F41.9 [id number] MD Flo Boles (Adult Med) [address] [place] [address] [id number] 0 06/01/2025 13:39:02 06/01/2025 14:40:41 Obese class I 1811161736 33097 E66.811 BMI 33 Pain of ri ght knee joint 9138627084 51075 M25.561 Health Concerns Section Related Observation LastModified by Organization Detai ls LastModified Time None Recorded Concern Status LastModified by Organization Details LastModified Time None Recorded Advance Directives Directive N: Payers Insurance Date Sequence Insurance Name Policy Number Policy Munoz Covered Member ID Munoz Member ID Guarantor Name 05/29/2025 1 [facility] [id number] Joan A Balsai [id number] Joan Balsai OBGyn Episode No OBEpisode recorded.
--- OUTSIDE RECORDS SUMMARY | 2025-06-21 14:12 | XMS_ITS | Data Portability ---
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 Clinic Lpn variances may occur. Despite proofreading, typographical errors may occur. Occasional wrong-word or 'kcuqd-w-mtvo' substitutions may have occurred due to the inherent limitations of voice recording. Read the chart carefully and recognize, using context, where substitutions have occurred. Not available 04/07/2024 09:41:07 07/27/2024 07/27/2024 This note is dictated and transcribed by Josey Ellis [employer]. Clinic Lpn variances may occur. Despite proofreading, typographical errors may occur. Occasional wrong-word or 'hpcyw-v-gqbo' substitutions may have occurred due to the inherent limitations of voice recording. Read the chart carefully and recognize, using context, where substitutions have occurred. Not available 08/09/2024 10:05:11 12/21/2024 12/21/2024 This note is dictated and transcribed by Josey Ellis [employer]. Clinic Lpn variances may occur. Despite proofreading, typographical errors may occur. Occasional wrong-word or 'gatxx-d-aapm' substitutions may have occurred due to the inherent limitations of voice recording. Read the chart carefully and recognize, using context, where substitutions have occurred. Not available 12/21/2024 16:46:24 03/29/2025 03/29/2025 This note is dictated and transcribed by [employer]. Clinic Lpn variances may occur. Despite proofreading, typographical errors may occur. Occasional wrong-word or 'ikxfj-a-jaoj' substitutions may have occurred due to the [...] ole 2 % topical cream 2023 024 [facility], [address] [place] [address], [facility], 01/06/2024 17:16:17 Patient TargetsNo targets recorded. Patient InstructionsNo instructions recorded. Reason for Referral None Reported. Results Created Date Observation Date Name Description Value Unit Range Abnormal Flag Note LastModifiedBy Organization Detail LastModifiedTime 03/15/20 24 03/15/2024 scree renetta breas t hayley, bilat [facility] [address] [place] [address] [phone] Patien t Name: JOAN WARREN [facility] ion #: [id number] Sex: F : 1959 8 Dictat [...] 2023 14:44: 22 PM Page 1 [email or web address] [facility] (Imaging) [address] [place] [address], [address], 06/08/2024 10:07:33 Result Notes None recorded. Problems Name Problem SNOMED Code Status Onset Date Resolution Date Notes Provider Name and Address Organization Details Recorded Time Stenosis of urinary meatus 554793057 Active Not Available [facility] 4 21:23:09 Abdominal pain 55629708 Active Not Available [facility] 4 21:23:09 Gallstone 692005895 Completed Not Available [facility] 3 01:04:12 Transient cerebral ischemia 650955611 Active Not Available [facility] 4 21:23:09 Low back pain 843310597 Completed Not Available [facility] 3 01:04:12 Calculus of bile duct with cholecyst itis 11257001 Completed Not Available [facility] 3 01:04:12 Dyslipide jerrod 513037954 Active Not Available [facility] 4 21:23:09 Hypertens ozzie disorder 15386897 Active Not Available [facility] 4 21:23:09 Abrasion 605470881 Completed Not Available [facility] 3 01:04:12 Obese 590851136 Active Not Available [facility] 4 21:23:09 Pilonidal disease 069286771 Active Not Available [facility] 4 21:23:09 Anxiety 99696862 Active Not Available [facility] 4 21:23:09 Dysuria 24542719 Completed Ashlyn Gomez RN null, [place] [facility] 3 14:13:33 Lower abdominal pain 80565170 Completed Not Available [facility] 3 01:04:13 Essential hypertens ion 53908033 Active Not Available [facility] 4 21:23:09 Urgent desire to urinate 32739807 Active Not Available [facility] 4 21:23:09 Upper abdominal pain 47104496 Completed Not Available [facility] 3 01:04:14 Urolithia sis 15475612 Active Not Available [facility] 4 21:23:09 Ingrowing toenail 615779881 Active 2020 Not Available [facility] 4 21:23:09 Type 2 diabetes mellitus without complicat ion 200285190 Active 2020 Not Available [facility] 4 21:23:09 Urinary tract infectiou s disease 08014432 Active 2021 Not Available [facility] 4 21:23:09 Pain of multiple joints 15394492 Active 2021 Not Available [facility] 4 21:23:09 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 Not Available [facility] 4 21:23:09 Gout 05210369 Active 2021 Not Available [facility] 4 21:23:09 Acute sinusitis 65182323 Active 2021 Not Available [facility] 4 21:23:09 Acute urinary tract infection 881619061 Active 2021 Not Available [facility] 4 21:23:09 Psoriatic arthritis 127496212 Active 2021 Not Available [facility] 4 21:23:09 Candidias is of skin 70027274 Active 2021 Not Available [facility] 4 21:23:09 Recurrent urinary tract infection 151119570 Active 2021 Not Available [facility] 4 21:23:09 Cough 69024665 Active 2021 Not Available [facility] 4 21:23:09 Sore throat 051905567 Active 2021 Not Available [facility] 4 21:23:09 Upper respirato ry infection 03616030 Active 2021 Not Available [facility] 4 21:23:09 Pain of left breast 4704738071 Active 2022 Not Available [facility] 4 21:23:08 Contusion of right elbow 06576714988 349173 Active 2022 Not Available [facility] 4 21:23:09 Pain of right elbow joint 98896552883 102211 Active 2022 Not Available [facility] 4 21:23:09 Dystrophi a unguium 65477089 Active 2022 Not Available [facility] 4 21:23:09 Easy bruising 218389125 Active 2022 Not Available [facility] 4 21:23:09 Bilateral ingrowing nail of toe of feet 55310446970 532369 Active 2022 Not Available [facility] 4 21:23:09 Proteinur ia 16674732 Active 2022 Not Available [facility] 4 21:23:09 Dysuria 00320206 Active 2022 Not Available [facility] 4 21:23:09 Ingrowing nail of toe of right foot 34345928396 492829 Active 2023 Gordon Mendoza DPM [address], [facility] [address], [place], [address] , [facility] 4 15:38:33 Tinea pedis 5558157 Active 2023 Gordon Mendoza DPM [address], [address], [place], [address] , [employer] [facility] 17:15:48 Type 2 diabetes mellitus 32556765 Active 2024 Gordon Mendoza DPM [address], [address], [place], [address] , [employer] [place] [facility] 11:30:46 Notes:Some problems listed i n Documents: #[id number], #[id number] could not be added to this patient's chart. Please review these documents and add these problems to the patient's chart manually as needed. Problem Notes None recorded. Procedures Surgical History Date Name Laterality Status Provider Name and Address Organization Details Recorded Time 025 Nail Debridement completed SKYLAR Gonzalez [address], [address], [place], [address], [employer] [facility] [employer] [facility] 03/29/2025 11:27:27 025 Nail Debridement completed SKYLAR Gonzalez, [address], [place], [address], [employer] [facility] [employer] [facility] 12/21/2024 16:47:08 024 Nail Debridement completed SKYLAR Gonzalez, [address], [place], [address], [employer] [facility] 08/09/2024 10:05:04 024 Nail Debridement completed SKYLAR Gonzalez, [address], [place], [address], [employer] [facility] 01/06/2024 15:38:25 023 Nail Debridement completed SKYLAR Gonzalez, [address], [place], [address], [employer] [facility] 09/09/2023 15:22:40 023 Nail Debridement completed SKYLAR Gonzalez, [address], [place], [address], [employer] [facility] 05/08/2023 16:45:00 023 Nail Debridement completed Gordon Mendoza DPM [address] [facility], [address], [place], [address], [facility] [employer] [facility] 02/20/2023 11:22:24 023 Bladder completed Not Available [facility] 01/22/2023 00:57:26 017 Orthopedic Surgery completed Not Available [facility] 01/22/2023 00:57:26 016 cystourethroscopy and dilation of urinary bladder completed Not Available [facility] 01/22/2023 00:57:26 016 Cystoscopy and treatment completed Not Available [facility] 01/22/2023 00:57:26 016 Diagnostic colonoscopy completed Not Available [facility] 01/22/2023 00:57:26 015 Laparoscopic cholecystectomy completed Not Available [facility] 01/22/2023 00:57:26 015 other completed Not Available [facility] 01/22/2023 00:57:26 Anes delivery only completed Not Available [facility] 01/22/2023 00:57:26 Breast Surgery completed Not Available [facility] 01/22/2023 00:57:26 Tonsillectomy completed Not Available [facility] 01/22/2023 00:57:26 Imaging Results None recorded. Procedure [...] mg tablet Take by oral route. take 1h7bqyp, 8u9elho, 7x2gias active Not Available Not Available No t [...] propionate 50 mcg/actuati on nasal spray,suspe nsion [place] 2 sprays every day by intranasa l [...] Updated DateTime 5 147.32 cm 38.7 kg/m2 57257.5 9 g 123 /min 14 /min 99 % 99 % 116/61 mm[Hg] Brook Jacob Levar PA [employer] [facility] 5 16:16:15 Date Recorded Body height Body mass index (BMI) Body weight Heart rate Respiratory rate Oxygen saturation Oxygen saturation in Arterial blood by Pulse oximetry Systolic And Diastolic Provider Name and Address Organization Details Last Updated DateTime 4 147.32 cm 38.7 kg/m2 47131.5 9 g 88 /min 14 /min 99 % 99 % 81/52 mm[Hg] [facility] [employer] [facility] 4 15:34:07 Date Recorded Body height Body mass index (BMI) Body weight Heart rate Respiratory rate Oxygen saturation Oxygen saturation in Arterial blood by Pulse oximetry Systolic And Diastolic Provider Name and Address Organization Details Last Updated DateTime 5 147.32 cm 38.7 kg/m2 32749.5 9 g 111 /min 14 /min 98 % 98 % 108/76 mm[Hg] Brook Jacob [employer] 5 10:41:53 Date Recorded Body height Body mass index (BMI) Body weight Heart rate Respiratory rate Oxygen saturation Oxygen saturation in Arterial blood by Pulse oximetry Systolic And Diastolic Provider Name and Address Organization Details Last Updated DateTime 4 147.32 cm 38.7 kg/m2 60446.5 9 g 88 /min 14 /min 98 % 98 % 108/65 mm[Hg] Brook Kishor [employer] [facility] [employer] 4 15:53:00 Date Recorded Body height Body mass index (BMI) Body weight Heart rate Oxygen saturation Oxygen saturation in Arterial blood by Pulse oximetry Systolic And Diastolic Provider Name and Address Organization Details Last Updated DateTime 4 147.32 cm 38.7 kg/m2 63565.5 9 g 86 /min 99 % 99 % 110/64 mm[Hg] JAK Brenner [place] [employer] [facility] [employer] 4 15:37:26 Social History Question Answer Notes LastModified by Organization Details LastModified Time Tobacco Smoking Status Never Smoker Not Available [facility] 01/22/2023 00:47:41 Do You Have An Advance Directive? No MIGRATION.337 [id number] Information not available 01/22/2023 Do You Wear A Helmet When Biking? Yes MIGRATION.586 8997718 Information not available 01/22/2023 Are You Blind Or Do You Have Difficulty Seeing? No MIGRATION.067 6394655 Information not available 01/22/2023 What Is Your Level Of Caffeine Consumption? Occasional MIGRATION.872 9201318 Information not available 01/22/2023 How Much Tobacco Do You Chew? None MIGRATION.080 3664774 Information not available 01/22/2023 In The 14 Days Before Symptom Onset, Have You Had Close Contact With A Laboratory-conf irmed COVID-19 While That Case Was Ill? No MIGRATION.445 0157046 Information not available 01/22/2023 In The 14 Days Before Symptom Onset, Have You Had Close Contact With A Person Who Is Under Investigation For COVID-19 While That Person Was Ill? No MIGRATION.832 0297895 Information not available 01/22/2023 Are You Deaf Or Do You Have Serious Difficulty Hearing? Yes L Ear 80% Loss MIGRATION.294 0207586 Information not available 01/22/2023 What Type Of Diet Are You Following? REGULAR MIGRATION.482 5422716 Information not available 01/22/2023 Which Illicit Or Recreational Drugs Have You Used? Edible Gummies Occasionally MIGRATION.441 0902707 Information not available 01/22/2023 What Is The Highest Grade Or Level Of School You Have Completed Or The Highest Degree You Have Received? [id number] MIGRATION.447 4913623 Information not available 01/22/2023 Have There Been Any Changes To Your Family Or Social Situation? No MIGRATION.531 4613819 Information not available 01/22/2023 What Is The Fluoride Status Of Your Home? Unknown MIGRATION.828 4442748 Information not available 01/22/2023 Are There Any Guns Present In Your Home? No MIGRATION.099 5484586 Information not available 01/22/2023 Do You Use Insect Repellent Routinely? No MIGRATION.091 3524501 Information not available 01/22/2023 Where Do You Live? [place]LevelHouse MIGRATION.021 2448990 Information not available 01/22/2023 Do You Have A Medical Power Of Supervisor Cab? No MIGRATION.960 7084717 Information not available 01/22/2023 What Was The Date Of Your Most Recent Tobacco Screening? 09/10/2023 [email or web address] Information not available 09/10/2023 Have You Ever Been Counseled For Unhealthy Alcohol Use? No MIGRATION.433 6286873 Information not available 01/22/2023 Do You Have Any Pets? Yes MIGRATION.281 0283084 Information not available 01/22/2023 What Is Your Relationship Status? MIGRATION.120 2731901 Information not available 01/22/2023 Do You Use Your Seat Belt Or Car Seat Routinely? Yes MIGRATION.221 4612328 Information not available 01/22/2023 Do You Have Smoke And Carbon Monoxide Detectors In Your Home? Yes MIGRATION.822 7473113 Information not available 01/22/2023 Are You Passively Exposed To Smoke? Yes Only In Car MIGRATION.710 9837859 Information not available 01/22/2023 Are There Any Smokers In Your House? No MIGRATION.219 5743653 Information not available 01/22/2023 How Much Tobacco Do You Smoke? No MIGRATION.808 6257886 Information not available 01/22/2023 What Types Of Sporting Activities Do You Participate In? None MIGRATION.191 8429837 Information not available 01/22/2023 Do You Use Sunscreen Routinely? Yes MIGRATION.139 3237674 Information not available 01/22/2023 Has Tobacco Cessation Counseling Been Provided? No Not Needed-never Smoked MIGRATION.324 1564767 Information not available 01/22/2023 How Many Years Have You Smoked Tobacco? 0 MIGRATION.928 9789480 Information not available 01/22/2023 Have You Recently Traveled Abroad? No MIGRATION.305 4489726 Information not available 01/22/2023 Have You Used IV Drugs? No MIGRATION.250 0673970 Information not available 01/22/2023 Do You Have Difficulty Walking Or Climbing Stairs? No MIGRATION.794 3619803 Information not available 01/22/2023 Do You Have Any Dietary Restrictions? No MIGRATION.059 3438289 Information not available 01/22/2023 Sex: Female Functional Status Question Answer Note LastModified by [employer] ion Details LastModified Time Do you use any illicit or recreational drugs? Yes MIGRATION.586261 6419 Information not available 01/22/2023 Do you or have you ever used any other forms of tobacco or nicotine? No MIGRATION.325155 3680 Information not available 01/22/2023 What is your level of alcohol consumption? Occasional MIGRATION.025906 6255 Information not available 01/22/2023 Do you or have you ever used smokeless tobacco? Never used smokeless tobacco MIGRATION.458887 2493 Information not available 01/22/2023 Do you have transportation difficulties? No MIGRATION.684396 7281 Information not available 01/22/2023 Are you able to walk? YESWOREST MIGRATION.843211 2633 Information not available 01/22/2023 Do you have difficulty doing errands alone? No MIGRATION.378495 1152 Information not available 01/22/2023 Are you able to care for yourself independently? 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 No MIGRATION.874565 4617 Information not available 01/22/2023 Do you or have you ever used e-cigarettes or vape? Never used electronic cigarettes MIGRATION.730694 5011 Information not available 01/22/2023 What is your exercise level? None MIGRATION.950736 5751 Information not available 01/22/2023 Mental Status Question Answer Note LastModified by Organizat ion Details LastModified Time Do you feel stressed (tense, restless, nervous, or anxious, or unable to sleep at night)? [id number] MIGRATION.22947638 26 Information not available 01/22/2023 Do you have difficulty concentrating, remembering or making decisions? No MIGRATION.65942248 26 Information not available 01/22/2023 Family History Relationship Description Onset Age of this Age Resolved Age Notes LastModified by Organization Details LastModified Time Mother Diabetes mellitus MIGRATION.264 2886681 Not available 01/22/2023 00:57:27 Mother Essential hypertension MIGRATION.538 6052528 Not available 01/22/2023 00:57:27 Mother Chronic progressive renal failure MIGRATION.869 0287176 Not available 01/22/2023 00:57:27 Mother Arthritis MIGRATION.074 6644851 Not available 01/22/2023 00:57:27 Mother Heart disease MIGRATION.914 8358922 Not available 01/22/2023 00:57:27 Son Urolithiasis MIGRATION.0 30 7523013 Not available 01/22/2023 00:57:27 Daughter Urolithiasis MIGRATION. 982 5048239 Not available 01/22/2023 00:57:27 Sister Chronic progressive renal failure MIGRATION.275 4234262 Not available 01/22/2023 00:57:27 Brother Diabetes mellitus MIGRATION.310 5442101 Not available 01/22/2023 00:57:27 Brother Family history of stroke MIGRATION.946 6761908 Not available 01/22/2023 00:57:27 Father Family history of stroke MIGRATION.465 4446171 Not available 01/22/2023 00:57:27 Father Heart disease MIGRATION.209 3280988 Not available 01/22/2023 00:57:27 Medical History Condition Response NERVE DISEASE N BLINDNESS N RHEUMATIC FEVER N KIDNEY STONES Y BLADDER PROBLEMS N OTHER # 1 N POLIO N LUNG [...] N CHRONIC PAIN SYNDROME N HYPOTHYROIDISM N CAROTID BLOCKAGE N CONSTIPATION N BACK / NECK PROBLEMS Y HAVE YOU BEEN HOSPITALIZED OR SEEN IN [facility] IN THE PAST YEAR ? Y [...] quadrivalent, PF 09/10/2023 completed Gabriel Smith MD [address] [place] [address], [address], [address], [facility] 09/21/2023 21:47:07 COVID-19, mRNA, LNP-S, PF, 30 mcg/0.3 mL dose 11/15/2021 completed Not Available [facility] 4 21:23:09 COVID-19, mRNA, LNP-S, PF, 30 mcg/0.3 mL dose 03/15/2021 completed Not Available [facility] 4 21:23:09 COVID-19, mRNA, LNP-S, PF, 30 mcg/0.3 mL dose 02/18/2021 completed Not Available [facility] 4 21:23:09 Influenza, split virus, quadrivalent, PF 09/14/2021 completed Not Available [facility] 4 21:23:10 Influenza, split virus, quadrivalent, PF 10/15/2019 completed Not Available [facility] 4 21:23:10 Influenza, split virus, quadrivalent, PF 10/27/2018 completed Not Available [facility] 4 21:23:10 Influenza, split virus, quadrivalent, PF 10/13/2017 completed Not Available [facility] 4 21:23:10 Influenza, split virus, quadrivalent, PF 09/29/2020 completed Not Available [facility] 4 21:23:10 Influenza, split virus, quadrivalent, PF 10/18/2015 completed Not Available [facility] 4 21:23:10 Influenza, split virus, trivalent, PF 09/23/2014 completed Not Available [facility] 2023 21:23:10 Past Encounters Encounter ID Performer Location Encounter Start Date Encounter Closed Date Diagnosis/Indication Diagnosis SNOMED-CT Code Diagnosis ICD10 Code Diagnosis Note [id number] Gabriel Smith MD [facility] [address] [address] 02/14/2021 00:00:00 02/18/2021 17:06:49 [id number] Gabriel Smith MD [facility] [address] [place] [address] 03/21/2021 00:00:00 04/15/2021 14:20:02 [id number] Gabriel Smith MD [facility] [address] [place] [address] 1 04/09/2021 00:00:00 04/09/2021 21:18:53 [id number] [facility] ic_Gateway _ATHENA_M IGRATION_ DEFAULT_1 _1 , 04/20/2021 00:00:00 04/20/2021 13:42:44 [id number] Gabriel Smith MD [facility] [place] [address] [place] [address] Ave[address] [facility] [address] [place] [address] 06/20/2021 00:00:00 06/24/2021 21:35:35 [id number] [facility] [place] [address] [place] [address] 07/19/2021 00:00:00 07/22/2021 20:32:52 [id number] [facility] [place] [address] [place] [address] 09/10/2021 00:00:00 09/13/2021 10:17:39 [id number] Dasia hurt MD [facility] Internal Med [facility] [address] [place], [place] [address]e., [address] [address] 09/14/2021 00:00:00 09/14/2021 16:26:18 [id number] Gabriel Smith MD [facility] Internal Med [facility] [address] [place], [place] [address]e., [address] [address] 09/26/2021 00:00:00 09/28/2021 22:29:32 [id number] Gabriel Smith MD [facility] Internal [facility] [address] [place], [place] [address]e., [address] [address] 10/10/2021 00:00:00 10/19/2021 16:11:24 [id number] [facility] [place] [address] [place] [address] 10/22/2021 00:00:00 10/22/2021 21:48:52 [id number] [facility] [place] [address] [place] [address] 11/12/2021 00:00:00 11/12/2021 20:07:28 [id number] [facility] [place] [address] [place] [address] 12/03/2021 00:00:00 12/04/2021 10:16:08 [id number] [facility] [place] [address] [place] [address] 03/11/2022 00:00:00 03/12/2022 13:54:14 [id number] Gabriel Smith MD [facility] [place] [address] [address] 03/21/2022 00:00:00 03/23/2022 16:50:28 [id number] [facility] [place] [address] [place] [address] 06/10/2022 00:00:00 06/11/2022 11:40:19 [id number] Gabriel Smith MD [facility] [place] [address] [address] 07/18/2022 00:00:00 07/29/2022 18:08:35 [id number] Charles Rollins MD [facility] [address] [address] 08/22/2022 00:00:00 08/22/2022 10:48:54 [id number] [facility] [place] [address] [facility] [address] [place] [address] 09/09/2022 00:00:00 09/10/2022 14:09:15 [id number] Dasia hurt MD [facility] [place] [address] [facility] [address] 09/20/2022 00:00:00 09/20/2022 16:10:29 [id number] Charles Rollins MD [facility] [address] [address] 11/07/2022 00:00:00 11/07/2022 13:33:03 [id number] Gabriel Smith MD [facility] Internal Med [facility] 15 2043 [facility], [address] [address] 11/14/2022 00:00:00 11/14/2022 23:15:15 [id number] Charles Rollins MD A[facility] [address] [place] [address] 12/19/2022 00:00:00 12/19/2022 10:01:39 [id number] Gabriel Smith MD AHS_GMG Internal Med [facility] [address] [address] 12/30/2022 00:00:00 12/30/2022 21:58:25 [id number] Gabriel Smith MD S_GMG Internal Med [facility] [address] [address] 01/08/2023 00:00:00 01/12/2023 15:26:33 [id number] Remy Singleton MD S_GMG [address] [address] 01/14/2023 00:00:00 01/14/2023 10:53:26 [id number] Charles Rollins MD S_GMG [facility] [address] [place] [address] 01/16/2023 00:00:00 01/16/2023 10:39:07 [id number] Gabriel Smith MD AHS[facility] Internal Med [facility] [address] [address] 02/13/2023 15:17:55 02/13/2023 16:41:41 Essential hypertension 28255006 I10 Type 2 johnie betes mellitus without complication 032565383 E11.9 L60.0 Psoriatic arthritis 1563 22621 L40.50 Dyslipidemia 000564373 E 78.5 [id number] Gordon Mendoza DPM [facility] [place] [address] [place] [address] 25 [place] [address] 02/20/2023 11:05:27 02/20/2023 11:50:17 Ingrowing toenail 923359645 L60.0 left medial great toeslant back procedure performed todayMonit or area for worsening signs of infection and presents seek medical attention immediatel yFollow-up as needed if continues to be problemati c will require partial matrixecto my. Dystrophia unguium 59963 009 L60.3 Nails 1 through 10 were debrided with sharp mechanical debridemen t without incident. Nails were debrided and greater than 50% length and thickness where needed. [id number] Gordon Mendoza DPM [facility] [place] [address] [address] 05/08/2023 16:22:01 05/08/2023 16:53:15 Type 2 diabetes mellitus without complication 136075082 E11.9 L60.0 Continue PCP recommenda tionscheck feet daily for wounds infectionC ontinue supportive shoe gearFollow -up in 4 months Ingrowing toenail 568069 009 L60.0 left medial great toeslant back procedure performed todayMonit or area for worsening signs of infection and presents seek medical attention immediatel yFollow-up as needed if continues to be problemati c will require partial matrixecto my. Dystrophia unguium 96275 009 L60.3 Nails 1 through 10 were debrided with sharp mechanical debridemen t without incident. Nails were debrided and greater than 50% length and thickness where needed. [id number] Gabriel Smith MD [facility] Internal Med [facility] [address] [address] 08/21/2023 16:04:31 08/21/2023 17:06:14 Easy bruising 627442947 R58 Type 2 johnie betes mellitus without complication 114944021 E11.9 L60.0 Dyslipidemia 786455601 E 78.5 Essential hypertension 12706931 I10 Cough 50586462 R05.9 [id number] Gordon Mendoza DPM [facility] [place] [address] [address] 09/09/2023 15:07:11 09/09/2023 15:31:06 Bilateral ingrowing nail of toe of feet [id number] 5627405 L60.0 both borders both great toenailsRe viewed treatment optionsPat ient does not want any further in depth surgical partial matrixecto myPatient elects to undergo slant back procedure performed both great toeswound care reviewed with the patientIf signs or symptoms of infection present seek medical attention immediatel yFollow-up as needed or in 4 months for continued nail care to prevent recurrence of ingrown [id number] Gabriel Smith MD [facility] Internal Med [facility] [address] [address] 09/10/2023 15:06:08 09/10/2023 17:03:40 Administration of influenza vaccine 80743064 Z23 Type 2 johnie betes mellitus without complication 656391709 E11.9 L60.0 Essential hypertension 02801756 I10 Dyslipidemia 855549505 E 78.5 Anxiety 07473813 F41.9 [id number] Gordon Mendoza DPM [facility] Pod[facility] [place] [address] [address] 01/06/2024 15:28:49 01/08/2024 09:19:26 Ingrowing nail of toe of right foot 2833549651 0213826 L60.0 debrided without incident Dystrophia unguium 65939 009 L60.3 Nails 1 through 10 were debrided with sharp mechanical debridemen t without incident. Nails were debrided and greater than 50% length and thickness where needed. Type 2 johnie betes mellitus without complication 085809821 E11.9 L60.0 Continue PCP recommenda tionscheck feet daily for wounds infectionC ontinue supportive shoe gearFollow -up in 4 months Tinea pedis 7144184 B35. 3 daily hygienefol low up in 2 weeks [id number] Gordon Mendoza DPM [facility] Pod[facility] [place] [address] [place] [address] 04/06/2024 15:47:09 04/07/2024 11:44:33 Type 2 diabetes mellitus without complication 365976064 E11.9 L60.0 Continue PCP recommenda tionscheck feet daily for wounds infectionC ontinue supportive shoe gearFollow -up in 3-4 months Dystrophia unguium 63334 009 L60.3 Nails 1 through 10 were debrided with sharp mechanical debridemen t without incident. Nails were debrided and greater than 50% length and thickness where needed. [id number] Gordon Mendoza DPM [facility] [address] [place] [address] 07/27/2024 15:34:22 08/09/2024 13:54:41 Type 2 diabetes mellitus without complication 991391894 E11.9 L60.0 Continue PCP recommenda tionscheck feet daily for wounds infectionC ontin supportive shoe gearFollow -up in 3-4 months Dystrophia unguium 75949 009 L60.3 Nails 1 through 10 were debrided with sharp mechanical debridemen t without incident. Nails were debrided and greater than 50% length and thickness where needed. [id number] Gordon Mendoza DPM [facility] [address] [place] [address] 12/21/2024 16:06:14 12/22/2024 16:36:21 Type 2 diabetes mellitus without complication 454168825 E11.9 L60.0 Continue PCP recommenda tionscheck feet daily for wounds infectionC ontin supportive shoe gearFollow -up in 3-4 months Dystrophia unguium 59795 009 L60.3 Nails 1 through 10 were debrided with sharp mechanical debridemen t without incident. Nails were debrided and greater than 50% length and thickness where needed. [id number] Gordon Mendoza DPM [facility] [address] [place] [address] 03/29/2025 10:36:37 04/01/2025 11:28:04 Dystrophia unguium 51963648 L60.3 Nails 1 through 10 were debrided with sharp mechanical debridemen t without incident. Nails were debrided and greater than 50% length and thickness where needed. Type 2 johnie betes mellitus 43155539 E11.9 Continue PCP recommenda tionscheck feet daily [...] Munoz Member ID Guarantor Name 04/01/2025 1 [facility] - CHOICE PLUS (POS) [id number] Joan Warren [id number] Joan Warren 12/21/2024 [facility] Joan Warren SELF SELF Joan Warren OBGyn Episode No OBEpisode recorded.
--- OUTSIDE RECORDS SUMMARY | 2025-06-21 14:12 | XMS_ITS | Encounter Summary ---
Author Organization [facility] Healthcare Address [address] [place] [address] Care Team Providers Care Correctional Therapy Teacher Name Role Phone Raul Smith MD Primary Care Provider [phone] Encounter Details Date Type Department Care Team (Late st Contact Info) Description 06/21/2025 10:15 AM CDT Lab [facility] Outpatient Lab at [address] [address] Controlled type 2 diabetes mellitus with hyperglycemia (HCC) (Primary Dx); Hypertension, essential Social History Tobacco Use Types Packs/Day Years Used Date Smoking Tobacco: Never Smokeless Tobacco: Never Comments No Sex and Gender Information Value Date Recorded Sex Assigned at Not on file Legal Sex Female 9:20 AM TOE FORMER Gender Identity Not on file Sexual Orientation Not on file documented as of this encounter Plan of Treatment Scheduled Orders Name Type Priority Associated Diagnoses Orde r Schedule Comprehensive metabolic panel Lab Routine Controlled type 2 diabetes mellitus with hyperglycemia (HCC) Hypertension, essential Expected: 06/24/2025, Expires: 06/21/2026 Hemoglobin A1c Lab Routine Controlled type 2 diabetes mellitus with hyperglycemia (HCC) Hypertension, essential Expected: 06/24/2025, Expires: 06/21/2026 PTH Lab Routine Controlled type 2 diabetes mellitus with hyperglycemia (HCC) Hypertension, essential Expected: 06/24/2025, Expires: 06/21/2026 Vitamin D 25 hydroxy Lab Routine Controlled type 2 diabetes mellitus with hyperglycemia (HCC) Hypertension, essential Expected: 06/24/2025, Expires: 06/21/2026 Urinalysis reflex to microscopic and culture Urine, clean voided Microbiology Routine Controlled type 2 diabetes mellitus with hyperglycemia (HCC) Hypertension, essential Expected: 06/24/2025, Expires: 06/21/2026 Potassium, urine, random Lab Routine Controlled type 2 diabetes mellitus with hyperglycemia (HCC) Hypertension, essential Expected: 06/24/2025, Expires: 06/21/2026 Osmolality, urine Lab Routine Controlled type 2 diabetes mellitus with hyperglycemia (HCC) Hypertension, essential Expected: 06/24/2025, Expires: 06/21/2026 Chloride, urine, random Lab Routine Controlled type 2 diabetes mellitus with hyperglycemia (HCC) Hypertension, essential Expected: 06/24/2025, Expires: 06/21/2026 Creatinine, urine, random Lab Routine Controlled type 2 diabetes mellitus with hyperglycemia (HCC) Hypertension, essential Expected: 06/24/2025, Expires: 06/21/2026 Sodium, urine, random Lab Routine Controlled type 2 diabetes mellitus with hyperglycemia (HCC) Hypertension, essential Expected: 06/24/2025, Expires: 06/21/2026 Protein, urine, random Lab Routine Controlled type 2 diabetes mellitus with hyperglycemia (HCC) Hypertension, essential Expected: 06/24/2025, Expires: 06/21/2026 documented as of this encounter Visit Diagnoses Diagnosis Controlled type 2 diabetes mellitus with hyperglycemia (HCC)- Primary Hypertension, essential Unspecified essential hypertension documented in this encounter Care Teams Correctional Therapy Teacher Relationship Specialty Start Date End Date Raul Smith MD PCP - General Internal Medicine 07/03/21 documented as of this encounter
--- OUTSIDE RECORDS SUMMARY | 2025-06-21 14:12 | XMS_ITS | Clinical Summary ---
Author Organization [facility] Address [address] [place] [address] Care Team Providers Care Urologic Surgeon Name Role Phone Raul Smith MD Primary Care Provider [phone] Source Comments [facility],non-owned Affiliates and Associated Physician Practices is amultiple site organization consisting of ambulatory clinics and hospital sitesin [place], [place], [place] and [place]. This disclosure is being madepursuant to the Care Everywhere program and may not contain all information available regarding this patient. Last updated 18.[facility] Allergies No known active allergies Medications * [...] and heating? Not hard at all 11/13/2024 [facility] - Occupational [...] in the past 12 m [facility], were you homeless or living in a residential (including now)? No 11/13/2024 Comments No Sex and Gender Information Value Date Recorded Sex Assigned at Not on file Legal Sex Female 3:43 PM CREATIVE LEAD Gender Identity Not on file Sexual Orientation Not on file Last Filed Vital Signs Vital Sign Reading Time Taken Comments Blood Pressure 110/72 12/16/2024 1:55 PM CREATIVE LEAD Pulse 124 12/16/2024 1:55 PM CREATIVE LEAD Temperature 36.3 C (97.3 F) 12/16/2024 1:55 PM CREATIVE LEAD Respiratory Rate 18 11/13/2024 4:51 AM CREATIVE LEAD Oxygen Saturation 98% 12/16/2024 1:55 PM CREATIVE LEAD Inhaled Oxygen Concentration - - Weight 65.9 kg (145 lb 3.2 oz) 12/16/2024 1:55 P M CREATIVE LEAD Height 147.3 cm (4' 10) 12/16/2024 1:55 PM CREATIVE LEAD Body Mass Index 30.35 12/16/2024 1:55 PM CREATIVE LEAD Plan of Treatment Health Maintenance Due Date [...] PANEL (CALCIUM TOTAL) Routine 11/13/2024 2:51 AM CREATIVE LEAD from Last 3 Months or Most Recently Relevant to Health Maintenance Results * (ABNORMAL) BASIC METABOLIC PANEL (CALCIUM TOTAL) (11/13/2024 2:51 AM CREATIVE LEAD) BUN 14 7 - 26 mg/dL 11/13/2024 4:08 AM [facility] Creatinine 1.06(H) 0.56 - 0.96 mg/dL 11/13/2024 4:08 AM [facility] Sodium 143 136 - 145 mmol/L 11/13/2024 4:08 AM [facility] Potassium 3.8 3.5 - 4.5 mmol/L 11/13/2024 4:08 AM [facility] Chloride 112(H) 98 - 107 mmol/L 11/13/2024 4:08 AM [facility] CO2 19(L) 22 - 29 mmol/L 11/13/2024 4:08 AM [facility] Glucose 136(H) 70 - 99 mg/dL 11/13/2024 4:08 AM [facility] Calcium 9.2 8.4 - 10.2 mg/dL 11/13/2024 4:08 AM [facility] Anion Gap 12 6 - 16 11/13/2024 4:08 AM [facility] BUN/Creatinine Ratio 13 7 - 23 11/13/2024 4:08 AM [facility] Osmolality Calculated 299(H) 275 - 295 mOsm/kg 11/13/2024 4:08 AM [facility] eGFR by CKD-EPI 59(L) >=90 mL/min/1.7 3 m2 11/13/2024 4:08 AM [facility] Blood BLOOD SPECIMEN / Unknown Lab Venipuncture / Unknown 11/13/2024 2:51 AM CREATIVE LEAD 11/13/2024 3:43 AM [facility] Jacob Kay MD LAB - CHEMISTRY ORDERABLES Fin al Result [facility] [address] [place] [address], [facility] [phone] from Last 3 Months or Most Recently Relevant to Health Maintenance Insurance [facility] Advance Directives * Full Code (Latest Code Status on File) Date Activated Date Inactivated Comments 11/12/2024 9:20 PM 11/13/2024 4:39 PM Care Teams Urologic Surgeon Relationship Specialty Start Date End Date Raul Smith MD [address] [place] [address] PCP - General Internal Medicine 11/12/24
--- OUTSIDE RECORDS SUMMARY | 2025-06-21 14:12 | XMS_ITS | Patient Health Record ---
Author Organization [facility] Address [address] [place] [address] Care Team Providers Care Senior Training Specialist Name Role Phone Bernard Freitas Unavailable [phone] Reason For Referral No Information Medications Medication [...] tablet Orally ever y 12 hrs; Duration: 10 12/10/2024 Active Ergocalciferol 1.25 MG (02206 UT) 1 capsule Orally Once a week; [...] Hyperglycemia due to type 2 diabetes mellitus (810357283643755) Type 2 diabetes mellitus with hyperglycemia (E11.65) Active confirmed Problem Secondary hyperparathyroidism (09796481) Secondary hyperparathyroid ism, not elsewhere classified (E21.1) Active confirmed Problem Vitamin D deficiency (12268135) Vitamin D deficiency, unspecified (E55.9) Active confirmed Problem Subdural intracrania l hemorrhage (70305407) Nontraumatic subdural hemorrhage, unspecified (I62.00) Active confirmed Problem Renal osteodystrophy (54008041) Renal osteodystrophy (N25.0) Active confirmed Problem 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) Active confirmed Problem Urinary tract infectious disease (disorder) (35141007) Urinary tract infection, site not specified (N39.0) Active confirmed Problem Essential hypertension (84323140) Essential hypertension (I10) Active confirmed Problem Chronic kidney disease stage 3A (disorder) (189703412) Chronic kidney disease, stage 3a (N18.31) Active confirmed Encounters Encounter Location Date Provider Diagnosis [facility] [address] [place] [address] 07/30/2024 Bernard Freitas Chronic kidney disea se, stage 3 unspecified N18.30 ; Essential hypertension I10 ; Renal osteodystrophy N25.0 ; Secondary hyperparathyroidism, not elsewhere classified E21.1 ; Type 2 diabetes mellitus with hyperglycemia E11.65 ; Vitamin D deficiency, unspecified E55.9 and Urinary tract infection, site not specified N39.0 [facility] [address] [place] [address] 11/05/2024 Bernard Freitas Chronic kidney disea se, stage 3a N18.31 ; Essential hypertension I10 ; Renal osteodystrophy N25.0 ; Secondary hyperparathyroidism, not elsewhere classified E21.1 ; Type 2 diabetes mellitus with hyperglycemia E11.65 ; Vitamin D deficiency, unspecified E55.9 ; Urinary tract infection, site not specified N39.0 and Chronic kidney disease, stage 3 unspecified N18.30 [facility] [address] [place] [address] 12/10/2024 Bernard Freitas Chronic kidney disea se, stage 3a N18.31 ; Essential hypertension I10 ; Atrophy of kidney (terminal) N26.1 ; Urethral disorder, 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 and Nontraumatic subdural hemorrhage, unspecified I62.00 [facility] [address] [place] [address] 01/07/2025 Bernard Freitas Chronic kidney disea se, stage 3a N18.31 ; Essential hypertension I10 ; Atrophy of kidney (terminal) N26.1 ; Renal osteodystrophy N25.0 ; Secondary hyperparathyroidism, not elsewhere classified E21.1 ; Type 2 diabetes mellitus with hyperglycemia E11.65 ; Vitamin D deficiency, unspecified E55.9 ; Urinary tract infection, site not specified N39.0 and Nontraumatic subdural hemorrhage, unspecified I62.00 [facility] [address] [place] [address] 03/11/2025 Bernardstewart Freitas Chronic kidney disea se, stage 3a N18.31 ; Essential hypertension I10 ; Atrophy of kidney (terminal) N26.1 ; Renal osteodystrophy N25.0 ; Secondary hyperparathyroidism, not elsewhere classified E21.1 ; Type 2 diabetes mellitus with hyperglycemia E11.65 ; Vitamin D deficiency, unspecified E55.9 ; Urinary tract infection, site not specified N39.0 and Nontraumatic subdural hemorrhage, unspecified I62.00 [facility] [address] [place] [address] 05/06/2025 Bernard Freitas Chronic kidney disea se, stage 3a N18.31 ; Essential hypertension I10 ; Atrophy of kidney (terminal) N26.1 ; Renal osteodystrophy N25.0 ; Secondary hyperparathyroidism, not elsewhere classified E21.1 ; Type 2 diabetes mellitus with hyperglycemia E11.65 ; Vitamin D deficiency, unspecified E55.9 ; Urinary tract infection, site not specified N39.0 and Nontraumatic subdural hemorrhage, unspecified I62.00 [facility] [address] [place] [address] 12/10/2024 Bernard [facility] [address] [address] 12/10/2024 Bernard [facility] [address] [address] 12/10/2024 Bernard [facility] [address] [place] [address] 03/11/2025 Bernard [facility] [address] [address] 03/11/2025 Bernard [facility] [address] [place] [address] 05/06/2025 Bernard [facility] [address] [place] [address] 07/30/2024 Bernard Freitas [facility] [address] [place] [address] 08/26/2024 Bernard Freitas Assessments Encounter Date Diagnosis [...] , 07/08/2025 01:30:00 AM, [address], [facility], [address],
--- OUTSIDE RECORDS SUMMARY | 2025-06-21 14:12 | XMS_ITS | Referral Summary ---
Author Organization [facility] [address] [place] [id number] Care Team Providers Care Heater Helper Forge Name Role Phone Raul Smith MD Primary Care Provider [phone] Encounters Date Type Department Care Team Description 06/21/2025 1:30 PM CDT Lab [facility] Outpatient Lab at [address] [address] 06/21/2025 10:15 AM CDT Lab [facility] Outpatient Lab at [address] [address] Controlled type 2 diabetes mellitus with hyperglycemia (HCC) (Primary Dx); Hypertension, essential 05/02/2025 3:24 PM CDT - 05/02/2025 11:59 PM CDT Hospital Encounter [facility] [id number] [place] [address] Chronic kidney disease, stage III (moderate) (HCC); Mixed hyperlipidemia; Type II or unspecified type diabetes mellitus with renal manifestations, 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.42) (HCC); Edema; Avitaminosis D; Urinary tract infection, site not specified; Urinary frequency; Hyperparathyroidism, unspecified; Nonspecific abnormal results of thyroid function study; Vitamin D deficiency Discharge Disposition: Discharge to home or self care 05/02/2025 9:15 AM CDT Lab [facility] Outpatient Lab at [address] [address] Chronic kidney disease, stage III (moderate) (HCC) (Primary Dx); Mixed hyperlipidemia; Type II or unspecified type diabetes mellitus with renal manifestations, 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.42) ([facility]); Edema; Avitaminosis D; Urinary tract infection, site not specified; Urinary frequency; Hyperparathyroidism, unspecified; Nonspecific abnormal results of thyroid function study from Last 3 Months Allergies Active Allergy [...] (07/04/2021): Added automatically from request for surgery [id number] Social History Tobacco Use Types Packs/Day Years Used Date Smoking Tobacco: Never Smokeless Tobacco: Never Comments No Sex and Gender Information Value Date Recorded Sex Assigned at Not on file Legal Sex Female 9:20 AM LINE LEADER Gender Identity Not on file Sexual Orientation [...] BLOOD ORDERABLES Final Res ult [facility] [address] [address] Department [place] [address] * Differential, auto (05/02/2025 12:00 PM CDT) Neutrophil abs 4.01 1.50 - 6.50 K/cumm Imm gran abs 0.02 0.00 - 0.10 K/cumm [facility] Lymphocyte abs 1.65 0.80 - 3.30 K/cumm [facility] Monocyte abs 0.43 0.20 - 0.80 K/cumm [facility] Eosinophil abs 0.29 0.00 - 0.50 K/cumm [facility] Basophil abs 0.04 0.00 - 0.10 K/cumm [facility] Neutrophil pct 62.3 % [facility] Comment: Interpretive Data Percent cell count reference ranges are not reported, since discordance with absolute values may lead to misinterpretation of CBC data. Current Interpretive Data was last revised on 2018. Imm gran pct 0.3 % [facility] Comment: Interpretive Data Percent cell count reference ranges are not reported, since discordance with absolute values may lead to misinterpretation of CBC data. Current Interpretive Data was last revised on 2018. Lymphocyte pct 25.6 % [facility] Comment: Interpretive Data Percent cell count reference ranges are not reported, since discordance with absolute values may lead to misinterpretation of CBC data. Current Interpretive Data was last revised on 2018. Monocyte pct 6.7 % [facility] Comment: Interpretive Data Percent cell count reference ranges are not reported, since discordance with absolute values may lead to misinterpretation of CBC data. Current Interpretive Data was last revised on 2018. Eosinophil pct 4.5 % [facility] Comment: Interpretive Data Percent cell count reference ranges are not reported, since discordance with absolute values may lead to misinterpretation of CBC data. Current Interpretive Data was last revised on 2018. Basophil pct 0.6 % [facility] Comment: Interpretive Data Percent cell count reference ranges are not reported, since discordance with absolute values may lead to misinterpretation of CBC data. Current Interpretive Data was last revised on 2018. Blood 05/02/2025 12:0 0 PM CDT 05/02/2025 4:29 PM CDT us Bernard Freitas MD LAB BLOOD ORDERABLES Final Res ult [facility] AD[facility] [address] [address] Department [place] [address] * Urinalysis reflex to microscopic and culture [...] for uric acid stone formation. Source: [facility] Current Interpretive Data was last revised on [...] CDT Fax results to Dr Bernard Freitas [phone] Bernard Freitas MD LAB MICROBIOLOGY - GENERAL ORD ERABLES Final Result [facility] [address] [address] Department [place] [address] * (ABNORMAL) CBC with auto differential (05/02/2025 12:00 PM CDT) WBC 6.44 3.80 - 9.90 K/cumm Hgb 10.7(L) 11.9 - 15.5 g/dL [facility] Hct 34.7(L) 35.6 - 45.5 % [facility] Plt 467(H) 150 - 400 K/cumm [facility] MPV 8.4(L) 9.1 - 12.3 fL [facility] RBC 3.18(L) 3.90 - 5.20 M/cumm [facility] MCV 109.1(H) 81.3 - 96.4 fL [facility] MCH 33.6(H) 27.1 - 33.3 pg [facility] MCHC 30.8(L) 32.3 - 35.7 g/dL [facility] RDW CV 16.5(H) 11.1 - 14.9 % [facility] RDW SD 65.6(H) 35.7 - 48.1 fL [facility] NRBC abs 0.00 0.00 - 0.01 K/cumm [facility] Blood 05/02/2025 12:0 0 PM CDT 05/02/2025 4:29 PM CDT Narrative [facility] - 05/02/2025 4:46 PM CDT Fax results to Dr Bernard Freitas [phone] us Bernard Freitas MD LAB BLOOD ORDERABLES Final Res ult Performing Organization Address [facility] de Phone Number [facility] [address] [address] Department [place] [address] * (ABNORMAL) Albumin Creatinine Ratio, Urine (05/02/2025 12:00 PM CDT) Albumin Ur 36.8 mg/L Comment: Interpretive Data No reference range established. Current interpretive data was last revised 2019. Creatinine Ur 67.2 mg/dL [facility] Comment: Interpretive Data No reference range established. Current interpretive data was last revised 2019. Albumin Creatinine Ratio, Ur 55(H) 1 - 29 mg/g [facility] Urine (Urine, Clean Catch) 05/02/2025 12:00 PM CDT 05/02/2025 4:29 PM CDT Narrative [facility] - 05/02/2025 5:17 PM CDT Fax results to Dr Bernard Freitas [phone] us Bernard Freitas MD LAB URINE ORDERABLES Final Res ult Performing Organization Address [facility] Co de Phone Number [facility] [address] [address] [facility] [place] [address] * Vitamin D 25 hydroxy (05/02/2025 12:00 PM CDT) Vitamin D 25-OH 61 30 - 80 ng/mL Blood 05/02/2025 12:0 0 PM CDT 05/02/2025 4:29 PM CDT Narrative [facility] - 05/02/2025 5:23 PM CDT Fax results to Dr Bernard Freitas [phone] Bernard Freitas MD LAB BLOOD ORDERABLES Final Res ult [facility] AD[facility] [address] [address] [facility] [place] [address] * Uric acid (05/02/2025 12:00 PM CDT) Uric acid 4.2 2.5 - 7.0 mg/dL Blood Venous blood specimen / Unknown 05/02/2025 12:00 PM CDT 05/02/2025 4:29 PM CDT Narrative [facility] - 05/02/2025 5:33 PM CDT Fax results to Dr Bernard Freitas [phone] Bernard Freitas MD LAB BLOOD ORDERABLES Final Res ult [facility] [address] [address] [facility] [place] [address] * TSH (05/02/2025 12:00 PM CDT) Thyroid Stimulating Hormone 1.47 0.30 - 4.20 mcIUnit/mL Blood Venous blood specimen / Unknown 05/02/2025 12:00 PM CDT 05/02/2025 4:29 PM CDT Narrative [facility] 05/02/2025 5:33 PM CDT Fax results to Dr Bernard Freitas [phone] Bernard Freitas MD LAB BLOOD ORDERABLES Final Res ult Performing Organization Address City/[facility]/ZIP Co de Phone Number LUDIVINA ADAMS [address] [address] [facility] [place] [address] * PTH (05/02/2025 12:00 PM CDT) PTH 20 15 - 65 pg/mL Blood Venous blood specimen / Unknown 05/02/2025 12:00 PM CDT 05/02/2025 4:29 PM CDT Narrative [facility] - 05/02/2025 5:33 PM CDT Fax results to Dr Bernard Freitas [phone] Bernard Freitas MD LAB BLOOD ORDERABLES Final Res ult Performing Organization Address [facility] de Phone Number JOSE[facility]ND[facility] ADAMS [address] [facility] [place] [address] * (ABNORMAL) Hemoglobin A1c (05/02/2025 12:00 PM CDT) Hgb A1C 5.8(H) 4.0 - 5.6 % Estimated Average Glucose 120 mg/dL [facility] Comment: The ADA recommends reporting an estimated Average Glucose (eAG) with all Hemoglobin A1c results using the equation derived from a study of 507 normal and diabetic adults. Minority populations were underrepresented and children were not included. (Diabetes Care 31:8003-9867, 2008). The eAG is not equivalent to a fasting glucose. Blood Venous blood specimen / Unknown 05/02/2025 12:00 PM CDT 05/02/2025 4:29 PM CDT Narrative [facility] - 05/02/2025 4:57 PM CDT Fax results to Dr Bernard Freitas [phone] Bernard Freitas MD LAB BLOOD ORDERABLES Final Res ult Performing Organization Address [facility] Co de Phone Number JOSELYNDON ADAMS [address] [address] [place] [address] * (ABNORMAL) Comprehensive metabolic panel (05/02/2025 12:00 [...] CDT Fax results to Dr Bernard Freitas [phone] us Bernard Freitas MD LAB BLOOD ORDERABLES Final Res ult [facility] [address] [address] Department [place] [address] from Last 3 Months Insurance [facility] Address: [place] [address] [facility] Address: [place] [address] [facility] [employer] Address: [address] [address] [place] [address] Care Teams Heater Helper Forge Relationship Specialty Start Date End Date Raul Smith MD PCP - General Internal Medicine 07/03/21
--- OUTSIDE RECORDS SUMMARY | 2025-06-21 14:12 | XMS_ITS ---
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 :1960 A ge:64 Y S ex:Female Date:05/06/2025 Address:[address] [place] [address], [facility] Subjective: * Chief Complaints: * * Medical [...] Treatment: * Billing Information: * Visit Code: 08432 Office Visit, Est Pt., Level 4. * Procedure Codes: * Electronic signature of Marybeth Freitas MD on 06/21/2025 at 10:54 AM CDT Sign off status: Pending * Provider: Rom MAYA MD, F.A.C.P, F.A.S.N. Date: 0 05/06/2025 Generated for Printing/Faxing/eTransmitting on: 0 06/21/2025 10:54 AM CDT
--- OUTSIDE RECORDS SUMMARY | 2025-06-21 14:12 | XMS_ITS ---
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 :1960 A ge:64 Y S ex:Female Date:03/11/2025 Address:[address] [place] [address], [facility] Subjective: * Chief Complaints: * * Medical [...] Treatment: * Billing Information: * Visit Code: 15295 Office Visit, Est Pt., Level 4. * Procedure Codes: * Electronic signature of Marybeth Freitas MD on 06/21/2025 at 10:54 AM CDT Sign off status: Pending * Provider: Rom MAYA MD, F.A.C.P, F.A.S.N. Date: 0 03/11/2025 Generated for Printing/Faxing/eTransmitting on: 0 06/21/2025 10:54 AM CDT
--- OUTSIDE RECORDS SUMMARY | 2025-06-21 14:12 | XMS_ITS | Encounter Summary ---
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 Name Role Phone Raul Smith MD Primary Care Provider [phone] Encounter Details Date Type Department Care Team (Late st Contact Info) Description 06/21/2025 1:30 PM CDT Lab [facility] Outpatient Lab at [address] [address] Social History Tobacco Use Types Packs/Day Years Used Date Smoking Tobacco: Never Smokeless Tobacco: Never Comments No Sex and Gender Information Value Date Recorded Sex Assigned at Not on file Legal Sex Female 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
== END 2025-06-21 14:01 | disposition home or self-care (01) ==
PROVIDERS: PCP Internal Medicine; Visit Provider Urology
DX: N20.0 Calculus of kidney (principal); D73.89 Other diseases of spleen
CPT/HCPCS: 74018